=== PATIENT | female | born 1945 | race Caucasian/White ===

== ENCOUNTER → 2017-09-27 12:59 | Outpatient (CLI) | payer MEDICARE, SELFPAY ==
--- NOTE | 2017-09-27 13:00 | SP.MBSS_ITS ---
PRIMARY / SECONDARY DIAGNOSIS: dysphagia (R13.10) REFERRING PHYSICIAN: TIA WintersC CURRENT DIET: regular textures, thin liquids DENTITION: WFL MENTAL STATUS: appropriate to participate in MBS RESPIRATORY STATUS: O2 via room air PREVIOUS MODIFIED BARIUM SWALLOW STUDY: 06/26/2014 MBS revealed mild oropharyngeal dysphagia with transient penetration of thin liquids. 05/21/2014 MBS revealed mild to moderate oropharyngeal dysphagia with penetration and transient aspiration of thin liquids 07/24/2013 MBS revealed moderate oral phase dysphagia with penetration and transient aspiration of regular textures. REASON FOR REFERRAL: Patient is a 71 year old female referred for a modified barium swallow (MBS) study to objectively assess the Patients oropharyngeal swallow function under fluoroscopy secondary to the diagnosis of Parkinsons disease. Patients daughter present, both report intermittent coughing during PO intake possibly associated with thin liquid ingestion. 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 ([facility]), though in October of 2015, Patient was unable to progress due to a week-long hospitalization, with no re-initiation and subsequent discharge. MEDICAL HISTORY: Parkinson disease, breast cancer, diverticulosis, hypertension, hyperlipidemia , iodine allergy. STUDY FINDINGS: Patient participated in a Modified Barium Swallow (MBS) study on 09/27/2017. Dr. Taveras was the radiologist present for this evaluation. This study was recorded in the lateral view and images were sent to PACs for storage. The following consistencies were presented to this patient for analysis of oropharyngeal swallow function: thin liquids, nectar thickened liquids, pudding , and a regular textured, [place] Doone cookie. Results of the MBS are as follows: PENETRATION / ASPIRATION SCALE (FERNANDES): 1 = does not enter airway 2 = enters airway/above vocal folds/ejected 3 = enters airway/above vocal folds/not ejected 4 = enters airway/contacts vocal folds/ejected 5 = enters airway/contacts vocal folds/not ejected 6 = enters airway/below vocal folds/ejected 7 = enters airway/below vocal folds/not ejected despite effort 8 = enters airway/below vocal folds/no effort VIDEOFLOROSCOPIC SCALE SCORE (FERNANDES): Grade I = aspiration of material that has penetrated into the laryngeal vestibule, intact cough reflex Grade II = aspiration < 10 % of the bolus, intact cough reflex Grade III = aspiration of < 10 % of the bolus, reduced cough reflex or aspiration of > 10 % of the bolus, intact cough reflex Grade IV = aspiration of > 10 % of the bolus, reduced cough reflex PENETRATION / ASPIRATION SCALE (SCORE) WITH VIDEOFLOROSCOPIC SCALE SCORE: Thin liquid - 5 mL tsp.: 1 Thin liquids via cup (single sip): 5 Thin liquids via cup (single sip): 5 Thin liquids via cup (single sip): 8 - Grade III Thin liquids via cup (single sip): 8 - Grade IV [place] thickened liquids via cup (single sip): 1 [place] thickened liquids via cup (single sip): 1 [place] thickened liquids via cup (single sip): 2 [place] thickened liquids via cup (chin tuck): 1 [place] thickened liquids via cup (chin tuck): 2 [place] thickened liquids via cup (chin tuck): 1 Pudding via spoon: 1 Regular textured cookie: 1 [place] thickened liquids via cup (single sip): 1 IMPRESSION: DIAGNOSIS: moderate oropharyngeal dysphagia (R13.12) ORAL PHASE CHARACTERIZED BY: LABIAL SEAL: no labial escape TONGUE CONTROL DURING BOLUS MANIPULATION: posterior escape of less than half of bolus (decline) BOLUS PREPARATION / MASTICATION: slow prolonged chewing/mashing with complete recollection BOLUS TRANSPORT / LINGUAL MOTION: brisk tongue motion; noted delayed lingual motion during pureed trials associated with miscommunication between clinician and Patient. ORAL RESIDUE: residue collection on oral structures (decline) PHARYNGEAL PHASE CHARACTERIZED BY: INITIATION OF PHARYNGEAL SWALLOW: bolus head in pyriforms at first hyoid excursion (decline) SOFT PALATE ELEVATION: intermittent trace column of contrast/air between soft palate and pharyngeal wall (decline) LARYNGEAL ELEVATION: partial superior movement of thyroid cartilage/partial approximation of arytenoids cartilage to epiglottic petiole ANTERIOR HYOID EXCURSION: partial anterior movement (decline) EPIGLOTTIC MOVEMENT: complete epiglottic inversion LARYNGEAL VESTIBULE CLOSURE AT HEIGHT OF SWALLOW: incomplete laryngeal vestibule closure with narrow column of air/contrast in laryngeal vestibule PHARYNGEAL STRIPPING WAVE: pharyngeal stripping wave present / diminished ( decline) PHARYNGOESOPHAGEAL SEGMENT OPENING: partial distension and partial duration; partial obstruction of flow (decline) TONGUE BASE RETRACTION: trace column of contrast between tongue base and posterior pharyngeal wall PHARYNGEAL RESIDUE: collection of residue within or on pharyngeal structures ( decline) ESOPHAGEAL PHASE CHARACTERIZED BY: ESOPHAGEAL BOLUS CLEARANCE IN THE UPRIGHT POSITION: complete clearance; esophageal coating EFFECTS OF TREATMENT STRATEGIES ATTEMPTED: Chin tuck posture = moderately effective Reduced bolus size = moderately effective DIET TEXTURE RECOMMENDATIONS: Will recommend a regular-soft textured, nectar thickened liquid diet. COMPENSATORY STRATEGIES RECOMMENDED: Chin tuck with thin liquids, reduced bolus volume, reduced rate of intake, seated upright at 90 degrees during PO intake, remain upright for 30-60 minutes post meal (GERD precaution), medications with applesauce, INTERPRETATION OF RESULTS: Patient presents with moderate oropharyngeal dysphagia (R13.12) secondary to the diagnosis of Parkinsons disease. Pharyngeal phase marked by delayed pharyngeal swallow onset timing and reduced closure of the airway during deglutition resulting in pre-prandial and prandial aspiration of thin liquids; and to a lesser extent poor pharyngeal motility / pharyngeal dysmotility placing the Patient at higher risk for post prandial aspiration. Velopharyngeal insufficiency noted, though no clinical significance aside from hypernasality during conversation. Insufficient laryngeal vestibule pressure generated to expel penetrated material during trials of thin liquids (improved ejection with nectar thickened liquids). Insufficient cued cough to expel penetrated material / laryngotracheal aspiration. Patient noted to SILENTLY aspirate with thin liquids, with clinical assessment at bedside relying on identification of classic overt signs and symptoms of aspiration unreliable. RECOMMENDATIONS: Would strongly discourage advancement to a PO diet without completion of a repeat modified barium swallow study due to the extent of aspiration identified that was SILENT in nature. Would consider a repeat modified barium swallow study following training and implementation of compensatory swallow strategies ( chin tuck) if the Patient is able to consistently demonstrate and implement targeted strategies (possibly within 4-8 weeks, at least 2 weeks of consistent execution). Would consider implementation of the [place] Free Water Protocol ( FFWP) following Patient and family education IF the Patient has the adequate level of supervision / assistance at home. Patient requires intensive skilled speech-language intervention targeting continued diet texture management; training and implementation of recommended compensatory strategies; training, implementation, and Patient education regarding implementation of the FFWP if deemed clinically appropriate; Patient and caregiver education regarding dysphagia associated with Parkinsons disease; and Patient and caregiver training targeting thickened liquid preparation. Would consider training and implementation of oropharyngeal strengthening exercises to facilitate improved oropharyngeal strength and coordination, though significant improvement is not likely due to the progressive nature of the Patients diagnosis. ADDITIONAL COMMENTS/RECOMMENDATIONS: Results and recommendations were discussed with the Patient immediately following MBS completion, with the Patient verbalizing understanding and agreement with all recommendations and education provided. IMAGE COUNT: [id number] G-CODES: SWALLOWING [id number] Current Status: CJ SWALLOWING G8997 Goal Status: CI SWALLOWING [id number] Discharge Status: CJ
--- NOTE | 2017-09-27 13:10 | RAD_ITS ---
STUDY: SWALLOWING STUDY REASON FOR EXAM: Female, 71 years old. Dysphagia and weakness. TECHNIQUE: The examination was performed with Speech Pathology in attendance. Under fluoroscopic observation, the patient ingested thin barium, thick barium, barium pudding, and barium coated cracker. FLUOROSCOPY TIME: 2:36 minutes/seconds. 3711 spot images were obtained. RADIOLOGIST INVOLVEMENT: Radiologist was present and providing direct supervision. COMPARISON: None. FINDINGS: The following was observed during swallowing of the various mixtures of barium: Thin Barium: Aspiration with ingestion of thin liquids. Thick Barium: Penetration with ingestion of nectar thickened liquids. Barium Pudding: There was no evidence of aspiration or laryngeal penetration. Barium Coated Cracker: There was no evidence of aspiration or laryngeal penetration. RAD/Swallowing Function w/Video IMPRESSION: Aspiration with ingestion of thin liquids. The swallow study findings were discussed with the patient by the speech pathologist at the conclusion of the examination. Please see speech pathology report for more information and recommendations. Electronically Signed: Ismael Taveras MD at 15:22 EDT Tel [phone], Service support ,
== END ==
PROVIDERS: Family Provider Family Medicine; PCP Family Medicine; Visit Provider Nurse Practitioner Acute Care
DX: G20 Parkinson's disease (principal); R49.9 Unspecified voice and resonance disorder
CPT/HCPCS: 74230; 92611; G8996; G8997; G8998

== ENCOUNTER → 2017-10-02 10:03 | Outpatient (CLI) | payer MEDICARE, SELFPAY ==
[2017-10-02 12:21] LABS: Absolute Lymphocyte Count 0.93 X10^3/ul (0.83-4.51); Absolute Neutrophil Count 4.2 X10^3/uL (2.0-7.7); Basophil# 0.08 X10^3/uL; Basophil% 1.4 % (0-1); Eosinophil# 0.07 X10^3/uL; Eosinophils% 1.3 % (0-5); Hematocrit 39.4 % (37-47); Hemoglobin 12.9 g/dl (12.0-15.0); Lymphocyte # 0.93 X10^3/ul (4.0); Lymphocyte % 16.6 % (19-41); Mean Corp Hgb Conc 32.7 g/gl (32-36); Mean Corpuscular Hgb 32.8 pg (27.0-32.0); Mean Corpuscular Volume 100.3 fL (81-99); Mean Platelet Vol. 10.5 fl (6.2-12.0); Monocyte# 0.35 X10^3/uL; Monocyte% 6.3 % (0-10); Neutrophil # 4.16 X10^3/uL (2.7-7.7); Neutrophil % 74.2 % (47-70); Platelet Count 223 K/mm3 (150-450); RBC Distribution Width SD 43.5 fl (35.1-43.9); Red Blood Count 3.93 M/mm3 (4.2-5.4); White Blood Count 5.6 K/mm3 (4.4-11.0)
[2017-10-02 12:29] LABS: POSITIVE COUNT NO; POSITIVE DIFFERENTIAL NO; POSITIVE MORPHOLOGY NO
[2017-10-02 12:33] LABS: Vitamin D,25 Hydroxy 48.1 ng/mL (29.95-100.01)
[2017-10-02 12:38] LABS: Anion Gap 6 (5-15); BUN 21 mg/dL (7-18); BUN/Creat Ratio 27.7 RATIO (10-20); Calcium,Total 8.9 mg/dL (8.5-10.1); Chloride 98 mmol/L (98-107); Creatinine, Serum 0.76 mg/dL (0.55-1.02); EST Glomerular Filtration Rate 80 mL/min (>60); Est Glom Filt Rate - Afr Amer 96 mL/min (>60); Glucose 87 mg/dL (74-106); Sodium Level 136 mmol/L (136-145); Thyroid Stim Hormone (TSH) 0.45 uIU/mL (0.358-3.74)
== END ==
PROVIDERS: Family Provider Family Medicine; PCP Family Medicine; Visit Provider Family Medicine
DX: I48.0 Paroxysmal atrial fibrillation (principal); I10 Essential (primary) hypertension; E55.9 Vitamin D deficiency, unspecified; N39.0 Urinary tract infection, site not specified
CPT/HCPCS: 36415; 80048; 82306; 84443; 85025; 87086; 87088

== ENCOUNTER → 2017-12-20 12:44 | Outpatient (CLI) | payer MEDICARE, SELFPAY ==
--- NOTE | 2017-12-20 12:46 | RAD_ITS ---
STUDY: SWALLOWING STUDY REASON FOR EXAM: Female, 72 years old. Dysphagia. TECHNIQUE: The examination was performed with Speech Pathology in attendance. Under fluoroscopic observation, the patient ingested thin barium, thick barium, barium pudding, and barium coated cracker. FLUOROSCOPY TIME: 2:30 minutes/seconds. 1451 fluoroscopy spots were obtained. RADIOLOGIST INVOLVEMENT: Radiologist was present and providing direct supervision. COMPARISON: None. FINDINGS: The following was observed during swallowing of the various mixtures of barium: Thin Barium: Transient penetration with ingestion of thin liquids. This improves with delay swallow technique. Barium Pudding: There was no evidence of aspiration or laryngeal penetration. Barium Coated Cracker: There was no evidence of aspiration or laryngeal penetration. RAD/Swallowing Function w/Video IMPRESSION: Transient penetration with ingestion of thin liquids. The swallow study findings were discussed with the patient by the speech pathologist at the conclusion of the examination. Please see speech pathology report for more information and recommendations. Electronically Signed: Ismael Taveras MD at 14:46 EDT Tel [phone], Service support ,
--- NOTE | 2017-12-20 13:00 | SP.MBSS_ITS ---
PRIMARY / SECONDARY DIAGNOSIS: dysphagia (R13.10) REFERRING PHYSICIAN: Julianne Brady CNP CURRENT DIET: regular textures, thin liquids DENTITION: WFL MENTAL STATUS: appropriate to participate in MBS RESPIRATORY STATUS: O2 via room air PREVIOUS MODIFIED BARIUM SWALLOW STUDY: 09/27/2017 MBS revealed moderate oropharyngeal dysphagia (R13.12) with SILENT grade IV aspiration of thin liquids. 06/26/2014 MBS revealed mild oropharyngeal dysphagia with transient penetration of thin liquids. 05/21/2014 MBS revealed mild to moderate oropharyngeal dysphagia with penetration and transient aspiration of thin liquids 07/24/2013 MBS revealed moderate oral phase dysphagia with penetration and transient aspiration of regular textures. REASON FOR REFERRAL: Patient is a 72 year old female referred for a repeat modified barium swallow ( MBS) study to objectively assess the Patients oropharyngeal swallow function under fluoroscopy secondary to the diagnosis of Parkinsons disease. 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 MEDICAL HISTORY: Parkinson disease, breast cancer, diverticulosis, hypertension, hyperlipidemia , iodine allergy. STUDY FINDINGS: Patient participated in a Modified Barium Swallow (MBS) study on 12/20/2017. Dr. Taveras was the radiologist present for this evaluation. This study was recorded in the lateral view and images were sent to PACs for storage. The following consistencies were presented to this patient for analysis of oropharyngeal swallow function: thin liquids, pudding, and a regular textured, [place]a Doone cookie. Results of the MBS are as follows: PENETRATION / ASPIRATION SCALE (FERNANDSE): 1 = does not enter airway 2 = enters airway/above vocal folds/ejected 3 = enters airway/above vocal folds/not ejected 4 = enters airway/contacts vocal folds/ejected 5 = enters airway/contacts vocal folds/not ejected 6 = enters airway/below vocal folds/ejected 7 = enters airway/below vocal folds/not ejected despite effort 8 = enters airway/below vocal folds/no effort PENETRATION / ASPIRATION SCALE (SCORE): Thin liquid - 5 mL tsp.: 1 Thin liquids via cup (single sip): 1 Thin liquids via cup (single sip): 5 Thin liquids via cup (single sip): 1 Thin liquids via cup (3 second prep): 1 Thin liquids via cup (3 second prep): 1 Thin liquids via cup (3 second prep): 1 Pudding via spoon: 1 Regular textured cookie: 1 Thin liquids via cup (3 second prep): 1 Thin liquids via cup (3 second prep): 2 * all trials completed with execution of the chin tuck posture denotes suboptimal execution of the 3 second delay IMPRESSION: DIAGNOSIS: mild to moderate oropharyngeal dysphagia (R13.12) ORAL PHASE CHARACTERIZED BY: LABIAL SEAL: no labial escape TONGUE CONTROL DURING BOLUS MANIPULATION: posterior escape of less than half of bolus BOLUS PREPARATION / MASTICATION: slow prolonged chewing/mashing with complete recollection BOLUS TRANSPORT / LINGUAL MOTION: delayed initiation of tongue motion most prominently during trials of more viscous textures (5 seconds) with additional repetitive / discoordinated movements ORAL RESIDUE: residue collection on oral structures PHARYNGEAL PHASE CHARACTERIZED BY: INITIATION OF PHARYNGEAL SWALLOW: bolus head intermittently at posterior laryngeal surface of epiglottis at first hyoid excursion SOFT PALATE ELEVATION: intermittent trace column of contrast/air between soft palate and pharyngeal wall LARYNGEAL ELEVATION: partial superior movement of thyroid cartilage/partial approximation of arytenoids cartilage to epiglottic petiole ANTERIOR HYOID EXCURSION: partial anterior movement EPIGLOTTIC MOVEMENT: complete epiglottic inversion LARYNGEAL VESTIBULE CLOSURE AT HEIGHT OF SWALLOW: incomplete laryngeal vestibule closure with narrow column of air/contrast in laryngeal vestibule PHARYNGEAL STRIPPING WAVE: pharyngeal stripping wave present / diminished PHARYNGOESOPHAGEAL SEGMENT OPENING: complete distension and complete duration with no obstruction of flow TONGUE BASE RETRACTION: trace column of contrast between tongue base and posterior pharyngeal wall PHARYNGEAL RESIDUE: collection of residue within or on pharyngeal structures ESOPHAGEAL PHASE CHARACTERIZED BY: ESOPHAGEAL BOLUS CLEARANCE IN THE UPRIGHT POSITION: could not view EFFECTS OF TREATMENT STRATEGIES ATTEMPTED: 3 second prep = effective Chin tuck posture = moderately effective Reduced bolus size = moderately effective DIET TEXTURE RECOMMENDATIONS: Will recommend a regular-soft textured, nectar thickened liquid diet pending Patient follow up with outpatient therapist. COMPENSATORY STRATEGIES RECOMMENDED: Chin tuck and 3 second prep with thin liquids, reduced bolus volume, reduced rate of intake, seated upright at 90 degrees during PO intake, remain upright for 30-60 minutes post meal (GERD precaution), medications with applesauce, INTERPRETATION OF RESULTS: Patient presents with mild to moderate oropharyngeal dysphagia (R13.12) secondary to the diagnosis of Parkinsons disease. Oral phase primarily marked by intermittent delayed oral phase swallow onset most pronounced during ingestion of pudding textures, with prolonged oral phase delay (5 seconds) accompanied by lingual pumping / festinations. Pharyngeal phase marked by delayed pharyngeal swallow onset timing and reduced closure of the airway during deglutition resulting prandial penetration of thin liquids on two occasions with chin tuck posture (ameliorated with execution of 3 second prep). MBS otherwise very similar to previous study. Insufficient laryngeal vestibule pressure generated to expel penetrated material during trials of thin liquids ( improved ejection with nectar thickened liquids). RECOMMENDATIONS: No aspiration occurring this date, with study results indicating possible tolerance of thin liquids with 3 second prep combined with the chin tuck posture. However, the Patient is at high risk for aspiration and pulmonary complications associated with aspiration when considering the diagnosis of Parkinsons disease, weak cough response (dystussia), and silent aspiration recently appreciated under fluoroscopy. Would recommend advancing if the Patent understands that there is no guarantee that the above stated recommendations will prevent aspiration over a prolonged period of time, with further decline in swallow function anticipated with the diagnosis of Parkinsons disease. Recommended that the Patient discuss with her primary therapist prior to discontinuing nectar thickened liquids. If the Patient does not advance, would strongly consider placement on the [place] Free Water Protocol (FFWP) following Patient and family education, as the Patient was able to recall aspiration precautions and independently implement under fluoroscopy. Patient requires intensive skilled speech-language intervention targeting continued diet texture management; training and implementation of recommended compensatory strategies ( 3 second prep & chin tuck execution); and training, implementation, and Patient education regarding implementation of the FFWP if deemed clinically appropriate. ADDITIONAL COMMENTS/RECOMMENDATIONS: Results and recommendations were discussed with the Patient immediately following MBS completion, with the Patient verbalizing understanding and agreement with all recommendations and education provided. IMAGE COUNT: [id number] SWALLOWING [id number] Current Status: SWALLOWING G8997 Goal Status: SWALLOWING G8998 Discharge Status:
== END ==
PROVIDERS: Family Provider Family Medicine; PCP Family Medicine; Visit Provider Nurse Practitioner Acute Care
DX: R13.12 Dysphagia, oropharyngeal phase (principal); G20 Parkinson's disease
CPT/HCPCS: 74230; 92611; G8996; G8997; G8998

== ENCOUNTER 2018-01-23 09:30 | Outpatient (RCR) | payer MEDICARE, SELFPAY ==
--- NOTE | 2017-10-16 15:13 | ST ---
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 05/21/2014 MBS revealed mild to moderate oropharyngeal dysphagia with penetration and transient aspiration of thin liquids 07/24/2013 MBS revealed moderate oral phase dysphagia with penetration and transient aspiration of regular textures. REASON FOR REFERRAL: Patient is a 71 year old female referred for a modified barium swallow (MBS) study to objectively assess the Patients oropharyngeal swallow function under fluoroscopy secondary to the diagnosis of Parkinsons disease. Patients daughter present, both report intermittent coughing during PO intake possibly associated with thin liquid ingestion. 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 Therapy ([facility]), though in October of 2015, Patient was unable to progress due to a week-long hospitalization, with no re-initiation and subsequent discharge. MEDICAL HISTORY: Parkinson disease, breast cancer, diverticulosis, hypertension, hyperlipidemia, iodine allergy. STUDY FINDINGS: Patient participated in a Modified Barium Swallow (MBS) study on 09/27/2017. Dr. Taveras was the radiologist present for this evaluation. This study was recorded in the lateral view and images were sent to PACs for storage. The following consistencies were presented to this patient for analysis of oropharyngeal swallow function: thin liquids, nectar thickened liquids, pudding, and a regular textured, [place]a Doone cookie. Results of the MBS are as follows: PENETRATION / ASPIRATION SCALE (FERNANDES): 1 = does not enter airway 2 = enters airway/above vocal folds/ejected 3 = enters airway/above vocal folds/not ejected 4 = enters airway/contacts vocal folds/ejected 5 = enters airway/contacts vocal folds/not ejected 6 = enters airway/below vocal folds/ejected 7 = enters airway/below vocal folds/not ejected despite effort 8 = enters airway/below vocal folds/no effort VIDEOFLOROSCOPIC SCALE SCORE (FERNANDES): Grade I = aspiration of material that has penetrated into the laryngeal vestibule, intact cough reflex Grade II = aspiration < 10 % of the bolus, intact cough reflex Grade III = aspiration of < 10 % of the bolus, reduced cough reflex or aspiration of > 10 % of the bolus, intact cough reflex Grade IV = aspiration of > 10 % of the bolus, reduced cough reflex PENETRATION / ASPIRATION SCALE (SCORE) WITH VIDEOFLOROSCOPIC SCALE SCORE: Thin liquid - 5 mL tsp.: 1 Thin liquids via cup (single sip): 5 Thin liquids via cup (single sip): 5 Thin liquids via cup (single sip): 8 - Grade III Thin liquids via cup (single sip): 8 - Grade IV [place] thickened liquids via cup (single sip): 1 [place] thickened liquids via cup (single sip): 1 [place] thickened liquids via cup (single sip): 2 [place] thickened liquids via cup (chin tuck): 1 [place] thickened liquids via cup (chin tuck): 2 [place] thickened liquids via cup (chin tuck): 1 Pudding via spoon: 1 Regular textured cookie: 1 [place] thickened liquids via cup (single sip): 1 IMPRESSION: DIAGNOSIS: moderate oropharyngeal dysphagia (R13.12) ORAL PHASE CHARACTERIZED BY: LABIAL SEAL: no labial escape TONGUE CONTROL DURING BOLUS MANIPULATION: posterior escape of less than half of bolus (decline) BOLUS PREPARATION / MASTICATION: slow prolonged chewing/mashing with complete recollection BOLUS TRANSPORT / LINGUAL MOTION: brisk tongue motion; noted delayed lingual motion during pureed trials associated with miscommunication between clinician and Patient. ORAL RESIDUE: residue collection on oral structures (decline) PHARYNGEAL PHASE CHARACTERIZED BY: INITIATION OF PHARYNGEAL SWALLOW: bolus head in pyriforms at first hyoid excursion (decline) SOFT PALATE ELEVATION: intermittent trace column of contrast/air between soft palate and pharyngeal wall (decline) LARYNGEAL ELEVATION: partial superior movement of thyroid cartilage/partial approximation of arytenoids cartilage to epiglottic petiole ANTERIOR HYOID EXCURSION: partial anterior movement (decline) EPIGLOTTIC MOVEMENT: complete epiglottic inversion LARYNGEAL VESTIBULE CLOSURE AT HEIGHT OF SWALLOW: incomplete laryngeal vestibule closure with narrow column of air/contrast in laryngeal vestibule PHARYNGEAL STRIPPING WAVE: pharyngeal stripping wave present / diminished (decline) PHARYNGOESOPHAGEAL SEGMENT OPENING: partial distension and partial duration; partial obstruction of flow (decline) TONGUE BASE RETRACTION: trace column of contrast between tongue base and posterior pharyngeal wall PHARYNGEAL RESIDUE: collection of residue within or on pharyngeal structures (decline) ESOPHAGEAL PHASE CHARACTERIZED BY: ESOPHAGEAL BOLUS CLEARANCE IN THE UPRIGHT POSITION: complete clearance; esophageal coating EFFECTS OF TREATMENT STRATEGIES ATTEMPTED: Chin tuck posture = moderately effective Reduced bolus size = moderately effective DIET TEXTURE RECOMMENDATIONS: Will recommend a regular-soft textured, nectar thickened liquid diet. COMPENSATORY STRATEGIES RECOMMENDED: Chin tuck with thin liquids, reduced bolus volume, reduced rate of intake, seated upright at 90 degrees during PO intake, remain upright for 30-60 minutes post meal (GERD precaution), medications with applesauce, INTERPRETATION OF RESULTS: Patient presents with moderate oropharyngeal dysphagia (R13.12) secondary to the diagnosis of Parkinsons disease. Pharyngeal phase marked by delayed pharyngeal swallow onset timing and reduced closure of the airway during deglutition resulting in pre-prandial and prandial aspiration of thin liquids; and to a lesser extent poor pharyngeal motility / pharyngeal dysmotility placing the Patient at higher risk for post prandial aspiration. Velopharyngeal insufficiency noted, though no clinical significance aside from hypernasality during conversation. Insufficient laryngeal vestibule pressure generated to expel penetrated material during trials of thin liquids (improved ejection with nectar thickened liquids). Insufficient cued cough to expel penetrated material / laryngotracheal aspiration. Patient noted to SILENTLY aspirate with thin liquids, with clinical assessment at bedside relying on identification of classic overt signs and symptoms of aspiration unreliable. RECOMMENDATIONS: Would strongly discourage advancement to a PO diet without completion of a repeat modified barium swallow study due to the extent of aspiration identified that was SILENT in nature. Would consider a repeat modified barium swallow study following training and implementation of compensatory swallow strategies (chin tuck) if the Patient is able to consistently demonstrate and implement targeted strategies (possibly within 4-8 weeks, at least 2 weeks of consistent execution). Would consider implementation of the [place] Free Water Protocol (FFWP) following Patient and family education IF the Patient has the adequate level of supervision / assistance at home. Patient requires intensive skilled speech-language intervention targeting continued diet texture management; training and implementation of recommended compensatory strategies; training, implementation, and Patient education regarding implementation of the FFWP if deemed clinically appropriate; Patient and caregiver education regarding dysphagia associated with Parkinsons disease; and Patient and caregiver training targeting thickened liquid preparation. Would consider training and implementation of oropharyngeal strengthening exercises to facilitate improved oropharyngeal strength and coordination, though significant improvement is not likely due to the progressive nature of the Patients diagnosis. ADDITIONAL COMMENTS/RECOMMENDATIONS: Results and recommendations were discussed with the Patient immediately following MBS completion, with the Patient verbalizing understanding and agreement with all recommendations and education provided. IMAGE COUNT: [id number] G-CODES: SWALLOWING [id number] Current Status: SWALLOWING G8997 Goal Status: SWALLOWING G8998 Discharge Status: 09/27/17 1545 <Electronically signed by Prakash Mcfarlane M.A., [facility]Y-[employer]ITT[employer] RO[employer] MAINTENANCE MECHANIC> Date Prakash Mcfarlane M.A., [facility]Y-[employer]ITTING [employer] MAINTENANCE MECHANIC
--- NOTE | 2017-10-16 15:19 | HP.SP.AD ---
History - History Date of Eval: 10/16/17 Medical Diagnosis (from RX): PD Date of Onset of Diagnosis: 2010 Previous speech therapy: Yes Results: Good effort on the patient's part with home practice reported regularly. Discharge was Other Relevant Medical History/Diagnoses/Surgery: Parkinson's Disease Medications related to this diagnosis: diovan, amlodipineSinemet 4x daily, Amlodipine Besylate, Eliquis, celexa, Meetoprolol Smoking Status: Never smoker Hx Smoking: No - lived with smoker x50yrs Hx Tobacco Use: No - Pain Is pain an issue with your current prescribed condition?: No - Personal Occupation: Semi retired. Right Hearing Abillity: Normal Left Hearing Abillity: Normal Visual Assistive Devices: Glasses Patients Living Arrangements: With Significant Other Patient Allergies - Allergies Allergies iodine Allergy (Verified 10/15/16 09:04) Hives latex Allergy (Verified 12/26/16 14:14) Rash rotigotine [From Neupro] Allergy (Verified 10/17/16 10:48) Rash shellfish derived Allergy (Verified 10/15/16 09:04) Hives Sulfa (Sulfonamide Antibiotics) Allergy (Verified 10/15/16 09:04) Hives diltiazem Adverse Reaction (Verified 12/27/16 07:00) Rash Subjective Oral Motor - Subjective Patient Reports: Difficulty being Understood Objective Oral Motor - Oral Status Dentition: WNL - Labial Impairment: WNL Observation at Rest: WNL Closure: WNL Pucker: WNL Retraction: WNL Involuntary Movement noted: No - Lingual Impairment: WNL Protrusion: WNL Retraction: WNL Lateralization: WNL - Jaw Impairment: WNL - Respiratory Status Respiratory Status: Room Air Modified Barium Results Hx MBS Report Entered: Yes MBS Results (from prior exam): 10/16/17 15:13 Speech Therapy by Justin Arreguin Modified Barium Swallow Study MR#: [id number] Acct: [id number] Name: MILEY RANKIN Rep #: [id number] : 1945 71 From: Prakash Mcfarlane M.A. CFY-PRODUCTION SUPPORT MANAGER PRIMARY / SECONDARY DIAGNOSIS: dysphagia (R13.10) REFERRING PHYSICIAN: MARILYN Winters CURRENT DIET: regular textures, thin liquids DENTITION: WFL MENTAL STATUS: appropriate to participate in MBS RESPIRATORY STATUS: O2 via room air PREVIOUS MODIFIED BARIUM SWALLOW STUDY: 06/26/2014 MBS revealed mild oropharyngeal dysphagia with transient penetration of thin liquids. 05/21/2014 MBS revealed mild to moderate oropharyngeal dysphagia with penetration and transient aspiration of thin liquids 07/24/2013 MBS revealed moderate oral phase dysphagia with penetration and transient aspiration of regular textures. REASON FOR REFERRAL: Patient is a 71 year old female referred for a modified barium swallow (MBS) study to objectively assess the Patients oropharyngeal swallow function under fluoroscopy secondary to the diagnosis of Parkinsons disease. Patients daughter present, both report intermittent coughing during PO intake possibly associated with thin liquid ingestion. 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 MEDICAL HISTORY: Parkinson disease, breast cancer, diverticulosis, hypertension, hyperlipidemia, iodine allergy. STUDY FINDINGS: Patient participated in a Modified Barium Swallow (MBS) study on 09/27/2017. Dr. Taveras was the radiologist present for this evaluation. This study was recorded in the lateral view and images were sent to PACs for storage. The following consistencies were presented to this patient for analysis of oropharyngeal swallow function: thin liquids, nectar thickened liquids, pudding, and a regular textured, Asha Doone cookie. Results of the MBS are as follows: PENETRATION / ASPIRATION SCALE (FERNANDES): 1 = does not enter airway 2 = enters airway/above vocal folds/ejected 3 = enters airway/above vocal folds/not ejected 4 = enters airway/contacts vocal folds/ejected 5 = enters airway/contacts vocal folds/not ejected 6 = enters airway/below vocal folds/ejected 7 = enters airway/below vocal folds/not ejected despite effort 8 = enters airway/below vocal folds/no effort VIDEOFLOROSCOPIC SCALE SCORE (FERNANDES): Grade I = aspiration of material that has penetrated into the laryngeal vestibule, intact cough reflex Grade II = aspiration < 10 % of the bolus, intact cough reflex Grade III = aspiration of < 10 % of the bolus, reduced cough reflex or aspiration of > 10 % of the bolus, intact cough reflex Grade IV = aspiration of > 10 % of the bolus, reduced cough reflex PENETRATION / ASPIRATION SCALE (SCORE) WITH VIDEOFLOROSCOPIC SCALE SCORE: Thin liquid - 5 mL tsp.: 1 Thin liquids via cup (single sip): 5 Thin liquids via cup (single sip): 5 Thin liquids via cup (single sip): 8 - Grade III Thin liquids via cup (single sip): 8 - Grade IV [place] thickened liquids via cup (single sip): 1 [place] thickened liquids via cup (single sip): 1 [place] thickened liquids via cup (single sip): 2 [place] thickened liquids via cup (chin tuck): 1 [place] thickened liquids via cup (chin tuck): 2 [place] thickened liquids via cup (chin tuck): 1 Pudding via spoon: 1 Regular textured cookie: 1 [place] thickened liquids via cup (single sip): 1 IMPRESSION: DIAGNOSIS: moderate oropharyngeal dysphagia (R13.12) ORAL PHASE CHARACTERIZED BY: LABIAL SEAL: no labial escape TONGUE CONTROL DURING BOLUS MANIPULATION: posterior escape of less than half of bolus (decline) BOLUS PREPARATION / MASTICATION: slow prolonged chewing/mashing with complete recollection BOLUS TRANSPORT / LINGUAL MOTION: brisk tongue motion; noted delayed lingual motion during pureed trials associated with miscommunication between clinician and Patient. ORAL RESIDUE: residue collection on oral structures (decline) PHARYNGEAL PHASE CHARACTERIZED BY: INITIATION OF PHARYNGEAL SWALLOW: bolus head in pyriforms at first hyoid excursion (decline) SOFT PALATE ELEVATION: intermittent trace column of contrast/air between soft palate and pharyngeal wall (decline) LARYNGEAL ELEVATION: partial superior movement of thyroid cartilage/partial approximation of arytenoids cartilage to epiglottic petiole ANTERIOR HYOID EXCURSION: partial anterior movement (decline) EPIGLOTTIC MOVEMENT: complete epiglottic inversion LARYNGEAL VESTIBULE CLOSURE AT HEIGHT OF SWALLOW: incomplete laryngeal vestibule closure with narrow column of air/contrast in laryngeal vestibule PHARYNGEAL STRIPPING WAVE: pharyngeal stripping wave present / diminished (decline) PHARYNGOESOPHAGEAL SEGMENT OPENING: partial distension and partial duration; partial obstruction of flow (decline) TONGUE BASE RETRACTION: trace column of contrast between tongue base and posterior pharyngeal wall PHARYNGEAL RESIDUE: collection of residue within or on pharyngeal structures (decline) ESOPHAGEAL PHASE CHARACTERIZED BY: ESOPHAGEAL BOLUS CLEARANCE IN THE UPRIGHT POSITION: complete clearance; esophageal coating EFFECTS OF TREATMENT STRATEGIES ATTEMPTED: Chin tuck posture = moderately effective Reduced bolus size = moderately effective DIET TEXTURE RECOMMENDATIONS: Will recommend a regular-soft textured, nectar thickened liquid diet. COMPENSATORY STRATEGIES RECOMMENDED: Chin tuck with thin liquids, reduced bolus volume, reduced rate of intake, seated upright at 90 degrees during PO intake, remain upright for 30-60 minutes post meal (GERD precaution), medications with applesauce, INTERPRETATION OF RESULTS: Patient presents with moderate oropharyngeal dysphagia (R13.12) secondary to the diagnosis of Parkinsons disease. Pharyngeal phase marked by delayed pharyngeal swallow onset timing and reduced closure of the airway during deglutition resulting in pre-prandial and prandial aspiration of thin liquids; and to a lesser extent poor pharyngeal motility / pharyngeal dysmotility placing the Patient at higher risk for post prandial aspiration. Velopharyngeal insufficiency noted, though no clinical significance aside from hypernasality during conversation. Insufficient laryngeal vestibule pressure generated to expel penetrated material during trials of thin liquids (improved ejection with nectar thickened liquids). Insufficient cued cough to expel penetrated material / laryngotracheal aspiration. Patient noted to SILENTLY aspirate with thin liquids, with clinical assessment at bedside relying on identification of classic overt signs and symptoms of aspiration unreliable. RECOMMENDATIONS: Would strongly discourage advancement to a PO diet without completion of a repeat modified barium swallow study due to the extent of aspiration identified that was SILENT in nature. Would consider a repeat modified barium swallow study following training and implementation of compensatory swallow strategies (chin tuck) if the Patient is able to consistently demonstrate and implement targeted strategies (possibly within 4-8 weeks, at least 2 weeks of consistent execution). Would consider implementation of the [place] Free Water Protocol (FFWP) following Patient and family education IF the Patient has the adequate level of supervision / assistance at home. Patient requires intensive skilled speech-language intervention targeting continued diet texture management; training and implementation of recommended compensatory strategies; training, implementation, and Patient education regarding implementation of the FFWP if deemed clinically appropriate; Patient and caregiver education regarding dysphagia associated with Parkinsons disease; and Patient and caregiver training targeting thickened liquid preparation. Would consider training and implementation of oropharyngeal strengthening exercises to facilitate improved oropharyngeal strength and coordination, though significant improvement is not likely due to the progressive nature of the Patients diagnosis. ADDITIONAL COMMENTS/RECOMMENDATIONS: Results and recommendations were discussed with the Patient immediately following MBS completion, with the Patient verbalizing understanding and agreement with all recommendations and education provided. IMAGE COUNT: [id number] G-CODES: SWALLOWING [id number] Current Status: CJ SWALLOWING [id number] Goal Status: CI SWALLOWING G8998 Discharge Status: 09/27/17 1545 <Electronically signed by Prakash Mcfarlane M.A., CFY-PRODUCTION SUPPORT MANAGER> Date Prakash Mcfarlane M.A., CFY-PRODUCTION SUPPORT MANAGER Electronically signed by Justin Arreguin M.A., [facility]-PRODUCTION SUPPORT MANAGER on 10/16/17 15:14 Initialized on 10/16/17 15:13 - END OF NOTE Subjective Voice - Intake Water (ounces): 48 Coffee (ounces): 0 Tea (ounces): 0 Soda (ounces): 0 Milk (ounces): 24 - Alcoholic Beverage Intake Intake: Never - Other Product Usage Do you take Vitamin C Supplements (if yes, list amt (mg)/day: Yes Subjective Clinical Impression - Adult Clinical Impression Breathiness: an audible excape of air or a 'weak' vocal tone suggestive of glottal insufficiency: Present Objective Voice - Medications Familiar with on/off effect: No - Implantation Deep brain implantation (If yes, answer next question): No - Objective data Objective Data: Objective data: Sound pressure level (SPL acoustic correlation of vocal loudness) was measured with a sound level meter at a distance of 40 cm from the patient's mouth. Average conversational loudness is 70-80 dB and sustained phonation duration is 15 to 20 seconds for a typical adult. Sustained Phonation Intensity (dB SPL): 78 Sustained Phonatin duration (seconds): 6 Is the individual stimulable to increase vocal intensity: Yes - with maximal cues. Vocal Intensity at Sentence Level (dB SPL): 63 Vocal Intensity at Conversational Level (dB SPL): Ranged from low 50's to 68 - Acoustic Analysis Acoustic Analysis: These results represent reading and conversational decibel levels that may significantly reduce speech intelligibility and communicative effectiveness. Amplitude Intensity Sustained (Average) in dB SPL: 78 Amplitude Intensity Conversational (Average) in dB SPL: average 62 Plan - Plan Plan: Speech therapy is warranted for a moderate voice disorder as well as moderate oropharyngeal dysphagia secondary to the diagnosis of Parkinsons disease. - Recommendations MBS: Yes Treatment Warranted: Yes - Frequency Frequency: 1x/Week Duration: 2 Months Visits in this POC: 8 - Prognosis Prognosis: Good - Goals that are Established: Determination:: Goals will be added/modified as deemed necessary and appropriate. Therapy will be discontinued when results of re-evaluation indicate therapy is no longer needed or lack of progress has been documented. - Goal #1-5 Goal #1: Patient will sustain phonation for 10-12 seconds to increase vocal respiratory support required for functional communication. Goal #2: Patient will increase vocal loudness to reach a target sound pressure level of 65 dB PRODUCTION SUPPORT MANAGER with 1 cue during reading at the word and sentence level, which will help increase vocal respiratory support for functional communication. Goal #3: Patient will increase vocal loudness to reach a target sound pressure level of 70 dB PRODUCTION SUPPORT MANAGER with 1 cue during conversation for functional communication. Goal #4: Pt. will independently demonstrate and utilize recommended compensatory swallowing techniques to facilitate improved airway protection and decreased risk for aspiration during PO intake, with minimal cueing and prompting provide by the clinician, across 2 out of 3 sessions. Goal #5: Patient will complete oropharyngeal exercises in therapy and independently at home on 4/5 trials with a repeat MBS before upgrade to thin liquids due to silent aspiration. Education - Patient Instruction Patient Education: Diagnosis, Treatment Plan, Goals, Home Exercise Program Person Taught: Patient Teaching Method: Discussion Response to teaching: Verbalize understanding
--- NOTE | 2017-12-26 15:44 | ST ---
Modified Barium Swallow Study MR#: [id number] Acct: [id number] Name: MILEY RANKIN Rep #: [id number] : 1945 72 From: Prakash Mcfarlane M.A., CFY-ROTATIONAL MOULDING OPERATOR PRIMARY / SECONDARY DIAGNOSIS: dysphagia (R13.10) REFERRING PHYSICIAN: Julianne Brady CNP CURRENT DIET: regular textures, thin liquids DENTITION: WFL MENTAL STATUS: appropriate to participate in MBS RESPIRATORY STATUS: O2 via room air PREVIOUS MODIFIED BARIUM SWALLOW STUDY: 09/27/2017 MBS revealed moderate oropharyngeal dysphagia (R13.12) with SILENT grade IV aspiration of thin liquids. 06/26/2014 MBS revealed mild oropharyngeal dysphagia with transient penetration of thin liquids. 05/21/2014 MBS revealed mild to moderate oropharyngeal dysphagia with penetration and transient aspiration of thin liquids 07/24/2013 MBS revealed moderate oral phase dysphagia with penetration and transient aspiration of regular textures. REASON FOR REFERRAL: Patient is a 72 year old female referred for a repeat modified barium swallow (MBS) study to objectively assess the Patients oropharyngeal swallow function under fluoroscopy secondary to the diagnosis of Parkinsons disease. 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 MEDICAL HISTORY: Parkinson disease, breast cancer, diverticulosis, hypertension, hyperlipidemia, iodine allergy. STUDY FINDINGS: Patient participated in a Modified Barium Swallow (MBS) study on 12/20/2017. Dr. Taveras was the radiologist present for this evaluation. This study was recorded in the lateral view and images were sent to PACs for storage. The following consistencies were presented to this patient for analysis of oropharyngeal swallow function: thin liquids, pudding, and a regular textured, Asha Doone cookie. Results of the MBS are as follows: PENETRATION / ASPIRATION SCALE (FERNANDES): 1 = does not enter airway 2 = enters airway/above vocal folds/ejected 3 = enters airway/above vocal folds/not ejected 4 = enters airway/contacts vocal folds/ejected 5 = enters airway/contacts vocal folds/not ejected 6 = enters airway/below vocal folds/ejected 7 = enters airway/below vocal folds/not ejected despite effort 8 = enters airway/below vocal folds/no effort PENETRATION / ASPIRATION SCALE (SCORE): Thin liquid - 5 mL tsp.: 1 Thin liquids via cup (single sip): 1 Thin liquids via cup (single sip): 5 Thin liquids via cup (single sip): 1 Thin liquids via cup (3 second prep): 1 Thin liquids via cup (3 second prep): 1 Thin liquids via cup (3 second prep): 1 Pudding via spoon: 1 Regular textured cookie: 1 Thin liquids via cup (3 second prep): 1 Thin liquids via cup (3 second prep): 2 * all trials completed with execution of the chin tuck posture denotes suboptimal execution of the 3 second delay IMPRESSION: DIAGNOSIS: mild to moderate oropharyngeal dysphagia (R13.12) ORAL PHASE CHARACTERIZED BY: LABIAL SEAL: no labial escape TONGUE CONTROL DURING BOLUS MANIPULATION: posterior escape of less than half of bolus BOLUS PREPARATION / MASTICATION: slow prolonged chewing/mashing with complete recollection BOLUS TRANSPORT / LINGUAL MOTION: delayed initiation of tongue motion most prominently during trials of more viscous textures (5 seconds) with additional repetitive / discoordinated movements ORAL RESIDUE: residue collection on oral structures PHARYNGEAL PHASE CHARACTERIZED BY: INITIATION OF PHARYNGEAL SWALLOW: bolus head intermittently at posterior laryngeal surface of epiglottis at first hyoid excursion SOFT PALATE ELEVATION: intermittent trace column of contrast/air between soft palate and pharyngeal wall LARYNGEAL ELEVATION: partial superior movement of thyroid cartilage/partial approximation of arytenoids cartilage to epiglottic petiole ANTERIOR HYOID EXCURSION: partial anterior movement EPIGLOTTIC MOVEMENT: complete epiglottic inversion LARYNGEAL VESTIBULE CLOSURE AT HEIGHT OF SWALLOW: incomplete laryngeal vestibule closure with narrow column of air/contrast in laryngeal vestibule PHARYNGEAL STRIPPING WAVE: pharyngeal stripping wave present / diminished PHARYNGOESOPHAGEAL SEGMENT OPENING: complete distension and complete duration with no obstruction of flow TONGUE BASE RETRACTION: trace column of contrast between tongue base and posterior pharyngeal wall PHARYNGEAL RESIDUE: collection of residue within or on pharyngeal structures ESOPHAGEAL PHASE CHARACTERIZED BY: ESOPHAGEAL BOLUS CLEARANCE IN THE UPRIGHT POSITION: could not view EFFECTS OF TREATMENT STRATEGIES ATTEMPTED: 3 second prep = effective Chin tuck posture = moderately effective Reduced bolus size = moderately effective DIET TEXTURE RECOMMENDATIONS: Will recommend a regular-soft textured, nectar thickened liquid diet pending Patient follow up with outpatient therapist. COMPENSATORY STRATEGIES RECOMMENDED: Chin tuck and 3 second prep with thin liquids, reduced bolus volume, reduced rate of intake, seated upright at 90 degrees during PO intake, remain upright for 30-60 minutes post meal (GERD precaution), medications with applesauce, INTERPRETATION OF RESULTS: Patient presents with mild to moderate oropharyngeal dysphagia (R13.12) secondary to the diagnosis of Parkinsons disease. Oral phase primarily marked by intermittent delayed oral phase swallow onset most pronounced during ingestion of pudding textures, with prolonged oral phase delay (5 seconds) accompanied by lingual pumping / festinations. Pharyngeal phase marked by delayed pharyngeal swallow onset timing and reduced closure of the airway during deglutition resulting prandial penetration of thin liquids on two occasions with chin tuck posture (ameliorated with execution of 3 second prep). MBS otherwise very similar to previous study. Insufficient laryngeal vestibule pressure generated to expel penetrated material during trials of thin liquids (improved ejection with nectar thickened liquids). RECOMMENDATIONS: No aspiration occurring this date, with study results indicating possible tolerance of thin liquids with 3 second prep combined with the chin tuck posture. However, the Patient is at high risk for aspiration and pulmonary complications associated with aspiration when considering the diagnosis of Parkinsons disease, weak cough response (dystussia), and silent aspiration recently appreciated under fluoroscopy. Would recommend advancing if the Patent understands that there is no guarantee that the above stated recommendations will prevent aspiration over a prolonged period of time, with further decline in swallow function anticipated with the diagnosis of Parkinsons disease. Recommended that the Patient discuss with her primary therapist prior to discontinuing nectar thickened liquids. If the Patient does not advance, would strongly consider placement on the [place] Free Water Protocol (FFWP) following Patient and family education, as the Patient was able to recall aspiration precautions and independently implement under fluoroscopy. Patient requires intensive skilled speech-language intervention targeting continued diet texture management; training and implementation of recommended compensatory strategies (3 second prep & chin tuck execution); and training, implementation, and Patient education regarding implementation of the FFWP if deemed clinically appropriate. ADDITIONAL COMMENTS/RECOMMENDATIONS: Results and recommendations were discussed with the Patient immediately following MBS completion, with the Patient verbalizing understanding and agreement with all recommendations and education provided. IMAGE COUNT: [id number] SWALLOWING [id number] Current Status: CJ SWALLOWING [id number] Goal Status: CI SWALLOWING [id number] Discharge Status: CJ 12/20/17 1749 <Electronically signed by Prakash Mcfarlane M.A., CFY-[facility]> Date Prakash Mcfarlane M.A., CFY-ROTATIONAL MOULDING OPERATOR
--- NOTE | 2017-12-26 15:49 | HP.SP.ADRE ---
Previous/Current Goals - Goals 1-5 Previous Goal #1: Patient will sustain phonation for 10-12 seconds to increase vocal respiratory support required for functional communication. Goal 1 Status: Initially: 6. Currently: 6 seconds. No change. Previous Goal #2: Patient will increase vocal loudness to reach a target sound pressure level of 65 dB MOTOR CHECKER with 1 cue during reading at the word and sentence level, which will help increase vocal respiratory support for functional communication. Goal 2 Status: Initially sentences were 63 dB. Currently: sentences are 71.1 dB. Goal met. Previous Goal #3: Patient will increase vocal loudness to reach a target sound pressure level of 70 dB MOTOR CHECKER with 1 cue during conversation for functional communication. Goal 3 Status: Initial conversation 62 dB average. Currently average is 65 dB. Goal is progressing and will continue. Previous Goal #4: Pt. will independently demonstrate and utilize recommended compensatory swallowing techniques to facilitate improved airway protection and decreased risk for aspiration during PO intake, with minimal cueing and prompting provide by the clinician, across 2 out of 3 sessions. Goal 4 Status: Miley Leroy is able to use a chin tuck with 100% use in therapy and she reports nearly all the time used outside of therapy. New technique added to train the patient on from MBS on 12/20/17. Previous Goal #5: Patient will complete oropharyngeal exercises in therapy and independently at home on 4/5 trials with a repeat MBS before upgrade to thin liquids due to silent aspiration. Goal 5 Status: Patient is able to complete these independently when given a list to follow. History - History Date of Eval: 10/16/17 Medical Diagnosis (from RX): PD Date of Onset of Diagnosis: 2010 Previous speech therapy: Yes Results: Good effort on the patient's part with home practice reported regularly. Discharge was Other Relevant Medical History/Diagnoses/Surgery: Parkinson's Disease Medications related to this diagnosis: diovan, amlodipineSinemet 4x daily, Amlodipine Besylate, Eliquis, celexa, Meetoprolol Smoking Status: Never smoker Hx Smoking: No - lived with smoker x50yrs Hx Tobacco Use: No - Pain Is pain an issue with your current prescribed condition?: No - Personal Occupation: Semi retired. Right Hearing Abillity: Normal Left Hearing Abillity: Normal Visual Assistive Devices: Glasses Patients Living Arrangements: With Significant Other Patient Allergies - Allergies Allergies iodine Allergy (Verified 11/27/17 13:49) Hives latex Allergy (Verified 11/27/17 13:49) Rash rotigotine [From Neupro] Allergy (Verified 11/27/17 13:49) Rash shellfish derived Allergy (Verified 11/27/17 13:49) Hives Sulfa (Sulfonamide Antibiotics) Allergy (Verified 11/27/17 13:49) Hives diltiazem Adverse Reaction (Verified 11/27/17 13:49) Rash Subjective Oral Motor - Subjective Patient Reports: Difficulty being Understood Objective Oral Motor - Oral Status Dentition: WNL - Labial Impairment: WNL Observation at Rest: WNL Closure: WNL Pucker: WNL Retraction: WNL Involuntary Movement noted: No - Lingual Impairment: WNL Protrusion: WNL Retraction: WNL Lateralization: WNL - Jaw Impairment: WNL - Respiratory Status Respiratory Status: Room Air Dysphagia Re-Eval - Re-Evaluation Dysphagia Re-Evaluation: See MBS dated 12/20/17 Modified Barium Results Hx MBS Report Entered: Yes MBS Results (from prior exam): 12/26/17 15:44 Speech Therapy by Justin Arreguin Modified Barium Swallow Study MR#: [id number] Acct: [id number] Name: MILEY RANKIN Rep #: [id number] : 1945 72 From: Prakash Mcfarlane M.A. CFY-MOTOR CHECKER PRIMARY / SECONDARY DIAGNOSIS: dysphagia (R13.10) REFERRING PHYSICIAN: Julianne Brady CNP CURRENT DIET: regular textures, thin liquids DENTITION: WFL MENTAL STATUS: appropriate to participate in MBS RESPIRATORY STATUS: O2 via room air PREVIOUS MODIFIED BARIUM SWALLOW STUDY: 09/27/2017 MBS revealed moderate oropharyngeal dysphagia (R13.12) with SILENT grade IV aspiration of thin liquids. 06/26/2014 MBS revealed mild oropharyngeal dysphagia with transient penetration of thin liquids. 05/21/2014 MBS revealed mild to moderate oropharyngeal dysphagia with penetration and transient aspiration of thin liquids 07/24/2013 MBS revealed moderate oral phase dysphagia with penetration and transient aspiration of regular textures. REASON FOR REFERRAL: Patient is a 72 year old female referred for a repeat modified barium swallow (MBS) study to objectively assess the Patients oropharyngeal swallow function under fluoroscopy secondary to the diagnosis of Parkinsons disease. 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 MEDICAL HISTORY: Parkinson disease, breast cancer, diverticulosis, hypertension, hyperlipidemia, iodine allergy. STUDY FINDINGS: Patient participated in a Modified Barium Swallow (MBS) study on 12/20/2017. Dr. Taveras was the radiologist present for this evaluation. This study was recorded in the lateral view and images were sent to PACs for storage. The following consistencies were presented to this patient for analysis of oropharyngeal swallow function: thin liquids, pudding, and a regular textured, Asha Doone cookie. Results of the MBS are as follows: PENETRATION / ASPIRATION SCALE (FERNANDES): 1 = does not enter airway 2 = enters airway/above vocal folds/ejected 3 = enters airway/above vocal folds/not ejected 4 = enters airway/contacts vocal folds/ejected 5 = enters airway/contacts vocal folds/not ejected 6 = enters airway/below vocal folds/ejected 7 = enters airway/below vocal folds/not ejected despite effort 8 = enters airway/below vocal folds/no effort PENETRATION / ASPIRATION SCALE (SCORE): Thin liquid - 5 mL tsp.: 1 Thin liquids via cup (single sip): 1 Thin liquids via cup (single sip): 5 Thin liquids via cup (single sip): 1 Thin liquids via cup (3 second prep): 1 Thin liquids via cup (3 second prep): 1 Thin liquids via cup (3 second prep): 1 Pudding via spoon: 1 Regular textured cookie: 1 Thin liquids via cup (3 second prep): 1 Thin liquids via cup (3 second prep): 2 * all trials completed with execution of the chin tuck posture denotes suboptimal execution of the 3 second delay IMPRESSION: DIAGNOSIS: mild to moderate oropharyngeal dysphagia (R13.12) ORAL PHASE CHARACTERIZED BY: LABIAL SEAL: no labial escape TONGUE CONTROL DURING BOLUS MANIPULATION: posterior escape of less than half of bolus BOLUS PREPARATION / MASTICATION: slow prolonged chewing/mashing with complete recollection BOLUS TRANSPORT / LINGUAL MOTION: delayed initiation of tongue motion most prominently during trials of more viscous textures (5 seconds) with additional repetitive / discoordinated movements ORAL RESIDUE: residue collection on oral structures PHARYNGEAL PHASE CHARACTERIZED BY: INITIATION OF PHARYNGEAL SWALLOW: bolus head intermittently at posterior laryngeal surface of epiglottis at first hyoid excursion SOFT PALATE ELEVATION: intermittent trace column of contrast/air between soft palate and pharyngeal wall LARYNGEAL ELEVATION: partial superior movement of thyroid cartilage/partial approximation of arytenoids cartilage to epiglottic petiole ANTERIOR HYOID EXCURSION: partial anterior movement EPIGLOTTIC MOVEMENT: complete epiglottic inversion LARYNGEAL VESTIBULE CLOSURE AT HEIGHT OF SWALLOW: incomplete laryngeal vestibule closure with narrow column of air/contrast in laryngeal vestibule PHARYNGEAL STRIPPING WAVE: pharyngeal stripping wave present / diminished PHARYNGOESOPHAGEAL SEGMENT OPENING: complete distension and complete duration with no obstruction of flow TONGUE BASE RETRACTION: trace column of contrast between tongue base and posterior pharyngeal wall PHARYNGEAL RESIDUE: collection of residue within or on pharyngeal structures ESOPHAGEAL PHASE CHARACTERIZED BY: ESOPHAGEAL BOLUS CLEARANCE IN THE UPRIGHT POSITION: could not view EFFECTS OF TREATMENT STRATEGIES ATTEMPTED: 3 second prep = effective Chin tuck posture = moderately effective Reduced bolus size = moderately effective DIET TEXTURE RECOMMENDATIONS: Will recommend a regular-soft textured, nectar thickened liquid diet pending Patient follow up with outpatient therapist. COMPENSATORY STRATEGIES RECOMMENDED: Chin tuck and 3 second prep with thin liquids, reduced bolus volume, reduced rate of intake, seated upright at 90 degrees during PO intake, remain upright for 30-60 minutes post meal (GERD precaution), medications with applesauce, INTERPRETATION OF RESULTS: Patient presents with mild to moderate oropharyngeal dysphagia (R13.12) secondary to the diagnosis of Parkinsons disease. Oral phase primarily marked by intermittent delayed oral phase swallow onset most pronounced during ingestion of pudding textures, with prolonged oral phase delay (5 seconds) accompanied by lingual pumping / festinations. Pharyngeal phase marked by delayed pharyngeal swallow onset timing and reduced closure of the airway during deglutition resulting prandial penetration of thin liquids on two occasions with chin tuck posture (ameliorated with execution of 3 second prep). MBS otherwise very similar to previous study. Insufficient laryngeal vestibule pressure generated to expel penetrated material during trials of thin liquids (improved ejection with nectar thickened liquids). RECOMMENDATIONS: No aspiration occurring this date, with study results indicating possible tolerance of thin liquids with 3 second prep combined with the chin tuck posture. However, the Patient is at high risk for aspiration and pulmonary complications associated with aspiration when considering the diagnosis of Parkinsons disease, weak cough response (dystussia), and silent aspiration recently appreciated under fluoroscopy. Would recommend advancing if the Patent understands that there is no guarantee that the above stated recommendations will prevent aspiration over a prolonged period of time, with further decline in swallow function anticipated with the diagnosis of Parkinsons disease. Recommended that the Patient discuss with her primary therapist prior to discontinuing nectar thickened liquids. If the Patient does not advance, would strongly consider placement on the [place] Free Water Protocol (FFWP) following Patient and family education, as the Patient was able to recall aspiration precautions and independently implement under fluoroscopy. Patient requires intensive skilled speech-language intervention targeting continued diet texture management; training and implementation of recommended compensatory strategies (3 second prep & chin tuck execution); and training, implementation, and Patient education regarding implementation of the FFWP if deemed clinically appropriate. ADDITIONAL COMMENTS/RECOMMENDATIONS: Results and recommendations were discussed with the Patient immediately following MBS completion, with the Patient verbalizing understanding and agreement with all recommendations and education provided. IMAGE COUNT: [id number] SWALLOWING [id number] Current Status: SWALLOWING G8997 Goal Status: SWALLOWING [id number] Discharge Status: 12/20/17 1749 <Electronically signed by Prakash Mcfarlane M.A., CFY-MOTOR CHECKER> Date Prakash Mcfarlane M.A., CFY-MOTOR CHECKER Electronically signed by Justin Arreguin M.A., [facility]-MOTOR CHECKER on 12/26/17 15:44 Initialized on 12/26/17 15:44 - END OF NOTE Plan - Plan Plan: Speech therapy is warranted to continue for voice deficits as well as dysphagia. - Recommendations Treatment Warranted: Yes - Frequency Frequency: 1x/Week Duration: 4 Weeks Visits in this POC: 4 - Prognosis Prognosis: Good - Goals that are Established: Determination:: Goals will be added/modified as deemed necessary and appropriate. Therapy will be discontinued when results of re-evaluation indicate therapy is no longer needed or lack of progress has been documented. - Goal #1-5 Goal #1: Patient will sustain phonation for 10-12 seconds to increase vocal respiratory support required for functional communication. Goal #2: Patient will increase vocal loudness to reach a target sound pressure level of 70 dB MOTOR CHECKER with 1 cue during conversation for functional communication. Goal #3: Pt. will independently demonstrate and utilize recommended compensatory swallowing techniques to facilitate improved airway protection and decreased risk for aspiration during PO intake, with minimal cueing and prompting provide by the clinician, across 2 out of 3 sessions.
--- NOTE | 2017-12-26 15:52 | HP.SP.ADRE_ITS ---
Previous/Current Goals - Goals 1-5 Previous Goal #1: Patient will sustain phonation for 10-12 seconds to increase vocal respiratory support required for functional communication. Goal 1 Status: Initially: 6. Currently: 6 seconds. No change. Previous Goal #2: Patient will increase vocal loudness to reach a target sound pressure level of 65 dB COMPUTER PROGRAMMER CHIEF with 1 cue during reading at the word and sentence level, which will help increase vocal respiratory support for functional communication. Goal 2 Status: Initially sentences were 63 dB. Currently: sentences are 71.1 dB. Goal met. Previous Goal #3: Patient will increase vocal loudness to reach a target sound pressure level of 70 dB COMPUTER PROGRAMMER CHIEF with 1 cue during conversation for functional communication. Goal 3 Status: Initial conversation 62 dB average. Currently average is 65 dB. Goal is progressing and will continue. Previous Goal #4: Pt. will independently demonstrate and utilize recommended compensatory swallowing techniques to facilitate improved airway protection and decreased risk for aspiration during PO intake, with minimal cueing and prompting provide by the clinician, across 2 out of 3 sessions. Goal 4 Status: Miley Leroy is able to use a chin tuck with 100% use in therapy and she reports nearly all the time used outside of therapy. New technique added to train the patient on from MBS on 12/20/17. Previous Goal #5: Patient will complete oropharyngeal exercises in therapy and independently at home on 4/5 trials with a repeat MBS before upgrade to thin liquids due to silent aspiration. Goal 5 Status: Patient is able to complete these independently when given a list to follow. History - History Date of Eval: 10/16/17 Medical Diagnosis (from RX): PD Date of Onset of Diagnosis: 2010 Previous speech therapy: Yes Results: Good effort on the patient's part with home practice reported regularly. Discharge was Other Relevant Medical History/Diagnoses/Surgery: Parkinson's Disease Medications related to this diagnosis: diovan, amlodipineSinemet 4x daily, Amlodipine Besylate, Eliquis, celexa, Meetoprolol Smoking Status: Never smoker Hx Smoking: No - lived with smoker x50yrs Hx Tobacco Use: No - Pain Is pain an issue with your current prescribed condition?: No - Personal Occupation: Semi retired. Right Hearing Abillity: Normal Left Hearing Abillity: Normal Visual Assistive Devices: Glasses Patients Living Arrangements: With Significant Other Patient Allergies - Allergies Allergies iodine Allergy (Verified 11/27/17 13:49) Hives latex Allergy (Verified 11/27/17 13:49) Rash rotigotine [From Neupro] Allergy (Verified 11/27/17 13:49) Rash shellfish derived Allergy (Verified 11/27/17 13:49) Hives Sulfa (Sulfonamide Antibiotics) Allergy (Verified 11/27/17 13:49) Hives diltiazem Adverse Reaction (Verified 11/27/17 13:49) Rash Subjective Oral Motor - Subjective Patient Reports: Difficulty being Understood Objective Oral Motor - Oral Status Dentition: WNL - Labial Impairment: WNL Observation at Rest: WNL Closure: WNL Pucker: WNL Retraction: WNL Involuntary Movement noted: No - Lingual Impairment: WNL Protrusion: WNL Retraction: WNL Lateralization: WNL - Jaw Impairment: WNL - Respiratory Status Respiratory Status: Room Air Dysphagia Re-Eval - Re-Evaluation Dysphagia Re-Evaluation: See MBS dated 12/20/17 Modified Barium Results Hx MBS Report Entered: Yes MBS Results (from prior exam): 12/26/17 15:44 Speech Therapy by Justin Arreguin Modified Barium Swallow Study MR#: [id number] Acct: [id number] Name: MILEY RANKIN Rep #: [id number] : 1945 72 From: Prakash Mcfarlane M.A. CFY-COMPUTER PROGRAMMER CHIEF PRIMARY / SECONDARY DIAGNOSIS: dysphagia (R13.10) REFERRING PHYSICIAN: Julianne Brady CNP CURRENT DIET: regular textures, thin liquids DENTITION: WFL MENTAL STATUS: appropriate to participate in MBS RESPIRATORY STATUS: O2 via room air PREVIOUS MODIFIED BARIUM SWALLOW STUDY: 09/27/2017 MBS revealed moderate oropharyngeal dysphagia (R13.12) with SILENT grade IV aspiration of thin liquids. 06/26/2014 MBS revealed mild oropharyngeal dysphagia with transient penetration of thin liquids. 05/21/2014 MBS revealed mild to moderate oropharyngeal dysphagia with penetration and transient aspiration of thin liquids 07/24/2013 MBS revealed moderate oral phase dysphagia with penetration and transient aspiration of regular textures. REASON FOR REFERRAL: Patient is a 72 year old female referred for a repeat modified barium swallow ( MBS) study to objectively assess the Patients oropharyngeal swallow function under fluoroscopy secondary to the diagnosis of Parkinsons disease. 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 MEDICAL HISTORY: Parkinson disease, breast cancer, diverticulosis, hypertension, hyperlipidemia , iodine allergy. STUDY FINDINGS: Patient participated in a Modified Barium Swallow (MBS) study on 12/20/2017. Dr. Taveras was the radiologist present for this evaluation. This study was recorded in the lateral view and images were sent to PACs for storage. The following consistencies were presented to this patient for analysis of oropharyngeal swallow function: thin liquids, pudding, and a regular textured, Asha Doone cookie. Results of the MBS are as follows: PENETRATION / ASPIRATION SCALE (FERNANDES): 1 = does not enter airway 2 = enters airway/above vocal folds/ejected 3 = enters airway/above vocal folds/not ejected 4 = enters airway/contacts vocal folds/ejected 5 = enters airway/contacts vocal folds/not ejected 6 = enters airway/below vocal folds/ejected 7 = enters airway/below vocal folds/not ejected despite effort 8 = enters airway/below vocal folds/no effort PENETRATION / ASPIRATION SCALE (SCORE): Thin liquid - 5 mL tsp.: 1 Thin liquids via cup (single sip): 1 Thin liquids via cup (single sip): 5 Thin liquids via cup (single sip): 1 Thin liquids via cup (3 second prep): 1 Thin liquids via cup (3 second prep): 1 Thin liquids via cup (3 second prep): 1 Pudding via spoon: 1 Regular textured cookie: 1 Thin liquids via cup (3 second prep): 1 Thin liquids via cup (3 second prep): 2 * all trials completed with execution of the chin tuck posture denotes suboptimal execution of the 3 second delay IMPRESSION: DIAGNOSIS: mild to moderate oropharyngeal dysphagia (R13.12) ORAL PHASE CHARACTERIZED BY: LABIAL SEAL: no labial escape TONGUE CONTROL DURING BOLUS MANIPULATION: posterior escape of less than half of bolus BOLUS PREPARATION / MASTICATION: slow prolonged chewing/mashing with complete recollection BOLUS TRANSPORT / LINGUAL MOTION: delayed initiation of tongue motion most prominently during trials of more viscous textures (5 seconds) with additional repetitive / discoordinated movements ORAL RESIDUE: residue collection on oral structures PHARYNGEAL PHASE CHARACTERIZED BY: INITIATION OF PHARYNGEAL SWALLOW: bolus head intermittently at posterior laryngeal surface of epiglottis at first hyoid excursion SOFT PALATE ELEVATION: intermittent trace column of contrast/air between soft palate and pharyngeal wall LARYNGEAL ELEVATION: partial superior movement of thyroid cartilage/partial approximation of arytenoids cartilage to epiglottic petiole ANTERIOR HYOID EXCURSION: partial anterior movement EPIGLOTTIC MOVEMENT: complete epiglottic inversion LARYNGEAL VESTIBULE CLOSURE AT HEIGHT OF SWALLOW: incomplete laryngeal vestibule closure with narrow column of air/contrast in laryngeal vestibule PHARYNGEAL STRIPPING WAVE: pharyngeal stripping wave present / diminished PHARYNGOESOPHAGEAL SEGMENT OPENING: complete distension and complete duration with no obstruction of flow TONGUE BASE RETRACTION: trace column of contrast between tongue base and posterior pharyngeal wall PHARYNGEAL RESIDUE: collection of residue within or on pharyngeal structures ESOPHAGEAL PHASE CHARACTERIZED BY: ESOPHAGEAL BOLUS CLEARANCE IN THE UPRIGHT POSITION: could not view EFFECTS OF TREATMENT STRATEGIES ATTEMPTED: 3 second prep = effective Chin tuck posture = moderately effective Reduced bolus size = moderately effective DIET TEXTURE RECOMMENDATIONS: Will recommend a regular-soft textured, nectar thickened liquid diet pending Patient follow up with outpatient therapist. COMPENSATORY STRATEGIES RECOMMENDED: Chin tuck and 3 second prep with thin liquids, reduced bolus volume, reduced rate of intake, seated upright at 90 degrees during PO intake, remain upright for 30-60 minutes post meal (GERD precaution), medications with applesauce, INTERPRETATION OF RESULTS: Patient presents with mild to moderate oropharyngeal dysphagia (R13.12) secondary to the diagnosis of Parkinsons disease. Oral phase primarily marked by intermittent delayed oral phase swallow onset most pronounced during ingestion of pudding textures, with prolonged oral phase delay (5 seconds) accompanied by lingual pumping / festinations. Pharyngeal phase marked by delayed pharyngeal swallow onset timing and reduced closure of the airway during deglutition resulting prandial penetration of thin liquids on two occasions with chin tuck posture (ameliorated with execution of 3 second prep). MBS otherwise very similar to previous study. Insufficient laryngeal vestibule pressure generated to expel penetrated material during trials of thin liquids ( improved ejection with nectar thickened liquids). RECOMMENDATIONS: No aspiration occurring this date, with study results indicating possible tolerance of thin liquids with 3 second prep combined with the chin tuck posture. However, the Patient is at high risk for aspiration and pulmonary complications associated with aspiration when considering the diagnosis of Parkinsons disease, weak cough response (dystussia), and silent aspiration recently appreciated under fluoroscopy. Would recommend advancing if the Patent understands that there is no guarantee that the above stated recommendations will prevent aspiration over a prolonged period of time, with further decline in swallow function anticipated with the diagnosis of Parkinsons disease. Recommended that the Patient discuss with her primary therapist prior to discontinuing nectar thickened liquids. If the Patient does not advance, would strongly consider placement on the [place] Free Water Protocol (FFWP) following Patient and family education, as the Patient was able to recall aspiration precautions and independently implement under fluoroscopy. Patient requires intensive skilled speech-language intervention targeting continued diet texture management; training and implementation of recommended compensatory strategies ( 3 second prep & chin tuck execution); and training, implementation, and Patient education regarding implementation of the FFWP if deemed clinically appropriate. ADDITIONAL COMMENTS/RECOMMENDATIONS: Results and recommendations were discussed with the Patient immediately following MBS completion, with the Patient verbalizing understanding and agreement with all recommendations and education provided. IMAGE COUNT: [id number] SWALLOWING [id number] Current Status: SWALLOWING [id number] Goal Status: SWALLOWING [id number] Discharge Status: 12/20/17 1749 <Electronically signed by Prakash Mcfarlane M.A., CFY-COMPUTER PROGRAMMER CHIEF> Date Prakash Mcfarlane M.A., CFY-COMPUTER PROGRAMMER CHIEF Electronically signed by Justin Arreguin M.A., [facility]-COMPUTER PROGRAMMER CHIEF on 12/26/17 15:44 Initialized on 12/26/17 15:44 - END OF NOTE Plan - Plan Plan: Speech therapy is warranted to continue for voice deficits as well as dysphagia. - Recommendations Treatment Warranted: Yes - Frequency Frequency: 1x/Week Duration: 4 Weeks Visits in this POC: 4 - Prognosis Prognosis: Good - Goals that are Established: Determination:: Goals will be added/modified as deemed necessary and appropriate. Therapy will be discontinued when results of re-evaluation indicate therapy is no longer needed or lack of progress has been documented. - Goal #1-5 Goal #1: Patient will sustain phonation for 10-12 seconds to increase vocal respiratory support required for functional communication. Goal #2: Patient will increase vocal loudness to reach a target sound pressure level of 70 dB COMPUTER PROGRAMMER CHIEF with 1 cue during conversation for functional communication. Goal #3: Pt. will independently demonstrate and utilize recommended compensatory swallowing techniques to facilitate improved airway protection and decreased risk for aspiration during PO intake, with minimal cueing and prompting provide by the clinician, across 2 out of 3 sessions.
--- NOTE | 2018-01-23 11:12 | HP.SP.DC ---
ST Discharge Summary - Discharged: Discharge: Izzy medellin is discharged from [facility] as of January 23, 2018. She attended a total of 14 sessions for a voice disorder as well as dysphagia. Currently she is on a thin liquid and regular foods along with the use of compensatory strategies of chin tuck and 3 second prep. She is able to use her strategies consistently in therapy and reporting carry over at home. Her voice goals focused on sustained phonation which she is now able to do so for an average of 10 seconds. Her second voice goal was to reach an average of 70 dB in conversation with only one cue. She was able to reach an average of 67 dB with only one cue. Even with increased cue her average stayed approximately the same. This goal had reached a plateau. Izzy Leroy is aware of her deficits and reported that her family is helping her to remember to be loud and think loud. She was educated on contacting physician if she notices a change is her swallowing at anytime. A copy of this discharge summary will be sent to her referring physician.
== END 2018-01-23 14:24 | disposition home or self-care (01) ==
LOC: SP 09:30
PROVIDERS: Family Provider Family Medicine; PCP Family Medicine; Visit Provider Nurse Practitioner Acute Care
DX: G20 Parkinson's disease (principal); R49.9 Unspecified voice and resonance disorder
CPT/HCPCS: 92507; 92524; 92526; 92610

== ENCOUNTER 2018-09-09 09:59 | Emergency (ER) | payer MEDICARE, SELFPAY ==
[2018-09-09 10:00] VITALS: BP 195/88; PULSE 62; RESP 18; TEMP 36.9; O2SAT 96; BMI 29.0
--- NOTE | 2018-09-09 10:13 | CT_ITS ---
STUDY: CT BRAIN WITHOUT CONTRAST REASON FOR EXAM: Female, 72 years old. Fall, contusion of the left forehead, on antiplatelet therapy RADIATION DOSAGE (If Supplied By Facility): CTDIvol = ( ) mGy, DLP = ( ) mGycm TECHNIQUE: Transaxial CT imaging of the brain was performed without administration of intravenous contrast material. Individualized dose optimization techniques were used for this CT. COMPARISON: None. FINDINGS: Localized soft tissue swelling above the left orbit identified. No underlying fractures seen. Normal calvarium. Normal size ventricles and extra-axial spaces for the patient's age. Normal white matter tracts of the cerebral hemispheres. Normal basal ganglia and thalami. Normal brainstem. Normal cerebellum. There is no intracranial hemorrhage. There are no findings of an acute ischemic infarction. Normal visualized paranasal sinuses. CT/Brain/Head without Contrast IMPRESSION: 1. No acute intracranial hemorrhage or mass effect. 2. Left supraorbital scalp soft tissue swelling/hematoma. No underlying fracture. Electronically Signed: Jacky May MD at 10:51 EDT , Service support ,
--- NOTE | 2018-09-09 10:16 | ED.VIS.GEN ---
History of Present Illness Chief Complaint: Fall Informant: Patient, Family Onset: Today, Hours - 1 Context: Sudden Onset - has parkinson's; walking fast on carpet in yazidism, feet got caught up and she tripped and fell, forehead vs. wall Quality: sore Location: left forehead Current Severity: Mild Maximum Severity: Mild Worsened by: palpation Relieved by: nothing Associated Symptoms: laceration. no LOC or focal neuro sx. Narrative: On Eliquis. Unknown reason per pt; hx of PAfib in EMR. - Past Medical History (1) Parkinson disease Status: Chronic (2) Paroxysmal atrial fibrillation Status: Chronic (3) HTN (hypertension) Status: Chronic Past Medical History - Allergies and Home Meds Allergies/Adverse Reactions: Allergies iodine Allergy (Verified 09/09/18 10:08) Hives latex Allergy (Verified 09/09/18 10:08) Rash rotigotine [From Neupro] Allergy (Verified 09/09/18 10:08) Rash shellfish derived Allergy (Verified 09/09/18 10:08) Hives Sulfa (Sulfonamide Antibiotics) Allergy (Verified 09/09/18 10:08) Hives diltiazem Adverse Reaction (Verified 09/09/18 10:08) Rash Primary Care Physician: Gavin Rachel MD [Primary Care Provider] - Surgical History: - - Bilateral lumpectomy with radiation therapy. Pyloric stenosis gastric outlet repair. Small bowel resection 10/16/16. Lives: Spouse/ Significant Other Smoking Status: Never smoker - Family History Maternal Family History: Family History (Last Reviewed 11/27/17 @ 13:56 by Chio Gastelum) Brother Heart disease Family History: Reports: Cancer - Stomach cancer Paternal Family History: Family History (Last Reviewed 11/27/17 @ 13:56 by Chio Gastelum) Brother Heart disease Family History: Reports: Cancer Offspring Family History: Family History (Last Reviewed 11/27/17 @ 13:56 by Chio Gastelum) Brother Heart disease Family History: Reports: - Review of Systems General: Denies: Chills, Fever, Sweats Eyes: Denies: Visual changes - bilaterally, Diplopia ENT: Denies: Rhinorrhea, Sore throat Cardiovascular: Denies: Chest pain, Palpitations Respiratory: Denies: Dyspnea, Cough, Dyspnea on exertion Gastrointestinal: Denies: Abdominal pain, Nausea, Vomiting, Diarrhea, Melena, Hematochezia Genitourinary: Denies: Dysuria, Hematuria, Frequency Musculoskeletal: Reports: Extremity Pain - right shoulder pain x 1-2 weeks. Denies: Neck pain, Back pain Skin: Reports: Wounds - forehead laceration. Denies: Rash Neurological: Reports: - - tremor. chronic gait problem due to parkinson.. Denies: Headache, Weakness, Numbness Hematologic: Reports: Easy bruising, Easy bleeding Physical Exam Vital Signs/Narrative: Vital Signs Temp Pulse Resp BP Pulse Ox 09/09/18 10:00 98.4 F 62 18 195/88 H 96 Inital Vital Signs reviewed: Yes General: Well nourished, Well developed, No Acute Distress Head: Normocephalic, Trauma - left forehead hematoma/tenderness w/ laceration, mild bleeding. no crepitance/depression. Eyes: Perrl, EOMI, - - no subconj hemorrhage ENT: Moist mucous membranes, No rhinorrhea Neck: Supple, Nontender Cardiovascular: Regular rate, Regular rhythm, No murmurs Respiratory: No distress, CTA bilaterally, Chest nontender Abdomen: Soft, Nontender, Nondistended, Normal bowel sounds Back: Nontender, Normal Inspection Extremities: Nontender, No edema Skin: Normal color, No rash, Trauma - hematoma left forehead w/ 2cm clean, linear, full thickness laceration just beneath eyebrow, no eyelid trauma, no eye trauma. Neurological: Alert, Oriented x3, Cranial nerves II-XII grossly intact, Normal Strength, Normal Sensation, - - GCS 15. Resting UE tremor. Psychological: Normal affect, Normal Mood Diagnostic/Tx/Re-eval Clinical Impression(s) from Imaging Studies Brain CT 09/09/18 10:13 IMPRESSION: 1. No acute intracranial hemorrhage or mass effect. 2. Left supraorbital scalp soft tissue swelling/hematoma. No underlying fracture. Electronically Signed: Jacky May MD at 10:51 EDT , Service support , - Medical Decision Making Isolated injury to her face/forehead with a laceration. CT of the head shows no acute intracranial abnormality. Her laceration was repaired. Sutures should be removed in 5-6 days, she has a follow-up appointment 2 days from now, but she should probably be seen at the end of the week to get the sutures out. I discussed this with family. They asked about her right shoulder which is been bothering her for several days to a week. She has had dislocation there before. She denies any recent injury, and did not injure it today she states. She has some mild discomfort in the subacromial area of her right shoulder, there is no anterior biceps tendon tenderness, no AC joint tenderness, no deformity. She has full range of motion including external/internal rotation while fully abducted. I do not think x-rays are going to be helpful right now. We discussed internal shoulder issues and other possibilities such as chronic rotator cuff pain from spurs, bursitis, or simply sore from overuse. At this time I think it is fine that she is discharged home with her , daughters at bedside as well. We discussed her Eliquis. She was placed on at 2 years ago when she was diagnosed with paroxysmal atrial fibrillation during the hospitalization. Her Parkinson's disease now is much worse since then. In my opinion, as evidenced today, the risk of a life-threatening traumatic head injury I believe is much higher than that of a stroke, especially since she sounds to be in a sinus rhythm today. She can still mitigate stroke risk by taking aspirin daily, which she was doing prior to the Eliquis. I recommend discontinuing Eliquis and replacing it with aspirin, and she certainly can continue these discussions with her PCP when she sees him 2 days from now. Daughter agrees with this plan, and they are comfortable with discharge home we discussed reasons to return. Procedures - Lacerations left eyebrow Length: 2 cm Depth: Skin Shape: Linear Prep: Sterile Conditions, Chlorhexadine Laceration repair: Irrigated, Lidocaine with epi, Local Number of Sutures/[place]: 3 Suture Information: Ethilon, Simple, 6-0 Comment: tolerated well. no complications. ED Disposition - Plan for ED Patient: Disposition: Home or Assisted Living Diagnosis: Closed head injury without loss of consciousness, Traumatic hematoma of face, Facial laceration Instructions: ED Laceration Facial Sutr Tape, ED Head Injury Closed Referrals: Gavin Rachel MD [Primary Care Provider] - Keep Naga appointment (and should return to PCP or ER for suture removal in 5-6 days (Monday would be reasonable)) Additional Instructions: Until he had further discussions with your PCP in 2 days, discontinue the Eliquis and replace it with a daily baby aspirin. Your doctor may want to change this to a full aspirin, 325 mg. Apply ice to your forehead periodically for the next 2-3 days. After that, if desired, you may apply gentle heat to try to help break up the blood clot.
[2018-09-09 13:48] VITALS: RESP 18
== END 2018-09-09 13:51 | disposition home or self-care (01) ==
PROVIDERS: Emergency Provider Emergency Medicine; Family Provider Family Medicine; PCP Family Medicine
DX: S01.81XA Laceration without foreign body of other part of head, initial encounter (principal); W18.09XA Striking against other object with subsequent fall, initial encounter; Y93.01 Activity, walking, marching and hiking; Y92.22 Religious institution as the place of occurrence of the external cause; Y99.9 Unspecified external cause status; M25.511 Pain in right shoulder; G20 Parkinson's disease; I48.0 Paroxysmal atrial fibrillation; I10 Essential (primary) hypertension; Z79.01 Long term (current) use of anticoagulants; Z79.899 Other long term (current) drug therapy
CPT/HCPCS: 12011; 70450; 99283

== ENCOUNTER → 2018-10-01 13:04 | Outpatient (CLI) | payer MEDICARE, SELFPAY ==
[2018-09-09 10:00] VITALS: BMI 29.0
--- NOTE | 2018-10-01 13:11 | RAD_ITS ---
STUDY: X-RAY - RIGHT SHOULDER REASON FOR EXAM: Right shoulder pain, 2 falls. TECHNIQUE: 4 view(s) of the shoulder. COMPARISON: None. FINDINGS: There is mild inferior displacement of the humeral head, possibly indicating a glenohumeral joint effusion. Normal acromioclavicular joint. Normal acromion. Normal humeral head and visualized proximal humerus. The soft tissue structures are unremarkable. There are surgical clips in the right axilla. RAD/Shoulder min 2 Views IMPRESSION: Mild inferior displacement of the humeral head, possibly indicating a glenohumeral joint effusion. Electronically Signed: Almas More MD at 14:01 EDT Tel , Service support ,
== END ==
PROVIDERS: Family Provider Family Medicine; PCP Family Medicine; Referring Provider Family Medicine; Visit Provider Family Medicine
DX: M75.101 Unspecified rotator cuff tear or rupture of right shoulder, not specified as traumatic (principal)
CPT/HCPCS: 73030

== ENCOUNTER → 2018-10-03 09:26 | Outpatient (CLI) | payer MEDICARE, SELFPAY ==
[2018-09-09 10:00] VITALS: BMI 29.0
[2018-10-03 12:35] LABS: Vitamin D,25 Hydroxy 37.6 ng/mL (29.95-100.01)
[2018-10-03 12:45] LABS: Anion Gap 6 (5-15); BUN 21 mg/dL (7-18); BUN/Creat Ratio 25.1 RATIO (10-20); Chloride 102 mmol/L (98-107); Creatinine, Serum 0.84 mg/dL (0.55-1.02); EST Glomerular Filtration Rate 71 mL/min (>60); Est Glom Filt Rate - Afr Amer 86 mL/min (>60); Glucose 122 mg/dL (74-106); Magnesium 2.2 mg/dL (1.6-2.6); Potassium 3.5 mmol/L (3.5-5.1); Sodium Level 140 mmol/L (136-145); Thyroid Stim Hormone (TSH) 0.51 uIU/mL (0.358-3.74)
[2018-10-03 12:47] LABS: Absolute Lymphocyte Count 0.83 X10^3/ul (0.83-4.51); Absolute Neutrophil Count 4.3 X10^3/uL (2.0-7.7); Basophil# 0.07 X10^3/uL; Basophil% 1.2 % (0-1); Eosinophil# 0.08 X10^3/uL; Eosinophils% 1.4 % (0-5); Hematocrit 39.9 % (37-47); Hemoglobin 12.9 g/dl (12.0-15.0); Lymphocyte # 0.83 X10^3/ul (4.0); Lymphocyte % 14.6 % (19-41); Mean Corp Hgb Conc 32.3 g/gl (32-36); Mean Corpuscular Hgb 31.9 pg (27.0-32.0); Mean Corpuscular Volume 98.5 fL (81-99); Mean Platelet Vol. 10.2 fl (6.2-12.0); Monocyte# 0.39 X10^3/uL; Monocyte% 6.9 % (0-10); Neutrophil # 4.29 X10^3/uL (2.7-7.7); Neutrophil % 75.7 % (47-70); POSITIVE COUNT NO; POSITIVE DIFFERENTIAL NO; POSITIVE MORPHOLOGY NO; Platelet Count 253 K/mm3 (150-450); RBC Distribution Width CV 12.6 % (11.6-14.6); RBC Distribution Width SD 45.6 fl (35.1-43.9); Red Blood Count 4.05 M/mm3 (4.2-5.4); White Blood Count 5.7 K/mm3 (4.4-11.0)
== END ==
PROVIDERS: Family Provider Family Medicine; PCP Family Medicine; Visit Provider Family Medicine
DX: I48.0 Paroxysmal atrial fibrillation (principal); E55.9 Vitamin D deficiency, unspecified
CPT/HCPCS: 36415; 80048; 82306; 83735; 84443; 85025

== ENCOUNTER 2018-12-10 17:06 | Emergency (ER) | payer MEDICARE, SELFPAY ==
[2018-12-10 17:07] VITALS: BP 151/92; PULSE 57; RESP 16; TEMP 36.6; O2SAT 98; BMI 29.0
--- NOTE | 2018-12-10 18:12 | ED.DCSUM_ITS ---
- ER Visit Summary Date of Service: 12/10/18 Chief Complaint: Left side pain History of Present Illness: The patient is a 73 F who presents with pain in her left side and hip that began 3 days ago after she nearly fell. Patient describes her pain as burning. Patient states the pain is over the left hip and left flank area. Patient states the pain is worse with sitting. Patient also admits to some mild lower abdominal pain. Patient denies any nausea or vomiting. Patient denies any dysuria hematuria. Patient was recently started on Sinemet CR in addition to her normal Sinemet. Patient was also started on melatonin. Family states patient has been getting weaker since starting this. Physical Examination: Vital signs are stable. Patient is afebrile. Patient is in no acute distress. Oromucosa is pink and moist. Neck is supple. Trachea is midline. There is no JVD noted. Heart was regular rate and rhythm. Lungs are clear and equal bilaterally. Abdomen is soft. Bowel sounds are normal. There is some mild left lower quadrant tenderness. There is no rebound or guarding noted. Musculoskeletal exam reveals tenderness over the left hip. There is no pain with internal or external rotation. There is pain with active flexion of the hip. Sensation was intact to light touch bilaterally in the lower extremities. Test Results: CBC was within normal limits. Comprehensive metabolic profile was also within normal limits. Urinalysis does not show any evidence of urinary tract infection. X-rays of the left hip were obtained. There is no acute fracture. CT scan of the brain was obtained. There is no acute intracranial abnormality. Emergency Department Course and Treatment: Patient was instructed to follow-up with her neurologist in 5 to 7 days for further management of her Sinemet and m elatonin. Patient and family understood and were agreeable with the plan. All questions were answered. Disposition: Discharge home Impression: 1. Left hip contusion 2. Weakness 3. History of Parkinson's disease This note was generated with [employer] dictation software. It may contain incorrect words, spelling, and punctuation that were not noted in review of the chart prior to signing o ED Disposition - Plan for ED Patient: Disposition: Home or Assisted Living Diagnosis: Contusion of left hip, Weakness, Parkinson disease Instructions: CONTUSION, Lower Extremity Referrals: Gavin Rachel MD [Primary Care Provider] - 3-5 Days
[2018-12-10 18:48] LABS: Absolute Lymphocyte Count 0.83 X10^3/ul (0.83-4.51); Absolute Neutrophil Count 5.6 X10^3/uL (2.0-7.7); Basophil# 0.06 X10^3/uL; Basophil% 0.8 % (0-1); Eosinophils% 1.4 % (0-5); Hematocrit 38.3 % (37-47); Hemoglobin 12.8 g/dl (12.0-15.0); Lymphocyte # 0.83 X10^3/ul (4.0); Lymphocyte % 11.7 % (19-41); Mean Corp Hgb Conc 33.4 g/gl (32-36); Mean Corpuscular Hgb 32.4 pg (27.0-32.0); Mean Platelet Vol. 9.3 fl (6.2-12.0); Monocyte% 7.1 % (0-10); Neutrophil # 5.59 X10^3/uL (2.7-7.7); Neutrophil % 78.9 % (47-70); POSITIVE COUNT NO; POSITIVE DIFFERENTIAL NO; POSITIVE MORPHOLOGY NO; Platelet Count 234 K/mm3 (150-450); RBC Distribution Width CV 12.8 % (11.6-14.6); RBC Distribution Width SD 45.2 fl (35.1-43.9); Red Blood Count 3.95 M/mm3 (4.2-5.4); White Blood Count 7.1 K/mm3 (4.4-11.0)
[2018-12-10 18:57] LABS: Bacteria 0 SEEN /hpf (None Seen); Mucous, Urine 0 SEEN /hpf (<or=2+); Red Blood Cells-Urine 0 SEEN /hpf (0-5)
[2018-12-10 19:01] LABS: Color, Urine Yellow (Yellow); Glucose, Dipstick Normal (Normal); Ketone-Dipstick 5 mg/dl (Negative); Leukocyte Esterase-Dipstick 25 /ul (Negative); Nitrite-Dipstick Negative (Negative); Occult Blood-Urine Negative /ul (Negative); Protein-Dipstick Negative (Negative); Urine Bilirubin Dipstick Negative (Negative); Urine Clarity Clear (Clear); Urine Urobilinogen Normal (Normal)
[2018-12-10 19:06] LABS: ALB/GLOB Ratio 1.2 RATIO (0.9-2.4); AST(SGOT) 14 U/L (15-37); Alanine Aminotransfer ALT/SGPT < 6 U/L (13-56); Albumin, Serum 3.9 g/dL (3.2-5.0); Alkaline Phosphatase 82 U/L (45-117); Anion Gap 6 (5-15); BUN 25 mg/dL (7-18); BUN/Creat Ratio 33.9 RATIO (10-20); Calcium,Total 9.4 mg/dL (8.5-10.1); Chloride 100 mmol/L (98-107); Creatinine, Serum 0.74 mg/dL (0.55-1.02); EST Glomerular Filtration Rate 82 mL/min (>60); Est Glom Filt Rate - Afr Amer 99 mL/min (>60); Globulin 3.3 g/dL (2.2-4.2); Glucose 104 mg/dL (74-106); Potassium 3.9 mmol/L (3.5-5.1); Protein, Total 7.2 g/dL (6.4-8.2); Sodium Level 135 mmol/L (136-145)
--- NOTE | 2018-12-10 19:10 | RAD_ITS ---
STUDY: X-RAY - PELVIS AND LEFT HIP REASON FOR EXAM: Female, 73 years old. Trauma TECHNIQUE: 3 views of the pelvis and hip. COMPARISON: None. FINDINGS: There is a non-specific bowel gas pattern. Normal visualized soft tissue structures. Normal bilateral iliac wings, sacroiliac joints and visualized sacrum. Normal bilateral superior and inferior pubic rami. Normal pubic symphysis. Normal bilateral ischial tuberosities. Normal visualized femoral head. Normal acetabulum. Normal hip joint. RAD/HIP, UNI W/ Pelvis 2-3 Views IMPRESSION: Normal x-ray examination of the pelvis and hip. Electronically Signed: Edwin Winslow MD at 19:35 EDT , Service support ,
[2018-12-10 19:14] LABS: Squamous Epithelial Cells - UA 0-5 SEEN /hpf (5-10); White Blood Cells 0-5 SEEN /hpf (0-5)
--- NOTE | 2018-12-10 19:23 | CT_ITS ---
STUDY: CT BRAIN WITHOUT CONTRAST REASON FOR EXAM: Female, 73 years old. Weakness, lethargy RADIATION DOSAGE (If Supplied By Facility): CTDIvol = ( 44.99 ) mGy, DLP = ( 762.36 ) mGycm TECHNIQUE: Transaxial CT imaging of the brain was performed without administration of intravenous contrast material. Individualized dose optimization techniques were used for this CT. 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 Normal calvarium. There is mild cerebral atrophy with widening of the extra-axial spaces and ventricular dilatation. Normal white matter tracts of the cerebral hemispheres. Normal basal ganglia and thalami. Normal brainstem. Normal cerebellum. There is no intracranial hemorrhage. There are no findings of an acute ischemic infarction. Normal visualized paranasal sinuses. CT/Brain/Head without Contrast IMPRESSION: Chronic involutional changes of the brain. Torus palatinus of the hard palate. Electronically Signed: Edwin Winslow MD at 19:59 EDT , Service support ,
[2018-12-10 21:14] VITALS: BP 148/89; PULSE 78; RESP 16; O2SAT 96
== END 2018-12-10 21:15 | disposition home or self-care (01) ==
PROVIDERS: Emergency Provider Emergency Medicine; Family Provider Family Medicine; PCP Family Medicine
DX: S70.02XA Contusion of left hip, initial encounter (principal); R53.1 Weakness; G20 Parkinson's disease; X58.XXXA Exposure to other specified factors, initial encounter; Y93.9 Activity, unspecified; Y92.9 Unspecified place or not applicable; Z79.01 Long term (current) use of anticoagulants; Z79.899 Other long term (current) drug therapy
CPT/HCPCS: 70450; 73502; 80053; 81001; 85025; 99283

== ENCOUNTER 2019-01-11 13:45 | Emergency (ER) | payer MEDICARE, SELFPAY ==
[2018-12-21 11:07] VITALS: BMI 30.3
[2019-01-11 13:46] VITALS: BP 71/44; PULSE 77; RESP 16; TEMP 36.6; O2SAT 95; BMI 29.3
[2019-01-11 14:00] VITALS: BP 121/86; PULSE 86; RESP 20; O2SAT 95
[2019-01-11 14:50] LABS: Absolute Neutrophil Count 3.7 X10^3/uL (2.0-7.7); Basophil# 0.05 X10^3/uL; Basophil% 0.9 % (0-1); Eosinophil# 0.08 X10^3/uL; Eosinophils% 1.5 % (0-5); Hematocrit 38.8 % (37-47); Hemoglobin 12.8 g/dL (12.0-15.0); Lymphocyte % 20.3 % (19-41); Mean Corpuscular Hgb 32.7 pg (27.0-32.0); Mean Corpuscular Volume 99.2 fL (81-99); Mean Platelet Vol. 9.7 fl (6.2-12.0); Monocyte# 0.46 X10^3/uL; Monocyte% 8.5 % (0-10); NRBC Flagged by Analyzer 0 % (0-5); Neutrophil # 3.71 X10^3/uL (2.7-7.7); Neutrophil % 68.2 % (47-70); Platelet Count 214 K/mm3 (150-450); RBC Distribution Width CV 12.3 % (11.6-14.6); RBC Distribution Width SD 44.3 fl (35.1-43.9); Red Blood Count 3.91 M/mm3 (4.2-5.4); White Blood Count 5.4 K/mm3 (4.4-11.0)
[2019-01-11] MEDS: 0.9% Normal Saline 1,000 ML 150 ML IV (14:57)
[2019-01-11 15:01] LABS: Anion Gap 5 (5-15); BUN 33 mg/dL (7-18); BUN/Creat Ratio 34.1 RATIO (10-20); Calcium,Total 8.9 mg/dL (8.5-10.1); Chloride 102 mmol/L (98-107); Creatinine, Serum 0.97 mg/dL (0.55-1.02); EST Glomerular Filtration Rate 60 mL/min (>60); Est Glom Filt Rate - Afr Amer 73 mL/min (>60); Estimated Creatinine Clearance 48.36 ml/min; Glucose 116 mg/dL (74-106); Potassium 3.4 mmol/L (3.5-5.1); Sodium Level 138 mmol/L (136-145)
[2019-01-11 15:02] VITALS: BP 121/92; PULSE 93; RESP 17; O2SAT 99
[2019-01-11 15:08] LABS: Bacteria 0 SEEN /hpf (None Seen); Mucous, Urine 0 SEEN /hpf (<or=2+)
--- NOTE | 2019-01-11 15:09 | EKG12_ITS ---
Test Reason : Blood Pressure : / mmHG Vent. Rate : 103 BPM Atrial Rate : 119 BPM P-R Int : 158 ms QRS Dur : 100 ms QT Int : 342 ms P-R-T Axes : 058 006 024 degrees QTc Int : 448 ms Sinus tachycardia with occasional Premature ventricular complexes Otherwise normal ECG Confirmed by KAREL PETERS, ALEJANDRO ([id number]), rewrite editor FOSTER CORTES ([id number]) on 01/14/2019 11:42:53 AM Referred By: LUIS FERNANDO BAUMAN Confirmed By:ALEJANDRO VINSON MD
[2019-01-11 15:13] LABS: Glucose, Dipstick Normal (Normal); Ketone-Dipstick 5 mg/dl (Negative); Leukocyte Esterase-Dipstick 25 /ul (Negative); Nitrite-Dipstick Negative (Negative); Occult Blood-Urine Negative /ul (Negative); Protein-Dipstick Negative (Negative); Urine Bilirubin Dipstick Negative (Negative); Urine Urobilinogen Normal (Normal)
[2019-01-11 15:17] LABS: Color, Urine Yellow (Yellow); Urine Clarity Clear (Clear)
[2019-01-11 15:22] LABS: Red Blood Cells-Urine 0-5 SEEN /hpf (0-5); Squamous Epithelial Cells - UA 10-25 SEEN /hpf (5-10); White Blood Cells 0-5 SEEN /hpf (0-5)
[2019-01-11 15:23] VITALS: BP 135/106; BP 161/112; BP 162/98; PULSE 126; PULSE 77; PULSE 82
--- NOTE | 2019-01-11 15:30 | ED.VISSUMM ---
- ER Visit Summary Date of Service: 01/11/19 Chief Complaint: [Near syncope and hypotension] History of Present Illness: The patient is a 73 F [presents to the emergency department with complaint of a near syncopal episode. Patient states that she had taken a nap and had just tied her shoes and walked into the kitchen when she felt lightheaded and fell to the ground. The daughter heard the patient fall and immediately went to her side and noted that she was not unconscious but seemed pale. They checked her blood pressure at home and noted that her systolic was 71. Patient denies striking her head. She denies headache or neck pain. She denies any injury from the fall. Patient denies recent illness. He has history of prior A. fib as well as hypertension and Parkinson's. Patient denies urinary symptoms. Denies chest pain or shortness of breath.] Patient has not been anticoagulated since September when she was taken off her Eliquis for another fall. Physical Examination: [HEENT-PERRLA, EOMI. Cranial nerves II through XII grossly intact. TMs clear. Mucous membranes moist. No adenopathy. No evidence of trauma to her head. No C-spine tenderness on palpation. Cardiovascular-regular rate and rhythm without murmur or ectopy Lungs-clear to auscultation, chest wall stable without crepitus or subcu emphysema Abdomen-normoactive bowel sounds, soft, nontender, no rebound or rigidity, no peritoneal signs. Extremities-intact ?4, normal range of motion, normal pulses, atraumatic] Test Results: [EKG obtained arrival shows sinus tachycardia with a ventricular rate of 103 bpm with occasional PVCs. CBC with differential showed a white count is at 5.4, hemoglobin 12.8, hematocrit 39, platelets 214. Chemistries unremarkable. Urinalysis was normal. Plan is less than 0.15. Orthostatic vital signs did not show a drop in blood pressure however her heart rate did go up from the 80s lying flat to the 120s with standing.] Emergency Department Course and Treatment: [She received a liter normal same fluid bolus. Patient was asymptomatic with standing and her blood pressures have remained in the 130 systolic. I suspect patient likely had a vasovagal near syncope episode. Especially given the history of standing up and walking after taking a nap and put her shoes on and the history of the low blood pressure at home and then initially on arrival to the emergency department.] Treatment Plan: [Advised patient to push fluids and follow-up with primary care physician within next 3 to 5 days.] Disposition: [Discharged home stable condition.] Impression: [Near syncope-vasovagal] This note was generated with [employer] dictation software. It may contain incorrect words, spelling, and punctuation that were not noted in review of the chart prior to signing ED Disposition - Plan for ED Patient: Referrals: Gavin Rachel MD [Primary Care Provider] -
--- NOTE | 2019-01-11 15:38 | ED.DEP ---
ED Disposition - Plan for ED Patient: Instructions: NEAR SYNCOPE, Vasovagal Referrals: Gavin Rachel MD [Primary Care Provider] - 3-5 Days
[2019-01-11] MEDS: 0.9% Normal Saline 1,000 ML 999 ML IV (15:45)
[2019-01-11 17:18] VITALS: BP 116/82; BP 119/85; BP 127/82; PULSE 88; PULSE 94
== END 2019-01-11 17:30 | disposition home or self-care (01) ==
LOC: ED 14:35
PROVIDERS: Emergency Provider Emergency Medicine; Family Provider Family Medicine; PCP Family Medicine
DX: R55 Syncope and collapse (principal); I95.9 Hypotension, unspecified; I49.3 Ventricular premature depolarization; R00.0 Tachycardia, unspecified; I48.91 Unspecified atrial fibrillation; G20 Parkinson's disease; I10 Essential (primary) hypertension; Z79.82 Long term (current) use of aspirin; Z79.899 Other long term (current) drug therapy
CPT/HCPCS: 80048; 81001; 84484; 85025; 93005; 96360; 96361; 99285; J7030; J7040; A4216

== ENCOUNTER 2019-03-06 11:00 | Outpatient (RCR) | payer MEDICARE, SELFPAY ==
--- NOTE | 2018-12-12 12:45 | HP.OTEVAL_ITS ---
Patient's Visit Information MILEY RANKIN is a 73 year old F, referred to Occupational Therapy by LUIS FERNANDO BAUMAN, with a diagnosis of hypophonia, parkinsons. Date of Evaluation: 12/12/18 Occupational Therapist: Ariadne Galvez - Subjective Subjective: Pt seen for initial occupational therapy evaluation for hypophonia, parkinsons, recurrent falls, falling at [employer], and uneven surfaces hurting L hip and hitting face per pt. Pt unable to give dates of recent falls. Pt R handed. Pt lives w/ spouse 1 story house w/ 3 steps to enter 1 handrail. AMB w/ std cane indoors and out in community. Pt requires assist w/ socks and shoes occassionally pending on the day and how she is feeling. Pt states does not use DME/AE for dressing tasks or self feeding tasks. Spouse provides SBA for bathing tub/shower w/ shower chair, grab bars, HHS. RTS for bathroom. Spouse completes all IADLs. Pt states no hobbies. Pt states has difficulty with self feeding and spillage of food and scooping out of plates which is new. She has a difficult time cutting her food. - Pain L hip 8 - Objective Objective/Observation: decreased generalized BUE strength, decreased independence with self feeding skills with increased spilliage of food and decreased coordination. - ROM ROM Comments: BUE WFL - Strength Command And Control Specialist: R 38#, L 25# Lateral Pinch: R 4#, L 2# Tripod Pinch: R 2#, L 1# Strength Comments: MMT R 4-/5, L 3+/5 - Edema Other: No edema BUE - Sensation Sensation Comments: Pt states no numbness or tingling. - Quick DASH-Disab of Arm,Shoulder& Hand Quick DASH Score: 36.3625 - Goals Goal:: Pt will progress w/ bilateral hand endoscopy registered nurse strength by 8# to assist w/ self feeding skills by d/c from OT services. Pt will progress w/ BUE generalized strength 4/5 to assist w/ functional transfers and BADLs independently by d/c from OT services. Goal:: Pt will be able to complete self feeding independently w/o spillage of food using AE, tools/strategies as needed in 3/4 trials. Goal:: Pt will be educated on BUE HEP with good understanding and demo 75%x by d/c from OT services. - Rehabilitation General Assessment: Pt seen for initial occupational therapy evaluation with recurrent falls, parkinsons, decreased BUE strength and decreased independence with self feeding skills and increased spillage of food. Pt would benefit from direct occupational therapy services to increase BUE strength educate on BUE HEP, increase independence with self feeding skillls and educate on tools/strategies to assist w/ self feeding skills to increase pts quality of life 1x/wk x 4wks. Pt completing PT evaluation to address L leg pain. Rehabilitation Potential: Good - Anticipated Interventions Anticipated Interventions: Strengthening, Fine Motor Coord/Dale, ADL Training, Education re assistive Equipment, Education re Diagnosis, Home Program - Visit Plan Frequency: 1x/Week Duration: 4 Weeks General Plan: increase BUE strength, educate on tools/strategies AE for self feeding, increase indep w/ self feeding skills, educate on BUE HEP. TEXT: Thank you for the opportunity to evaluate your patient. For Medicare and Medicare HMO plans, please review the plan of care and approve it. It will need to be FAXED BACK to us at [phone] for Medicare purposes. Please let me know if there are questions or concerns regarding this plan of care. Physician Signature: Date:
--- NOTE | 2018-12-18 11:32 | HP.SP.AD ---
History - History Date of Eval: 12/18/18 Medical Diagnosis (from RX): Parkinsons, Hypophonia Date of Onset of Diagnosis: 2011 Previous speech therapy: Yes Results: Five times prior. Initially good progress with LSVT program. 2018 therapy was only weekly with less positive outcome. She has reported she is not continuing to do her home exercise program. Other Relevant Medical History/Diagnoses/Surgery: Recurrent falls. Medications related to this diagnosis: Sinemet, Sinemet CR, melatonin, and one other medication to sleep. Smoking Status: Never smoker Hx Smoking: No Hx Tobacco Use: No - Pain Is pain an issue with your current prescribed condition?: No - Personal Occupation: Retired Right Hearing Abillity: Normal Left Hearing Abillity: Normal Visual Assistive Devices: Glasses Patients Living Arrangements: With Significant Other Patient Allergies - Allergies Allergies iodine Allergy (Verified 09/09/18 10:08) Hives latex Allergy (Verified 09/09/18 10:08) Rash rotigotine [From Neupro] Allergy (Verified 09/09/18 10:08) Rash shellfish derived Allergy (Verified 09/09/18 10:08) Hives Sulfa (Sulfonamide Antibiotics) Allergy (Verified 09/09/18 10:08) Hives diltiazem Adverse Reaction (Verified 09/09/18 10:08) Rash Subjective Voice - Medications Mediations: Sinemet x3, Sinemet CR x2, melatonin along with one other med for sleeping. - Intubation Was the Client intubated: No Subjective Clinical Impression - Non-Phonatory Behaviors/Respiration Reduced loudness or vocal weakness: Present Limited breath support for speech: Present Objective Voice - Date of Diagnosis Date of diagnosis: 2011 Previous Speech Therapy (If yes, describe): Yes Details of therapy: Patient has been in voice therapy repeatedly for the LSVT program. - Medications Familiar with on/off effect: Yes - Implantation Deep brain implantation (If yes, answer next question): No - Objective data Objective Data: Objective data: Sound pressure level (SPL acoustic correlation of vocal loudness) was measured with a sound level meter at a distance of 40 cm from the patient's mouth. Average conversational loudness is 70-80 dB and sustained phonation duration is 15 to 20 seconds for a typical adult. Sustained Phonation Intensity (dB SPL): 82 Sustained Phonatin duration (seconds): 8.3 Is the individual stimulable to increase vocal intensity: Yes Vocal Intensity at Conversational Level (dB SPL): 64 Other Impressions - Comments LSVT -: This patient is familiar with the full LSVT program. She currently does not want to complete therapy using LSVT protocol ( 4x a week for 4 weeks) as this is too much for her. Voice -: Overall her speech is very difficult to understand as she often uses a rapid rate that pushes words together. She states that people do not have a hard time understanding her but her OT stated she was very hard to understand. In a quiet room this familiar therapist was able to understand 50% of her speech due to decreased volume and increased rate. Plan - Plan Plan: Izzy Leroy's goal is to get better. - Recommendations Treatment Warranted: Yes - Frequency Frequency: 1x/Week Duration: 2 Months Visits in this POC: 8 - Goals that are Established: Determination:: Goals will be added/modified as deemed necessary and appropriate. Therapy will be discontinued when results of re-evaluation indicate therapy is no longer needed or lack of progress has been documented. - Goal #1-5 Goal #1: Patient sustain phonation for 12-15 seconds on 4/5 trials which will help increase vocal respiratory support for functional communication. Goal #2: Patient will increase vocal loudness to reach a target sound pressure level of 75 dB MINE ADMINISTRATOR SUPERVISOR with 1 cue during reading at the word and sentence level, which will help increase vocal respiratory support for functional communication. Goal #3: Patient will increase vocal loudness to reach a target sound pressure level of 70 dB MINE ADMINISTRATOR SUPERVISOR with 1 cue during conversation for functional communication. Education - Patient has Indicated that the Following Identified Educational Needs: Cognitively Impaired - Patient Instruction Patient Education: Diagnosis, Treatment Plan, Goals Person Taught: Patient Teaching Method: Discussion Response to teaching: Verbalize understanding, Has Prior Knowledge
--- NOTE | 2018-12-18 15:23 | HP.PTEVAL ---
Patient's Visit Information MILEY RANKIN is a 73 year old F referred to Physical Therapy by LUIS FERNANDO BAUMAN with a diagnosis of PARKINSON'S DZ, ABNORMALITY OF GAIT, RECURRENT FALLS.. Date of Evaluation: 12/18/18 Physical Therapist: Rakel Pineda PT, Cert MDT - Visit Plan Frequency: 2-3x /Week Duration: 4-6 Weeks Plan: LEFT HIP US. GAIT AND BALANCE ACTIVITIES. CONSIDER WALKER. POSTURE CORRECTION/STRENGTHENING, INSTRUCTION IN APPROPRIATE BODY MECHANICS AND ACTIVITY MODIFICATIONS. DLS STARTING WITH A NEUTRAL SPINE PROGRESSING ROM TOLERATED. STARLA LE ROM, STRETCHING AND STRENGTHENING. HEP INSTRUCTION. CONSIDER PARKINSON'S CLASS POST REHAB. - Subjective Findings: Work/Leisure: RETIRED. Present symptoms: PATIENT REPORTS HER WALKING HASN'T BEEN GOOD LATELY. FELL IN SEPTEMBER. PATIENT REPORTS SHE LOST HER BALANCE IN THE [employer] AT [employer]. SHE HIT HER HEAD. THINKS SHE PASSED OUT. TOOK HER TO THE EMERGENCY DEPT. TREATED AND RELEASED AT EMERGENCY ROOM. LEFT HIP PAIN RANGING 0/10 TO 9/10. STARTED HURTING AFTER THE FALL. STATES SHE HAD AN X-RAY AND IT WAS OK. Worse: STANDING AND WALKING INCREASE LEFT ANTERIOR HIP PAIN. Better: SITTING DOWN AND LYING DOWN. Disturbed sleep: NO. Previous history/Previous treatment: DX'D WITH PARKINSON'S ABOUT 8 YEARS AGO. PHSICAL THERAPY HERE AT [facility] AROUND THE TIME DIAGNOSED. NO PRIOR HISTORY OF LEFT HIP PAIN OR PROBLEMS BEFORE THE FALL IN SEPTEMBER. Gait: PATIENT REPORTS HER HIP HURTS AND SHE CAN'T WALK WELL SHE COULD BEFORE SHE FELL. Accidents: NO. Unexplained weight loss: NO. Imaging: LEFT HIP X-RAY AT THE TIME OF THE FALL AND MORE RECENTLY - NO FX'S. LEFT HIP BRUISE. PMH: PARKINSON'S DZ, HTN. H/O BREAST CANCER. Recent major surgery: BOWEL OBSTRUCTION SURGERY ABOUT 2 YEARS AGO. PLOF (Prior Level of Function): LIVES WITH IN ONE STORY HOME. HAS BEEN USING A CANE JUST SINCE THE FALL IN SEPTEMBER 2018 - NO ASSISTIVE DEVICE PRIOR. COUPLE OF FALLS PRIOR TO SEPTEMBER WITHOUT INJURY. BEFORE FALL IN SEPTEMBER WAS GOING TO PARKINSON'S EXERCISE CLASS AT [facility] ONCE A WEEK. PATIENT REPORTS SHE USE TO BE ABLE TO GET OUT OF A CHAIR WITHOUT USING HER HANDS BUT NOW SHE CAN'T. OTHER: PATIENTS CHIEF COMPLAINT TODAY IS HER LEFT ANTERIOR HIP PAIN SINCE THE FALL. - Objective Sitting/Standing Posture: POOR. INCREASED TRUNK FLEXION. SLOUCHED. Active Correction of posture: NE. Other Observations: THIS PATIENT AMBULATES INDEP'LY INTO PT WITH A STRAIGHT CANE AND WOBBLY GAIT PATTERN. BUT MAINTAINES AND/OR REGAINS BALANCE INDEP'LY. SHE WALKS WITH A SHUFFLE TYPE GAIT PATTERN WITH DECREASED CAUTIOUS CADANCE. SHE IS UE DEPENDENT TO TRANSFER FROM SIT TO STAND. SHE IS UNABLE TO SINGLE LEG STANCE ON EITHER LE FOR MORE THAN A SECOND OR TWO WITHOUT UE ASSIST. SLS ON LLE EVEN WITH UE SUPPORT INCREASES C/O LEFT LATERAL HIP PAIN. Motor deficit: STARLA LE WEAKNESS. RIGHT LE STRENGTH IS GROSSLY 4-5/5 WITH MMT'ING. RIGHT LE: HIP 4-/5, KNEE 5/5, ANKLE 4/5. Sensory deficit: STARLA LE LIGHT TOUCH SENSATION APPEARS INTACT AND SYMMETRICAL. ROM deficit: STARLA LE TIGHTNESS. STARLA HIP FLEXOR, HS AND GASTROC-SOLEUS COMPLEX WEAKNESS. Dural Signs: NEGATIVE STARLA LE'S. Core strength: POOR. Palpation: TENDERNESS WITH PALPATION OF RIGHT GREATER TROCH REGION. - Goals Goal 1:: DECREASE C/O LEFT HIP PAIN Goal Time Frame: 4-6 Weeks Goal 2:: INDEP AND SAFE GAIT ON ALL SURFACES WITH LEAST ASSISTIVE DEVICE Goal Time Frame: 4-6 Weeks Goal 3:: IMPROVE RIGHT LE FUNCTIONAL STRENGTH Goal Time Frame: 4-6 Weeks Goal 4:: INDEP HEP FOR CONTINUED IMPROVEMENT ONCE FORMAL PHYSICAL THERAPY CONCLUDES. Goal Time Frame: 4-6 Weeks - Rehabilitation Potential Rehabilitation Potential: Fair - Anticipated Interventions Patient/Client Instruction: Educate patient on: Condition, Plan of Care, Risk Factors, Benefits of Fitness Program For the Purpose of:: To improve self management Therapeutic Exercise to Include: Strength training, Balance training, Coordination, Body mechanics, Postural training, Flexibilty training, Gait and locomotor training, Active ROM, Dynamic Lumbar Stabilization For the Purpose of:: To decrease pain, To increase ROM, To improve muscle performance and motor function, To increase tolerance to activity/condition/position, To improve ability of physical actions for home/community/work/leisure, To improve gait and locomotor functions Cryotherapy (ice pack, ice massage): Yes Thermo therapy (hot pack): Yes Ultrasound (thermal/non thermal): Yes For the Purpose of:: To decrease pain, To decrease swelling/inflammation, To increase ROM, To improve nutrient delivery to tissue, To improve gait and locomotor functions Thank you for the opportunity to evaluate your patient. For Medicare and Medicare HMO plans, please review the plan of care and approve it. It will need to be FAXED BACK to us at [phone] for Medicare purposes. For Medicare only, by signing this I certify the plan of care. Please let me know if there are questions or concerns regarding this plan of care. Physician Signature: Date:
--- NOTE | 2019-01-16 11:48 | HP.PTREVAL_ITS ---
LUIS FERNANDO BAUMAN, It has been my pleasure to treat MILEY RANKIN over the last 6 visits for PARKINSON'S DZ, ABNORMALITY OF GAIT, RECURRENT FALLS.. Please see the progress note below for an update on the physical therapy plan of care! Subjective: PATIENT REPORTS HER HIP PAIN IS BETTER. STATES IT DOESN'T HURT ALL THE TIME NOW AND DOESN'T GET WORSE THAN A 4/10. STATES SHE ONLY USES THE CANE ABOUT 20% OF THE TIME NOW AND ONLY IF SHE IS GOING TO WALK A LOT. PATIENT REPORTS SHE PASSED OUT LAST MONDAY CAUSING HER TO CALL. SHE WENT TO THE EMERGENCY ROOM. NO FRACTURES. REPORTS SHE PASSED OUT BECAUSE OF HER BLOOD PRESSURE AND THE DOCTOR CHANGED HER MEDICATION. PATIENT REPORTS SHE HASN'T FALLEN DUE TO LOSS OF BALANCE SINCE STARTING PHYSICAL THERAPY AND SHE IS USING HER CANE A LOT LESS. SHE REPORTS THAT SINCE STARTING THERAPY SHE HAS MORE CONFIDENCE IN HER WALKING/BALANCE AND WOULD LIKE TO CONTINUE PHYSICAL THERAPY. PATIENT REPORTS SHE THINKS THE US HELPED A LITTLE BIT. Objective/Function: PATIENT IS IMPROVING IN TERMS OF HIP PAIN, BALANCE AND LE STRENGTH. SHE IS A GOOD CANDIDATE TO CONTINUE PT TO HELP SUCCESSFULLY TRANSITION BACK TO EX IN A PARKINSON'S CLASS TYPE SETTING AND DECREASE FALL RISK. UPON EXAM TODAY: Sitting/Standing Posture: POOR. INCREASED TRUNK FLEXION. SLOUCHED. Other Observations: THIS PATIENT AMBULATES INDEP'LY INTO PT WITH A STRAIGHT CANE AND LESS WOBBLY GAIT PATTERN. SHE REALLY ISN'T USING THE CANE MUCH AND JUST KIND OF CARRY'S IT BEHIND HER. SHE WALKS LESS CAUTIOUSLY NOW SHOWING MO RE CONFIDENCE AND TAKING LONGER STRIDES. AFTER SEVERAL ATTEMPS TODAY SHE WAS ABLE TO INDEP'LY TRANSFER FROM SIT TO STAND WITHOUT UE ASSIST AND SHE SEEMED HAPPY WITH THIS. SHE ALSO DENIED INCREASED HIP PAIN WITH THIS TRANSFER TRAINING. SHE IS NOW ABLE TO SINGLE LEG STANCE ON EACH LE FOR ABOUT 3 SEC'S WITHOUT UE ASSIST AFTER SEVERAL ATTEMPS. SLS ON LLE EVEN WITHOUT UE SUPPORT TODAY DOES NOT INCREASE C/O LEFT LATERAL HIP PAIN. Motor deficit: STARLA LE WEAKNESS BUT IMPOVING. STARLA LE STRENGTH IS GROSSLY 4-5/10 WITH MMT'ING AND TESTING OF LEFT HIP DOES NOT PROVOKE PAIN TODAY. SHE DOES STILL HAVE SOME TENDERNESS WITH PALPATION OF THE LEFT LATERAL HIP REGION. ROM deficit: STARLA LE TIGHTNESS. STARLA HIP FLEXOR, HS AND GASTROC-SOLEUS COMPLEX'S. Dural Signs: NEGATIVE STARLA LE'S. Core strength: POOR. OTHER: PATIENT FOLLOWS COMMANDS WELL. Plan Plan: RECOMMEND CONTINUED PHYSICAL THERAPY 2X'S A WEEK X 4-6 WEEKS FOR LEFT HIP US NEEDED. GAIT AND BALANCE ACTIVITIES. CONSIDER WALKER. POSTURE CORRECTION/STRENGTHENING, INSTRUCTION IN APPROPRIATE BODY MECHANICS AND ACTIVITY MODIFICATIONS. DLS STARTING WITH A NEUTRAL SPINE PROGRESSING ROM TOLERATED. STARLA LE ROM, STRETCHING AND STRENGTHENING. HEP INSTRUCTION. CONSIDER PARKINSON'S CLASS POST REHAB. Goals Goal 1:: DECREASE C/O LEFT HIP PAIN Goal Time Frame: 4-6 Weeks Goal Progress: Progressing Goal 2:: INDEP AND SAFE GAIT ON ALL SURFACES WITH LEAST ASSISTIVE DEVICE Goal Time Frame: 4-6 Weeks Goal Progress: Progressing Goal 3:: IMPROVE RIGHT LE FUNCTIONAL STRENGTH Goal Time Frame: 4-6 Weeks Goal Progress: Progressing Goal 4:: INDEP HEP FOR CONTINUED IMPROVEMENT ONCE FORMAL PHYSICAL THERAPY CONCLUDES. Goal Time Frame: 4-6 Weeks Goal Progress: Progressing Anticipated Interventions Patient/Client Instruction: Educate patient on: Condition, Plan of Care, Risk Factors, Benefits of Fitness Program For the Purpose of:: To improve self management Therapeutic Exercise to Include: Strength training, Balance training, Coordination, Body mechanics, Postural training, Flexibilty training, Gait and locomotor training, Active ROM, Dynamic Lumbar Stabilization For the Purpose of:: To decrease pain, To increase ROM, To improve muscle performance and motor function, To increase tolerance to activity/condition/position, To improve ability of physical actions for home/community/work/leisure, To improve gait and locomotor functions Cryotherapy (ice pack, ice massage): Yes Thermo therapy (hot pack): Yes Ultrasound (thermal/non thermal): Yes For the Purpose of:: To decrease pain, To decrease swelling/inflammation, To increase ROM, To improve nutrient delivery to tissue, To improve gait and locomotor functions Please do not hesitate to contact me at [phone] by phone or if you have questions or concerns regarding this new plan of care! Sincerely, Rakel Pineda, PT, Cert MDT
--- NOTE | 2019-01-22 16:50 | HP.OTDCSUM ---
HP - OT D/C Summary It has been my pleasure to treat MILEY RANKIN under orders from LUIS FERNANDO BAUMAN, for the diagnosis of hypophonia, parkinsons for a total of 5 visit(s). Please see the following information for a summary of their discharge status. - Overall Improvement % Improvement: 80 - Objective Objective/Function: increase BUE strength, community health counselor strength, increased coordination skills to assist with self feeding and decresae spillage of food, educate on tools/strategies to assist w/ self feeding skills. - Goals Patient Goals: Regain Strength, Improve Fine Motor Skills, Be More Independent in ADLS, Resume Former Household Responsibilities (Cooking,Cleaning,Yard, etc.) Goal:: Pt will progress w/ bilateral hand community health counselor strength by 8# to assist w/ self feeding skills by d/c from OT services. Pt will progress w/ BUE generalized strength 4/5 to assist w/ functional transfers and BADLs independently by d/c from OT services. Goal:: Pt will be able to complete self feeding independently w/o spillage of food using AE, tools/strategies as needed in 3/4 trials. Goal:: Pt will be educated on BUE HEP with good understanding and demo 75%x by d/c from OT services. - Plan Plan: d/c OT POC - D/C Information Discharge Comments: Pt has progressed wtih OT goals, pt states no more spillage of food and has been educated on AE to assist with self feeding skills and demo good understanding, provided note for her to order AE as needed at home. Pt progressed with R hand community health counselor strength from 27# to 30# this date and L hand community health counselor strength from 19# to 27#. Pt demo increased BUE strength 4/5 R UE, and 4-/5 L UE, pt has been educated on variety of BUE HEP to increase BUE strength and community health counselor strength and has handouts provided, demo'd good understanding. Pt at this time, demo no need for continued OT services. D/C OT POC. If there are questions or concerns regarding this patient's occupational therapy, please fell free to call me at [phone]. Thank you for the referral of this patient. Sincerely, Ariadne Galvez
--- NOTE | 2019-02-20 13:29 | HP.PTDCSUM_ITS ---
HP - PT D/C Summary It has been my pleasure to treat MILEY RANKIN under orders from LUIS FERNANDO BAUMAN, for the diagnosis of PARKINSON'S DZ, ABNORMALITY OF GAIT, RECURRENT FALLS. for a total of 11 visit(s). Discharge Date: Please see the following information for a summary of their discharge status. - Subjective Subjective: PATIENT REPORTS SHE IS WALKING BETTER AND HAS MORE CONFIDENCE IN HER WALKING SINCE STARTING PHYSICAL THERPAY EVEN THOUGH SHE FELL AT THE [facility]. SHE RELATES HER FALL TO THE UNEVEN GROUND. PATIENT IS GOING TO TRY TO SIGN UP FOR THE DELAY THE DZ CLASS TODAY. PATIENT DENIES LEFT HIP PAIN OR TENDERNESS. - Pain stomach Pain Intensity (Out of 10): Unrated - Overall Improvement % Improvement: 60 - Objective Objective/Function: NO SIGNIFICANT CANGES SEEN UPON EXAM TODAY COMPARED TO RE- EVAL 01/16/19 BUT PATIENT IS FEELING MORE CONFIDENT IN HER WALKING, READY TO START DELAY THE DISEASE CLASS AND STILL HAS NO C/O HIP PAIN. SHE REMAINS A HIGH FALL RISK AND IS STILL RESISTANT TO USING A WALKER OR ROLATOR. RARELY WILL EVEN USE CANE NOW AND WHEN SHE DOES SHE IS OBSERVED USING IT INCORRECTLY DESPITE INSTRUCTION. - Goals Goal 1:: DECREASE C/O LEFT HIP PAIN Goal Progress: Goal Met Goal 2:: INDEP AND SAFE GAIT ON ALL SURFACES WITH LEAST ASSISTIVE DEVICE Goal Progress: Not Progressing Goal 3:: IMPROVE RIGHT LE FUNCTIONAL STRENGTH Goal Progress: Not Progressing Goal 4:: INDEP HEP FOR CONTINUED IMPROVEMENT ONCE FORMAL PHYSICAL THERAPY CONCLUDES. Goal Progress: Not Progressing - Plan Plan: D/C TO DELAY THE DISEASE CLASS. PATIENT IS AGREEABLE. - D/C Information If there are questions or concerns regarding this patient's physical therapy, please feel free to call me at [phone]. Thank you for the referral of this patient. Sincerely, Rakel Pineda, PT, Cert MDT
--- NOTE | 2019-03-06 12:08 | HP.SP.DC_ITS ---
ST Discharge Summary - Discharged: Discharge: Izzy Miller is discharged from [facility] due to plateau reached on her goals. She was evaluated on 12/18/18 and attended a total of 8 therapy visits. The focus of therapy was on increasing her volume for conversational tasks as well as increasing sustained phonation. Her sustained phonation at the initial session was 7.6 seconds and her final session was 7 seconds. Loudness level for reading started at 69.9 dB and ended at 71dB. Conversational loudness initially was 64.9 and final session was 63.4. She often speaks very rapidly and was cued to reduce her rate, but this is often unsuccessful. Her rapid rate and low volume decrease intelligibility s ignificantly. A copy of this discharge will be sent to her referring physician.
== END 2019-03-06 18:28 | disposition home or self-care (01) ==
LOC: SP 11:00
PROVIDERS: Family Provider Family Medicine; PCP Family Medicine
DX: G20 Parkinson's disease (principal); R26.9 Unspecified abnormalities of gait and mobility; R29.6 Repeated falls; R49.8 Other voice and resonance disorders; R47.89 Other speech disturbances
CPT/HCPCS: 92507; 92524; 97035; 97110; 97116; 97162; 97165; 97166; 97530

== ENCOUNTER 2019-10-25 21:47 | Inpatient (IN) | payer MEDICARE, SELFPAY ==
[2019-10-25 21:48] VITALS: BP 94/66; PULSE 151; PULSE 157; RESP 23; RESP 30; TEMP 36.2; O2SAT 95; BMI 29.7
--- NOTE | 2019-10-25 22:02 | CT_ITS ---
STUDY: CT BRAIN WITHOUT CONTRAST REASON FOR EXAM: Female, 73 years old. DECREASED LOC TODAY/FALL AT 1800. Hx of Parkinson''s and bilateral breast cancer RADIATION DOSAGE (If Supplied By Facility): CTDIvol = ( 44.99 ) mGy, DLP = ( 796.11 ) mGycm TECHNIQUE: Transaxial CT imaging of the brain was performed without administration of intravenous contrast material. Individualized dose optimization techniques were used for this CT. COMPARISON: Prior head CT exam of December 10, 2018 FINDINGS: Normal soft tissue structures. Normal calvarium. There is mild cerebral atrophy with widening of the extra-axial spaces and ventricular dilatation. There are areas of decreased attenuation within the white matter tracts of the supratentorial brain, consistent with microvascular disease changes. Normal basal ganglia and thalami. Normal brainstem. Normal cerebellum. There is no intracranial hemorrhage. There are no findings of an acute ischemic infarction. Normal visualized paranasal sinuses. CT/Brain/Head without Contrast IMPRESSION: No acute intracranial findings. Negative for hemorrhage, hematoma or extra-axial fluid collections. Mild involutional changes. Electronically Signed: Susan Cohen MD at 22:55 EDT , Service support ,
--- NOTE | 2019-10-25 22:03 | EKG12_ITS ---
Test Reason : REPEAT Blood Pressure : / mmHG Vent. Rate : 076 BPM Atrial Rate : 076 BPM P-R Int : 136 ms QRS Dur : 104 ms QT Int : 432 ms P-R-T Axes : 055 006 083 degrees QTc Int : 486 ms Normal sinus rhythm Marked ST abnormality, possible lateral subendocardial injury Abnormal ECG Confirmed by KAREL PETERS, ALEJANDRO ([id number]), assignment desk editor FOSTER CORTES ([id number]) on 10/29/2019 3:19:05 PM Referred By: JENNIFER Confirmed By:ALEJANDRO VINSON MD
[2019-10-25] MEDS: 0.9% Normal Saline 1,000 ML 1000 ML IV (22:10)
[2019-10-25 22:14] LABS: Absolute Lymphocyte Count 1.29 X10^3/uL (0.83-4.51); Absolute Neutrophil Count 7.3 X10^3/uL (2.0-7.7); Basophil% 1.1 % (0-1); Eosinophil# 0.08 X10^3/uL; Eosinophils% 0.9 % (0-5); Hematocrit 39.6 % (37-47); Hemoglobin 12.6 g/dL (12.0-15.0); Lymphocyte # 1.29 X10^3/ul (4.0); Lymphocyte % 13.8 % (19-41); Mean Corp Hgb Conc 31.8 g/dL (32-36); Mean Corpuscular Hgb 31.7 pg (27.0-32.0); Mean Corpuscular Volume 99.7 fL (81-99); Mean Platelet Vol. 10.1 fl (6.2-12.0); Monocyte# 0.54 X10^3/uL; Monocyte% 5.8 % (0-10); NRBC Flagged by Analyzer 0 % (0-5); Neutrophil # 7.28 X10^3/uL (2.7-7.7); Neutrophil % 77.9 % (47-70); Platelet Count 279 K/mm3 (150-450); RBC Distribution Width CV 12.4 % (11.6-14.6); RBC Distribution Width SD 45.6 fl (35.1-43.9); Red Blood Count 3.97 M/mm3 (4.2-5.4); White Blood Count 9.3 K/mm3 (4.4-11.0)
--- NOTE | 2019-10-25 22:23 | RAD_ITS ---
STUDY: X-RAY CHEST REASON FOR EXAM: Female, 73 years old. FAMILY REPORTS DECREASED LOC ALL DAY TODAY. REPORTS FALL AROUND 1800 TODAY. EMS REPORTS INITIAL HEART RATE IN 190''S. TECHNIQUE: 1 view COMPARISON: Prior chest radiograph from October 17, 2016 FINDINGS: The lungs are clear and expanded. There is no demonstrated pleural abnormality. Normal size heart. Normal mediastinum and jamie. Normal visualized pulmonary arteries. There is atherosclerotic calcification of the aortic arch with tortuosity. Normal visualized thoracic spine. Normal visualized ribs, clavicles, and shoulders. There is no demonstrated abnormality of the visualized soft tissue structures of the upper abdomen. Surgical clips right lateral chest wall. RAD/Chest 1 View (Portable) IMPRESSION: No acute cardiopulmonary findings or changes. Negative for new consolidation, focal atelectasis or substantial pleural effusion. Stable cardiac size. Electronically Signed: Susan Cohen MD at 23:02 EDT , Service support ,
[2019-10-25 22:24] LABS: Partial Thromboplast Time 28.2 Seconds (24.1-36.2); Prothrombin Time (Protime)PT. 12.8 SECONDS (11.7-14.9)
--- NOTE | 2019-10-25 22:25 | ED.DCSUM_ITS ---
- ER Visit Summary Date of Service: 10/25/19 Chief Complaint: Altered mental status History of Present Illness: The patient is a 73 F who presents with altered mental status that was noticed today. Daughter states that patient has a history of Parkinson's and she has good days and bad days. Daughter states that she felt that this may just be 1 of her bad days. Daughter states the patient has been feeling weak throughout the day today. Daughter denies any fevers or chills but states the patient did have some sweats. Daughter states the patient was complaining of some chest pain. EMS noted that the patient was in A. fib with RVR. Daughter states that the patient has a history of higher episodes of atrial fibrillation. Daughter states the patient is not anticoagulated because of her Parkinson's and risk for falls. Physical Examination: Vital signs are stable except for a tachycardia of 157 and a mild tachypnea of 30. Patient is afebrile here. Patient is awake and alert. Patient answers questions appropriately. Oral mucosa is pink and slightly dry. Neck is supple. Trachea is midline. There is no JVD. Heart was irregularly irregular and tachycardic. Lungs are clear and equal bilateral. There is adequate respiratory effort. Abdomen is soft. Bowel sounds are normal. There is no tenderness. Cranial nerves II through XII are grossly intact. There are no focal motor or sensory deficits. Extremities are intact. There is no calf tenderness or edema. There is no tenderness of the ankles, knees, or hips. There is no pain with internal and external rotation of the lower extremities. There is some tenderness of the left elbow. There is no deformity. There is no edema or ecchymosis. Test Results: EKG shows atrial fibrillation with a rate of 155. There is mild diffuse ST depression that is likely related to the rate. Portable chest x-ray was obtained. There is no acute cardiopulmonary process. CT scan of the brain was obtained. There is no acute intracranial abnormality. These were interpreted by the radiologist and reviewed by myself. CBC was within normal limits. Urinalysis does not show any evidence of urinary tract infection. Creatinine was slightly elevated at 1.35. BUN was 25. INR was normal at 1.0. Troponin was slightly elevated at 0.046. Emergency Department Course and Treatment: Patient was given IV fluids. Patient is allergic to Cardizem and was given a dose of Lopressor. Patient converted to a normal sinus rhythm. EKG was repeated. This showed normal sinus rhythm with a rate of 76. The ST depression was improving. Patient was more awake and alert. Patient and family reported that the patient fell earlier today. Patient is complaining of some left elbow pain. Left elbow x-ray was obtained. There is no acute fracture. This was interpreted by myself. Case was discussed with the hospitalist. He will admit the patient for observation. Patient and family understood and are agreeable with the plan. All questions are answered. Disposition: Admit to hospital Impression: 1. Paroxysmal atrial fibrillation with rapid ventricular response 2. Elevated troponin This note was generated with [employer] dictation software. It may contain incorrect words, spelling, and punctuation that were not noted in review of the chart prior to signing ED Disposition - Plan for ED Patient: Disposition: Acute Care Hospital [facility] Diagnosis: Paroxysmal atrial fibrillation, Elevated troponin Referrals: Gavin Rachel MD [Primary Care Provider] -
[2019-10-25 22:32] LABS: ALB/GLOB Ratio 1.2 RATIO (0.9-2.4); AST(SGOT) 68 U/L (15-37); Alanine Aminotransfer ALT/SGPT 13 U/L (13-56); Albumin, Serum 3.6 g/dL (3.2-5.0); Alkaline Phosphatase 104 U/L (45-117); Anion Gap 11 (5-15); BUN 25 mg/dL (7-18); BUN/Creat Ratio 18.5 RATIO (10-20); Calcium,Total 9.1 mg/dL (8.5-10.1); Chloride 101 mmol/L (98-107); Creatinine, Serum 1.35 mg/dL (0.55-1.02); EST Glomerular Filtration Rate 41 mL/min (>60); Est Glom Filt Rate - Afr Amer 49 mL/min (>60); Glucose 180 mg/dL (74-106); Potassium 3.5 mmol/L (3.5-5.1); Protein, Total 6.6 g/dL (6.4-8.2); Sodium Level 136 mmol/L (136-145)
[2019-10-25] MEDS: Metoprolol Tartrate 5 MG/5 ML Vial IV (22:32)
[2019-10-25 22:33] VITALS: BP 97/58; PULSE 156; RESP 19; O2SAT 100
[2019-10-25 22:42] VITALS: BP 97/58; PULSE 119; RESP 19; O2SAT 100
[2019-10-25 22:59] VITALS: BP 97/56; PULSE 75; RESP 14; O2SAT 100
[2019-10-25 22:59] LABS: Bacteria 0 SEEN /hpf (None Seen); Mucous, Urine 0 SEEN /hpf (<or=2+)
[2019-10-25 23:00] VITALS: PULSE 77; RESP 21; O2SAT 100
[2019-10-25 23:01] LABS: Color, Urine Yellow (Yellow); Glucose, Dipstick Normal (Normal); Ketone-Dipstick 5 mg/dl (Negative); Leukocyte Esterase-Dipstick Negative /ul (Negative); Nitrite-Dipstick Negative (Negative); Occult Blood-Urine Negative /ul (Negative); Protein-Dipstick Negative (Negative); Specific Gravity, Urine 1.015 (1.002-1.030); Urine Bilirubin Dipstick Negative (Negative); Urine Clarity Clear (Clear); Urine Urobilinogen Normal (Normal)
[2019-10-25 23:14] LABS: Amorphous Sediment 1+; Hyaline Cast 10-25 SEEN /lpf (0-5); Red Blood Cells-Urine 0-5 SEEN /hpf (0-5); Squamous Epithelial Cells - UA 0-5 SEEN /hpf (5-10); White Blood Cells 0-5 SEEN /hpf (0-5)
--- NOTE | 2019-10-25 23:14 | RAD_ITS ---
STUDY: X-RAY - LEFT ELBOW REASON FOR EXAM: Female, 73 years old. FALL TODAY. PAIN IN ELBOW TECHNIQUE: 3 view(s) of the elbow. COMPARISON: None. FINDINGS: Normal visualized humerus, radius and ulna. Normal radiocapitellar and ulnotrochlear articulations. The soft tissue structures are unremarkable. There is no demonstrated fracture. RAD/Elbow min 3 Views IMPRESSION: Normal x-ray examination of the elbow. Electronically Signed: Susan Cohen MD at 23:48 EDT , Service support ,
--- NOTE | 2019-10-25 23:18 | EKG12_ITS ---
Test Reason : ALT LOC Blood Pressure : / mmHG Vent. Rate : 155 BPM Atrial Rate : 141 BPM P-R Int : 000 ms QRS Dur : 100 ms QT Int : 276 ms P-R-T Axes : 000 008 138 degrees QTc Int : 443 ms Atrial fibrillation Marked ST abnormality, possible inferolateral subendocardial injury Abnormal ECG Confirmed by KAREL PETERS, ALEJANDRO ([id number]), editorial clerk FOSTER CORTES ([id number]) on 10/29/2019 3:19:22 PM Referred By: JENNIFER Confirmed By:ALEJANDRO VINSON MD
--- NOTE | 2019-10-25 23:52 | HP.PCM_ITS ---
Problem List (1) Fall Status: Acute (2) Elevated troponin Status: Acute (3) Essential hypertension Status: Chronic (4) Parkinson disease Status: Chronic (5) Paroxysmal atrial fibrillation Status: Chronic (6) Atrial fibrillation with RVR Status: Acute History of Present Illness Date of Admission: 10/25/19 Chief Complaint: palpitations. falls. The patient is a 73 year old F with a known history of paroxysmal atrial fibrillation and Parkinson's. Was in her normal state of health and then experienced palpitations. Patient had fallen twice with this. Patient presented to the emergency room and was found to be in atrial fibrillation with RVR. Patient received a one-time dose of metoprolol IV 5 mg. Subsequently converted to normal sinus rhythm. Has no further chest pain. Troponin was slightly elevated at 0.046. Currently chest pain-free and palpitation free at this time. Patient does have falls due to her Parkinson's but it has been none recently. Patient normally is able to get around on her own with a cane. [] Past Medical History Past Medical History (Chronic Problems): Chronic Problems (Last Reviewed 12/21/18 @ 11:14 by Chio Gastelum) Essential hypertension (Chronic) Parkinson disease (Chronic) Paroxysmal atrial fibrillation (Chronic) Medical History: Medical History (Last Reviewed 10/25/19 @ 23:[address] Burt Shaikh, DO) Essential hypertension (Chronic) I10 Paroxysmal atrial fibrillation (Chronic) I48.0 Pyloric stenosis K31.1 Breast cancer C50.919 Diverticulosis K57.90 Parkinson disease G20 SBO (small bowel obstruction) (Inactive) K56.69 Allergies iodine Allergy (Verified 10/25/19 21:48) Hives latex Allergy (Verified 10/25/19 21:48) Rash rotigotine [From Neupro] Allergy (Verified 10/25/19 21:48) Rash shellfish derived Allergy (Verified 10/25/19 21:48) Hives Sulfa (Sulfonamide Antibiotics) Allergy (Verified 10/25/19 21:48) Hives diltiazem Adverse Reaction (Verified 10/25/19 21:48) Rash Home Medications: Ambulatory Orders Medication Instructions Recorded Cholecalciferol (Vitamin D3) 5,000 units PO DAILY 10/15/16 [D3-2000] Citalopram Hydrobromide 10 mg PO QHS 10/15/16 [Citalopram HBr] Metoprolol Tartrate [Lopressor 25 mg PO BID #60 tab 10/21/16 (beta rubi)] aspirin 81 mg tablet,delayed 81 mg PO DAILY 12/21/18 release carbidopa 25 mg-levodopa 100 mg 1 tab PO TID tab 12/21/18 tablet carbidopa ER 50 mg-levodopa 200 mg 2 tab PO BREAKFAST 12/21/18 tablet,extended release losartan 50 mg-hydrochlorothiazide 1 tab PO DAILY 12/21/18 12.5 mg tablet melatonin 3 mg tablet 3 mg PO HS 12/21/18 Carbidopa/Levodopa [Carbidopa-Levo 1 ea PO BID 10/25/19 ER 50-200 Tab] Surgical History: Surgical History (Last Reviewed 10/25/19 @ 23:[address] Burt Shaikh DO) History of bowel resection Z98.890, Z90.49 Surgical History: - - Bilateral lumpectomy with radiation therapy. Pyloric stenosis gastric outlet repair. Small bowel resection 10/16/16. 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 Burt Shaikh DO) Brother Heart disease History Items: Cancer - Stomach cancer Paternal Family History: Family History (Last Reviewed 10/25/19 @ 23:[address] Burt Shaikh DO) Brother Heart disease History Items: Cancer Offspring Family History: Family History (Last Reviewed 10/25/19 @ 23:[address] Burt Shaikh DO) Brother Heart disease History Items: - Review of Systems Constitutional: Denies: Anorexia, Chills, Fever, Night Sweats Eyes: Denies: Blurred vision, Double vision HEENT: Denies: Head Aches, Sinus Congestion, Sinus Drainage Cardiovascular: Reports: Chest Pain, Palpitations Respiratory: Reports: Cough - With drinking, this is chronic Gastrointestinal: Denies: Abdominal Pain, Nausea, Vomiting Genitourinary: Denies: Dysuria Skin: Denies: Rash, Wounds Neurological: Reports: - - Uses a cane at baseline. Has tremors that come and go. Patient occasionally gets stiff at times with her Parkinson's. Psychiatric: Denies: Anxiety, Depression Comment: All review of systems were negative except as mentioned above in the history of present illness and the other review of systems. VTE Information - Inpt Only VTE Present on Admission: No VTE Mechan Device Prophylaxis: None VTE Pharm Prophylaxis ordered?: No Patient Problems: Active and Suspected Problems (Last Reviewed 12/21/18 @ 11:14 by Chio Gastelum) Elevated troponin (Acute) Fall (Acute) Atrial fibrillation with RVR (Acute) - Physical Exam Vitals/I&O's: Vital Signs Temp Pulse Resp BP Pulse Ox 36.2 C L 77 21 H 97/56 L 100 10/25/19 21:48 10/25/19 23:00 10/25/19 23:00 10/25/19 22:59 10/25/19 23:00 Oxygen Flow Rate (L/min) 2 Oxygen Delivery Method Nasal Cannula Weight: 80.9 kg Body Mass Index (BMI) 29.7 General: Alert, Cooperative, No apparent distress, - - Hypophonia HEENT: Atraumatic, PERRLA, Normocephalic, - - Impaired vertical saccades with a vertical nystagmus Neck: No Nodes, Trachea Midline Lungs: Clear to auscultation, Normal air movement, No rhonchi, No wheeze Cardiovascular: Regular rate, Regular Rhythm, Normal S1, Normal S2, No murmurs Abdomen: Bowel Sounds Present, Soft, Non Tender, Non-Distended, No Hepato- splenomegaly Extremities: No clubbing, No cyanosis, No edema, No Calf Tenderness Skin: No rashes, No breakdown Neurological: Motor Exam 5/5 strength throughout, Sensory exam intact to light touch and pain, - - No clonus Psych/Mental Status: Normal Affect, Appropriate Laboratory Results 10/25/19 21:50: WBC 9.3, RBC 3.97 L, Hgb 12.6, Hct 39.6, MCV 99.7 H, MCH 31.7, MCHC 31.8 L, RDW Std Deviation 45.6 H, RDW Coeff of Patience 12.4, Plt Count 279, MPV 10.1, Immature Gran % (Auto) 0.500, Neut % (Auto) 77.9 H, Lymph % (Auto) 13.8 L, [place] % (Auto) 5.8, Eos % (Auto) 0.9, Baso % (Auto) 1.1 H, Absolute Neuts (auto) 7.3, Absolute Lymphs (auto) 1.29, Nucleated RBC % 0 10/25/19 21:50: PT 12.8, INR 1.0, APTT 28.2 10/25/19 21:50: Sodium 136, Potassium 3.5, Chloride 101, Carbon Dioxide 24.0, Anion Gap 11, BUN 25 H, Creatinine 1.35 H, Estim Creat Clear Calc 33.40, Est GFR (MDRD) Af Amer 49 L, Est GFR (MDRD) Non-Af 41 L, BUN/Creatinine Ratio 18.5, Glucose 180 H, Calcium 9.1, Total Bilirubin 0.60, AST 68 H, ALT 13, Alkaline Phosphatase 104, Troponin I 0.046 H, Total Protein 6.6, Albumin 3.6, Globulin 3.0, Albumin/Globulin Ratio 1.2 10/25/19 22:50: Urine Color Yellow, Urine Clarity Clear, Urine pH 6.0, Ur Specific [place] 1.015, Urine Protein Negative, Urine Glucose (UA) Normal, Urine Ketones 5 H, Urine Occult Blood Negative, Urine Nitrite Negative, Urine Bilirubin Negative, Urine Urobilinogen Normal, Ur Leukocyte Esterase Negative, Urine RBC 0-5 SEEN, Urine WBC 0-5 SEEN, Ur Squamous Epith Cells 0-5 SEEN, Amorphous Sediment 1+, Urine Bacteria 0 SEEN, Hyaline Casts 10-25 SEEN, Urine Mucus 0 SEEN EKGs reviewed: First EKG showed atrial fibrillation with RVR with heart rate of 155. EKG following conversion to normal sinus rhythm showed normal sinus rhythm with some slight ST depressions in the anterior leads. Chest x-ray personally reviewed and showed poor story effort but no acute process otherwise. Left elbow x-ray showed no acute fracture. Personally reviewed. Clinical Impression(s) from Imaging Studies Brain CT 10/25/19 22:02 IMPRESSION: No acute intracranial findings. Negative for hemorrhage, hematoma or extra-axial fluid collections. Mild involutional changes. Electronically Signed: Susan Cohen MD at 22:55 EDT , Service support , Chest X-Ray 10/25/19 22:23 IMPRESSION: No acute cardiopulmonary findings or changes. Negative for new consolidation, focal atelectasis or substantial pleural effusion. Stable cardiac size. Electronically Signed: Susan Cohen MD at 23:02 EDT , Service support , Elbow X-Ray 10/25/19 23:14 IMPRESSION: Normal x-ray examination of the elbow. Electronically Signed: Susan Cohen MD at 23:48 EDT , Service support , Assessment/Plan All Active Problems (Last Reviewed 12/21/18 @ 11:14 by Chio Gastelum) Elevated troponin (Acute) Fall (Acute) Atrial fibrillation with RVR (Acute) 1. Atrial fibrillation with RVR: Since converted to normal sinus rhythm. Would continue with the patient metoprolol tartrate 25 mg twice daily for now. If blood pressure would allow, could consider increasing it to 50 twice daily but would hold off any changes as her blood pressure is been ranging in the high 90s systolic. Patient deemed a high risk for anticoagulation given her Parkinson's and falls and I would just continue with baby aspirin. The patient goes back in atrial fibrillation with RVR then would recommend consulting cardiology at that point. 2. Debility: Patient had fallen twice today which is out of the ordinary for her but did not unexpected given the patient's underlying Parkinson's disease. Patient with atrial relation with RVR likely just had felt too unwell and given Parkinson's had fallen. Will have physical and occupational therapy evaluate and treat. Discussed with the patient's daughter at bedside, typically the patient's daughter, son-in-law and are at home with her. When she had fallen earlier they were not actually at home. But patient would not require going to a senior living facility when she is ready for discharge. 3. Elevated troponin: Slight. Is likely attributed to the atrial fibrillation with RVR. We will cycle troponins. I do not anticipate any additional needs for this. If they do go up considerably then would recommend consulting cardiology. 4. Dysphagia: Chronic. Patient does cough with drinking. Will have speech therapy evaluate and make further recommendations. 5. VTE prophylaxis: Low risk as she is observation status. 6. Advanced care planning: Discussed CPR with the patient and her daughter. No decision at this time. I told them that I would leave her at full CODE STATUS but I did recommend if any event of cardiac arrest for DNR Comfort Care arrest as if patient were to actually survive it that her post resuscitation course would likely be prolonged given her underlying Parkinson's disease. 7. Parkinson's disease: Obviously complicates overall care but stable at this time. Continue with Sinemet. Patient follow-up with Dr. Hanks as outpatient. Patient seen and examined October 24. Billing to reflect that date for this history and physical. OBSV E&M: [id number] Initial observation care L3
[2019-10-25 23:58] VITALS: BP 154/89; PULSE 74; RESP 17; TEMP 36.6; O2SAT 100
[2019-10-26] VITALS (16 sets, daily range): BP systolic 119–158; BP diastolic 70–99; PULSE 59–80; RESP 12–20; TEMP 36.4–36.9; O2SAT 94–100; BMI 28.0
[2019-10-26] MEDS: Metoprolol Tartrate 25 MG Tablet PO ×2 (02:19→08:38)
--- NOTE | 2019-10-26 02:33 | NURSING ---
Clarified Carbidopa/Levodopa home medications with Burt in pharmacy. He will correct on AUG.
[2019-10-26] MEDS: Enoxaparin 80 MG/0.8 ML Syringe SC ×2 (04:03→18:08)
[2019-10-26] MEDS: CARBIDOPA/LEVODOPA CR 50/200 Tablet PO ×3 (05:42→18:09)
[2019-10-26 05:59] LABS: Anion Gap 7 (5-15); BUN 26 mg/dL (7-18); BUN/Creat Ratio 26.9 RATIO (10-20); Calcium,Total 8.7 mg/dL (8.5-10.1); Chloride 102 mmol/L (98-107); Creatinine, Serum 0.97 mg/dL (0.55-1.02); EST Glomerular Filtration Rate 60 mL/min (>60); Est Glom Filt Rate - Afr Amer 73 mL/min (>60); Estimated Creatinine Clearance 48.36 ml/min; Glucose 113 mg/dL (74-106); Potassium 3.5 mmol/L (3.5-5.1); Sodium Level 136 mmol/L (136-145); Thyroid Stim Hormone (TSH) 0.68 uIU/mL (0.358-3.74)
--- NOTE | 2019-10-26 06:53 | ECHOCS_ITS ---
Reason For Study: NSTEMI Procedure This was a 2D Doppler, Color Flow transthoracic echocardiogram. Contrast injection was performed. The study was technically difficult. Exam performed portable in patient room. Left Ventricle Normal LV size. Left ventricular systolic function is normal. Atria The left atrium is mildly enlarged. Mitral Valve Mild (1+) mitral valve insufficiency. Tricuspid Valve Mild to moderate (1-2+) tricuspid valve insufficiency. Pulmonary artery systolic pressure is 46 mmHg. Mild pulmonary hypertension. Aortic Valve Normal aortic valve. Pulmonic Valve Normal pulmonic valve. Medication Diluted definity 2.0ml given slow IV push to enhance endocardial definition. MMode/2D Measurements & Calculations LVIDd: 5.1 cm IVSd: 0.98 cm Ao root diam: 3.2 cm LVIDs: 3.5 cm LVPWd: 1.0 cm RVDd: 3.6 cm FS: 31.3 % LAV(MOD-bp): 71.7 ml LVAd ap4: 34.2 cm2 SV(MOD-sp4): 70.0 ml LAV(MOD-bp) Indexed: 38.1 ml/m2 EDV(MOD-sp4): 121.0 ml LAV(MOD-sp2): 66.7 ml EDV(sp4-el): 127.8 ml LAV(MOD-sp4): 67.0 ml LVAs ap4: 20.0 cm2 ESV(MOD-sp4): 51.0 ml ESV(sp4-el): 55.0 ml EF(MOD-sp4): 57.9 % EF(sp4-el): 56.9 % SV(sp4-el): 72.7 ml LA dimension(2D): 4.5 cm LA A4 area: 22.6 cm2 RA A4 area: 15.3 cm2 Time Measurements MV dec time: 0.19 sec Doppler Measurements & Calculations MV E max josr: 90.7 cm/sec Lat Peak E' Josr: 8.2 cm/sec Med Peak E' Josr: 6.7 cm/sec MV A max josr: 71.8 cm/sec E/E' lat: 11.1 E/E' med: 13.5 MV E/A: 1.3 MV V2 max: 97.5 cm/sec Ao V2 max: 114.5 cm/sec LV V1 max: 106.2 cm/sec MV max P.8 mmHg Ao max P.2 mmHg LV V1 max P.5 mmHg MV V2 mean: 54.8 cm/sec MV mean P.4 mmHg MV V2 VTI: 27.3 cm PA V2 max: 87.1 cm/sec TR max josr: 309.3 cm/sec MV P1/2t-pr_phl: 95.7 msec TR max P.3 mmHg Interpretation Summary Normal LV size. Mild (1+) mitral valve insufficiency. Mild to moderate (1-2+) tricuspid valve insufficiency. Mild pulmonary hypertension. E/E' suggestive of increased LA filling pressure Ordering Physician: Burt Shaikh Referring Physician: BECKA MICHAEL Performed By: Ilana Hernandez, RDCS, RVT
[2019-10-26] MEDS: Carbidopa/Levodopa 25/100 Tablet PO ×3 (08:37→16:40)
[2019-10-26] MEDS: Aspirin E.C. 81 MG Tablet PO (08:37)
[2019-10-26] MEDS: hydroCHLOROthiazide 12.5mg 12.5 MG PO (08:38)
[2019-10-26] MEDS: Losartan Potassium 50 MG Tablet PO (08:38)
--- NOTE | 2019-10-26 08:47 | NURSING ---
Patient follows with Dr Sims
--- NOTE | 2019-10-26 08:47 | NURSING ---
Update provided over the phone to patient's daughter, Aura Paul Rogers.
[2019-10-26 08:49] LABS: Magnesium 2.2 mg/dL (1.6-2.6)
--- NOTE | 2019-10-26 09:32 | EKG12_ITS ---
Test Reason : ROUTINE Blood Pressure : / mmHG Vent. Rate : 068 BPM Atrial Rate : 068 BPM P-R Int : 164 ms QRS Dur : 106 ms QT Int : 426 ms P-R-T Axes : 052 010 037 degrees QTc Int : 452 ms Normal sinus rhythm Nonspecific ST abnormality Abnormal ECG When compared with ECG of 25-OCT-2019 23:01, MANUAL COMPARISON REQUIRED, DATA IS UNCONFIRMED Confirmed by RAHEEM PETERS, JEZ ([id number]), scientific editor FOSTER CORTES ([id number]) on 10/29/2019 3:57:25 PM Referred By: MAXIME Confirmed By:JEZ MACIEL MD
--- NOTE | 2019-10-26 09:43 | PCM.CONS.C ---
Problem List (1) Elevated troponin Status: Acute (2) Atrial fibrillation with RVR Status: Acute Reason for Consult Reason for Consultation: Recurrence of paroxysmal atrial fibrillation's and type II myocardial infarct History of Present Illness: The patient is a 73 year old F referred for assessment of paroxysmal atrial fibrillation. Patient fell walking to the bathroom and was admitted for observation. In the emergency room she was found to have recurrence of paroxysmal atrial fibrillation with fast ventricular rate. Patient denies any syncopal episode or chest pain before she fell. She got up by herself. She has been having paroxysmal atrial fibrillation on and off for 3 years. Her [place] Vascore is 3. However due to frequent falling spells as a result of Parkinson's disease, only aspirin was prescribed. In the past, patient has been taking metoprolol. She denies any history of CVA, chest pain or myocardial infarct. In the good day, patient can walk very carefully for long distance with unsteady gait. She is a non-smoker and nondrinker. She does drink 1 to 2 cups of coffee a day. She is known to have hypertension denies any history of hyperlipidemia or diabetes. Elevated troponin was found. Past Medical History Allergies/Adverse Reactions: Allergies iodine Allergy (Verified 10/25/19 21:48) Hives latex Allergy (Verified 10/25/19 21:48) Rash rotigotine [From Neupro] Allergy (Verified 10/25/19 21:48) Rash shellfish derived Allergy (Verified 10/25/19 21:48) Hives Sulfa (Sulfonamide Antibiotics) Allergy (Verified 10/25/19 21:48) Hives diltiazem Adverse Reaction (Verified 10/25/19 21:48) Rash Home Medications: Ambulatory Orders Medication Instructions Recorded Cholecalciferol (Vitamin D3) 5,000 units PO DAILY 10/15/16 [D3-2000] Citalopram Hydrobromide 10 mg PO QHS 10/15/16 [Citalopram HBr] Metoprolol Tartrate [Lopressor 25 mg PO BID #60 tab 10/21/16 (beta rubi)] aspirin 81 mg tablet,delayed 81 mg PO QHS 12/21/18 release losartan 50 mg-hydrochlorothiazide 1 tab PO DAILY 12/21/18 12.5 mg tablet melatonin 3 mg tablet 3 mg PO HS 12/21/18 Carbidopa/Levodopa [Carbidopa-Levo 1 ea PO TID 10/26/19 ER 50-200 Tab] Carbidopa/Levodopa 1 ea PO BID 10/26/19 [Carbidopa-Levodopa 25-100 Tab] Carbidopa/Levodopa 2 ea PO BREAKFAST 10/26/19 [Carbidopa-Levodopa 25-100 Tab] Past Medical History (Chronic Problems): Chronic Problems (Last Reviewed 10/25/19 @ 23:[address] Burt Shakih DO) Essential hypertension (Chronic) Parkinson disease (Chronic) Paroxysmal atrial fibrillation (Chronic) Surgical History: - - Bilateral lumpectomy with radiation therapy. Pyloric stenosis gastric outlet repair. Small bowel resection 10/16/16. 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 Burt Shaikh DO) Brother Heart disease History Items: Cancer - Stomach cancer Paternal Family History: Family History (Last Reviewed 10/25/19 @ 23:[address] Burt Shaikh DO) Brother Heart disease History Items: Cancer Offspring Family History: Family History (Last Reviewed 10/25/19 @ 23:[address] Burt Shaikh DO) Brother Heart disease History Items: - Smoking Status: Never smoker Review of Systems - Review of Systems General: Denies: Fever, Night Sweats, Fatigue Cardiovascular: Reports: Palpitations. Denies: Shortness of Breath with Exertion, Orthopnea Respiratory: Denies: Cough, Sputum Production, Hemoptysis Gastrointestinal: Denies: Hematemesis, Hematochezia, Melena Muscoloskeletal: Reports: - - Unsteady gait due to Parkinson's disease Neurological: Reports: Falls Objective: Vital Signs Temp Pulse Resp BP Pulse Ox 98.4 F 80 16 158/96 H 98 10/26/19 05:35 10/26/19 08:38 10/26/19 05:35 10/26/19 05:35 10/26/19 05:35 Oxygen Flow Rate (L/min) 2 Oxygen Delivery Method Room Air Weight: 173 lb 11.588 oz Body Mass Index (BMI) 28.0 Intake and Output for Last 24 Hours 10/24/19 10/25/19 10/26/19 23:59 23:59 23:59 Intake Total 1350 / 1350 Output Total 250 / 250 Balance 1100 / 1100 General: Healthy Appearing, Oriented x 3 HEENT: Atraumatic Neck: Supple Lungs: Clear to auscultation Cardiovascular: Regular Rhythm, Normal S1, Normal S2, No Murmurs, No Gallops Vascular: No Carotid Bruits Abdomen: Bowel Sounds Present, Soft, Non Tender Extremities: No edema Neurological: CN II-XII Intact, - - Resting tremor Psych/Mental Status: Appropriate, Normal Affect 10/25/19 21:50: WBC 9.3, RBC 3.97 L, Hgb 12.6, Hct 39.6, MCV 99.7 H, MCH 31.7, MCHC 31.8 L, Plt Count 279, MPV 10.1, Immature Gran % (Auto) 0.500, Neut % (Auto) 77.9 H, Lymph % (Auto) 13.8 L, [place] % (Auto) 5.8, Eos % (Auto) 0.9, Baso % (Auto) 1.1 H, Absolute Neuts (auto) 7.3, Nucleated RBC % 0 10/25/19 21:50: PT 12.8, INR 1.0, APTT 28.2 10/25/19 21:50: Sodium 136, Potassium 3.5, Chloride 101, Carbon Dioxide 24.0, Anion Gap 11, BUN 25 H, Creatinine 1.35 H, Est GFR (MDRD) Af Amer 49 L, Est GFR (MDRD) Non-Af 41 L, BUN/Creatinine Ratio 18.5, Glucose 180 H, Calcium 9.1, Total Bilirubin 0.60, Troponin I 0.046 H 10/25/19 22:50: Urine Color Yellow, Urine Clarity Clear, Urine pH 6.0, Ur Specific [place] 1.015, Urine Protein Negative, Urine Glucose (UA) Normal, Urine Ketones 5 H, Urine Occult Blood Negative, Urine Nitrite Negative, Urine Bilirubin Negative, Urine Urobilinogen Normal, Ur Leukocyte Esterase Negative, Urine RBC 0-5 SEEN, Urine WBC 0-5 SEEN 10/26/19 02:05: Troponin I 2.510 H* 10/26/19 05:15: Sodium 136, Potassium 3.5, Chloride 102, Carbon Dioxide 27.0, Anion Gap 7, BUN 26 H, Creatinine 0.97, Est GFR (MDRD) Af Amer 73, Est GFR (MDRD) Non-Af 60, BUN/Creatinine Ratio 26.9 H, Glucose 113 H, Calcium 8.7 10/26/19 05:15: Troponin I 6.000 H* 10/26/19 05:15: Magnesium 2.2 Rhythm: EKG: ECHO: Echo at the bedside showed preserved left ventricular systolic wall motion. There were no significant valvular lesion. Mitral annulus calcification seen. Left atrial size is normal enlarged Stress Test: Cardiac Cath: PCI: CT Surgery: Holter monitor: EPS: PPM: CXR: Chest CT Scan: Assessment/Plan #1 paroxysmal atrial fibrillation at the moment is back in normal sinus rhythm. [place] Vascor of 3, however due to high risk of bleeding, would not consider long-term oral anticoagulation. I will leave this to her cotton header #2 elevated troponin most likely secondary to type II myocardial infarct as a result of atrial fibrillation with fast ventricular rate. However, patient needs to have ischemic work-up. At the meantime amiodarone 400 mg p.o. twice a day will be initiated. Continue baby aspirin a day. Metoprolol will be maintained #3 history of hypertension #4 history of Parkinson's disease
--- NOTE | 2019-10-26 10:32 | PN_ITS ---
<Jesse Wu - Last Filed: 10/26/19 10:32> Patient Problems: Active and Suspected Problems (Last Reviewed 10/25/19 @ 23:[address] Burt Shaikh DO) Elevated troponin (Acute) Fall (Acute) Atrial fibrillation with RVR (Acute) Reason for Visit: afib rvr, elevated trop Subjective: Pt resting comfortably in bed. No CP/pressure/tightness/heaviness, no SOB. No Palp. Pt reports prior hx of afib. Not on OAC. Has falls related to parkinsons. Vitals/I&O's: Vital Signs Temp Pulse Resp BP Pulse Ox 98.4 F 80 16 158/96 H 98 10/26/19 05:35 10/26/19 08:38 10/26/19 05:35 10/26/19 05:35 10/26/19 05:35 Oxygen Flow Rate (L/min) 2 Oxygen Delivery Method Room Air Weight: 173 lb 11.588 oz Body Mass Index (BMI) 28.0 Intake and Output for Last 24 Hours 10/24/19 10/25/19 10/26/19 23:59 23:59 23:59 Intake Total 1350 / 1350 Output Total 250 / 250 Balance 1100 / 1100 General: Alert, Oriented x3, Cooperative, - - masked facies HEENT: Atraumatic, PERRLA, EOMI, Normocephalic Neck: Supple, No JVD, Negative Carotid Bruits Lungs: Clear to auscultation, Normal air movement Cardiovascular: Regular rate, No murmurs Abdomen: Bowel Sounds Present, Soft, Non Tender Extremities: No edema, Capillary Refill Less than 3 Seconds Skin: No rashes, No breakdown Musculoskeletal: No Tenderness to Palpation of Joints or Extremities Neurological: Cranial nerves II-XII grossly intact Psych/Mental Status: Appropriate, Flat Affect, Alert and oriented to time, place, person, mood and affect Laboratory Results 10/25/19 21:50: WBC 9.3, RBC 3.97 L, Hgb 12.6, Hct 39.6, MCV 99.7 H, MCH 31.7, MCHC 31.8 L, RDW Std Deviation 45.6 H, RDW Coeff of Patience 12.4, Plt Count 279, MPV 10.1, Immature Gran % (Auto) 0.500, Neut % (Auto) 77.9 H, Lymph % (Auto) 13.8 L, [place] % (Auto) 5.8, Eos % (Auto) 0.9, Baso % (Auto) 1.1 H, Absolute Neuts (auto) 7.3, Absolute Lymphs (auto) 1.29, Nucleated RBC % 0 10/25/19 21:50: PT 12.8, INR 1.0, APTT 28.2 10/25/19 21:50: Sodium 136, Potassium 3.5, Chloride 101, Carbon Dioxide 24.0, Anion Gap 11, BUN 25 H, Creatinine 1.35 H, Estim Creat Clear Calc 33.40, Est GFR (MDRD) Af Amer 49 L, Est GFR (MDRD) Non-Af 41 L, BUN/Creatinine Ratio 18.5, Glucose 180 H, Calcium 9.1, Total Bilirubin 0.60, AST 68 H, ALT 13, Alkaline Phosphatase 104, Troponin I 0.046 H, Total Protein 6.6, Albumin 3.6, Globulin 3.0, Albumin/Globulin Ratio 1.2 10/25/19 22:50: Urine Color Yellow, Urine Clarity Clear, Urine pH 6.0, Ur Specific [place] 1.015, Urine Protein Negative, Urine Glucose (UA) Normal, Urine Ketones 5 H, Urine Occult Blood Negative, Urine Nitrite Negative, Urine Bilirubin Negative, Urine Urobilinogen Normal, Ur Leukocyte Esterase Negative, Urine RBC 0-5 SEEN, Urine WBC 0-5 SEEN, Ur Squamous Epith Cells 0-5 SEEN, Amorphous Sediment 1+, Urine Bacteria 0 SEEN, Hyaline Casts 10-25 SEEN, Urine Mucus 0 SEEN 10/26/19 02:05: Troponin I 2.510 H* 10/26/19 05:15: Sodium 136, Potassium 3.5, Chloride 102, Carbon Dioxide 27.0, Anion Gap 7, BUN 26 H, Creatinine 0.97, Estim Creat Clear Calc 48.36, Est GFR (MDRD) Af Amer 73, Est GFR (MDRD) Non-Af 60, BUN/Creatinine Ratio 26.9 H, Glucose 113 H, Calcium 8.7, TSH 0.68 10/26/19 05:15: Troponin I 6.000 H* 10/26/19 05:15: Magnesium 2.2 Current Medications Acetaminophen (Tylenol) 650 mg PO Q6H PRN PRN PRN Reason: Pain Score 1-10/Temp > 100.7 F Amiodarone HCl (Cordarone) 400 mg PO BID [facility] Last Admin: 10/26/19 08:37 Dose: 81 mg Documented by: Carbidopa/Levodopa (Sinemet) 1 tablet PO BID@1200,1500 [facility] Carbidopa/Levodopa (Sinemet Cr) 1 tablet PO 0600,1200,1800 [facility] Last Admin: 10/26/19 05:42 Dose: 1 tablet Documented by: Carbidopa/Levodopa (Sinemet) 2 tablet PO BREAKFAST [facility] Last Admin: 10/26/19 08:37 Dose: 2 tablet Documented by: Cholecalciferol (Vitamin D (25mcg)) 5,000 unit PO DAILY [facility] Last Admin: 10/26/19 08:37 Dose: 5,000 unit Documented by: Citalopram Hydrobromide (Celexa) 10 mg PO QHS [facility] Dextrose (D50w Syringe) 0 gm IV X1 PRN; Protocol PRN Reason: Hypoglycemia Enoxaparin Sodium (Lovenox) 80 mg SC DAILY [facility] Last Admin: 10/26/19 04:03 Dose: 80 mg Documented by: Glucagon () 1 mg IM .X1 PRN PRN Reason: Hypoglycemia Hydrochlorothiazide () 12.5 mg PO DAILY [facility] Last Admin: 10/26/19 08:38 Dose: 12.5 mg Documented by: Sodium Chloride () 250 mls @ 15 mls/hr IV .[id number] PRN PRN Reason: Saline Flush Sodium Chloride () 250 mls @ 15 mls/hr IV .[id number] PRN PRN Reason: Additional IVPB Infusion Losartan Potassium (Cozaar) 50 mg PO DAILY [facility] Last Admin: 10/26/19 08:38 Dose: 50 mg Documented by: Melatonin (Melatonin) 3 mg PO [facility] Metoprolol Tartrate (Lopressor (Beta Amira)) 25 mg PO BID [facility] Last Admin: 10/26/19 08:38 Dose: 25 mg Documented by: Metoprolol Tartrate (Lopressor (Beta Amira)) 50 mg PO BID [facility] Metoprolol Tartrate (Lopressor (Beta Amira)) 25 mg PO BID [facility] Stop: 10/26/19 23:59 Sodium Chloride () 10 - 40 ml IV UD PRN PRN Reason: SALINE FLUSH STROKE Vital Signs/Narrative: Vital Signs Pulse 10/26/19 08:38 80 10/26/19 07:39 75 Medical Necessity - Tobacco Use Smoking Status: Never smoker Assessment/Plan All Active Problems (Last Reviewed 10/25/19 @ 23:[address] Burt Shaikh, DO) Elevated troponin (Acute) Fall (Acute) Atrial fibrillation with RVR (Acute) 1. Paroxysmal Afib RVR - back in SR, rate controlled. Not previously on oral OAC due to falls, parkinsons. TSH neg. UA neg. Mag WNL. Cardiology following. Continue amiodarone, lovenox, metoporolol. Echo pending. 2. Elevated troponin - Trop trend 0.046-->6.000. EKG changes including ST depression V2-V5, ST depression lead I, slight ST elevation in aVR. No Chest pain. Repeat EKG today with improvement in these changes. Continue aspirin, losartan, metoprolol. Will add statin. Echo pending. Will need further ischemic workup. Repeat EKG in AM. 3. Parkinsons - continue sinemet. 4. hx breast cancer DVT ppx: therapeutic lovenox This patient was seen by Jesse Wu PA-C under the supervision of Dr. Shaffer. <Jaguar Shaffer E - Last Filed: 10/26/19 15:27> Vitals/I&O's: Vital Signs Temp Pulse Resp BP Pulse Ox 98.3 F 59 L 17 119/81 H 97 10/26/19 11:30 10/26/19 11:30 10/26/19 11:30 10/26/19 11:30 10/26/19 11:30 Oxygen Flow Rate (L/min) 2 Oxygen Delivery Method Room Air Weight: 173 lb 11.588 oz Body Mass Index (BMI) 28.0 Intake and Output for Last 24 Hours 10/24/19 10/25/19 10/26/19 23:59 23:59 23:59 Intake Total 1650 / 1650 Output Total 550 / 550 Balance 1100 / 1100 Laboratory Results 10/25/19 21:50: WBC 9.3, RBC 3.97 L, Hgb 12.6, Hct 39.6, MCV 99.7 H, MCH 31.7, MCHC 31.8 L, RDW Std Deviation 45.6 H, RDW Coeff of Patience 12.4, Plt Count 279, MPV 10.1, Immature Gran % (Auto) 0.500, Neut % (Auto) 77.9 H, Lymph % (Auto) 13.8 L, [place] % (Auto) 5.8, Eos % (Auto) 0.9, Baso % (Auto) 1.1 H, Absolute Neuts (auto) 7.3, Absolute Lymphs (auto) 1.29, Nucleated RBC % 0 10/25/19 21:50: PT 12.8, INR 1.0, APTT 28.2 10/25/19 21:50: Sodium 136, Potassium 3.5, Chloride 101, Carbon Dioxide 24.0, Anion Gap 11, BUN 25 H, Creatinine 1.35 H, Estim Creat Clear Calc 33.40, Est GFR (MDRD) Af Amer 49 L, Est GFR (MDRD) Non-Af 41 L, BUN/Creatinine Ratio 18.5, Glucose 180 H, Calcium 9.1, Total Bilirubin 0.60, AST 68 H, ALT 13, Alkaline Phosphatase 104, Troponin I 0.046 H, Total Protein 6.6, Albumin 3.6, Globulin 3.0, Albumin/Globulin Ratio 1.2 10/25/19 22:50: Urine Color Yellow, Urine Clarity Clear, Urine pH 6.0, Ur Specific [place] 1.015, Urine Protein Negative, Urine Glucose (UA) Normal, Urine Ketones 5 H, Urine Occult Blood Negative, Urine Nitrite Negative, Urine Bilirubin Negative, Urine Urobilinogen Normal, Ur Leukocyte Esterase Negative, Urine RBC 0-5 SEEN, Urine WBC 0-5 SEEN, Ur Squamous Epith Cells 0-5 SEEN, Amorphous Sediment 1+, Urine Bacteria 0 SEEN, Hyaline Casts 10-25 SEEN, Urine Mucus 0 SEEN 10/26/19 02:05: Troponin I 2.510 H* 10/26/19 05:15: Sodium 136, Potassium 3.5, Chloride 102, Carbon Dioxide 27.0, Anion Gap 7, BUN 26 H, Creatinine 0.97, Estim Creat Clear Calc 48.36, Est GFR (MDRD) Af Amer 73, Est GFR (MDRD) Non-Af 60, BUN/Creatinine Ratio 26.9 H, Glucose 113 H, Calcium 8.7, TSH 0.68 10/26/19 05:15: Troponin I 6.000 H* 10/26/19 05:15: Magnesium 2.2 Current Medications Acetaminophen (Tylenol) 650 mg PO Q6H PRN PRN PRN Reason: Pain Score 1-10/Temp > 100.7 F Amiodarone HCl (Cordarone) 400 mg PO BID [facility] Aspirin (Ecotrin) 81 mg PO DAILYCM [facility] Last Admin: 10/26/19 08:37 Dose: 81 mg Documented by: Atorvastatin Calcium (Lipitor) 40 mg PO QHS [facility] Carbidopa/Levodopa (Sinemet) 1 tablet PO BID@1200,1500 [facility] Last Admin: 10/26/19 11:12 Dose: 1 tablet Documented by: Carbidopa/Levodopa (Sinemet Cr) 1 tablet PO 0600,1200,1800 [facility] Last Admin: 10/26/19 11:11 Dose: 1 tablet Documented by: Carbidopa/Levodopa (Sinemet) 2 tablet PO BREAKFAST [facility] Last Admin: 10/26/19 08:37 Dose: 2 tablet Documented by: Cholecalciferol (Vitamin D (25mcg)) 5,000 unit PO DAILY [facility] Last Admin: 10/26/19 08:37 Dose: 5,000 unit Documented by: Citalopram Hydrobromide (Celexa) 10 mg PO QHS [facility] Dextrose (D50w Syringe) 0 gm IV X1 PRN; Protocol PRN Reason: Hypoglycemia Enoxaparin Sodium (Lovenox) 80 mg SC Q12@0600,1800 [facility] Glucagon () 1 mg IM .X1 PRN PRN Reason: Hypoglycemia Hydrochlorothiazide () 12.5 mg PO DAILY [facility] Last Admin: 10/26/19 08:38 Dose: 12.5 mg Documented by: Sodium Chloride () 250 mls @ 15 mls/hr IV .[id number] PRN PRN Reason: Saline Flush Sodium Chloride () 250 mls @ 15 mls/hr IV .[id number] PRN PRN Reason: Additional IVPB Infusion Losartan Potassium (Cozaar) 50 mg PO DAILY [facility] Last Admin: 10/26/19 08:38 Dose: 50 mg Documented by: Melatonin (Melatonin) 3 mg PO HS [facility] Metoprolol Tartrate (Lopressor (Beta Amira)) 50 mg PO BID [facility] Sodium Chloride () 10 - 40 ml IV UD PRN PRN Reason: SALINE FLUSH STROKE Vital Signs/Narrative: Vital Signs Temp Pulse Resp BP Pulse Ox 10/26/19 11:30 98.3 F 59 L 17 119/81 H 97 Assessment/Plan Hospitalist note: I am seeing this patient in conjunction with Jesse Wu. I independently seen and examined the patient. Progress note above, laboratory data and imaging studies reviewed and I concur with above treatment plan. Today, patient denied any chest pain or shortness of breath. She denied palpitation, dizziness or lightheadedness. She remains in sinus rhythm, rate is controlled. Other vital signs are stable. - Physical Exam General: Alert, Oriented x3, Cooperative, No apparent distress. HEENT: Atraumatic, PERRLA, EOMI. Neck: Supple, No JVD, Negative Carotid Bruits, Trachea Midline, Thyroid Normal. Lungs: Clear to auscultation, Normal air movement, No rhonchi, No wheeze, No ral es. Cardiovascular: Regular rate, Regular Rhythm, Normal S1, Normal S2, PMI Normal. Abdomen: Bowel Sounds Present, Soft, Non Tender, Non-Distended, No Hepato- splenomegaly. Extremities: No clubbing, No cyanosis, No edema Skin: No rashes, No breakdown Neurological: Cranial nerves are intact, neuro grossly intact Vital Signs are stable. Assessment and plan: #1 A. fib with RVR: In context of history of paroxysmal atrial fibrillation, she is back to sinus rhythm after 1 dose of IV metoprolol. Today, rate is controlled, blood pressure stable. Patient has no more chest pain, palpitation or dizziness. She is on metoprolol p.o., started on amiodarone by cardiology today. She is on therapeutic Lovenox twice daily. Serum electrolytes within normal limits. EKG revealed normal sinus rhythm, no acute segment changes. Troponin is elevated. 2D echocardiogram revealed normal LV size and function, mild to moderate TR, mild pulmonary hypertension. #2 acute non-ST relation NC: Troponin is elevated at 6, EKG revealed ST segment depression and T wave inversion in leads V2, V3, V4 and V5 as well as V6. Patient is chest pain-free. She is on aspirin, statins, metoprolol and losartan as well as therapeutic Lovenox. Cardiology consulted. #3 other chronic medical problems: Stable, continue medications as above. This note was generated with Dragon dictation software. It may contain incorrect words, spelling, and punctuation that were not noted in checking the note before signing. Inpatient E&M: [id number] Subs Hosp L2
[2019-10-26] MEDS: Amiodarone 200 MG Tablet 400 MG PO ×2 (11:11→22:47)
--- NOTE | 2019-10-26 13:10 | CASEMGMT ---
DURAN PAZ Face to Face with patient for initial transition planning/care coordination assessment. RN CM introduced self and role at [facility]. Patient sitting in chair, alert and oriented. Patient willing to participate in assessment and is able to answer all questions appropriately. Care providers, pharmacy, and demographics verified. Patient wishes to discharge home, denies need for home health at this time. Patient states she has no further needs or concerns at this time. CM to follow for discharge planning needs that may arise. PCP: Wilson Specialists: Levi school nurse Ru[facility] Pharmacy: [facility] Insurance: [employer] [facility] Prescription Benefit: yes Living Will/HPOA: Jacky Miller, GEOFF LNOK: and daughter Living Arrangements: Patient lives with in 2 story home with bed and bath on first floor. 4 steps to enter the home. Patient states she is independent at home, daughter helps some Transportation: or daughter DME/HHC: Patient states she has shower chair, wheel chair, raised toilet, and grab bars at home. Patient denies need for HHC at discharge. Disposition Plan: Patient to discharge home with family support and follow-up plans in place. Jodie DEXTER, RN, CM
--- NOTE | 2019-10-26 13:10 | NURSING ---
Provided another phone update to daughter Aura.
[2019-10-26] MEDS: Citalopram 10 MG Tablet PO (22:47)
[2019-10-26] MEDS: Metoprolol Tartrate 50 MG Tablet PO (22:47)
[2019-10-26] MEDS: Atorvastatin Calcium 40 MG Tablet PO (22:47)
[2019-10-26] MEDS: MELATONIN 3 MG TABLET PO (22:47)
[2019-10-27] VITALS (11 sets, daily range): BP systolic 124–168; BP diastolic 67–95; PULSE 58–90; RESP 14–16; TEMP 36.7–37.1; O2SAT 94–96
[2019-10-27] MEDS: CARBIDOPA/LEVODOPA CR 50/200 Tablet PO ×3 (05:19→17:12)
[2019-10-27] MEDS: Enoxaparin 80 MG/0.8 ML Syringe SC ×2 (05:19→17:12)
--- NOTE | 2019-10-27 05:55 | EKG12_ITS ---
Test Reason : AM EKG Blood Pressure : / mmHG Vent. Rate : 062 BPM Atrial Rate : 062 BPM P-R Int : 150 ms QRS Dur : 108 ms QT Int : 466 ms P-R-T Axes : 046 003 034 degrees QTc Int : 472 ms Normal sinus rhythm Nonspecific ST abnormality Abnormal ECG When compared with ECG of 26-OCT-2019 10:16, MANUAL COMPARISON REQUIRED, DATA IS UNCONFIRMED Confirmed by RAHEEM PETERS, JEZ ([id number]), photography editor FOSTER CORTES ([id number]) on 10/29/2019 3:47:18 PM Referred By: MAXIME Confirmed By:JEZ MACIEL MD
[2019-10-27 06:34] LABS: Anion Gap 7 (5-15); BUN 20 mg/dL (7-18); BUN/Creat Ratio 26.5 RATIO (10-20); Calcium,Total 8.9 mg/dL (8.5-10.1); Chloride 102 mmol/L (98-107); Cholesterol 178 mg/dL (200); Creatinine, Serum 0.75 mg/dL (0.55-1.02); EST Glomerular Filtration Rate 80 mL/min (>60); Est Glom Filt Rate - Afr Amer 97 mL/min (>60); Glucose 100 mg/dL (74-106); High Density Lipoprotein 53 mg/dL; Potassium 3.5 mmol/L (3.5-5.1); Sodium Level 136 mmol/L (136-145); Triglycerides 92 mg/dL; Very Low Density Lipoprotein 18 mg/dL (5-40)
[2019-10-27] MEDS: Aspirin E.C. 81 MG Tablet PO (08:14)
[2019-10-27] MEDS: Amiodarone 200 MG Tablet 400 MG PO ×2 (08:15→21:15)
[2019-10-27] MEDS: Metoprolol Tartrate 50 MG Tablet PO ×2 (08:15→21:16)
[2019-10-27] MEDS: Carbidopa/Levodopa 25/100 Tablet PO ×2 (08:15→11:41)
[2019-10-27] MEDS: Losartan Potassium 50 MG Tablet PO (08:17)
[2019-10-27] MEDS: hydroCHLOROthiazide 12.5mg 12.5 MG PO (08:17)
--- NOTE | 2019-10-27 10:47 | PCM.PN.HOSP ---
<Jesse Wu - Last Filed: 10/27/19 10:47> Patient Problems: Active and Suspected Problems (Last Reviewed 10/25/19 @ 23:[address] Burt Shaikh, DO) Elevated troponin (Acute) Fall (Acute) Atrial fibrillation with RVR (Acute) Reason for Visit: afib rvr Subjective: No palp, no chest pain, pressure, tightness, heaviness. No LE edema. No N/V. Pt is not sure she wants to have a heart cath and plans to discuss it further with cardiology. Vitals/I&O's: Vital Signs Temp Pulse Resp BP Pulse Ox 98.0 F 63 16 168/95 H 95 10/27/19 04:40 10/27/19 08:15 10/27/19 04:40 10/27/19 04:40 10/27/19 04:40 Oxygen Flow Rate (L/min) 2 Oxygen Delivery Method Room Air Weight: 173 lb 11.588 oz Body Mass Index (BMI) 28.0 Intake and Output for Last 24 Hours 10/25/19 10/26/19 10/27/19 23:59 23:59 23:59 Intake Total 2150 / 2150 200 / 200 Output Total 1175 / 1175 275 / 275 Balance 975 / 975 -75 / -75 General: Alert, Oriented x3, Cooperative, - - masked facies. HEENT: Atraumatic, PERRLA, EOMI, Normocephalic Neck: Supple, No JVD, Negative Carotid Bruits Lungs: Clear to auscultation, Normal air movement Cardiovascular: Regular rate, No murmurs Abdomen: Bowel Sounds Present, Soft, Non Tender Extremities: No edema, Capillary Refill Less than 3 Seconds Skin: No rashes, No breakdown Musculoskeletal: No Tenderness to Palpation of Joints or Extremities Neurological: Cranial nerves II-XII grossly intact Psych/Mental Status: Normal Affect, Appropriate, Alert and oriented to time, place, person, mood and affect Laboratory Results 10/27/19 05:04: Sodium 136, Potassium 3.5, Chloride 102, Carbon Dioxide 27.0, Anion Gap 7, BUN 20 H, Creatinine 0.75, Estim Creat Clear Calc 46.90, Est GFR (MDRD) Af Amer 97, Est GFR (MDRD) Non-Af 80, BUN/Creatinine Ratio 26.5 H, Glucose 100, Calcium 8.9, Triglycerides 92, Cholesterol 178, LDL Cholesterol 107, VLDL Cholesterol 18, HDL Cholesterol 53 Current Medications Acetaminophen (Tylenol) 650 mg PO Q6H PRN PRN PRN Reason: Pain Score 1-10/Temp > 100.7 F Amiodarone HCl (Cordarone) 400 mg PO BID [facility] Last Admin: 10/27/19 08:15 Dose: 400 mg Documented by: Amlodipine Besylate (Norvasc) 10 mg PO DAILY [facility] Last Admin: 10/27/19 08:14 Dose: 81 mg Documented by: Atorvastatin Calcium (Lipitor) 40 mg PO QHS [facility] Last Admin: 10/26/19 22:47 Dose: 40 mg Documented by: Carbidopa/Levodopa (Sinemet) 1 tablet PO BID@1200,1500 [facility] Last Admin: 10/26/19 16:40 Dose: 1 tablet Documented by: Carbidopa/Levodopa (Sinemet Cr) 1 tablet PO 0600,1200,1800 [facility] Last Admin: 10/27/19 05:19 Dose: 1 tablet Documented by: Carbidopa/Levodopa (Sinemet) 2 tablet PO BREAKFAST [facility] Last Admin: 10/27/19 08:15 Dose: 2 tablet Documented by: Cholecalciferol (Vitamin D (25mcg)) 5,000 unit PO DAILY [facility] Last Admin: 10/27/19 08:17 Dose: 5,000 unit Documented by: Citalopram Hydrobromide (Celexa) 10 mg PO QHS [facility] Last Admin: 10/26/19 22:47 Dose: 10 mg Documented by: Dextrose (D50w Syringe) 0 gm IV X1 PRN; Protocol PRN Reason: Hypoglycemia Enoxaparin Sodium (Lovenox) 80 mg SC Q12@0600,1800 [facility] Last Admin: 10/27/19 05:19 Dose: 80 mg Documented by: Glucagon () 1 mg IM .X1 PRN PRN Reason: Hypoglycemia Hydrochlorothiazide () 12.5 mg PO DAILY [facility] Last Admin: 10/27/19 08:17 Dose: 12.5 mg Documented by: Sodium Chloride () 250 mls @ 15 mls/hr IV .[id number] PRN PRN Reason: Saline Flush Sodium Chloride () 250 mls @ 15 mls/hr IV .[id number] PRN PRN Reason: Additional IVPB Infusion Losartan Potassium (Cozaar) 50 mg PO DAILY [facility] Last Admin: 10/27/19 08:17 Dose: 50 mg Documented by: Melatonin (Melatonin) 3 mg PO HS [facility] Last Admin: 10/26/19 22:47 Dose: 3 mg Documented by: Metoprolol Tartrate (Lopressor (Beta Amira)) 50 mg PO BID [facility] Last Admin: 10/27/19 08:15 Dose: 50 mg Documented by: Sodium Chloride () 10 - 40 ml IV UD PRN PRN Reason: SALINE FLUSH STROKE Vital Signs/Narrative: Vital Signs Pulse 10/27/19 08:15 63 10/27/19 07:01 58 L Medical Necessity - Tobacco Use Smoking Status: Never smoker Assessment/Plan All Active Problems (Last Reviewed 10/25/19 @ 23:[address] Burt Shaikh, DO) Elevated troponin (Acute) Fall (Acute) Atrial fibrillation with RVR (Acute) 1. Paroxysmal Afib RVR - back in SR, rate controlled. Not previously on oral OAC due to falls, parkinsons. TSH neg. UA neg. Mag WNL. Cardiology following. Continue amiodarone, lovenox, metoporolol. Echo shows 1+ MVI, 1-2+ TVI, PASP 46 mmHg, EF 56% 2. Elevated troponin - Trop trend 0.046-->6.000. EKG changes including ST depression V2-V5, ST depression lead I, slight ST elevation in aVR. No Chest pain. Repeat EKG today with improvement in these changes. Continue aspirin, losartan, metoprolol. Will add statin. Echo pending. Repeat EKG in AM. -Plan is for cath monday, however the patient is not sure if she wants it or not. 3. Parkinsons - continue sinemet. 4. hx breast cancer DVT ppx: therapeutic lovenox This patient was seen by Jesse Wu PA-C under the supervision of Dr. Shaffer. <Jaguar Shaffer E - Last Filed: 10/27/19 12:11> Vitals/I&O's: Vital Signs Temp Pulse Resp BP Pulse Ox 98.2 F 63 14 124/67 H 96 10/27/19 11:32 10/27/19 11:32 10/27/19 11:32 10/27/19 11:32 10/27/19 11:32 Oxygen Flow Rate (L/min) 2 Oxygen Delivery Method Room Air Weight: 173 lb 11.588 oz Body Mass Index (BMI) 28.0 Intake and Output for Last 24 Hours 10/25/19 10/26/19 10/27/19 23:59 23:59 23:59 Intake Total 2150 / 2150 640 / 640 Output Total 1175 / 1175 475 / 475 Balance 975 / 975 165 / 165 Laboratory Results 10/27/19 05:04: Sodium 136, Potassium 3.5, Chloride 102, Carbon Dioxide 27.0, Anion Gap 7, BUN 20 H, Creatinine 0.75, Estim Creat Clear Calc 46.90, Est GFR (MDRD) Af Amer 97, Est GFR (MDRD) Non-Af 80, BUN/Creatinine Ratio 26.5 H, Glucose 100, Calcium 8.9, Triglycerides 92, Cholesterol 178, LDL Cholesterol 107, VLDL Cholesterol 18, HDL Cholesterol 53 Current Medications Acetaminophen (Tylenol) 650 mg PO Q6H PRN PRN PRN Reason: Pain Score 1-10/Temp > 100.7 F Amiodarone HCl (Cordarone) 400 mg PO BID [facility] Last Admin: 10/27/19 08:15 Dose: 400 mg Documented by: Amlodipine Besylate (Norvasc) 10 mg PO DAILY [facility] Last Admin: 10/27/19 11:41 Dose: 10 mg Documented by: [facility]in ([facility]cotrin) [facility] Last Admin: 10/27/19 08:14 Dose: 81 mg Documented by: Atorvastatin Calcium (Lipitor) 40 mg PO QHS [facility] Last Admin: 10/26/19 22:47 Dose: 40 mg Documented by: Carbidopa/Levodopa (Sinemet) 1 tablet PO BID@1200,1500 [facility] Last Admin: 10/27/19 11:41 Dose: 1 tablet Documented by: Carbidopa/Levodopa (Sinemet Cr) 1 tablet PO 0600,1200,1800 [facility] Last Admin: 10/27/19 11:41 Dose: 1 tablet Documented by: Carbidopa/Levodopa (Sinemet) 2 tablet PO BREAKFAST [facility] Last Admin: 10/27/19 08:15 Dose: 2 tablet Documented by: Cholecalciferol (Vitamin D (25mcg)) 5,000 unit PO DAILY [facility] Last Admin: 10/27/19 08:17 Dose: 5,000 unit Documented by: Citalopram Hydrobromide (Celexa) 10 mg PO QHS [facility] Last Admin: 10/26/19 22:47 Dose: 10 mg Documented by: Dextrose (D50w Syringe) 0 gm IV X1 PRN; Protocol PRN Reason: Hypoglycemia Enoxaparin Sodium (Lovenox) 80 mg SC Q12@0600,1800 [facility] Last Admin: 10/27/19 05:19 Dose: 80 mg Documented by: Glucagon () 1 mg IM .X1 PRN PRN Reason: Hypoglycemia Hydrochlorothiazide () 12.5 mg PO DAILY [facility] Last Admin: 10/27/19 08:17 Dose: 12.5 mg Documented by: Sodium Chloride () 250 mls @ 15 mls/hr IV .[id number] PRN PRN Reason: Saline Flush Sodium Chloride () 250 mls @ 15 mls/hr IV .[id number] PRN PRN Reason: Additional IVPB Infusion Losartan Potassium (Cozaar) 50 mg PO DAILY [facility] Last Admin: 10/27/19 08:17 Dose: 50 mg Documented by: Melatonin (Melatonin) 3 mg PO HS [facility] Last Admin: 10/26/19 22:47 Dose: 3 mg Documented by: Metoprolol Tartrate (Lopressor (Beta Amira)) 50 mg PO BID [facility] Last Admin: 10/27/19 08:15 Dose: 50 mg Documented by: Sodium Chloride () 10 - 40 ml IV UD PRN PRN Reason: SALINE FLUSH STROKE Vital Signs/Narrative: Vital Signs Temp Pulse Resp BP Pulse Ox 10/27/19 11:32 98.2 F 63 14 124/67 H 96 10/27/19 08:15 63 Assessment/Plan Hospitalist note: I am seeing this patient in conjunction with Jesse Wu. I independently seen and examined the patient. Progress note above, laboratory data and imaging studies reviewed and I concur with above treatment plan. Today, patient remains asymptomatic, no complaints. No more chest pain, palpitation or dizziness. Her vital signs are stable. - Physical Exam General: Alert, Oriented x3, Cooperative, No apparent distress. HEENT: Atraumatic, PERRLA, EOMI. Neck: Supple, No JVD, Negative Carotid Bruits, Trachea Midline, Thyroid Normal. Lungs: Clear to auscultation, Normal air movement, No rhonchi, No wheeze, No rales. Cardiovascular: Regular rate, Regular Rhythm, Normal S1, Normal S2, PMI Normal. Abdomen: Bowel Sounds Present, Soft, Non Tender, Non-Distended, No Hepato-splenomegaly. Extremities: No clubbing, No cyanosis, No edema Skin: No rashes, No breakdown Neurological: Cranial nerves are intact, neuro grossly intact Vital Signs are stable. Assessment and plan: #1 A. fib with RVR: In context of history of paroxysmal atrial fibrillation, she is back to sinus rhythm after 1 dose of IV metoprolol. Remains in sinus rhythm, rate is controlled. She has no more symptoms. She is on metoprolol p.o. and amiodarone for rate control. She is on therapeutic Lovenox twice daily. Serum electrolytes within normal limits. EKG revealed normal sinus rhythm, no acute segment changes. Troponin is elevated. 2D echocardiogram revealed normal LV size and function, mild to moderate TR, mild pulmonary hypertension. Cardiology on the case. #2 acute non-ST relation ME: Chest pain-free. Troponin is elevated at 6, EKG revealed ST segment depression and T wave inversion in leads V2, V3, V4 and V5 as well as V6. Patient is chest pain-free. She is on aspirin, statins, metoprolol and losartan as well as therapeutic Lovenox. Cardiology consulted, patient may go for cardiac catheterization tomorrow. #3 other chronic medical problems: Stable, continue medications as above. This note was generated with [employer] dictation software. It may contain incorrect words, spelling, and punctuation that were not noted in checking the note before signing. Inpatient E&M: 25309 Subs Hosp L2
[2019-10-27] MEDS: amLODIPine 10 MG Tablet PO (11:41)
--- NOTE | 2019-10-27 12:43 | PN.CARD_ITS ---
Subjectve: Patient is back in normal sinus rhythm. She denies any chest discomfort. There was ST segment depression seen during tachycardia. Troponin was elevated. Objective: Vital Signs Temp Pulse Resp BP Pulse Ox 98.2 F 63 14 124/67 H 96 10/27/19 11:32 10/27/19 11:32 10/27/19 11:32 10/27/19 11:32 10/27/19 11:32 Oxygen Flow Rate (L/min) 2 Oxygen Delivery Method Room Air Weight: 173 lb 11.588 oz Body Mass Index (BMI) 28.0 Intake and Output for Last 24 Hours 10/25/19 10/26/19 10/27/19 23:59 23:59 23:59 Intake Total 2150 / 2150 640 / 640 Output Total 1175 / 1175 475 / 475 Balance 975 / 975 165 / 165 General: Healthy Appearing HEENT: Atraumatic Lungs: Clear to auscultation Cardiovascular: Regular Rhythm, Normal S1, Normal S2, No Murmurs Vascular: No Carotid Bruits Abdomen: Bowel Sounds Present, Soft, Non Tender Neurological: No Focal Motor or Sensory Deficit 10/27/19 05:04: Sodium 136, Potassium 3.5, Chloride 102, Carbon Dioxide 27.0, Anion Gap 7, BUN 20 H, Creatinine 0.75, Est GFR (MDRD) Af Amer 97, Est GFR (MDRD) Non-Af 80, BUN/Creatinine Ratio 26.5 H, Glucose 100, Calcium 8.9, Triglycerides 92, Cholesterol 178, LDL Cholesterol 107, VLDL Cholesterol 18, HDL Cholesterol 53 Rhythm: EKG: ECHO: Stress Test: Cardiac Cath: PCI: CT Surgery: Holter monitor: EPS: PPM: CXR: Chest CT Scan: Medical Necessity - Tobacco Use Smoking Status: Never smoker Assessment/Plan #1 paroxysmal atrial fibrillation at the moment is back in normal sinus rhythm. [place] Vascor of 3, however due to high risk of bleeding, would not consider long- term oral anticoagulation. I will leave this to her alumni relations coordinator #2 elevated troponin most likely secondary to type II myocardial infarct as a result of atrial fibrillation with fast ventricular rate. There was ST depression during tachycardia with elevated troponin. I would recommend cardiac catheterization Monday. The risk of the procedure have been explained to the patient and her daughter. They have agreed to proceed. Patient is allergic to iodine. She will be given prednisone and Pepcid starting today #3 history of hypertension #4 history of Parkinson's disease
[2019-10-27] MEDS: predniSONE 20 MG Tablet PO (17:11)
[2019-10-27] MEDS: Clopidogrel Bisulfate 300 MG Tablet PO (21:14)
[2019-10-27] MEDS: Atorvastatin Calcium 40 MG Tablet PO (21:15)
[2019-10-27] MEDS: Famotidine 20 MG Tablet PO (21:15)
[2019-10-27] MEDS: MELATONIN 3 MG TABLET PO (21:15)
[2019-10-27] MEDS: Citalopram 10 MG Tablet PO (21:15)
[2019-10-28] VITALS (17 sets, daily range): BP systolic 100–174; BP diastolic 59–93; PULSE 58–78; RESP 12–20; TEMP 36.4–37; O2SAT 94–98
--- NOTE | 2019-10-28 05:55 | EKG12_ITS ---
Test Reason : AM EKG Blood Pressure : / mmHG Vent. Rate : 067 BPM Atrial Rate : 067 BPM P-R Int : 158 ms QRS Dur : 106 ms QT Int : 472 ms P-R-T Axes : 066 007 052 degrees QTc Int : 498 ms Normal sinus rhythm Prolonged QT Abnormal ECG When compared with ECG of 27-OCT-2019 04:42, MANUAL COMPARISON REQUIRED, DATA IS UNCONFIRMED Confirmed by RAHEEM PETERS, JEZ ([id number]), editor at large FOSTER CORTES ([id number]) on 10/29/2019 3:56:54 PM Referred By: MAXIME Confirmed By:JEZ MACIEL MD
[2019-10-28] MEDS: Metoprolol Tartrate 50 MG Tablet PO ×2 (06:47→21:47)
[2019-10-28] MEDS: CARBIDOPA/LEVODOPA CR 50/200 Tablet PO ×3 (06:47→17:55)
[2019-10-28] MEDS: amLODIPine 10 MG Tablet PO (06:47)
[2019-10-28] MEDS: Clopidogrel Bisulfate 75 MG Tablet PO (06:47)
[2019-10-28] MEDS: Aspirin E.C. 81 MG Tablet PO (06:47)
[2019-10-28] MEDS: Amiodarone 200 MG Tablet 400 MG PO (06:51)
--- NOTE | 2019-10-28 06:58 | NURSING ---
10/28/2019 Morning b/p meds and ASA and plavix given early d/t heart cath scheduled for 0900. Dominique RN
[2019-10-28] MEDS: Losartan Potassium 50 MG Tablet PO (07:22)
[2019-10-28] MEDS: predniSONE 20 MG Tablet PO ×2 (07:58→16:06)
[2019-10-28] MEDS: Famotidine 20 MG Tablet PO ×2 (07:58→21:49)
--- NOTE | 2019-10-28 11:23 | NURSING ---
This RN called report to DURAN Rothman at label cutter.
--- NOTE | 2019-10-28 11:45 | CASEMGMT ---
According to the [facility], the following are in-network tertiary facilities: [facility], [place], [facility], [facility], [facility], [facility], [facility], [place], [facility], and . Arthur GARZON CM
--- NOTE | 2019-10-28 12:43 | PN.CARD_ITS ---
Subjectve: Patient seen and evaluated. Appears to be doing well. Events of weekend noted. Objective: Vital Signs Temp Pulse Resp BP Pulse Ox 98.3 F 67 16 174/93 H 98 10/28/19 11:14 10/28/19 11:14 10/28/19 11:14 10/28/19 11:14 10/28/19 11:14 Oxygen Flow Rate (L/min) 2 Oxygen Delivery Method Room Air Weight: 173 lb 11.588 oz Body Mass Index (BMI) 28.0 Intake and Output for Last 24 Hours 10/26/19 10/27/19 10/28/19 23:59 23:59 23:59 Intake Total 2150 / 2150 1090 / 1090 0 / 0 Output Total 1175 / 1175 1075 / 1075 450 / 450 Balance 975 / 975 15 / 15 -450 / -450 General: Awake, Alert, Oriented x 3 HEENT: PERRL, EOMI, Sclera Non Icteric Neck: Supple, Good ROM, No Lymph Node Enlargement Lungs: Clear to auscultation Cardiovascular: Regular Rhythm, Normal S1, Normal S2, No Murmurs, No Rubs, No Gallops Vascular: No Carotid Bruits, Normal Femoral Pulses, Normal Radial Pulses, Normal Dorsalis Pedal Pulse, Normal Posterior Tibial Pulses Abdomen: Bowel Sounds Present, Soft, Non Tender, No HSM, No Organomegaly Extremities: No Cyanosis, No Clubbing, No edema Musculoskeletal: No Erythema Skin: No Rashes Lymphatic: No Lymph Node Enlargement Neurological: No Focal Motor or Sensory Deficit Psych/Mental Status: Appropriate Rhythm: EKG: ECHO: Stress Test: Cardiac Cath: PCI: CT Surgery: Holter monitor: EPS: PPM: CXR: Chest CT Scan: Medical Necessity - Tobacco Use Smoking Status: Never smoker Assessment/Plan 1. Non-ST elevation myocardial infarction. * The above is likely secondary to demand ischemia. The etiology of this morning was not entirely clear. She underwent cardiac catheterization which demonstrated no significant obstructive coronary disease. * Based on the above we will continue with risk factor modification. * Ejection fraction is also noted to be preserved. * 2. Hypertension * Her blood pressure is under good control at this particular time * Will continue beta-rubi, KATIE inhibitor, diuretic, and calcium channel rubi. The dosages will need to be optimized. * 3. Paroxysmal atrial fibrillation * Patient was noted to have paroxysmal atrial fibrillation. This was a presenting complaint. * She has converted to sinus rhythm. The plan will be to continue her on amiodarone 200 mg twice a day for a week and then 200 mg once a day. * She also does not appear to have any contraindications to Eliquis and will be continued on this. * * The patient had apparently seen Dr. Sims in the past. This was unbeknownst to me this morning after I spoke with her and was only realized after I spoke with a relative. And therefore underwent cardiac catheterization by me. Have discussed this with Dr. Sims I will follow- up with him as an outpatient. * * Thank you for allowing me to participate in the care of your patient. Please don't hesitate to call if any issues arise.
[2019-10-28] MEDS: Carbidopa/Levodopa 25/100 Tablet PO ×2 (13:01→14:54)
[2019-10-28] MEDS: 0.9% Normal Saline 1,000 ML 75 ML IV (13:10)
[2019-10-28] MEDS: hydroCHLOROthiazide 12.5mg 12.5 MG PO (13:10)
--- NOTE | 2019-10-28 13:33 | CL.D_ITS ---
Patient Name: MILEY RANKIN Study Date: 10/28/2019 Performing: Daivd Brown MD Ht: 66 inches 168 cm : 1945 Wt: 174.4 lbs 79 kg Age: 73 Gender: female BSA: 1.89 PROCEDURE(S) PERFORMED [id number]/LV CLINICAL PROFILE AND INDICATIONS Indications: Suspected CAD Heart Failure: None Stress/Imaging Stress/Image Study Performed: No CONCLUSIONS Non obstructive coronary arteries Normal LV size, wall motion,and systolic function RECOMMENDATIONS Medical therapy F/u WITH DR VINSON DESCRIPTION OF PROCEDURE The patient arrived to the procedure lab. The risks and benefits of the procedure as well as a full d escription of our services here and current unavailability of surgical backup were fully explained to the patient and/or their significant other prior to the catheterization. The Timeout was completed, verifying the correct patient and procedure. The patient's procedural site was prepped and draped in the usual fashion. Local anesthetic was given subcutaneously to right radial region with Lidocaine 2% . Using a modified Seldinger technique, arterial access was obtained via the right radial artery, a 6 Fr sheath was inserted. Right Coronary Artery selective angiography was then performed in multiple v iews using a 5 Fr. 4.0 [place] catheter. Left Coronary Artery selective angiography was performed in mu ltiple views using a 5 Fr. 4.0 [place] catheter. Left Ventriculography was performed in PERDOMO projection using a 5 Fr. [place] catheter. LV to AO pullback pressures were then recorded.The arterial sheath was pulled and a TR Band was applied for hemostasis CORONARY ANGIOGRAPHY DOMINANCE: Right Dominant LEFT HEART ASSESSMENT Left Ventricular Ejection Fraction: by LV Gram 65 % Normal LV wall motion Normal Left Ventricular systolic function LEFT MAIN: Angiographically normal LEFT ANTERIOR DESCENDING ARTERY: No significant disease noted CIRCUMFLEX ARTERY: Mild luminal irregularities RIGHT CORONARY ARTERY: Mild luminal irregularities COMPLICATIONS No Complications PROCEDURE MEDICATIONS Versed 1 mg IV Fentanyl 50 mcg IV Oxygen: 2 L/min via nasal cannula Solu-medrol 125 mg IV 10/28/2019 11:59:29 SUMMARY OF HEMODYNAMIC DATA Time AIR REST ECG 11:44:36 AO 147/67 (101) SA 12:20:32 LV 145/-6, 5 12:28:29 LV 143/-3, 3 12:28:35 LV 148/2, 9 12:29:18 LV 150/2, 9 12:29:23 LVp 150/1, 7 12:29:26 AOp 154/67 (104) 12:29:31 Signed By David Brown MD On 10/28/2019 13:32:00 David Brown MD
--- NOTE | 2019-10-28 14:06 | PN_ITS ---
<Jesse Wu - Last Filed: 10/28/19 14:06> Patient Problems: Active and Suspected Problems (Last Reviewed 10/25/19 @ 23:[address] Burt Shaikh, DO) Elevated troponin (Acute) Fall (Acute) Atrial fibrillation with RVR (Acute) Reason for Visit: elevated troponin Subjective: Pt sitting up at bedside NAD. Seen and examined prior to heart cath. Pt has no chest pain, presure, tightness, heaviness today. No SOB. She remains in NSR. No palpitations. No LE edema. No complaints. Vitals/I&O's: Vital Signs Temp Pulse Resp BP Pulse Ox 98.3 F 63 18 151/87 H 94 10/28/19 13:57 10/28/19 13:57 10/28/19 13:57 10/28/19 13:57 10/28/19 13:57 Oxygen Flow Rate (L/min) 2 Oxygen Delivery Method Room Air Weight: 173 lb 11.588 oz Body Mass Index (BMI) 28.0 Intake and Output for Last 24 Hours 10/26/19 10/27/19 10/28/19 23:59 23:59 23:59 Intake Total 2150 / 2150 1090 / 1090 0 / 0 Output Total 1175 / 1175 1075 / 1075 450 / 450 Balance 975 / 975 15 -450 / -450 General: Alert, Oriented x3, Cooperative, - - masked facies HEENT: Atraumatic, PERRLA, EOMI, Normocephalic Neck: Supple, No JVD, Negative Carotid Bruits Lungs: Clear to auscultation, Normal air movement Cardiovascular: Regular rate, No murmurs Abdomen: Bowel Sounds Present, Soft, Non Tender Extremities: No edema, Capillary Refill Less than 3 Seconds Skin: No rashes, No breakdown Musculoskeletal: No Tenderness to Palpation of Joints or Extremities Neurological: Cranial nerves II-XII grossly intact Psych/Mental Status: Normal Affect, Appropriate Current Medications Acetaminophen (Tylenol) 650 mg PO Q6H PRN PRN PRN Reason: Pain Score 1-10/Temp > 100.7 F Amiodarone HCl (Cordarone) 200 mg PO BID [facility] Amlodipine Besylate (Norvasc) 10 mg PO DAILY [facility] Last Admin: 10/28/19 06:47 Dose: 10 mg Documented by: Apixaban (Eliquis) 5 mg PO BID [facility] Aspirin (Ecotrin) 81 mg PO DAILYCM [facility] Last Admin: 10/28/19 06:47 Dose: 81 mg Documented by: Atorvastatin Calcium (Lipitor) 40 mg PO QHS [facility] Last Admin: 10/27/19 21:15 Dose: 40 mg Documented by: Carbidopa/Levodopa (Sinemet) 1 tablet PO BID@1200,1500 [facility] Last Admin: 10/28/19 13:01 Dose: 1 tablet Documented by: Carbidopa/Levodopa (Sinemet Cr) 1 tablet PO 0600,1200,1800 [facility] Last Admin: 10/28/19 13:02 Dose: 1 tablet Documented by: Carbidopa/Levodopa (Sinemet) 2 tablet PO BREAKFAST [facility] Last Admin: 10/28/19 11:16 Dose: Not Given Documented by: Cholecalciferol (Vitamin D (25mcg)) 5,000 unit PO DAILY [facility] Last Admin: 10/28/19 13:01 Dose: 5,000 unit Documented by: Citalopram Hydrobromide (Celexa) 10 mg PO QHS [facility] Last Admin: 10/27/19 21:15 Dose: 10 mg Documented by: Dextrose (D50w Syringe) 0 gm IV X1 PRN; Protocol PRN Reason: Hypoglycemia Famotidine (Pepcid) 20 mg PO BID [facility] Last Admin: 10/28/19 07:58 Dose: 20 mg Documented by: Glucagon () 1 mg IM .X1 PRN PRN Reason: Hypoglycemia Hydrochlorothiazide () 12.5 mg PO DAILY [facility] Last Admin: 10/28/19 13:10 Dose: 12.5 mg Documented by: Sodium Chloride () 250 mls @ 15 mls/hr IV .[id number] PRN PRN Reason: Saline Flush Sodium Chloride () 250 mls @ 15 mls/hr IV .[id number] PRN PRN Reason: Additional IVPB Infusion Sodium Chloride () 1,000 mls @ 75 mls/hr IV .[id number] [facility] Last Admin: 10/28/19 13:10 Dose: 75 mls/hr Documented by: Losartan Potassium (Cozaar) 50 mg PO DAILY [facility] Last Admin: 10/28/19 07:22 Dose: 50 mg Documented by: Melatonin (Melatonin) 3 mg PO HS [facility] Last Admin: 10/27/19 21:15 Dose: 3 mg Documented by: Metoprolol Tartrate (Lopressor (Beta Amira)) 50 mg PO BID [facility] Last Admin: 10/28/19 06:47 Dose: 50 mg Documented by: [facility] () [facility] Last Admin: 10/28/19 07:58 Dose: 20 mg Documented by: Sodium Chloride () 10 - 40 ml IV UD PRN PRN Reason: SALINE FLUSH STROKE Vital Signs/Narrative: Vital Signs Temp Pulse Resp BP Pulse Ox 10/28/19 13:57 98.3 F 63 18 151/87 H 94 10/28/19 13:50 98.3 F 67 18 149/77 H 97 10/28/19 13:30 98.3 F 66 18 147/89 H 97 10/28/19 13:15 98.3 F 67 18 167/85 H 97 10/28/19 13:00 98.3 F 66 18 153/78 H 97 10/28/19 11:14 98.3 F 67 16 174/93 H 98 Medical Necessity - Tobacco Use Smoking Status: Never smoker Assessment/Plan All Active Problems (Last Reviewed 10/25/19 @ 23:[address] Burt Shaikh, DO) Elevated troponin (Acute) Fall (Acute) Atrial fibrillation with RVR (Acute) 1. Paroxysmal Afib RVR - back in SR, rate controlled. Not previously on oral OAC due to falls, parkinsons. Now on eliquis. TSH neg. UA neg. Mag WNL. Cardiology following. Continue amiodarone 200 bid x 7 days then 200 qd, metoprolol. Echo shows 1+ MVI, 1-2+ TVI, PASP 46 mmHg, EF 56%. 2. NSTEMI type 2 due to #1, Elevated troponin - Trop trend 0.046-->6.000. EKG changes including ST depression V2-V5, ST depression lead I, slight ST elevation in aVR. No Chest pain. Repeat EKG today with improvement in these changes. Continue aspirin, losartan, metoprolol. -Heart cath showed nonobstructive coronary arteries 3. Parkinsons - continue sinemet. 4. hx breast cancer 5. HTN - would benefit from improved control. continue current therapy: HCTZ, metoprolol, losartan, norvasc DVT ppx: eliquis This patient was seen by Jesse Wu PA-C under the supervision of Dr. Zapata. <Arminda Zapata - Last Filed: 10/28/19 14:54> Vitals/I&O's: Vital Signs Temp Pulse Resp BP Pulse Ox 98.3 F 68 18 124/72 H 94 10/28/19 14:30 10/28/19 14:30 10/28/19 14:30 10/28/19 14:30 10/28/19 14:30 Oxygen Flow Rate (L/min) 2 Oxygen Delivery Method Room Air Weight: 173 lb 11.588 oz Body Mass Index (BMI) 28.0 Intake and Output for Last 24 Hours 10/26/19 10/27/19 10/28/19 23:59 23:59 23:59 Intake Total 2150 / 2150 1090 / 1090 0 / 0 Output Total 1175 / 1175 1075 / 1075 450 / 450 Balance 975 / 975 / 15 -450 / -450 Microbiology Past 72 Hours 10/25/19 22:18 Blood Culture (Wb) - Anticubital Right Blood Culture - Preliminary No growth in 48 hours. 10/25/19 22:18 Blood Culture (Wb) - Anticubital Left Blood Culture - Preliminary No growth in 48 hours. Current Medications Acetaminophen (Tylenol) 650 mg PO Q6H PRN PRN PRN Reason: Pain Score 1-10/Temp > 100.7 F Amiodarone HCl (Cordarone) 200 mg PO BID [facility] Amlodipine Besylate (Norvasc) 10 mg PO DAILY [facility] Last Admin: 10/28/19 06:47 Dose: 10 mg Documented by: Apixaban (Eliquis) 5 mg PO BID [facility] Aspirin (Ecotrin) [facility] Last Admin: 10/28/19 06:47 Dose: 81 mg Documented by: Atorvastatin Calcium (Lipitor) 40 mg PO QHS [facility] Last Admin: 10/27/19 21:15 Dose: 40 mg Documented by: Carbidopa/Levodopa (Sinemet) 1 tablet PO BID@1200,1500 [facility] Last Admin: 10/28/19 13:01 Dose: 1 tablet Documented by: Carbidopa/Levodopa (Sinemet Cr) 1 tablet PO 0600,1200,1800 [facility] Last Admin: 10/28/19 13:02 Dose: 1 tablet Documented by: Carbidopa/Levodopa (Sinemet) 2 tablet PO BREAKFAST [facility] Last Admin: 10/28/19 11:16 Dose: Not Given Documented by: Cholecalciferol (Vitamin D (25mcg)) 5,000 unit PO DAILY [facility] Last Admin: 10/28/19 13:01 Dose: 5,000 unit Documented by: Citalopram Hydrobromide (Celexa) 10 mg PO QHS [facility] Last Admin: 10/27/19 21:15 Dose: 10 mg Documented by: Dextrose (D50w Syringe) 0 gm IV X1 PRN; Protocol PRN Reason: Hypoglycemia Famotidine (Pepcid) 20 mg PO BID [facility] Last Admin: 10/28/19 07:58 Dose: 20 mg Documented by: Glucagon () 1 mg IM .X1 PRN PRN Reason: Hypoglycemia Hydrochlorothiazide () 12.5 mg PO DAILY [facility] Last Admin: 10/28/19 13:10 Dose: 12.5 mg Documented by: Sodium Chloride () 250 mls @ 15 mls/hr IV .[id number] PRN PRN Reason: Saline Flush Sodium Chloride () 250 mls @ 15 mls/hr IV .[id number] PRN PRN Reason: Additional IVPB Infusion Sodium Chloride () 1,000 mls @ 75 mls/hr IV .[id number] [facility] Last Admin: 10/28/19 13:10 Dose: 75 mls/hr Documented by: Losartan Potassium (Cozaar) 50 mg PO DAILY [facility] Last Admin: 10/28/19 07:22 Dose: 50 mg Documented by: Melatonin (Melatonin) 3 mg PO HS [facility] Last Admin: 10/27/19 21:15 Dose: 3 mg Documented by: Metoprolol Tartrate (Lopressor (Beta Amira)) 50 mg PO BID [facility] Last Admin: 10/28/19 06:47 Dose: 50 mg Documented by: Pred[facility]one () [facility] Last Admin: 10/28/19 07:58 Dose: 20 mg Documented by: Sodium Chloride () 10 - 40 ml IV UD PRN PRN Reason: SALINE FLUSH STROKE Vital Signs/Narrative: Vital Signs Temp Pulse Resp BP Pulse Ox 10/28/19 14:30 98.3 F 68 18 124/72 H 94 10/28/19 14:00 98.3 F 63 18 151/87 H 94 10/28/19 13:50 98.3 F 67 18 149/77 H 97 10/28/19 13:30 98.3 F 66 18 147/89 H 97 10/28/19 13:15 98.3 F 67 18 167/85 H 97 10/28/19 13:00 98.3 F 66 18 153/78 H 97 10/28/19 11:14 98.3 F 67 16 174/93 H 98 Assessment/Plan Patient seen by Jesse Wu PA-C under my supervision Patient seen and examined. She has no complaints this morning and denies any palpitation, dizziness, nausea vomiting or diarrhea. Review of systems otherwise negative. She was seen prior to cardiac cath. She has remained hemodynamically stable. O/E Vital Signs Temp Pulse Resp BP Pulse Ox 98.3 F 68 18 124/72 H 94 10/28/19 14:30 10/28/19 14:30 10/28/19 14:30 10/28/19 14:30 10/28/19 14:30 General: Alert, Oriented x3, Cooperative, - -flat affect HEENT: Atraumatic, PERRLA, EOMI, Normocephalic Neck: Supple, No JVD, Negative Carotid Bruits Lungs: Clear to auscultation, Normal air movement Cardiovascular: Regular rate, No murmurs Abdomen: Bowel Sounds Present, Soft, Non Tender Extremities: No edema, Capillary Refill Less than 3 Seconds Skin: No rashes, No breakdown Musculoskeletal: No Tenderness to Palpation of Joints or Extremities Neurological: Cranial nerves II-XII grossly intact Psych/Mental Status: Flat affect, Appropriate, Alert and oriented to time, place, person, mood and affect She had cardiac cath today which showed nonobstructive coronary arterieis with normal LV size, wall motion and systolic function. Recommendation is for medical management. She is to continue aspirin, losartan and metoprolol. Continue Sinemet for Parkinson's disease. Continue hydrochlorothiazide, losartan, amlodipine and metoprolol for blood pressure control. C patient also has paroxysmal A. fib is currently rate controlled; on PO amiodarone, continue with 200 mg twice daily for a week and then continue with 200 mg daily. On eliquis. Rest as per Jesse Wu PA-C's notes which I have reviewed and endorsed. Inpatient E&M: 24747 Subs Hosp L2
--- NOTE | 2019-10-28 14:48 | CASEMGMT ---
Speech therapy recommending OP MBS after discharge and left note for CM regarding same. Irina BERRY updated at this time and states he will recommend for pt at discharge. Arthur GARZON CM
[2019-10-28] MEDS: Citalopram 10 MG Tablet PO (21:47)
[2019-10-28] MEDS: Atorvastatin Calcium 40 MG Tablet PO (21:48)
[2019-10-28] MEDS: Amiodarone 200 MG Tablet PO (21:48)
[2019-10-28] MEDS: MELATONIN 3 MG TABLET PO (21:48)
[2019-10-28] MEDS: APIXABAN 5 MG TABLET PO (21:49)
--- NOTE | 2019-10-29 02:50 | NURSING ---
During focused assessment, noted ecchymosis below where KATIE bandage was wrapped. Removed KATIE wrap. Pt. denies pain. Pulse +2. Arm remains elevated on 2 pillows. Will monitor.
[2019-10-29 02:59] VITALS: PULSE 59
[2019-10-29 03:00] VITALS: BP 153/91; PULSE 93; RESP 16; TEMP 36.7; O2SAT 96
[2019-10-29] MEDS: CARBIDOPA/LEVODOPA CR 50/200 Tablet PO (06:18)
[2019-10-29 06:29] LABS: Anion Gap 7 (5-15); BUN 30 mg/dL (7-18); BUN/Creat Ratio 35.5 RATIO (10-20); Calcium,Total 9.1 mg/dL (8.5-10.1); Chloride 104 mmol/L (98-107); Creatinine, Serum 0.84 mg/dL (0.55-1.02); EST Glomerular Filtration Rate 70 mL/min (>60); Est Glom Filt Rate - Afr Amer 85 mL/min (>60); Estimated Creatinine Clearance 55.84 ml/min; Glucose 132 mg/dL (74-106); Potassium 3.3 mmol/L (3.5-5.1); Sodium Level 138 mmol/L (136-145)
[2019-10-29 07:19] VITALS: PULSE 67
[2019-10-29] MEDS: Aspirin E.C. 81 MG Tablet PO (08:04)
[2019-10-29] MEDS: predniSONE 20 MG Tablet PO (08:05)
[2019-10-29] MEDS: Carbidopa/Levodopa 25/100 Tablet PO (08:05)
[2019-10-29] MEDS: APIXABAN 5 MG TABLET PO (08:06)
[2019-10-29] MEDS: Amiodarone 200 MG Tablet PO (08:06)
[2019-10-29] MEDS: Losartan Potassium 50 MG Tablet PO (08:06)
[2019-10-29 08:07] VITALS: PULSE 67
[2019-10-29] MEDS: hydroCHLOROthiazide 12.5mg 12.5 MG PO (08:07)
[2019-10-29] MEDS: Metoprolol Tartrate 50 MG Tablet PO (08:07)
[2019-10-29] MEDS: Famotidine 20 MG Tablet PO (08:08)
[2019-10-29] MEDS: amLODIPine 10 MG Tablet PO (08:08)
--- NOTE | 2019-10-29 08:21 | PN.CARD_ITS ---
Subjectve: Patient seen and evaluated. Appears to be doing better this morning. Objective: Vital Signs Temp Pulse Resp BP Pulse Ox 98.0 F 67 16 153/91 H 96 10/29/19 03:00 10/29/19 08:07 10/29/19 03:00 10/29/19 03:00 10/29/19 03:00 Oxygen Flow Rate (L/min) 2 Oxygen Delivery Method Room Air Weight: 173 lb 11.588 oz Body Mass Index (BMI) 28.0 Intake and Output for Last 24 Hours 10/27/19 10/28/19 10/29/19 23:59 23:59 23:59 Intake Total 1090 / 1090 100 / 100 1150 / 1150 Output Total 1075 / 1075 550 / 550 Balance 15 / -450 / -450 1150 / 1150 General: Awake, Alert, Oriented x 3 HEENT: PERRL, EOMI, Sclera Non Icteric Neck: Supple, Good ROM, No Lymph Node Enlargement Lungs: Clear to auscultation Cardiovascular: Regular Rhythm, Normal S1, Normal S2, No Murmurs, No Rubs, No Gallops Vascular: No Carotid Bruits, Normal Femoral Pulses, Normal Radial Pulses, Normal Dorsalis Pedal Pulse, Normal Posterior Tibial Pulses Abdomen: Bowel Sounds Present, Soft, Non Tender, No HSM, No Organomegaly Extremities: No Cyanosis, No Clubbing, No edema, - - Right forearm bruising Musculoskeletal: No Erythema Skin: No Rashes Lymphatic: No Lymph Node Enlargement Neurological: No Focal Motor or Sensory Deficit Psych/Mental Status: Flat Affect 10/29/19 05:42: Sodium 138, Potassium 3.3 L, Chloride 104, Carbon Dioxide 27.0, Anion Gap 7, BUN 30 H, Creatinine 0.84, Est GFR (MDRD) Af Amer 85, Est GFR (MDRD) Non-Af 70, BUN/Creatinine Ratio 35.5 H, Glucose 132 H, Calcium 9.1 Rhythm: EKG: ECHO: Stress Test: Cardiac Cath: PCI: CT Surgery: Holter monitor: EPS: PPM: CXR: Chest CT Scan: Medical Necessity - Tobacco Use Smoking Status: Never smoker Assessment/Plan 1. Non-ST elevation myocardial infarction. * The above is likely secondary to demand ischemia. She underwent cardiac catheterization which demonstrated no significant obstructive coronary disease. She did develop mild bruising of the right forearm. This was wrapped and appears to be doing better this morning. There is mild bruising noted. * Based on the above we will continue with risk factor modification. * Ejection fraction is also noted to be preserved. * 2. Hypertension * Her blood pressure is under good control at this particular time * Will continue beta-rubi, KATIE inhibitor, diuretic, and calcium channel rubi. The dosages will need to be optimized. * 3. Paroxysmal atrial fibrillation * Patient was noted to have paroxysmal atrial fibrillation. This was a presenting complaint. * She has converted to sinus rhythm. The plan will be to continue her on amiodarone 200 mg twice a day for a week and then 200 mg once a day. * She also does not appear to have any contraindications to Eliquis and will be continued on this. Will recommend restarting this after she has been seen in the office due to the bruising in her forearm. * * * * Thank you for allowing me to participate in the care of your patient. Please don't hesitate to call if any issues arise.
[2019-10-29 09:05] VITALS: BP 157/89; PULSE 68; RESP 16; TEMP 36.6; O2SAT 94
--- NOTE | 2019-10-29 09:16 | DCINST_ITS ---
- Discharge Diagnoses Current Active Problems: Current Active and Chronic Problems (Last Reviewed 10/25/19 @ 23:[address] Burt Shaikh, DO) Elevated troponin (Acute) Fall (Acute) Atrial fibrillation with RVR (Acute) Paroxysmal atrial fibrillation (Chronic) You will use the following diet at home:: Cardiac Your food should be the consistency of: Regular Your liquids should be the consistency of: [place] Thick Discharge Activity: Return to Normal Activity Additional Instructions: You will need to discuss the need for a modified barium swallow test with your family medicine doctor. This will help with your care regarding difficulty swallowing (dysphagia). Allergies/Adverse Reactions: Allergies iodine Allergy (Verified 10/25/19 21:48) Hives latex Allergy (Verified 10/25/19 21:48) Rash rotigotine [From Neupro] Allergy (Verified 10/25/19 21:48) Rash shellfish derived Allergy (Verified 10/25/19 21:48) Hives Sulfa (Sulfonamide Antibiotics) Allergy (Verified 10/25/19 21:48) Hives diltiazem Adverse Reaction (Verified 10/25/19 21:48) Rash Medications to take at Discharge Cholecalciferol (Vitamin D3) [D3-2000] 5,000 units PO DAILY 10/15/16 Citalopram Hydrobromide [Citalopram HBr] 10 mg PO QHS 10/15/16 aspirin 81 mg tablet,delayed release 81 mg PO QHS 12/21/18 losartan 50 mg-hydrochlorothiazide 12.5 mg tablet 1 tab PO DAILY 12/21/18 melatonin 3 mg tablet 3 mg PO HS 12/21/18 Carbidopa/Levodopa [Carbidopa-Levo ER 50-200 Tab] 1 ea PO TID 10/26/19 Carbidopa/Levodopa [Carbidopa-Levodopa 25-100 Tab] 1 ea PO BID 10/26/19 Carbidopa/Levodopa [Carbidopa-Levodopa 25-100 Tab] 2 ea PO BREAKFAST 10/26/19 Amiodarone HCl [Cordarone] 200 mg PO BID #45 tab 10/29/19 Apixaban [Eliquis] 5 mg PO BID #60 tab 10/29/19 Atorvastatin Calcium [Lipitor] 40 mg PO QHS #30 tab 10/29/19 Metoprolol Tartrate [Lopressor (beta rubi)] 50 mg PO BID #60 tab 10/29/19 The following prescriptions were given: Amiodarone HCl [Cordarone] 200 mg PO BID #45 tab Transmission Status: Pending to [facility] Apixaban [Eliquis] 5 mg PO BID #60 tab Transmission Status: Pending to [facility] Atorvastatin Calcium [Lipitor] 40 mg PO QHS #30 tab Transmission Status: Pending to [facility] Metoprolol Tartrate [Lopressor (beta rubi)] 50 mg PO BID #60 tab Transmission Status: Pending to [facility] Primary Care Physician: Gavin Rachel MD [Primary Care Provider] - Please follow up with your Primary Care Physician in: 1-2 weeks Test Results: Test results from this visit will be discussed in further detail at your follow- up appointment, if applicable. Please Follow Up With: Shawn Sims MD When: as directed Proposed Discharge Date: 10/29/19
--- NOTE | 2019-10-29 09:38 | CASEMGMT ---
RN BRANDI NOTE: Call placed to [facility] for kennedy check on Eliquis--per pharmacy, cost is $47. Pt made aware and states this is affordable. Pt states does not want HHC at this time. Pt made aware, if in the future, she feels she needs HHC, to discuss this with her PCP. She voices understanding. She denies having any discharge planning needs/concerns at this time. Pt made aware to ask for RN BRANDI if she has any needs/concerns. Keshav JASSON RN CM
--- NOTE | 2019-10-29 10:24 | NURSING ---
pt's daughter Renu made aware of pt's discharge. discharge instructions reviewed with Renu by this RN at this time.
--- NOTE | 2019-10-29 14:27 | PCM.DC.SUM ---
<Jesse Wu - Last Filed: 10/29/19 14:27> Discharge Date and Diagnosis Date of Admission: 10/25/19 Date of Discharge: 10/29/19 - Primary Discharge Diagnosis pAfib with RVR NSTEMI type II 2/2 above Parkinsons dz hx breast cancer in remission HTN - Secondary Discharge Diagnosis Chronic Problems (Last Updated 10/29/19 @ 12:59 by Chio Gastelum) Essential hypertension (Chronic) Parkinson disease (Chronic) Paroxysmal atrial fibrillation (Chronic) Hospital Course and Treatment Imaging Results: DIAGNOSTICS: 2D TTE Interpretation Summary Normal LV size. Mild (1+) mitral valve insufficiency. Mild to moderate (1-2+) tricuspid valve insufficiency. Mild pulmonary hypertension. E/E' suggestive of increased LA filling pressure CT/Brain/Head without Contrast IMPRESSION: No acute intracranial findings. Negative for hemorrhage, hematoma or extra-axial fluid collections. Mild involutional changes. RAD/Chest 1 View (Portable) IMPRESSION: No acute cardiopulmonary findings or changes. Negative for new consolidation, focal atelectasis or substantial pleural effusion. Stable cardiac size. RAD/Elbow min 3 Views IMPRESSION: Normal x-ray examination of the elbow. left heart cath: CONCLUSIONS Non obstructive coronary arteries Normal LV size, wall motion,and systolic function RECOMMENDATIONS Medical therapy F/u WITH DR VINSON CORONARY ANGIOGRAPHY DOMINANCE: Right Dominant LEFT HEART ASSESSMENT Left Ventricular Ejection Fraction: by LV Gram 65 % Normal LV wall motion Normal Left Ventricular systolic function LEFT MAIN: Angiographically normal LEFT ANTERIOR DESCENDING ARTERY: No significant disease noted CIRCUMFLEX ARTERY: Mild luminal irregularities RIGHT CORONARY ARTERY: Mild luminal irregularities Consults: Cardiology - Lo/Stephanie Procedures: 2-D Echocardiogram, Cardiac catheterization Summary of Care Provided: Hospital Course: The patient is a 73 year old F with pmhx of pAfib, parkinsons, htn who presented to the ER with palpitations and a fall. She came to the ER and was found to have Afib with RVR. She was given 5mg of IV metoprolol x 1 and converted to NSR. She had a slightly elevated troponin. She was admitted to the PCU on tele. Her troponin elevated to 6.00. She remained in NSR. EKG showed ST depression V2-V5, slight ST elevation in aVR. She had no chest pain. Cardiology was consulted for NSTEMI. She was taken for a heart cath and was found to have nonobstructive coronaries. She will complete a week of amio BID then amio daily after that, she was placed on eliquis, and was placed on an increased dose of metoprolol. She was discharged home in stable condition. She will need to follow up with cardiology as directed, and with her PCP in 1-2 weeks. This patient was seen by Jesse Wu PA-C under the supervision of Dr. Zapata. [] - Physical Exam Vitals/I&O's: Vital Signs Temp Pulse Resp BP Pulse Ox 97.9 F 68 16 157/89 H 94 10/29/19 09:05 10/29/19 09:05 10/29/19 09:05 10/29/19 09:05 10/29/19 09:05 Oxygen Flow Rate (L/min) 2 Oxygen Delivery Method Room Air Weight: 173 lb 11.588 oz Body Mass Index (BMI) 28.0 Intake and Output for Last 24 Hours 10/27/19 10/28/19 10/29/19 23:59 23:59 23:59 Intake Total 1090 / 1090 100 / 100 1150 / 1150 Output Total 1075 / 1075 550 / 550 Balance -450 / -450 1150 / 1150 General: Alert, Oriented x3, Cooperative HEENT: Atraumatic, PERRLA, EOMI, Normocephalic Neck: Supple, No JVD, Negative Carotid Bruits Lungs: Clear to auscultation, Normal air movement Cardiovascular: Regular rate, No murmurs Abdomen: Bowel Sounds Present, Soft, Non Tender Extremities: No edema, Capillary Refill Less than 3 Seconds Skin: No rashes, No breakdown Musculoskeletal: No Tenderness to Palpation of Joints or Extremities Neurological: Cranial nerves II-XII grossly intact Psych/Mental Status: Normal Affect, Appropriate, Alert and oriented to time, place, person, mood and affect Microbiology Past 72 Hours 10/25/19 22:18 Blood Culture (Wb) - Anticubital Right Blood Culture - Preliminary No growth in 48 hours. 10/25/19 22:18 Blood Culture (Wb) - Anticubital Left Blood Culture - Preliminary No growth in 48 hours. Laboratory Results 10/29/19 05:42: Sodium 138, Potassium 3.3 L, Chloride 104, Carbon Dioxide 27.0, Anion Gap 7, BUN 30 H, Creatinine 0.84, Estim Creat Clear Calc 55.84, Est GFR (MDRD) Af Amer 85, Est GFR (MDRD) Non-Af 70, BUN/Creatinine Ratio 35.5 H, Glucose 132 H, Calcium 9.1 Discharge Diet: Low fat/ Low Cholesterol, 2000 mg Sodium Diet Discharge Activity: Return to Normal Activity Home Medications: Medications to take at Discharge Cholecalciferol (Vitamin D3) [D3-2000] 5,000 units PO DAILY 10/15/16 Citalopram Hydrobromide [Citalopram HBr] 10 mg PO QHS 10/15/16 aspirin 81 mg tablet,delayed release 81 mg PO QHS 12/21/18 losartan 50 mg-hydrochlorothiazide 12.5 mg tablet 1 tab PO DAILY 12/21/18 melatonin 3 mg tablet 3 mg PO HS 12/21/18 Carbidopa/Levodopa [Carbidopa-Levo ER 50-200 Tab] 1 ea PO TID 10/26/19 Carbidopa/Levodopa [Carbidopa-Levodopa 25-100 Tab] 1 ea PO BID 10/26/19 Carbidopa/Levodopa [Carbidopa-Levodopa 25-100 Tab] 2 ea PO BREAKFAST 10/26/19 Amiodarone HCl [Cordarone] 200 mg PO BID #45 tab 10/29/19 Apixaban [Eliquis] 5 mg PO BID #60 tab 10/29/19 Atorvastatin Calcium [Lipitor] 40 mg PO QHS #30 tab 10/29/19 Metoprolol Tartrate [Lopressor (beta rubi)] 50 mg PO BID #60 tab 10/29/19 Following Prescrptions Were Given to Patient: Amiodarone HCl [Cordarone] 200 mg PO BID #45 tab Transmission Status: Received by [facility] Apixaban [Eliquis] 5 mg PO BID #60 tab Transmission Status: Received by J[facility]SEE [id number] [place] [address] Atorvastatin Calcium [Lipitor] 40 mg PO QHS #30 tab Transmission Status: Received by [facility] Metoprolol Tartrate [Lopressor (beta rubi)] 50 mg PO BID #60 tab Transmission Status: Received by [facility] [address] Primary Care Physician: Gavin Rachel MD [Primary Care Provider] - Please follow up with your Primary Care Physician in: 1-2 weeks Please Follow Up With: Shawn Vinson MD When: as directed Disposition: Home Minutes spent on discharge:: 35 Patient Condition:: Stable Medical Necessity - Tobacco Use Smoking Status: Never smoker Meaningful Use Info Meaningful Use Diagnoses (Choose all that apply): None applicable <Arminda Zapata - Last Filed: 10/29/19 17:35> Discharge Date and Diagnosis - Secondary Discharge Diagnosis Chronic Problems (Last Updated 10/29/19 @ 12:59 by Chio Gastelum) Essential hypertension (Chronic) Parkinson disease (Chronic) Paroxysmal atrial fibrillation (Chronic) Hospital Course and Treatment Summary of Care Provided: Patient seen by Jesse Wu PA-C under my supervision The patient is a 73 year old F was admitted through the ED with a complaint of palpitations and a fall. She was found to be in A. fib with RVR. She converted to normal sinus rhythm after she was given IV metoprolol push. Troponins were slightly elevated but subsequently trended up to 6 and so she was therefore managed for non-STEMI as EKG showed no acute ST changes though it did show some ST depression in V2 to V5. Cardiology was consulted and she had a cardiac cath which showed nonobstructive coronaries. Patient remained stable afterwards and was placed on p.o. amiodarone. She is to continue on p.o. amiodarone twice daily for 1 week and then to continue with p.o. amiodarone 200 mg daily after that. She was also placed on Eliquis and discharged on metoprolol. She remained stable and was discharged home on 10/29/2019. She is to follow-up with her primary care doctor and cardiology within 1 to 2 weeks. Patient seen and examined prior to discharge. He had no complaints and wanted to be discharged home. Review of symptoms otherwise negative. Labs and vitals reviewed. Home medication reviewed and reconciled. o/e: Vital Signs Temp Pulse Resp BP Pulse Ox 97.9 F 68 16 157/89 H 94 10/29/19 09:05 10/29/19 09:05 10/29/19 09:05 10/29/19 09:05 10/29/19 09:05 [] General: Alert, Oriented x3, Cooperative, - -flat affect HEENT: Atraumatic, PERRLA, EOMI, Normocephalic Neck: Supple, No JVD, Negative Carotid Bruits Lungs: Clear to auscultation, Normal air movement Cardiovascular: Regular rate, No murmurs Abdomen: Bowel Sounds Present, Soft, Non Tender Extremities: No edema, Capillary Refill Less than 3 Seconds Skin: No rashes, No breakdown Musculoskeletal: No Tenderness to Palpation of Joints or Extremities Neurological: Cranial nerves II-XII grossly intact Psych/Mental Status: Flat affect, Appropriate, Alert and oriented to time, place, person, mood and affect Plan Is for discharge home today. Rest as per Jesse Wu PA-C's note, which I have reviewed and endorsed. - Physical Exam Vitals/I&O's: Vital Signs Temp Pulse Resp BP Pulse Ox 97.9 F 68 16 157/89 H 94 10/29/19 09:05 10/29/19 09:05 10/29/19 09:05 10/29/19 09:05 10/29/19 09:05 Oxygen Flow Rate (L/min) 2 Oxygen Delivery Method Room Air Weight: 173 lb 11.588 oz Body Mass Index (BMI) 28.0 Intake and Output for Last 24 Hours 10/27/19 10/28/19 10/29/19 23:59 23:59 23:59 Intake Total 1090 / 1090 100 / 100 1150 / 1150 Output Total 1075 / 1075 550 / 550 Balance -450 / -450 1150 / 1150 Microbiology Past 72 Hours 10/25/19 22:18 Blood Culture (Wb) - Anticubital Right Blood Culture - Preliminary No growth in 48 hours. 10/25/19 22:18 Blood Culture (Wb) - Anticubital Left Blood Culture - Preliminary No growth in 48 hours. Laboratory Results 10/29/19 05:42: Sodium 138, Potassium 3.3 L, Chloride 104, Carbon Dioxide 27.0, Anion Gap 7, BUN 30 H, Creatinine 0.84, Estim Creat Clear Calc 55.84, Est GFR (MDRD) Af Amer 85, Est GFR (MDRD) Non-Af 70, BUN/Creatinine Ratio 35.5 H, Glucose 132 H, Calcium 9.1 Inpatient E&M: [id number] Disch Hosp
== END 2019-10-29 12:00 | disposition home or self-care (01) | DRG 282 ==
LOC: ED 23:40 → PCU 10-26 00:04
PROVIDERS: Hospitalist; Physician Assistant; Emergency Provider Emergency Medicine; PCP Family Medicine; Visit Provider Student in an Organized Health Care Education/Training Program
DX: I48.0 Paroxysmal atrial fibrillation (principal); I21.A1 Myocardial infarction type 2; G20 Parkinson's disease; E86.0 Dehydration; R13.10 Dysphagia, unspecified; I27.20 Pulmonary hypertension, unspecified; I10 Essential (primary) hypertension; S50.11XA Contusion of right forearm, initial encounter; W19.XXXA Unspecified fall, initial encounter; Y93.01 Activity, walking, marching and hiking; Z79.01 Long term (current) use of anticoagulants; Z79.82 Long term (current) use of aspirin; Z79.899 Other long term (current) drug therapy; Z91.041 Radiographic dye allergy status; Z91.81 History of falling; Z85.3 Personal history of malignant neoplasm of breast
CPT/HCPCS: 36415; 70450; 71045; 73080; 80048; 80053; 80061; 81001; 83735; 84443; 84484; 85025; 85610; 85730; 87040; 92526; 92610; 93005; 93306; 93458; 96361; 96374; 97110; 97116; 97162; 97166; 97530; 97535; 99152; 99153; 99285; J7030; J7040; P9612; Q9957; A4216; C1769; C1894; C8929; Q9967

== ENCOUNTER → 2019-12-19 15:23 | Outpatient (CLI) | payer MEDICARE, SELFPAY ==
[2019-12-04 09:37] VITALS: BMI 27.6
[2019-12-19 17:48] LABS: Anion Gap 6 (5-15); BUN 23 mg/dL (7-18); BUN/Creat Ratio 28.6 RATIO (10-20); Calcium,Total 8.7 mg/dL (8.5-10.1); Chloride 97 mmol/L (98-107); EST Glomerular Filtration Rate 74 mL/min (>60); Est Glom Filt Rate - Afr Amer 90 mL/min (>60); Glucose 137 mg/dL (74-106); Potassium 3.9 mmol/L (3.5-5.1); Sodium Level 135 mmol/L (136-145)
== END ==
PROVIDERS: PCP Family Medicine; Referring Provider Nurse Practitioner Family; Visit Provider Nurse Practitioner Family
DX: E87.6 Hypokalemia (principal)
CPT/HCPCS: 36415; 80048

== ENCOUNTER → 2019-12-23 12:30 | Outpatient (CLI) | payer MEDICARE, SELFPAY ==
[2019-12-23 11:38] VITALS: BMI 27.3
[2019-12-23 13:33] LABS: AST(SGOT) 23 U/L (15-37); Alanine Aminotransfer ALT/SGPT 12 U/L (13-56); Albumin, Serum 3.8 g/dL (3.2-5.0); Alkaline Phosphatase 78 U/L (45-117); Bilirubin, Direct 0.22 mg/dL (0.00-0.30); Globulin 3.3 g/dL (2.2-4.2); Protein, Total 7.1 g/dL (6.4-8.2)
== END ==
PROVIDERS: PCP Family Medicine; Referring Provider Internal Medicine Cardiovascular Disease; Visit Provider Internal Medicine Cardiovascular Disease
DX: I48.0 Paroxysmal atrial fibrillation (principal); I10 Essential (primary) hypertension; R79.89 Other specified abnormal findings of blood chemistry
CPT/HCPCS: 36415; 80076

== ENCOUNTER → 2019-12-26 13:07 | Outpatient (CLI) | payer MEDICARE, SELFPAY ==
[2019-12-23 11:38] VITALS: BMI 27.3
== END ==
PROVIDERS: PCP Family Medicine; Referring Provider Internal Medicine Cardiovascular Disease; Visit Provider Internal Medicine Cardiovascular Disease
DX: I48.0 Paroxysmal atrial fibrillation (principal); I10 Essential (primary) hypertension; R79.89 Other specified abnormal findings of blood chemistry
CPT/HCPCS: 93225; 93226

== ENCOUNTER 2020-01-05 08:37 | Emergency (ER) | payer MEDICARE, SELFPAY ==
[2019-12-23 11:38] VITALS: BMI 27.3
[2020-01-05 08:40] VITALS: BP 165/79; PULSE 77; RESP 18; TEMP 36.6; O2SAT 96; BMI 27.6
[2020-01-05] MEDS: Lidocaine/Epi/Tetracaine 50 ML 1 APPLIC TOPICAL (09:11)
[2020-01-05 09:35] LABS: Hematocrit 37.6 % (37-47); Hemoglobin 12.4 g/dL (12.0-15.0); Mean Corpuscular Hgb 32.8 pg (27.0-32.0); Mean Corpuscular Volume 99.5 fL (81-99); Mean Platelet Vol. 9.6 fl (6.2-12.0); Platelet Count 240 K/mm3 (150-450); RBC Distribution Width CV 13.2 % (11.6-14.6); RBC Distribution Width SD 47.6 fl (35.1-43.9); Red Blood Count 3.78 M/mm3 (4.2-5.4); White Blood Count 6.1 K/mm3 (4.4-11.0)
--- NOTE | 2020-01-05 10:03 | ED.DCSUM_ITS ---
History of Present Illness Chief Complaint: Nosebleed Detail of Chief Complaint: This bleed yesterday x10 minutes and persistent nosebleed this morning Informant: Patient, Significant Other Onset: Today, Yesterday Context: Sudden Onset Timing: Continuous - Tenuous since onset this morning, Intermittent - Her mitten yesterday Quality: Right red blood left naris and expectorating blood Location: Left side Current Severity: Mild Maximum Severity: Severe Worsened by: Patient is on Eliquis for atrial fibrillation Relieved by: Nothing today and reason for presentation Associated Symptoms: None Narrative: Patient is elderly woman on Eliquis for age fibrillation who presents with spontaneous nosebleed. She had episode yesterday that resolved with pressure. Today's did not. states his blood for some time. She has blood coming from the left naris as well as expectorating blood. There is no history of trauma. She does report bruising easily. Denies black or maroon stool. She denies blood in her urine. She denies orthostatic symptoms. She has seen Dr. Rajinder Jacobs and Dr. Ema Jacobs in the past. Prior similar symptoms: No Recent Illness/Hospitalization: No - Past Medical History (1) Atrial fibrillation with RVR Status: Acute (2) Essential hypertension Status: Chronic (3) Parkinson disease Status: Chronic Past Medical History - Allergies and Home Meds Allergies/Adverse Reactions: Allergies iodine Allergy (Verified 12/23/19 11:42) Hives latex Allergy (Verified 12/23/19 11:42) Rash rotigotine [From Neupro] Allergy (Verified 12/23/19 11:42) Rash shellfish derived Allergy (Verified 12/23/19 11:42) Hives Sulfa (Sulfonamide Antibiotics) Allergy (Verified 12/23/19 11:42) Hives Snxemdt-Lps-Yuc Reductase Inhibitor Adverse Reaction (Severe, Verified 01/03/20 15:31) Myalgias, muscle cramps, poor balance diltiazem Adverse Reaction (Verified 12/23/19 11:42) Rash Primary Care Physician: Gavin Rachel MD [Primary Care Provider] - Prior records reviewed: Yes Surgical History: - - Bilateral lumpectomy with radiation therapy. Pyloric s tenosis gastric outlet repair. Small bowel resection 10/16/16. Lives: Spouse/ Significant Other Smoking Status: Never smoker Alcohol: None Drugs: None - Family History Maternal Family History: Family History (Last Reviewed 12/23/19 @ 11:44 by Chio Gastelum) Brother Heart disease Family History: Reports: Cancer - Stomach cancer Paternal Family History: Family History (Last Reviewed 12/23/19 @ 11:44 by Choi Gastelum) Brother Heart disease Family History: Reports: Cancer Offspring Family History: Family History (Last Reviewed 12/23/19 @ 11:44 by Chio Gastelum) Brother Heart disease Family History: Reports: - Review of Systems General: Denies: Chills, Fever, Malaise, Subjective Eyes: Denies: Visual changes - bilaterally, Blurred Vision - bilaterally ENT: Reports: - - Blood from left naris. Denies: Bilateral ear pain, Rhinorrhea, Sore throat Cardiovascular: Reports: - - Denies orthostatic symptoms.. Denies: Chest pain, Palpitations Respiratory: Denies: Dyspnea, Cough, Dyspnea on exertion Gastrointestinal: Denies: Nausea, Vomiting, Melena, Hematochezia Genitourinary: Denies: Frequency Psych: Reports: Depression - Masked face due to Parkinson's disease Hematologic: Reports: Easy bruising, Easy bleeding. Denies: Lymphadenopathy Allergy: Denies: Uticaria, Swelling of the mouth Physical Exam Vital Signs/Narrative: Vital Signs Temp Pulse Resp BP Pulse Ox 01/05/20 08:40 97.8 F 77 18 165/79 H 96 Inital Vital Signs reviewed: Yes General: Well nourished, Well developed, No Acute Distress Head: Normocephalic, Atraumatic Eyes: Perrl, EOMI. Negative for: Pale conjunctiva, Scleral icterus ENT: Moist mucous membranes, No rhinorrhea, - - Noted left naris and posterior pharynx. There is bright red blood noted in the posterior pharynx.After packing was placed with anesthetic there was blood noted above the turbinate. This may represent a high anterior bleed versus a posterior bleed. Neck: Supple, Nontender, No lymphadenopathy, No JVD Cardiovascular: Regular rate, No murmurs, Irregular Respiratory: No distress, CTA bilaterally, Chest nontender Rectal: Deferred Skin: Normal color, No rash, No Trauma. Negative for: Cyanosis, Diaphoresis, Jaundice Neurological: Alert, Oriented x3, Cranial nerves II-XII grossly intact, Normal Strength, Inattentive Psychological: - - Flat/blunted affect suspect secondary to Parkinson's disease. Diagnostic/Tx/Re-eval - Medical Decision Making Because she had episode of bleeding yesterday and his blood significant today H&H was obtained. H&H is unremarkable unchanged from prior. Because there is concern for continued bleeding since he is on an anticoagulant a posterior 7.5 cm posterior anterior Rhino rocket was placed. This controlled the bleeding. Patient is been instructed to hold her Eliquis for the next 2 days. She is to contact Dr. Jacobs's office to be seen on or Monday. ED Disposition - Plan for ED Patient: Disposition: Home or Assisted Living Diagnosis: Severe epistaxis Instructions: ED Epistaxis Adult Prescriptions: Amoxicillin 500 mg PO TID #14 tab Transmission Status: Pending to [facility] Referrals: Gavin Rachel MD [Primary Care Provider] - Ryan Diop MD [STAFF PHYSICIAN] - 01/10/20 Additional Instructions: Do not take any Eliquis until Monday
[2020-01-05 10:29] VITALS: BP 136/74; PULSE 59; RESP 16; O2SAT 96
[2020-01-05] MEDS: AMOXICILLIN 500 MG CAPSULE PO (10:29)
== END 2020-01-05 10:30 | disposition home or self-care (01) ==
PROVIDERS: Emergency Provider Emergency Medicine; PCP Family Medicine
DX: R04.0 Epistaxis (principal); I48.91 Unspecified atrial fibrillation; Z79.01 Long term (current) use of anticoagulants; I10 Essential (primary) hypertension; G20 Parkinson's disease; Z79.899 Other long term (current) drug therapy; Z79.82 Long term (current) use of aspirin
CPT/HCPCS: 30905; 85027; 99285; A4216

== ENCOUNTER → 2020-04-01 09:10 | Outpatient (CLI) | payer MEDICARE, SELFPAY ==
[2020-01-31 13:23] VITALS: BMI 25.2
== END ==
PROVIDERS: PCP Family Medicine; Referring Provider Family Medicine; Visit Provider Family Medicine
DX: Z03.818 Encounter for observation for suspected exposure to other biological agents ruled out (principal)
CPT/HCPCS: 87635; C9803; U0003

== ENCOUNTER 2020-04-10 13:00 | Outpatient (RCR) | payer MEDICARE, SELFPAY ==
--- NOTE | 2019-08-20 10:37 | HP.SP.AD_ITS ---
History - History Date of Eval: 08/20/19 Medical Diagnosis (from RX): Parkinsons Disease Date of Onset of Diagnosis: 2011 Previous speech therapy: Yes Results: Speech therrapy has been multiple times before - June and April 2014, October 2016, October 2017, December 2018. Other Relevant Medical History/Diagnoses/Surgery: Breast cancer, High blood pressure Medications related to this diagnosis: Sinimet, Sinimet CR, Melatonin Smoking Status: Never smoker Hx Smoking: No Hx Tobacco Use: No Hx Smoking Exposure: No - Pain Is pain an issue with your current prescribed condition?: No - Personal Occupation: Retired. Right Hearing Abillity: Normal Left Hearing Abillity: Normal Visual Assistive Devices: Glasses Patients Living Arrangements: With Significant Other Patient Allergies - Allergies Allergies iodine Allergy (Verified 01/11/19 13:48) Hives latex Allergy (Verified 01/11/19 13:48) Rash rotigotine [From Neupro] Allergy (Verified 01/11/19 13:48) Rash shellfish derived Allergy (Verified 01/11/19 13:48) Hives Sulfa (Sulfonamide Antibiotics) Allergy (Verified 01/11/19 13:48) Hives diltiazem Adverse Reaction (Verified 01/11/19 13:48) Rash Subjective Oral Motor - Subjective Patient Reports: Slurred Speech, Difficulty being Understood Dentures ill fitting: No Objective Oral Motor - Oral Status Dentition: Missing Teeth Additional: Only a few missing - Labial Impairment: Moderate Closure: WNL Pucker: Mild Retraction: Mild Alternating Pucker/Retraction: Moderate Involuntary Movement noted: No - Labial Comments Comments: Patient has reduced range of motion unless cued. - Lingual Impairment: WNL Protrusion: WNL Retraction: WNL Lateralization: WNL Involuntary Movement: No - Jaw Impairment: WNL - Respiratory Status Respiratory Status: Room Air Subjective Dysphagia - Symptoms Reported Other: Patient reports no dysphagia currently. - Current Diet Solids Current Diet: Regular - Current Diet Liquids Current Liquids: Thin Subjective Voice - Intubation Was the Client intubated: No - Other Product Usage Do you use products containing menthol (if yes, list): No Do you use recreational drugs (if yes, list type/amt/frequency): No Subjective Clinical Impression - Non-Phonatory Behaviors/Respiration Reduced loudness or vocal weakness: Present Limited breath support for speech: Present Objective Voice - Date of Diagnosis Previous Speech Therapy (If yes, describe): Yes Details of therapy: Patient initially had very positive response to LSVT. Last session was not as positive as she did not complete the homework as directed daily. - Medications Familiar with on/off effect: Yes - Implantation Deep brain implantation (If yes, answer next question): No - Objective data Objective Data: Objective data: Sound pressure level (SPL acoustic correlation of vocal loudness) was measured with a sound level meter at a distance of 40 cm from the patient's mouth. Average conversational loudness is 70-80 dB and sustained phonation duration is 15 to 20 seconds for a typical adult. Sustained Phonation Intensity (dB SPL): 85 Sustained Phonatin duration (seconds): 9.6 Is the individual stimulable to increase vocal intensity: Yes Vocal Intensity at Sentence Level (dB SPL): 75 Vocal Intensity at Paragraph Level (dB SPL): 74 Vocal Intensity at Conversational Level (dB SPL): 63 Plan - Plan Plan: Speech therapy is warranted as the patient's current ability to communicate is greatly reduced due to her volume. She reported she talks 50% less due to dysarthia/volume deficits. - Recommendations Treatment Warranted: Yes - Frequency Frequency: 1x/Week Duration: 6 Weeks - Prognosis Prognosis: Good - Goals that are Established: Determination:: Goals will be added/modified as deemed necessary and appropriate. Therapy will be discontinued when results of re-evaluation indicate therapy is no longer needed or lack of progress has been documented. 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 Goal #2: Patient will sustain phonation for 12-15 seconds to increase breath support for oral communication on 4/5 trials on 2/3 sessions. Goal #3: Patent will independently complete oral motor exercises for increased oral movements and mouth opening to faciliate intelligibility of communication on 2/3 sessions. Education - Patient has Indicated that the Following Identified Educational Needs: Cognitively Impaired - Patient Instruction Patient Education: Diagnosis, Treatment Plan, Goals, Home Exercise Program Person Taught: Patient Teaching Method: Discussion Response to teaching: Verbalize understanding, Has Prior Knowledge
--- NOTE | 2019-11-26 11:53 | HP.PTEVAL_ITS ---
Patient's Visit Information MILEY RANKIN is a 74 year old F referred to Physical Therapy by LUIS FERNANDO BAUMAN with a diagnosis of PD. Date of Evaluation: 11/26/19 Physical Therapist: Burt Carey, NORTH, OCS, CSCS - Visit Plan Frequency: 2x /Week Plan: 2x/week for 4-6 weeks for: 1. LE strength, scap/postural strength and balance exercises to be progresses to I HEP as exit strategy. 2. Gait training with cane for safety adn without for balance. - Subjective Doctor wants her to have therapy for walking. She has fallen a few times but none lately. Uses can out and about but not in house. She feels like she does not walk good at times especially in the evening, gets tired quickly. Feels weak sometimes.No numbness in legs but maybe cramps up in feet at times. Has basement steps but does not go down there. Sleeps not great and wakes up a lot to go to restroom. No pain. No spinning. feels unsteady. 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 Spends day in chair and watching tV. Walks on driveway is only exercises daily, Walks about 20-30 minutes. Lives with [employer] Dresses self adn bathroom self and bathes self. does meals at dinner as she is tired. He pours cereal for her also. - Objective Walks on firm flat surface safe and I, tends to drag cane behind her until verbally cued to plant it. L arm tends to felx adn elbow and wrist and stay close to body on it own volition but with cues she can hang it at her side.. has many swaying head movements throughout her session today more noticeable in sitting. Sits safe without back on chair. VOR walking is fair. Steps show weakness in legs and requires one rail reciprocally ascending adn two rails using L only descending and slow. UE aROM WFL, some R shoulder pain with reaching. LE AROM WFL adn fair motor control with focus. coordination to reciprocal tapping shows mod deficits, heel to estevez test is OK. Strength in ankles 4- adn knee ext 3 and knee flexion 4- adn hip abd/ext 3, hip flexion 3+ and adduction 4-. HS adn gastrocs show mod tightness with a -25 90/90 test. reflexes 0/3 patella and achilles B. Sensation WNL to gross light touch in LE today. - Balance Scores Functional Gait Assessment Score: 19 % Disability: 36.6700 CATSIB Score (Max score 120 seconds): 72 - Goals Goal 1:: I approp HEP for LE strength, postural pulls and balance exercises to do at home Goal Time Frame: 4-6 Weeks Goal 2:: 24/30 FGA to diminish fall risk. Goal Time Frame: 4-6 Weeks Goal 3:: <60% disability on LEFS Goal Time Frame: 4-6 Weeks Goal 4:: Patient feel strength and mobility 50% improved. 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 Rehabilitation Potential: Fair - Anticipated Interventions Patient/Client Instruction: Educate patient on: Condition, Plan of Care For the Purpose of:: To improve muscle performance and motor function, To increase tolerance to activity/condition/position Therapeutic Exercise to Include: Strength training, Balance training, Postural training, Flexibilty training, Neuromotor development, Active ROM For the Purpose of:: To improve muscle performance and motor function, To increase tolerance to activity/condition/position, To improve ability of physical actions for home/community/work/leisure, To improve gait and locomotor functions Thank you for the opportunity to evaluate your patient. For Medicare and Medicare HMO plans, please review the plan of care and approve it. It will need to be FAXED BACK to us at [phone] for Medicare purposes. For Medicare only, by signing this I certify the plan of care. Please let me know if there are questions or concerns regarding this plan of care. Physician Signature: Date:
--- NOTE | 2019-12-24 13:00 | HP.PTREVAL ---
LUIS FERNANDO BAUMAN, It has been my pleasure to treat MILEY RANKIN over the last 6 visits for PD. Please see the progress note below for an update on the physical therapy plan of care! Subjective: Using wh walker to walk around all the time, just got it. She fell standing and going BW in the living room. Feels safer with wh walker, has breaks. Feels a little stronger than a month ago. Not ready to be on her own yet but wants to work to that and feels she needs to keep going. No pain. Objective/Function: FGA is much improved at 24 however recent fall in standing forces need for wh walker which has visual cue of laser, audio cue of beats and breaks to take off when starts walking. Steps are reciprocal with one rail but slow and hesitant descending. Posture is slouched until verbally cued then sits up and stand up well. Appropriate to cotninue toward I with ex as improvement has been made. Fair prognosis. Same goals. Plan Plan: 2x/week for 3-4 weeks to progress to I with exercises patient can do at home and pics. Include balance, posture acore adn LE strength. Goals Goal 1:: I approp HEP for LE strength, postural pulls and balance exercises to do at home Goal Time Frame: 4-6 Weeks Goal Progress: Progressing,a pprop. Goal 2:: FGA to diminish fall risk. Goal Time Frame: 4-6 Weeks Goal Progress: Goal Met Goal 3:: <60% disability on LEFS Goal Time Frame: 4-6 Weeks Goal Progress: Progressing Goal 4:: Patient feel strength and mobility 50% improved. Goal Time Frame: 4-6 Weeks Goal Progress: Progressing Goal 5:: steps reciprocal up and down with one rail Goal Time Frame: 4-6 Weeks Goal Progress: Goal Met Anticipated Interventions Patient/Client Instruction: Educate patient on: Condition, Plan of Care For the Purpose of:: To improve muscle performance and motor function, To increase tolerance to activity/condition/position Therapeutic Exercise to Include: Strength training, Balance training, Postural training, Flexibilty training, Neuromotor development, Active ROM For the Purpose of:: To improve muscle performance and motor function, To increase tolerance to activity/condition/position, To improve ability of physical actions for home/community/work/leisure, To improve gait and locomotor functions Please do not hesitate to contact me at [phone] by phone or if you have questions or concerns regarding this new plan of care! Sincerely, Burt Carey, DPT, OCS, CSCS
--- NOTE | 2020-01-20 10:27 | HP.PTREVAL_ITS ---
LUIS FERNANDO BAUMAN, It has been my pleasure to treat MILEY RANKIN over the last 9 visits for PD. Please see the progress note below for an update on the physical therapy plan of care! Subjective: Feet are getting cramps today. Mobility and getting around is improving. Not sure if she is ready to be done. Doing HEP daily at hoe at counter. No pain. No falls. Using wh walker to get around most of time adn sometimes does not need it. Actovities are OK at home adn life is pretty normal. Doing housework at home. Fatigues easy still. Wants to be bettter g eting up and down from chair. Objective/Function: Transfer out of chair with UE easily. Without EU needs slight assist. Walks well today on frim flat surface without AD. Steps are reciprocal when asked with one rail up and down. Prefers to use R descending. Overall slow improvmeent, appropriate to continue via HEP and fu one month to ensure progress without therapy. Plan Plan: f/u one month to check FGA and trasnfers/steps adn ensure maintenance of current mobility status. Goals Goal 1:: I approp HEP for LE strength, postural pulls and balance exercises to do at home Goal Time Frame: 4-6 Weeks Goal Progress: Goal Met Goal 2:: FGA to diminish fall risk. Goal Time Frame: 4-6 Weeks Goal Progress: Progressing Goal 3:: <60% disability on LEFS Goal Time Frame: 4-6 Weeks Goal Progress: Goal Met Goal 4:: Patient feel strength and mobility 50% improved. Goal Time Frame: 4-6 Weeks Goal Progress: Goal Met Goal 5:: steps reciprocal up and down with one rail Goal Time Frame: 4-6 Weeks Goal Progress: Goal Met Goal 6:: maintain current functional level wihtout regular PT Goal Time Frame: 2-4 Weeks Goal Progress: NEW GOAL Anticipated Interventions Patient/Client Instruction: Educate patient on: Condition, Plan of Care For the Purpose of:: To improve muscle performance and motor function, To increase tolerance to activity/condition/position Therapeutic Exercise to Include: Strength training, Balance training, Postural training, Flexibilty training, Neuromotor development, Active ROM For the Purpose of:: To improve muscle performance and motor function, To increase tolerance to activity/condition/position, To improve ability of physical actions for home/community/work/leisure, To improve gait and locomotor functions Please do not hesitate to contact me at [phone] by phone or if you have questions or concerns regarding this new plan of care! Sincerely, Burt Carey, DPT, OCS, CSCS
--- NOTE | 2020-01-20 10:49 | HP.SP.ADRE ---
Previous/Current Goals - Goals 1-5 Previous Goal #1: Patient will increase vocal loudness to reach a target sound pressure level of 68 dB CONTACT LENS ASSISTANT with 1 cue during conversation for functional communication. Goal 1 Status: Initially: 65dB with multiple cues. Currently: Previous Goal #2: Patient will sustain phonation for 12-15 seconds to increase breath support for oral communication on 4/5 trials on 2/3 sessions. Goal 2 Status: Initially: 8.6 seconds average. Currently: 9.5 seconds average Previous Goal #3: Patent will independently complete oral motor exercises for increased oral movements and mouth opening to faciliate intelligibility of communication on 2/3 sessions. History - History Date of Eval: 08/20/19 Medical Diagnosis (from RX): Parkinsons Date of Onset of Diagnosis: 2011 Previous speech therapy: Yes Results: Speech therrapy has been multiple times before - June and April 2014, October 2016, October 2017, December 2018. Other Relevant Medical History/Diagnoses/Surgery: Breast cancer, High blood pressure Medications related to this diagnosis: Sinimet, Sinimet CR, Melatonin Smoking Status: Never smoker Hx Smoking: No Hx Tobacco Use: No Hx Smoking Exposure: No - Pain Is pain an issue with your current prescribed condition?: No - Personal Occupation: Retired. Right Hearing Abillity: Normal Left Hearing Abillity: Normal Visual Assistive Devices: Glasses Patients Living Arrangements: With Significant Other Patient Allergies - Allergies Allergies iodine Allergy (Verified 12/23/19 11:42) Hives latex Allergy (Verified 12/23/19 11:42) Rash rotigotine [From Neupro] Allergy (Verified 12/23/19 11:42) Rash shellfish derived Allergy (Verified 12/23/19 11:42) Hives Sulfa (Sulfonamide Antibiotics) Allergy (Verified 12/23/19 11:42) Hives Hfmsmam-Ibs-Gxk Reductase Inhibitor Adverse Reaction (Severe, Verified 01/03/20 15:31) Myalgias, muscle cramps, poor balance diltiazem Adverse Reaction (Verified 12/23/19 11:42) Rash Subjective Oral Motor - Subjective Patient Reports: Slurred Speech, Difficulty being Understood Dentures ill fitting: No Objective Oral Motor - Oral Status Dentition: Missing Teeth Additional: Only a few missing - Labial Impairment: Moderate Closure: WNL Pucker: Mild Retraction: Mild Alternating Pucker/Retraction: Moderate Involuntary Movement noted: No - Labial Comments Comments: Patient has reduced range of motion unless cued. - Lingual Impairment: WNL Protrusion: WNL Retraction: WNL Lateralization: WNL Involuntary Movement: No - Jaw Impairment: WNL - Respiratory Status Respiratory Status: Room Air Subjective Dysphagia - Symptoms Reported Other: Patient reports no dysphagia currently. - Current Diet Solids Current Diet: Regular - Current Diet Liquids Current Liquids: Thin Subjective Voice - Intubation Was the Client intubated: No - Other Product Usage Do you use products containing menthol (if yes, list): No Do you use recreational drugs (if yes, list type/amt/frequency): No Subjective Clinical Impression - Non-Phonatory Behaviors/Respiration Reduced loudness or vocal weakness: Present Limited breath support for speech: Present Objective Voice - Date of Diagnosis Previous Speech Therapy (If yes, describe): Yes Details of therapy: Patient initially had very positive response to LSVT. Last session was not as positive as she did not complete the homework as directed daily. - Medications Familiar with on/off effect: Yes - Implantation Deep brain implantation (If yes, answer next question): No - Objective data Objective Data: Objective data: Sound pressure level (SPL acoustic correlation of vocal loudness) was measured with a sound level meter at a distance of 40 cm from the patient's mouth. Average conversational loudness is 70-80 dB and sustained phonation duration is 15 to 20 seconds for a typical adult. Sustained Phonation Intensity (dB SPL): 85 Sustained Phonatin duration (seconds): 9.6 Is the individual stimulable to increase vocal intensity: Yes Vocal Intensity at Sentence Level (dB SPL): 75 Vocal Intensity at Paragraph Level (dB SPL): 74 Vocal Intensity at Conversational Level (dB SPL): 63 Other Impressions - Comments Home carry over -: Lengthy discussion regarding home strategies for carry over including involving family in reminding her as her recall skills have decreased in the last several years due to Parkinson's. She is willing to ask her daughter to help remind her and already has a note on a nearby table. Plan - Plan Plan: Izzy Leroy has made progress during the course of her therapy. Recommend continued therapy for 4 more weeks to continue with established goals. - Recommendations Treatment Warranted: Yes - Frequency Frequency: 1x/Week Duration: 4 Weeks Visits in this POC: 4 - Prognosis Prognosis: Good - Goals that are Established: Determination:: Goals will be added/modified as deemed necessary and appropriate. Therapy will be discontinued when results of re-evaluation indicate therapy is no longer needed or lack of progress has been documented. - Goal #1-5 Goal #1: Patient will increase vocal loudness to reach a target sound pressure level of 68 dB CONTACT LENS ASSISTANT with 1 cue during conversation for functional communication. Goal #2: Patient will sustain phonation for 12-15 seconds to increase breath support for oral communication on 4/5 trials on 2/3 sessions. Goal #3: . Goal #4: .
--- NOTE | 2020-02-14 12:21 | HP.PTDCSUM ---
It has been my pleasure to treat MILEY RANKIN referred by LUIS FERNANDO BAUMAN, with the diagnosis of PD for a total of 10 visit(s). Discharge Date: 02/14/20 Please see the following information for a summary of their discharge status. Subjective: Getting better. Doing more at home. Doing exercises at home. Not runnig the sweeper at home. Transfers going well at home, using wh walker most of time. No falls. % Improvement: 60 Objective/Function: FGA is +1 from last time and doing well. Transfers are I with UE. Steps reciprocally up with one rail and down needing to sand step to gait pattern, fearful, does not have steps at home. Goal 1:: I approp HEP for LE strength, postural pulls and balance exercises to do at home Goal Progress: Goal Met Goal 2:: FGA to diminish fall risk. Goal Progress: Goal Met Goal 3:: <60% disability on LEFS Goal Progress: Goal Met Goal 4:: Patient feel strength and mobility 50% improved. Goal Progress: Goal Met Goal 5:: steps reciprocal up and down with one rail Goal Progress: Goal Met Goal 6:: maintain current functional level wihtout regular PT Goal Progress: Goal Met Plan: d/c Discharge Comments: Has been exercising at home for last month and continues to feel better adn test slightly better. Plan to continue via HEP and f/u with doctor at scheduled visit. If there are questions or concerns regarding this patient's physical therapy, please feel free to call me at [phone]. Thank you for the referral of this patient. Sincerely, Burt Carey, DPT, OCS, CSCS
== END 2020-04-10 19:00 | disposition home or self-care (01) ==
LOC: SP 13:00
PROVIDERS: PCP Family Medicine
DX: R49.8 Other voice and resonance disorders (principal); R47.1 Dysarthria and anarthria
CPT/HCPCS: 92507; 92524; 92526; 97110; 97116; 97162; 97164

== ENCOUNTER → 2020-04-27 17:51 | Outpatient (CLI) | payer MEDICARE, SELFPAY ==
[2020-01-31 13:23] VITALS: BMI 25.2
== END ==
PROVIDERS: PCP Family Medicine; Referring Provider Family Medicine; Visit Provider Family Medicine
DX: Z03.818 Encounter for observation for suspected exposure to other biological agents ruled out (principal)
CPT/HCPCS: 87635; C9803; U0003

== ENCOUNTER → 2020-10-09 12:03 | Outpatient (CLI) | payer MEDICARE, SELFPAY ==
[2020-07-23 10:20] VITALS: BMI 27.1
--- NOTE | 2020-10-09 12:10 | RAD_ITS ---
STUDY: X-RAY - LEFT RADIUS AND ULNA REASON FOR EXAM: Female, 74 years old. PAIN TECHNIQUE: 2 view(s) of the forearm. COMPARISON: None. FINDINGS: There is no demonstrated soft tissue swelling. Normal visualized radius. Normal visualized ulna. RAD/Forearm 2 Views IMPRESSION: Normal x-ray examination of the radius and ulna. Electronically Signed: Ismael Taveras MD at 12:27 EDT , Service support ,
== END ==
PROVIDERS: PCP Family Medicine; Referring Provider Family Medicine; Visit Provider Family Medicine
DX: M79.602 Pain in left arm (principal)
CPT/HCPCS: 73090

== ENCOUNTER 2020-10-20 13:00 | Outpatient (RCR) | payer MEDICARE, SELFPAY ==
[2020-01-31 13:23] VITALS: BMI 25.2
--- NOTE | 2020-04-15 13:40 | HP.PTEVAL ---
Patient's Visit Information MILEY RANKIN is a 74 year old F referred to Physical Therapy by Dr. Yosef Hanks MD with a diagnosis of Parkinsons Disease, abnormality of gait.. Date of Evaluation: 04/15/20 Physical Therapist: SILVANO ValleT, OCS, CSCS - Visit Plan Frequency: 2x /Week Duration: 4-6 Weeks Plan: 2x/week for 4-6 weeks for... 1. Gait training working on elevating feet off ground. 2. HEP for LARGE movements UE/LE and more aggressive strength program(currently doing sink abd, ext hips, minisquat, chair squat and marching and had trouble with the chair squat today.) HS stretches - Subjective Dr. Hanks wanted her back in therapy. Thinks she should be walking better. No falls. Using wh walker rollator when I feel like I need it. Not all the time. Doing exercises from last session of PT stadning at counter every other day or so. They are OK to do. No pain. No numbness in legs. Taking Parkinson's meds and they were changed at last visit. brought her. Sleeping is good. Spends day doing dishes and house chores. Avids lifting heavier sweeper. Spends day reading, doing ex adn cleaning house. Walks outside give her trouble keeping up with people. - Objective Walks with wh walker I with nice step length and upright today 250 feet to PT room. Without AD has shorter steps and one stumble, hunches slightly, tends toward short steps. Steps with one rail reciprocal up and descending in a step to pattern. Exit chair with UE easily, without UE needs multiple. HS mod tight at -30 90/90 test. Pt has very flat affect but is pleasant and answers questions low volume through mask and I have to ask her to repeat often. LE strength 4-/5. coordination to reciprocal toe tap is mild deficits and slow. reflexes 1/3 patella and achilles. Sensation LE WNL to gross light touch. Pt is slow to move adn follow directions but can do so, tends toward small movements instead of full ROM. UE elevation WNl but again, stops half way up. One self corrected stumble today and better when reminded to pick her feet up. VOR walking was actually decent today. - Balance Scores Functional Gait Assessment Score: 23 % Disability: 23.3400 CATSIB Score (Max score 120 seconds): 93 - Goals Goal 1:: 24/30 FGA to reduce risk of falling. Goal Time Frame: 4-6 Weeks Goal 2:: Pt I in more aggressive HEP to help limit future deficits. Goal Time Frame: 4-6 Weeks Goal 3:: Steps reciprocal with one rail Goal Time Frame: 4-6 Weeks Goal 4:: 35/80 LEFS score to show improved mobility. Goal Time Frame: 4-6 Weeks - Rehabilitation Potential Physical Therapy Diagnosis: Abnormality of gait Rehabilitation Potential: Fair - Anticipated Interventions Patient/Client Instruction: Educate patient on: Condition, Plan of Care For the Purpose of:: To improve muscle performance and motor function, To improve ability of physical actions for home/community/work/leisure, To improve gait and locomotor functions Therapeutic Exercise to Include: Strength training, Postural training, Flexibilty training, Gait and locomotor training, Neuromotor development For the Purpose of:: To increase tolerance to activity/condition/position, To improve gait and locomotor functions Thank you for the opportunity to evaluate your patient. For Medicare and Medicare HMO plans, please review the plan of care and approve it. It will need to be FAXED BACK to us at [phone] for Medicare purposes. For Medicare only, by signing this I certify the plan of care. Please let me know if there are questions or concerns regarding this plan of care. Physician Signature: Date:
--- NOTE | 2020-05-25 12:43 | HP.PTDCSUM ---
It has been my pleasure to treat MILEY RANKIN referred by Dr. Yosef Hanks MD, with the diagnosis of Parkinsons Disease, abnormality of gait. for a total of 8 visit(s). Discharge Date: 05/25/20 Please see the following information for a summary of their discharge status. Subjective: No pain. Wants to continue at home instead of in therapy. Will f/u with Dr. Hanks at some point. Has family that can ex with her. No pain. Using walker U verse when she gets tired at home. No falls lately. % Improvement: 50 Objective/Function: FGA is about the same. Walking well today, fatigues on some exercises and needs to rest prior to 10 reps but does well. Overall questionable improvement but patient feels the exercises are worth it adn she can do them herself(with family) now at home. Goal 1:: 24/30 FGA to reduce risk of falling. Goal Progress: Not Progressing Goal 2:: Pt I in more aggressive HEP to help limit future deficits. Goal Progress: Goal Met, supervision. Goal 3:: Steps reciprocal with one rail Goal Progress: Progressing Goal 4:: 35/80 LEFS score to show improved mobility. Goal Progress: Goal Met Plan: d/c If there are questions or concerns regarding this patient's physical therapy, please feel free to call me at [phone]. Thank you for the referral of this patient. Sincerely, Burt Carey, DPT, OCS, CSCS
--- NOTE | 2020-06-29 11:00 | RE_ITS ---
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 The patient participated in intervention sessions consisting of vocal intensity training through a modified Doni Montenegro Voice Therapy (mLSVT) approach. She initially demonstrated a very positive response with our mLSVT approach, though she was noted to struggle with consistent adherence to her carryover work. 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 Given this fact, we adjusted our approach to focus more on prosody, as this has remained the biggest complicating factor regarding her speech intelligibility. After initially demonstrating fluctuating performances during the introductory phase of prosody focused intervention, her performances have steadily improved on a session to session basis, with reported improved adherence to carryover activities which has demonstrated a clear positive benefit within our intervention sessions, with her family noticing gradual improvements in speech intelligibility, as well as an improvement in her ability to express emotional context with her inflection. 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 SUPPLEMENTARY COGNITIVE COMMUNICATION ASSESSMENT RESULTS (SCALES/PROM/RISK): VOICE HANDICAP INDEX ? 10 (VHI-10) VHI?10 SCORE: 19 (previously 22) VHI?10 SEVERITY: moderate alteration COGNITIVE COMMUNICATION ASSESSMENT RESULTS (QUANTITATIVE): DONI MONTENEGRO VOICE TREATMENT (LSVT): MAXIMUM DURATION OF SUSTAINED PRODUCTION: 77.7 dBSPL at 6.9 seconds FUNCTIONAL PHRASES: 72.4 dBSPL SINGLE WORD PRODUCTION: 69.5 dBSPL SENTENCE PRODUCTION: 64.3 dBSPL READING A PASSAGE: 62.3 dBSPL CONVERSATION MONOLOGUE: 61.6 dBSPL GENERATE WORDS: 62.9 dBSPL [place] DYSARTHRIA ASSESSMENT TOOL (N-BETTY) INTELLIGIBILITY: PERCEIVED INTELLIGIBILITY: intelligible with some difficulty NOTABLE CHARACTERISTICS: hypophonia, occasional diplophonia, hypernasality, nasal emissions, rapid speech rate, percentage intelligible (~50-75%), reduced utterance length RESPIRATION: OBSERVED RESPIRATION CHARACTERISTICS: thoracic breathing, shallow breathing, irregular / inconsistent posture BREATHING RATE: 20 breaths per minute (normal: 12-18) PHONATION: LOUDNESS: soft PITCH: variable QUALITY: strain-strangled, breathy MAXIMUM PHONATION TIME (MPT): AVERAGE MPT: 6.9 seconds MPT INTERPRETATION: critical region: adult females 14.3-40.0 ABILITY TO SUSTAIN VOLUME: unable PITCH GLIDE: ABILITY: unable PITCH RANGE: reduced PITCH CONTROL: phonation breaks, change in voice quality RESONANCE: OBSERVATION: hypernasal WORD PRODUCTION (HYPONASALITY): no abnormalities observed WORD PRODUCTION (HYPERNASALITY): abnormal NASAL FLUTTER TEST: abnormal PROSODY: OBSERVATION: unable to vary stress / intonation PROSODY IMITATION: normal ARTICULATION: RATE OF SPEECH: increased PHRASE LENGTH: short GROPING BEHAVIORS: not present DIADOCHOKINETIC (DDK) RATE (5 SEC): 3 DDK INTERPRETATION: poor; 1-3 repetitions; normal ~ 12-15 repetitions COGNITIVE COMMUNICATION ASSESSMENT RESULTS (QUALITATIVE): LANGUAGE FUNCTIONING: moderate to severe hypokinetic dysarthria, with very slow or festinating; hoarse, weak / low vocal intensity / volume (hypophonia); mono-pitch, mono-loudness, pallilalia, articulatory undershoot; facial masking; hypernasality; bradykinesia causes very slow speech, or festinating speech; micrographia; no aphasia, anomia, apraxia, alexia appreciated throughout the assessment. VOCAL FUNCTIONING: impaired phonation with significant hypophonia leading to contributing to dysphonic (abnormal) vocal quality and occasional aphonic breaks (breaks in production) and diplophonia (competing pitches); vocal tension during longer phonation attempts; impaired vocal resonance with hypernasality / hyperrhinolalia (excessive nasality); impaired non-phonatory behaviors demonstrated with habitual shallow breathing and intermittent throat-clearing / coughing both associated with dysphagia and self-reported seasonal allergies COMPLICATING FACTORS AND NOTABLE FINDINGS: complicating factors include the presence of dysphagia, the higher prevalence of depression and cognitive related deficits with the diagnosis of Parkinson?s disease (she requested to focus on expressive language / vocal abilities vs. dysphagia and cognitive deficits), and the possibility of medication effects (some results obtained during the re-assessment were likely complicated by the on-off cycle, with the patients upcoming levodopa-carbidopa agonist scheduled at the midpoint of the session, with the results likely representing her off cycle and thus likely lower than her optimal performance levels). COGNITIVE COMMUNICATION ASSESSMENT RESULTS (SEVERITY GRADING): FUNCTIONAL COMMUNICATION MEASURE (FCM) ?VOICE PRODUCTION FCM LEVEL: 3 (of 6) PRIOR FCM LEVEL: 4 (of 6) SEVERITY: moderate LEVEL DESCRIPTION: voice is optimal for communication approximately 50% of the time; cueing may be required; voice calls attention to itself as different; the listener becomes distracted by the voice to the degree that there is interference with the message. INTERVENTION CONSIDERATIONS AND RECOMMENDATIONS: Given her positive response to a prosody based intervention approach, we will plan to continue with our current intervention plan and will return to a vocal intensity based intervention approach applying mLSVT principles in efforts to the gains in both phases to improve her speech intelligibility. Given the progressive nature of her primary diagnosis, we will not anticipate a full return to her pre-morbid level of functioning, though will expect to achieve gains in speech intelligibility as well as maintain her current level of functioning. To achieve this, she will require continued skilled speech-language intervention not only through the current intervention cycle but will likely benefit from repeated intervention cycles to maintain her communication efficiency. REVISED FUNCTIONAL OUTCOMES: OUTCOME 1: the patient will independently demonstrate and utilize recommended compensatory articulation techniques (increased vocal intensity, reduced rate of speech, over-articulation) to facilitate improved speech intelligibility during expressive communication attempts with both familiar and unfamiliar listeners to facilitate highest level of independent functioning within the home environment and community independently / with less than 2 cues during session, in 2 out of 3 sessions. OUTCOME 2: the patient will demonstrate appropriate prosody / inflection as well as self-management of her rate of speech during a 5-10 minute speech sample to improve her speech intelligibility during expressive communication attempts with both familiar and unfamiliar listeners with less than 2 cues during session, in 2 out of 3 sessions. OUTCOME 3: goal adjustment as needed. Prakash Mcfarlane M.A., CCC-[employer] [place], CBIS MBSImP Certified, LSVT Certified [facility] Speech-Language Pathology Department Email: [email or web address]
--- NOTE | 2020-08-26 14:25 | HP.SP.ADRE_ITS ---
Previous/Current Goals - Goals 1-5 Previous Goal #1: Patient will increase vocal loudness to reach a target sound pressure level of 67 dB [employer]IOR SOFTWARE [employer]INE[employer] with 1 cue during conversation for functional communication. Goal 1 Status: FUNCTIONAL PHRASES: 70.2 dBSPL. 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 Other Relevant Medical History/Diagnoses/Surgery: Parkinson's disease, breast cancer, diverticulosis, paroxysmal atrial fibrillation, hypertension, hyperlipidemia, iodine allergy, small bowel obstruction, pyloric stenosis. Smoking Status: Never smoker Hx Smoking: No Hx Tobacco Use: No Hx Smoking Exposure: No - Pain Is pain an issue with your current prescribed condition?: No Patient Allergies - Allergies Allergies iodine Allergy (Verified 07/23/20 10:20) Hives latex Allergy (Verified 07/23/20 10:20) Rash rotigotine [From Neupro] Allergy (Verified 07/23/20 10:20) Rash shellfish derived Allergy (Verified 07/23/20 10:20) Hives Sulfa (Sulfonamide Antibiotics) Allergy (Verified 07/23/20 10:20) Hives Otgsudp-Xcg-Fax Reductase Inhibitor Adverse Reaction (Severe, Verified 07/23/20 10:20) Myalgias, muscle cramps, poor balance diltiazem Adverse Reaction (Verified 07/23/20 10:20) Rash Subjective Dysarthria/Motor - Subjective Subjective: The patient is a pleasant 74 year old female who has attended 16 skilled speech-language intervention sessions spanning from 01/20/2020 to 06/29/2020 targeting 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 The patient participated in intervention sessions consisting of vocal intensity training through a modified [facility] (mLSVT) approach. She initially demonstrated a very positive response with our mLSVT approach, though she was noted to struggle with consistent adherence to her carryover work. 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 Given this fact, we adjusted our approach to focus more on prosody, as this has remained the biggest complicating factor regarding her speech intelligibility. After initially demonstrating fluctuating performances during the introductory phase of prosody focused intervention, her performances have steadily improved on a session to session basis, with reported improved a dherence to carryover activities which has demonstrated a clear positive benefit within our intervention sessions, with her family noticing gradual improvements in speech intelligibility, as well as an improvement in her ability to express emotional context with her inflection. Objective Dysarthira/Motor - Speech Intelligibility Phonemes: Moderate Single Words: Moderate Phrases: Moderate Sentences: Moderate Paragraphs: Moderate Conversation: Severe - Volume Volume: Moderate - Consistency w/Multiple Repetitions Words: Moderate Phrases: Moderate - Observation Observation of Apraxia of Speech: No Oral Groping for Placement: No Voice Re-Eval - Testing Results Voice Test Comparison: 08/24/2020. VHI-10 score:30 (previously 19). 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 The patient participated in intervention sessions consisting of vocal intensity training through a modified [facility] Voice Therapy (mLSVT) approach. She initially demonstrated a very positive response with our mLSVT approach, though she was noted to struggle with consistent adherence to her carryover work. 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 Given this fact, we adjusted our approach to focus more on prosody, as this has remained the biggest complicating factor regarding her speech intelligibility. After initially demonstrating fluctuating performances during the introductory phase of prosody focused intervention, her performances have steadily improved on a session to session basis, with reported improved adherence to carryover activities which has demonstrated a clear positive benefit within our intervention sessions, with her family noticing gradual improvements in speech intelligibility, as well as an improvement in her ability to express emotional context with her inflection. Voice Handicap Index (VHI) - VHI VHI Administered: No VHI: Date Last Administered: Date: 08/24/20 Objective Voice - Date of Diagnosis Previous Speech Therapy (If yes, describe): Yes Other Impressions - Comments Cut Off Dysarthria Assessment Tool (N-BETTY) -: [place] DYSARTHRIA ASSESSMENT TOOL (N-BETTY). INTELLIGIBILITY: PERCEIVED INTELLIGIBILITY: intelligible with some difficulty. NOTABLE CHARACTERISTICS: hypophonia, occasional diplophonia, hypernasality, nasal emissions, rapid speech rate, percentage intelligible (~50-75%), reduced utterance length. RESPIRATION: OBSERVED RESPIRATION CHARACTERISTICS: thoracic breathing, shallow breathing, irregular / inconsistent posture. BREATHING RATE: 18 breaths per minute (normal: 12-18). PHONATION: LOUDNESS: soft. PITCH: variable. QUALITY: strain-strangled, breathy. MAXIMUM PHONATION TIME (MPT): AVERAGE MPT: 8.6 seconds. MPT INTERPRETATION: critical region: adult females 14.3-40.0. ABILITY TO SUSTAIN VOLUME: unable. PITCH GLIDE: ABILITY: unable. PITCH RANGE: reduced. PITCH CONTROL: phonation breaks, change in voice quality. RESONANCE: OBSERVATION: hypernasal. WORD PRODUCTION (HYPONASALITY): no abnormalities observed. WORD PRODUCTION (HYPERNASALITY): abnormal. NASAL FLUTTER TEST: abnormal. PROSODY: OBSERVATION: unable to vary stress / intonation. PROSODY IMITATION: normal. ARTICULATION: RATE OF SPEECH: increased. PHRASE LENGTH: short. GROPING BEHAVIORS: not present. DIADOCHOKINETIC (DDK) RATE (5 SEC): 5. DDK INTERPRETATION: fair; 4-7 repetitions; normal ~ 12-15 repetitions Plan - Plan Plan: Given her positive response to a prosody based intervention approach, we will plan to continue with our current intervention plan and will return to a vocal intensity based intervention approach applying mLSVT principles in efforts to the gains in both phases to improve her speech intelligibility. Given the progressive nature of her primary diagnosis, we will not anticipate a full return to her pre-morbid level of functioning, though will expect to achieve gains in speech intelligibility as well as maintain her current level of functioning. To achieve this, she will require continued skilled speech-language intervention not only through the current intervention cycle but will likely benefit from repeated intervention cycles to maintain her communication efficiency. - Recommendations Treatment Warranted: Yes - Frequency Frequency: 1x/Week Duration: 6 Weeks - Prognosis Prognosis: Good - Goals that are Established: Determination:: Goals will be added/modified as deemed necessary and appropriate. Therapy will be discontinued when results of re-evaluation indicate therapy is no longer needed or lack of progress has been documented. - Goal #1-5 Goal #1: The patient will independently demonstrate and utilize recommended compensatory articulation techniques (increased vocal intensity, reduced rate of speech, over-articulation) to facilitate improved speech intelligibility during expressive communication attempts with both familiar and unfamiliar listeners to facilitate highest level of independent functioning within the home environment and community independently / with less than 2 cues during session, in 2 out of 3 sessions. Goal #2: The patient will demonstrate appropriate prosody / inflection as well as self-management of her rate of speech during a 5-10 minute speech sample to improve her speech intelligibility during expressive communication attempts with both familiar and unfamiliar listeners with less than 2 cues during session, in 2 out of 3 sessions. Goal #3: Goal adjustment as needed.
== END 2020-10-20 19:00 | disposition home or self-care (01) ==
LOC: SP 13:00
PROVIDERS: PCP Family Medicine; Referring Provider Psychiatry & Neurology Sleep Medicine; Visit Provider Psychiatry & Neurology Sleep Medicine
DX: G20 Parkinson's disease (principal); R13.10 Dysphagia, unspecified; R49.8 Other voice and resonance disorders; R47.1 Dysarthria and anarthria; R26.9 Unspecified abnormalities of gait and mobility
CPT/HCPCS: 92507; 97110; 97162; 97164

== ENCOUNTER 2021-01-10 20:13 | Emergency (ER) | payer MEDICARE, SELFPAY ==
[2020-07-23 10:20] VITALS: BMI 27.1
[2021-01-10 20:14] VITALS: BP 163/108; PULSE 134; RESP 16; TEMP 36.7; O2SAT 98; BMI 27.1
--- NOTE | 2021-01-10 20:35 | EKG12_ITS ---
Test Reason : DYSRHYTHMIA Blood Pressure : / mmHG Vent. Rate : 144 BPM Atrial Rate : 144 BPM P-R Int : 184 ms QRS Dur : 096 ms QT Int : 296 ms P-R-T Axes : 000 -02 049 degrees QTc Int : 458 ms Sinus tachycardia Nonspecific ST abnormality Abnormal ECG Confirmed by KAREL PETERS, ALEJANDRO ([id number]), copy editor MARINA ESPINAL ([id number]) on 01/14/2021 1:22:12 PM Referred By: YUDY Confirmed By:ALEJANDRO VINSON MD
--- NOTE | 2021-01-10 21:59 | CT_ITS ---
STUDY: CT CERVICAL SPINE WITHOUT CONTRAST REASON FOR EXAM: Female, 75 years old. fall, pain RADIATION DOSAGE (If Supplied By Facility): CTDIvol = ( 15.06 ) mGy, DLP = ( 262.31 ) mGycm TECHNIQUE: High resolution transaxial imaging was performed without contrast material. Sagittal and coronal images were reconstructed. Individualized dose optimization techniques were used for this CT. COMPARISON: None FINDINGS: Normal craniovertebral junction. Normal anterior atlantoaxial articulation. Normal odontoid process. There is reversal of the normal cervical lordosis. Normal vertebral bodies and posterior osseous elements. C2-3: Normal endplates. Normal disc height and morphology. Normal central canal and intervertebral neuroforamina. C3-4: Normal endplates. Normal disc height and morphology. Normal central canal and intervertebral neuroforamina. C4-5: Normal endplates. Normal disc height and morphology. Normal central canal and intervertebral neuroforamina. C5-6: Normal endplates. Decreased disc height and morphology. Normal central canal and intervertebral neuroforamina. C6-7: Normal endplates. Decreased disc height and morphology. Normal central canal and intervertebral neuroforamina. C7-T1: Normal endplates. Normal disc height and morphology. Normal central canal and intervertebral neuroforamina. Normal visualized soft tissue structures. CT/Spine Cervical without Contras IMPRESSION: No fracture Electronically Signed: Rajinder Merchant MD at 23:41 EDT , Service support ,
--- NOTE | 2021-01-10 21:59 | CT_ITS ---
STUDY: CT FACIAL BONES WITHOUT CONTRAST REASON FOR EXAM: Female, 75 years old. Fall, facial inj RADIATION DOSAGE (If Supplied By Facility): CTDIvol = ( 29.38 ) mGy, DLP = ( 569.49 ) mGycm TECHNIQUE: The patient was scanned in a multi detector CT scanner. Sagittal and coronal images were reconstructed. Individualized dose optimization techniques were used for this CT. COMPARISON: None. FINDINGS: Normal soft tissue structures. Normal orbital neves and orbital contents. Normal nasal bones and anterior nasal spine. Normal facial bones. There is no demonstrated fracture. Normal visualized paranasal sinuses. CT/Sinus/Facial Bone IMPRESSION: No fracture Electronically Signed: Rajinder Merchant MD at 23:28 EDT , Service support ,
--- NOTE | 2021-01-10 21:59 | CT_ITS ---
STUDY: CT BRAIN WITHOUT CONTRAST REASON FOR EXAM: Female, 75 years old. Fall RADIATION DOSAGE (If Supplied By Facility): CTDIvol = ( 44.99 ) mGy, DLP = ( 812.98 ) mGycm TECHNIQUE: Transaxial CT imaging of the brain was performed without administration of intravenous contrast material. Individualized dose optimization techniques were used for this CT. COMPARISON: No relevant priors. FINDINGS: Normal soft tissue structures. Normal calvarium. Intracranial atherosclerosis. There is mild cerebral atrophy with widening of the extra-axial spaces and ventricular dilatation. There are areas of decreased attenuation within the white matter tracts of the supratentorial brain, consistent with microvascular disease changes. Normal basal ganglia and thalami. Normal brainstem. Normal cerebellum. There is no intracranial hemorrhage. There are no findings of an acute ischemic infarction. Normal visualized paranasal sinuses. CT/Brain/Head without Contrast IMPRESSION: Chronic involutional changes of the brain. Electronically Signed: Rajinder Merchant MD at 23:20 EDT , Service support ,
--- NOTE | 2021-01-10 22:14 | ED.VIS.FALL ---
HPI HPI - Fall History of Present Illness Chief Complaint: Fall Informant: patient Narrative Narrative: Patient is a 75-year-old female with a past medical history of hypertension, atrial fibrillation, Parkinson who presents to the emergency department for a fall. She tripped and ended up landing on her face. She did have a nosebleed. No loss of consciousness. She states she does remember the whole event. She is having some neck pain and upper back pain. She denies a significant headache. She is having nose pain. No malalignment of the jaw. No visual issues. She denies any chest pain, shortness of breath. No abdominal pain or nausea/vomiting. No injury to her extremities. Patient not on anticoagulation. She does take an aspirin. [facility] Medical History (Updated 01/10/21 @ 23:[address] Jesus Alberto Benitez, ) Breast cancer Diverticulosis Essential hypertension History of left heart catheterization (LHC) (~10/28/19) Non-smoker NSTEMI (non-ST elevated myocardial infarction) (~10/25/19) Parkinson disease Paroxysmal atrial fibrillation Pyloric stenosis SBO (small bowel obstruction) TIA (transient ischemic attack) Home Medications cholecalciferol (vitamin D3) 5,000 units PO DAILY 10/15/16 [History Last Taken 10/25/19 09:00] citalopram 10 mg PO QHS 10/15/16 [History Last Taken 10/24/19 21:00] aspirin 81 mg tablet,delayed release 81 mg PO QHS 12/21/18 [History Last Taken 10/25/19 19:00] melatonin 3 mg tablet 3 mg PO HS 12/21/18 [History Last Taken 10/25/19 2100] carbidopa 25 mg-levodopa 100 mg tablet 1.5 tab PO Q6H tab 07/23/20 [History Last Taken Unknown] carbidopa ER 50 mg-levodopa 200 mg tablet,extended release 1 tab PO BID tab 07/23/20 [History Last Taken Unknown] metoprolol tartrate 25 mg tablet 25 mg PO BID 07/23/20 [History Last Taken Unknown] atorvastatin 20 mg tablet 20 mg PO QHS 12/03/20 [History Last Taken Unknown] cyanocobalamin (vitamin B-12) 100 mcg tablet 100 mcg PO DAILY 12/03/20 [History Last Taken Unknown] losartan 50 mg-hydrochlorothiazide 12.5 mg tablet 1 tab PO DAILY 12/03/20 [History Last Taken Unknown] Allergy/AdvReac Type Severity Reaction Status Date / Time iodine Allergy Hives Verified 01/10/21 20:18 latex Allergy Rash Verified 01/10/21 20:18 rotigotine [From Neupro] Allergy Rash Verified 01/10/21 20:18 shellfish derived Allergy Hives Verified 01/10/21 20:18 Sulfa (Sulfonamide Allergy Hives Verified 01/10/21 20:18 Antibiotics) Opofajx-Yea-Yjy Reductase AdvReac Severe Myalgias, Verified 01/10/21 20:18 Inhibitor muscle cramps, poor balance diltiazem AdvReac Rash Verified 01/10/21 20:18 Family History Brother Heart disease Surgical History History of bowel resection Social History Smoking Status: Never smoker alcohol intake: never substance use type: does not use ROS ROS ED Constitutional Constitutional ED: Denies chills or fever(s) Eyes Eyes: Denies change in vision ENT ENT ED: Denies rhinorrhea Cardiovascular Cardiovascular: Denies chest pain or palpitations Respiratory/Chest Respiratory/Chest: Denies cough, dyspnea or dyspnea on exertion Gastrointestinal Gastrointestinal: Denies abdominal pain, diarrhea, nausea or vomiting Genitourinary Genitourinary ED: Denies dysuria, hematuria or urinary frequency Musculoskeletal Musculoskeletal: Reports neck pain; Denies back pain Integumentary Denies rash Neurologic Neurologic: Denies dizziness, headache(s) or weakness EXAM Physical Exam Const Vital Signs: 01/10/21 20:14 01/10/21 20:38 01/10/21 23:49 Temperature 98.1 F Temperature Source Temporal Pulse Rate 134 H 69 Respiratory Rate 16 16 Respiratory Effort Normal Respiratory Depth Normal Respiratory Pattern Normal Blood Pressure 163/108 H 171/86 H Blood Pressure Mean 126 114 Pulse Ox 98 95 Oxygen Delivery Method Room Air Room Air Room Air Positive well nourished and well developed General Appearance ED: well developed and NAD HEENT Reports normocephalic, head/scalp atraumatic and moist mucous membranes HEENT Narrative: Blood present at external nares. No active bleeding. No septal hematoma. Midface is stable. No malalignment of jaw. trauma Eyes PERRL and EOMs intact bilaterally Neck supple Neck Narrative: Mild tenderness going down the neck to upper back. No step-off sign. No overlying skin changes. Chest Wall inspection of chest normal Resp normal respiratory effort and clear to auscultation bilaterally Auscultation: Negative for rales, rhonchi or wheezes Cardio regular rhythm and no murmurs Cardio Narrative: Mildly tachycardic GI normal to inspection, nondistended, normoactive bowel sounds and non-tender Palpation: soft; Negative for guarding or rebound tenderness present Back/Spine Thoracic Spine / Upper Back: thoracic spinal tenderness Lumbar Spine / Lower Back: Negative for lumbar spinal tenderness Extremity normal to inspection General Extremety ED: Negative for edema or tenderness General Extremity: Negative for edema Neuro CN's II-XII intact bilaterally and no sensory deficits noted Sensorium / Orientation: alert Motor Exam: strength 5/5 throughout Psych mental status grossly normal Skin no rashes or lesions noted MDM MDM MDM Narrative Medical decision making narrative: Patient presents to the emergency department for head injury after fall from standing. Will check CT scan of the head, facial bones, cervical spine and x-ray of the thoracic spine. She is not having significant pain at this time. Patient's heart rate is elevated on arrival. She has not taken her nightly metoprolol dose. They do have this with her and she was given it. Her heart rate has returned to normal. Fortunately imaging did not reveal any acute traumatic findings. This time will discharge home in stable condition. She is to ice her face. Return precautions are reviewed with her. She understands and is agreeable this plan. All questions were answered. Radiography Diagnostic Testing: Radiology Impression Brain CT 01/10/21 21:59 IMPRESSION: Chronic involutional changes of the brain. Electronically Signed: Rajinder Merchant MD at 23:20 EDT , Service support , Cervical Spine CT 01/10/21 21:59 IMPRESSION: No fracture Electronically Signed: Rajinder Merchant MD at 23:41 EDT , Service support , Facial/Sinus 01/10/21 21:59 IMPRESSION: No fracture Electronically Signed: Rajinder Merchant MD at 23:28 EDT , Service support , Thoracic Spine X-Ray 01/10/21 22:36 IMPRESSION: No fracture Electronically Signed: Rajinder Merchant MD at 23:43 EDT , Service support , EKG Initial EKG: Attestation: I personally reviewed and interpreted this EKG as follows: (Rate of 144 bpm in sinus tachycardia. Normal intervals. Left axis deviation. No significant ST elevations or depressions. No T wave normalities.) Discharge Plan Triage Chief Complaint: Fall ED Provider: Jesus Alberto Benitez Dx/Rx/DC Orders Clinical Impression: CHI (closed head injury) Instructions: ED Head Injury (Adult), ED Fall Prevention Prescriptions: No Action melatonin 3 mg tablet 3 mg PO HS RF: 0 aspirin [Adult Low Dose Aspirin] 81 mg tablet,delayed release (DR/EC) 81 mg PO QHS RF: 0 metoprolol tartrate 25 mg tablet 25 mg PO BID RF: 0 citalopram 20 MG tablet 10 mg PO QHS RF: 0 cholecalciferol (vitamin D3) 2,000 UNIT capsule 5,000 units PO DAILY RF: 0 carbidopa-levodopa 25-100 mg tablet 1.5 tab PO Q6H RF: 0 carbidopa-levodopa 50-200 mg tablet extended release 1 tab PO BID RF: 0 atorvastatin 20 mg tablet 20 mg PO QHS RF: 0 cyanocobalamin (vitamin B-12) 100 mcg tablet 100 mcg PO DAILY RF: 0 losartan-hydrochlorothiazide 50-12.5 mg tablet 1 tab PO DAILY RF: 0 Primary Care Provider: Gavin Rachel Referrals: Gavin Rachel MD [Primary Care Provider] - 3-5 Days Disposition Disposition: Home, Self Care
--- NOTE | 2021-01-10 22:36 | RAD_ITS ---
STUDY: X-RAY - THORACIC SPINE REASON FOR EXAM: Female, 75 years old. Fall, pain TECHNIQUE: 3 view(s) of the thoracic spine were obtained. COMPARISON: None. FINDINGS: Normal kyphosis of the thoracic spine. Mild dextroconvex kyphoscoliosis. There is demineralization of the thoracic spine with endplate spondylosis. There is multilevel disc space narrowing of the thoracic spine. The soft tissue structures are unremarkable. RAD/Thoracic Spine 3 Views IMPRESSION: No fracture Electronically Signed: Rajinder Merchant MD at 23:43 EDT , Service support ,
[2021-01-10 23:49] VITALS: BP 171/86; PULSE 69; RESP 16; O2SAT 95
[2021-01-11 00:42] VITALS: BP 179/90; PULSE 72; RESP 15; O2SAT 98
== END 2021-01-11 00:43 | disposition home or self-care (01) ==
PROVIDERS: Emergency Provider Emergency Medicine; PCP Family Medicine
DX: S09.90XA Unspecified injury of head, initial encounter (principal); M54.2 Cervicalgia; M54.6 Pain in thoracic spine; J34.89 Other specified disorders of nose and nasal sinuses; W01.10XA Fall on same level from slipping, tripping and stumbling with subsequent striking against unspecified object, initial encounter; Y93.9 Activity, unspecified; Y92.9 Unspecified place or not applicable; Y99.9 Unspecified external cause status; G20 Parkinson's disease; I48.0 Paroxysmal atrial fibrillation; I10 Essential (primary) hypertension; Z79.82 Long term (current) use of aspirin; Z79.899 Other long term (current) drug therapy
CPT/HCPCS: 70450; 70486; 72072; 72125; 93005; 99282

== ENCOUNTER 2022-04-05 14:10 | Outpatient (RCR) | payer MEDICARE, SELFPAY | END 2022-04-05 14:12 | disposition home or self-care (01) | LOC: OT 14:10 | PROVIDERS: PCP Family Medicine; Referring Provider Psychiatry & Neurology Sleep Medicine; Visit Provider Psychiatry & Neurology Sleep Medicine | DX: R69 Illness, unspecified (principal) ==

== ENCOUNTER 2022-05-19 10:43 | Emergency (ER) | payer MEDICARE, SELFPAY ==
[2022-05-19 10:44] VITALS: BP 125/76; PULSE 74; RESP 16; TEMP 36.6; O2SAT 100; BMI 23.6
--- NOTE | 2022-05-19 11:55 | CT_ITS ---
STUDY: CT BRAIN WITHOUT CONTRAST REASON FOR EXAM: Female, 76 years old. Trauma RADIATION DOSAGE (If Supplied By Facility): CTDIvol = ( 44.99 ) mGy, DLP = ( 762.36 ) mGycm TECHNIQUE: Transaxial CT imaging of the brain was performed without administration of intravenous contrast material. Individualized dose optimization techniques were used for this CT. COMPARISON: Comparison is made with prior study dated 01/10/2021. FINDINGS: Normal soft tissue structures. Normal calvarium. There is mild cerebral atrophy with widening of the extra-axial spaces and ventricular dilatation. There are areas of decreased attenuation within the white matter tracts of the supratentorial brain, consistent with microvascular disease changes. Normal basal ganglia and thalami. Normal brainstem. Normal cerebellum. There is no intracranial hemorrhage. There are no findings of an acute ischemic infarction. Atherosclerotic plaque formation of the vertebral arteries and cavernous portions of the internal carotid arteries bilaterally. Normal visualized paranasal sinuses. CT/Brain/Head without Contrast IMPRESSION: Chronic involutional changes of the brain. Electronically Signed: Ismael Taveras MD at 13:00 EST ,
--- NOTE | 2022-05-19 11:56 | EDS_ITS ---
HPI HPI - Fall History of Present Illness Chief Complaint: Fall Narrative Narrative: 76-year-old female past medical history of Parkinson disease, on hospice, presents with her daughter because of fall that happened earlier today. She usually uses a walker to ambulate, but it does not fit in the bathroom. She has railings that she can grab onto. She states that she slipped and fell in the bathroom. She hit her left side and now complains of left shoulder pain and bruising to the left side of her face. She denies any neck pain or loss of consciousness, no other injury. Daughter states that she called [facility] who is familiar with the patient and the patient's neurologist who states that she should have an evaluation. She does not take blood thinners except for baby aspirin on a daily basis. Hospice was coming over today to help her shower as they come once a week. [facility] Medical History Atrial fibrillation with RVR Breast cancer CHI (closed head injury) Diverticulosis Elevated troponin Essential hypertension Fall History of left heart catheterization (LHC) (~10/28/19) Non-smoker NSTEMI (non-ST elevated myocardial infarction) (~10/25/19) Parkinson disease Parkinson disease Paroxysmal atrial fibrillation Pyloric stenosis SBO (small bowel obstruction) TIA (transient ischemic attack) Home Medications cholecalciferol (vitamin D3) 50 mcg (2,000 unit) capsule 1,000 units PO BID 10/15/16 [History Last Taken 10/25/19 09:00] aspirin 81 mg tablet,delayed release (Adult Low Dose Aspirin) 81 mg PO QHS 12/21/18 [History Last Taken 10/25/19 19:00] carbidopa 25 mg-levodopa 100 mg tablet 1.5 tab PO Q6H 07/23/20 [History Last Taken Unknown] cyanocobalamin (vitamin B-12) 100 mcg tablet 1,000 mcg PO BID 12/03/20 [History Last Taken Unknown] carbidopa ER 50 mg-levodopa 200 mg tablet,extended release 1 tab PO QHS 04/19/21 [History Last Taken Unknown] citalopram 40 mg tablet 40 mg PO DAILY 04/19/21 [History Last Taken Unknown] melatonin 3 mg tablet 6 mg PO HS 04/19/21 [History Last Taken Unknown] losartan 50 mg tablet 50 mg PO DAILY #30 tabs 02/04/22 [Rx Last Taken Unknown] metoprolol succinate 25 mg tablet,extended release 24 hr 25 mg PO 1200 05/19/22 [History Last Taken Unknown] sennosides 8.6 mg-docusate sodium 50 mg tablet (Senexon-S) 1 tab-cap PO TIDCM 05/19/22 [History Last Taken Unknown] Allergy/AdvReac Type Severity Reaction Status Date / Time iodine Allergy Hives Verified 05/19/22 10:47 latex Allergy Rash Verified 05/19/22 10:47 rotigotine [From Neupro] Allergy Rash Verified 05/19/22 10:47 shellfish derived Allergy Hives Verified 05/19/22 10:47 Sulfa (Sulfonamide Allergy Hives Verified 05/19/22 10:47 Antibiotics) [id number] Reductase AdvReac Severe Myalgias, Verified 05/19/22 10:47 Inhibitor muscle [Pfhltuu-[id number]-Btk Reductase cramps, Inhibitor] poor balance diltiazem AdvReac Rash Verified 05/19/22 10:47 Family History Brother Heart disease Surgical History History of bowel resection Social History Smoking Status: Never smoker alcohol intake: never substance use type: does not use ROS ROS ED ROS Narrative Constitutional: No fever, no chills. HEENT: No sore throat. No neck pain. No loss of vision. No rhinorrhea. Bruit seen to left side of face. Cardiovascular: No chest pain. No palpitations. No pedal edema. Respiratory: No cough, no shortness of breath. Abdominal: No abdominal pain. No nausea. No vomiting. Genitourinary: No dysuria. No hematuria. Musculoskeletal: No myalgias. Left shoulder pain. Neurologic: No headaches. No dizziness. No lightheadedness. Weakness secondary to Parkinson's. Skin: No rash. No change in color. Psychiatric: No depression. No anxiety. EXAM Physical Exam Narrative Exam Narrative: Afebrile. Vital signs noted. HEENT: Normocephalic. Positive ecchymosis to left side of face. PERRL, EOMI. Neck soft and supple. No point tenderness or step off. Cardiovascular: Regular rate and rhythm. No murmurs, rubs, or gallops appreciated. Respiratory: No tachypnea. Lungs clear to auscultation bilaterally. Gastrointestinal: Abdomen soft, nontender, with normoactive bowel sounds. No rebound or guarding. Neurological: Awake. Alert. Nonfocal, nonlateralizing. Consistent with Parkinson's. Skin: No rash. Normal color. No pallor. Musculoskeletal: No pedal edema. Full range of motion extremities. No clinical dislocation of left shoulder. Able to raise arm above head. Neurovascularly intact distally with palpable radial pulse. Const Vital Signs: 05/19/22 10:44 05/19/22 10:58 05/19/22 13:06 Temperature 97.8 F Temperature Source Temporal Pulse Rate 74 73 Respiratory Rate 16 18 Respiratory Effort Normal Respiratory Depth Normal Respiratory Pattern Normal Blood Pressure 125/76 H 210/107 H Blood Pressure Mean 92 141 Pulse Ox 100 98 Oxygen Delivery Method Room Air Room Air Room Air MDM MDM MDM Narrative Medical decision making narrative: Although the patient is on hospice, in discussion with her daughter she would like to make sure that the patient does not have an intracranial hemorrhage or fracture. X-ray interpretation by myself of her left shoulder shows no acute fracture. CT of the brain was obtained which shows chronic involutional changes but no acute process or hemorrhage, no skull fracture. Initially, daughter requested that urinalysis be performed to see if she had an infection, but the patient denied any dysuria or hematuria. She was unable to produce a sample so they would like to be discharged home. I feel she can be discharged safely home to continue her hospice care for her Parkinson's. Disposition is discharged home in stable condition. Radiography Diagnostic Testing: Clinical Impression(s) from Imaging Studies Brain CT 05/19/22 11:55 IMPRESSION: Chronic involutional changes of the brain. Electronically Signed: Ismael Taveras MD at 13:00 EST , Shoulder X-Ray 05/19/22 12:30 IMPRESSION: Degenerative changes. No acute fracture is seen. Electronically Signed: Ismael Taveras MD at 13:02 EST , Discharge Plan Triage Chief Complaint: Fall ED Provider: Lyndon Foreman Dx/Rx/DC Orders Clinical Impression: Accident due to mechanical fall without injury, Contusion of face, Contusion of left shoulder Instructions: ED Facial Contusion, ED Fall with Uncertain Cause, ED Shoulder Contusion Prescriptions: No Action aspirin [Adult Low Dose Aspirin] 81 mg tablet,delayed release (DR/EC) 81 mg PO QHS melatonin 3 mg tablet 6 mg PO HS citalopram 40 mg tablet 40 mg PO DAILY cholecalciferol (vitamin D3) 2,000 UNIT capsule 1,000 units PO BID Label Comments: SUPPLEMENT carbidopa-levodopa 25-100 mg tablet 1.5 tab PO Q6H carbidopa-levodopa 50-200 mg tablet extended release 1 tab PO QHS metoprolol succinate 25 mg tablet extended release 24 hr 25 mg PO 1200 sennosides-docusate sodium [Senexon-S] 8.6-50 mg Tablet 1 tab-cap PO TIDCM cyanocobalamin (vitamin B-12) 100 mcg tablet 1,000 mcg PO BID losartan 50 mg tablet 50 mg PO DAILY Qty: 30 11RF Primary Care Provider: Gavin Rachel Referrals: Gavin Rachel MD [Primary Care Provider] - As Needed Disposition Disposition: Home, Self Care
--- NOTE | 2022-05-19 12:30 | RAD_ITS ---
STUDY: X-RAY - LEFT SHOULDER REASON FOR EXAM: Female, 76 years old. Left shoulder pain following a fall. TECHNIQUE: 2 view(s) of the shoulder. COMPARISON: None. FINDINGS: Normal glenohumeral articulation. There is degenerative arthrosis of the acromioclavicular joint without inferior osseous spur formation. Normal acromion. There is demineralization of the humerus and visualized osseous structures. The soft tissue structures are unremarkable. Normal visualized pulmonary apex. RAD/Shoulder min 2 Views IMPRESSION: Degenerative changes. No acute fracture is seen. Electronically Signed: Ismael Taveras MD at 13:02 EST ,
[2022-05-19 13:06] VITALS: BP 210/107; PULSE 73; RESP 18; O2SAT 98
[2022-05-19 15:00] VITALS: BP 168/95; PULSE 89; RESP 16; O2SAT 98
[2022-05-19 15:00] LABS: Bacteria 0 SEEN /hpf (None Seen); Color, Urine Yellow (Yellow); Glucose, Dipstick Normal (Normal); Ketone-Dipstick 5 mg/dl (Negative); Leukocyte Esterase-Dipstick 100 /ul (Negative); Nitrite-Dipstick Negative (Negative); Occult Blood-Urine 10 /ul (Negative); Protein-Dipstick Negative (Negative); Urine Bilirubin Dipstick Negative (Negative); Urine Clarity Sl. Cloudy (Clear); Urine Urobilinogen Normal (Normal)
[2022-05-19 15:08] LABS: Mucous, Urine RARE /hpf (<or=2+); Red Blood Cells-Urine 0-5 SEEN /hpf (0-5); Squamous Epithelial Cells - UA 0-5 SEEN /hpf (5-10); White Blood Cells 0-5 SEEN /hpf (0-5)
== END 2022-05-19 15:01 | disposition home or self-care (01) ==
PROVIDERS: Emergency Provider Emergency Medicine; PCP Family Medicine; Visit Provider Emergency Medicine
DX: S40.012A Contusion of left shoulder, initial encounter (principal); G20 Parkinson's disease; S00.83XA Contusion of other part of head, initial encounter; I10 Essential (primary) hypertension; I25.2 Old myocardial infarction; Z86.73 Personal history of transient ischemic attack (TIA), and cerebral infarction without residual deficits; Z79.899 Other long term (current) drug therapy; Z85.3 Personal history of malignant neoplasm of breast; Z91.81 History of falling; W01.198A Fall on same level from slipping, tripping and stumbling with subsequent striking against other object, initial encounter
CPT/HCPCS: 70450; 73030; 81001; 99282

== ENCOUNTER 2022-05-20 12:00 | Outpatient (RCR) | payer MEDICARE, SELFPAY ==
--- NOTE | 2022-03-30 10:56 | HP.PTEVAL_ITS ---
Patient's Visit Information MILEY RANKIN is a 76 year old F referred to Physical Therapy by Dr. Yosef Hanks MD with a diagnosis of PD, Abnormality of gait, recurrant falls. Date of Evaluation: 03/30/22 Physical Therapist: MARCI Garduno - Visit Plan Frequency: 2x /Week Duration: 2 Months Plan: 2X/ week for 8 weeks for gait training, LE strength, safe transfers, balance, endurance, dual tasking and brain work with movement with HEP - Subjective Miley has been sick. She fell sometime ago flat on her face while using the rollator and hit a kitchen table. Dr Hanks thought that the Physical Therapy would do her some good. She is able to walk once she gets help up to standing. She uses a transport chair because she can not walk long distances. They have a lift chair at home and sometimes she can not remember how to use the chair and uses the walkr from the recliner to the bathroom. They have grab bars in the bathroom and goes slow and uses the bars. She sleeps in a hospital bed and rises her up in the bed. They rise the bed clear up so she can stand up. She has side rails in the bed. She is not doing any home exercises. On nice days they take her out down the ramp in the wheelchair to the mailbox. She went back to the PD class a few weeks ago and Miley thinks that that went ok. - Objective Seated: pt has withering movements of legs and arms... very fidigity. Gait: Walks with a rollator with R foot not taking as big of a step as the L foot with smaller stride length. She does tend to catch her R foot on the ground with walking as well. Standing with feet together with no UE support X 20 seconds and then therapist helps to right her to more steady balance. Sit to stand: Able to stand up on second attempt. Likes to pull self up from the rollator handles instead of using the chair hand rails. She does better when standing using the chair hand rails. She falls back into the chair when going to sit down and holds onto the rollator handles instead of reaching back to the chair rails. When therapist moves her hands back to the chair handrails prior to sitting down she is able to control her sitting much better. LE MMT: R hip flex 13.2# and L hip flex 12.8#. R knee ext 12.3# and L knee ext 13.6#. R knee flex 11.3# and L knee flex 11.2#. TU.82 seconds. - Balance/Special Test Scores Lower Extremity Functional Score: 18 - Goals Goal 1:: I HEP with family help Goal Time Frame: 6-8 Weeks Goal 2:: Increase LE strength (at time of the eval: LE MMT: R hip flex 13.2# and L hip flex 12.8#. R knee ext 12.3# and L knee ext 13.6#. R knee flex 11.3# and L knee flex 11.2#) Goal Time Frame: 6-8 Weeks Goal 3:: Decrease TUG score by 5 seconds to decrease fall risk (score at eval was 32.82) Goal Time Frame: 6-8 Weeks Goal 4:: Be able to remember to use the chair hand rails when sitting to stand and when standing to sit for safety and not using the rollator handles. Goal Time Frame: 6-8 Weeks Goal 5:: Be able to stand for 1 min unsupported to improve overall balance Goal Time Frame: 6-8 Weeks - Rehabilitation Potential Rehabilitation Potential: Good - Anticipated Interventions Patient/Client Instruction: Educate patient on: Condition, Plan of Care For the Purpose of:: To improve nutrient delivery to tissue, To improve muscle performance and motor function, To improve ability to perform ADL's, To increase tolerance to activity/condition/position, To improve performance and independence with ADL's, To decrease level of supervision to perform tasks, To improve ability of physical actions for home/community/work/leisure, To improve gait and locomotor functions, To improve health of tissue, To increase flexibility/ROM, To improve endurance, To improve balance, To improve safety with gait, To reduce risk of recurrence, To improve safety, To improve decision making, To facilitate caregiver knowledge Therapeutic Exercise to Include: Strength training, Endurance training, Balance training, Coordination, Body mechanics, Postural training, Flexibilty training, Gait and locomotor training, Neuromotor development, Active ROM, Dynamic Lumbar Stabilization, Scapular Strength/Stabilization For the Purpose of:: To improve nutrient delivery to tissue, To improve muscle performance and motor function, To improve ability to perform ADL's, To increase tolerance to activity/condition/position, To improve performance and independence with ADL's, To decrease level of supervision to perform tasks, To improve ability of physical actions for home/community/work/leisure, To improve gait and locomotor functions, To increase flexibility/ROM, To improve endurance, To improve balance, To improve safety with gait, To improve safety, To improve health and function Functional Training to Include: Gait training For the Purpose of:: To improve gait and locomotor functions, To improve safety with gait Thank you for the opportunity to evaluate your patient. For Medicare and Medicare HMO plans, please review the plan of care and approve it. It will need to be FAXED BACK to us at [phone] for Medicare purposes. For Medicare only, by signing this I certify the plan of care. Please let me know if there are questions or concerns regarding this plan of care. Physician Signature: Date:
--- NOTE | 2022-03-30 11:42 | HP.OTEVAL ---
Patient's Visit Information MILEY RANKIN is a 76 year old F, referred to Occupational Therapy by Dr. Yosef Hanks MD, with a diagnosis of PD, frequent falls. Date of Evaluation: 03/30/22 Occupational Therapist: BALTA Fine/Anh, CHT - Subjective This 76 year old female was seen for OT eval with dx of PD. pt lives with and ambulates with rollator- arrives from Physical therapy- pt had recent falls and had been admitted into the hospital. pt arrives today for recurrent falls- PD. pt very soft spoken and difficult to get her hx. pt states helps with IADls and IADLS. pt ambulates with rollator - pt states she does use wc in home - ADLs Comments: pt states she has a shower chair and grab bars - pt states her does assist with transfers into shower- does assist with bathing and drying off and getting dressed. has cleaning lady. pt states she is not on any special diet. pt voice is soft and difficult to understand. - ROM ROM Comments: pt demo bilateral UE WFL-. pt does have some ataxic unintentional muscle movement of UE - Strength Shoulder: right 4-/5 left 4-/5 Elbow: right 4-/5 left 4-/5 Fabrication Welder: right 10# left 10# Lateral Pinch: right 2# left unable Strength Comments: pt is right handed. pt demo with weakness of UE - Transfers Transfers: pt demo functional transfer at MODA level-. pt states she is in wc at home but demo limited ability to maneuver in clinic. - Quick DASH-Disab of Arm,Shoulder& Hand Quick DASH Score: 59.0900 - Goals Goal:: pt will demo a increase in bilateral mobile web application developer strength by 20# or greater to increase pts ind. with ADLs and IADLs. pt will demo the ability to use bilateral UE when transferring from sit<>stand to increase safety with her mobility. pt will demo functional tsf at SBA level with pt demo good safety during and after tsf by dc. pt will demo the ability to maneuver her wc at SB level to increase safe mobility by d.c Goal:: family will demo understanding of safety precautions and use of ad. eq. to increase pts safety with ADLs. - Rehabilitation General Assessment: pt demo with a decrease in bilateral UB/hand strength limiting pt ind. with self care tasks and increasing risk of falls- pt would benefit from skilled OT services 2x week for 4 weeks to increase pt functional strength to increase pts participation with ADLs and functional transfers. pt demo understanding and agree to POC. Rehabilitation Potential: Questionable - Anticipated Interventions Strengthening, Neuro Reeducation, ADL Training, Education re assistive Equipment, Education re Diagnosis, Manual Lymph Drainage, Caregiver Training, Home Program - Visit Plan Frequency: 2-3x /Week Duration: 4 Weeks General Plan: will initiate PRE along with use of ad. eq, as needed and family ed. to increase safety TEXT: Thank you for the opportunity to evaluate your patient. For Medicare and Medicare HMO plans, please review the plan of care and approve it. It will need to be FAXED BACK to us at [phone] for Medicare purposes. Please let me know if there are questions or concerns regarding this plan of care. Physician Signature: Date:
--- NOTE | 2022-05-10 14:02 | OTREVAL_ITS ---
Dr. Yosef Hanks MD, It has been my pleasure to treat MILEY RANKIN over the last 9 visits for PD, frequent falls. Please see the progress note below for an update on the occupational therapy plan of care! Subjective: pt arrives from PT. pt states she is tired-. pt soft spoken pts family feels she has made gains to UB strength but continues to require ass istance with transfers from sitting to standing- family would like to continue tx as they have noticed improvements. Objective/Function: pt demo a right print developer automatic strength of 25# this is increase from 10# a left print developer automatic strength of 20# this is increase from 10#. no change with pinch strength -. UB strength increase but still limited with functional strength for safe mobility -= pt would benefit from skilled OT services 2- 3 x week for 4 weeks to continue to improve her UB strength for safe functional tsf and mobility. Plan Frequency: 2-3x /Week Duration: 4 Weeks Visits in this POC: 8 Plan: pt would benefit from continued OT services Goals - Goals Patient Goals: Regain Strength, Be More Independent in ADLS Goal:: pt will demo a increase in bilateral print developer automatic strength by 25# or greater to increase pts ind. with ADLs and IADLs. pt will demo the ability to use bilateral UE when transferring from sit<>stand to increase safety with her mobility. pt will demo functional tsf at SBA level with pt demo good safety during and after tsf by dc. pt will demo the ability to maneuver her wc at SB level to increase safe mobility by d.c Goal:: family will demo understanding of safety precautions and use of ad. eq. to increase pts safety with ADLs. Anticipated Interventions Anticipated Interventions: Strengthening, Neuro Reeducation, ADL Training, Education re assistive Equipment, Education re Diagnosis, Manual Lymph Drainage, Caregiver Training, Home Program Please do not hesitate to contact me at [phone] by phone or if you have questions or concerns regarding this new plan of care! Sincerely, Chio Navarro, OTR/L, CHT
--- NOTE | 2022-05-20 13:12 | HP.PTDCSUM ---
It has been my pleasure to treat MILEY RANKIN referred by Dr. Yosef Hanks MD, with the diagnosis of PD, Abnormality of gait, recurrant falls for a total of 9 visit(s). Discharge Date: 05/20/22 Please see the following information for a summary of their discharge status. Subjective: Daughter reports that Miley felt yesterday and they took her to the ER and she has nothing broken but hit her L shoulder head and eye. L shoulder Pain Intensity (Out of 10): 5 % Improvement: 4 Objective/Function: Sit to stand: pt does not push up from the chair she is sitting in unless verbally cues and she sits back down in the chair holding onto her rollator handles. LE MMT: R hip flex 14.5 and L 10.1. R knee ext 7.9# and L 9.4#. R knee flex 8.7# and 9#. TUG 47.64. No real progress seen this session Goal 1:: I HEP with family help Goal 2:: Increase LE strength (at time of the eval: LE MMT: R hip flex 13.2# and L hip flex 12.8#. R knee ext 12.3# and L knee ext 13.6#. R knee flex 11.3# and L knee flex 11.2#) Goal Progress: Not Progressing Goal 3:: Decrease TUG score by 5 seconds to decrease fall risk (score at eval was 32.82) Goal Progress: Not Progressing Goal 4:: Be able to remember to use the chair hand rails when sitting to stand and when standing to sit for safety and not using the rollator handles. Goal Progress: Not Progressing Goal 5:: Be able to stand for 1 min unsupported to improve overall balance Goal Progress: Goal Met Plan: 2X/ week for 8 weeks for gait training, LE strength, safe transfers, balance, endurance, dual tasking and brain work with movement with HEP Discharge Comments: DC PT If there are questions or concerns regarding this patient's physical therapy, please feel free to call me at [phone]. Thank you for the referral of this patient. Sincerely, Charlotte Terrazas, MPT Balance/Gait/Functional tests - Balance/Special Test Scores Lower Extremity Functional Score: 11
== END 2022-05-20 19:00 | disposition home or self-care (01) ==
LOC: PT 12:00
PROVIDERS: PCP Family Medicine; Referring Provider Psychiatry & Neurology Sleep Medicine; Visit Provider Psychiatry & Neurology Sleep Medicine
DX: G20 Parkinson's disease (principal); R26.9 Unspecified abnormalities of gait and mobility; R29.6 Repeated falls
CPT/HCPCS: 97110; 97161; 97166; 97168; 97530

== ENCOUNTER 2022-08-29 11:00 | Outpatient (RCR) | payer MEDICARE, SELFPAY ==
--- NOTE | 2022-07-26 13:21 | HP.PTEVAL_ITS ---
Patient's Visit Information MILEY RANKIN is a 76 year old F referred to Physical Therapy by Dr. Yosef Hanks MD with a diagnosis of PD and abnormality of gait. Date of Evaluation: 07/26/22 Physical Therapist: MARCI Garduno - Visit Plan Frequency: 2x /Week Duration: 2 Months Plan: 2X/ week for 6 weeks for gait training, functional transfer training, LE strengthening, balance activities, Help with turning head with gait to avoid veering to the R and into neves etc, Dual tasking, with HEP - Subjective Pt is has fallen 4X in the last 6 months and uses a rollator at all times. She lives with her and he helps with her care. She is here also in speech as she struggles with speech. She has no pain. She reports that she does not have any trouble getting out of chairs at home. She reports that she does get into bed ok but needs help to get out of bed. She does do some dishes at home. She does not do any laundry because washer and dryer are in the basement. She does the PD class on Wednesdays but does not do any other exercies. - Objective Gait: walks with a rollator with short steps with her feet shuffling on the ground. She veers to the R with her rollator and does tend to scrap her hands along the wall. She is not able to walk and turn her head with gait even with the rollator. LE MMT: R hip flex 10.4 and L hip flex 13.8. R knee ext 17.6# and L knee ext 19.1. R knee flex 14.7 and L knee flex 12.9. TU.61. Tinetti: 12. Pt was sleepy at end of PT session after Speech session - Balance/Special Test Scores Tinetti Balance Score: 8 Tinetti Gait Score: 4 Tinetti Balance & Gait Score: 12 Lower Extremity Functional Score: 41 - Goals Goal 1:: I HEP Goal Time Frame: 6-8 Weeks Goal 2:: Increase gait to walk with increase stride, heel to toe gait pattern, with rollator and looking R and L on command so that she does not hit the wall on the R side with her rollator Goal Time Frame: 6-8 Weeks Goal 3:: Decrease overall TUG time (At eval time was 40.61) Goal Time Frame: 6-8 Weeks Goal 4:: Increase balance Tinetti score time from the eval from 12) Goal Time Frame: 6-8 Weeks Goal 5:: Sit to stand using the chair rail at all times 10/10 times with increase weight shift FW Goal Time Frame: 6-8 Weeks - Rehabilitation Potential Rehabilitation Potential: Good - Anticipated Interventions Patient/Client Instruction: Educate patient on: Condition, Plan of Care For the Purpose of:: To improve nutrient delivery to tissue, To improve muscle performance and motor function, To improve ability to perform ADL's, To increase tolerance to activity/condition/position, To improve performance and independence with ADL's, To decrease level of supervision to perform tasks, To improve ability of physical actions for home/community/work/leisure, To improve gait and locomotor functions, To improve health of tissue, To decrease soft tissue restriction, To increase flexibility/ROM, To improve endurance, To improve balance, To improve safety with gait Therapeutic Exercise to Include: Strength training, Endurance training, Postural training, Flexibilty training, Gait and locomotor training, Neuromotor development, Passive ROM, Active ROM, Scapular Strength/Stabilization For the Purpose of:: To decrease pain, To increase ROM, To improve nutrient delivery to tissue, To improve muscle performance and motor function, To improve ability to perform ADL's, To increase tolerance to activity/condition/position, To improve performance and independence with ADL's, To decrease level of supervision to perform tasks, To improve ability of physical actions for home/community/work/leisure, To improve gait and locomotor functions, To improve health of tissue, To decrease soft tissue restriction, To increase flexibility/ROM, To improve endurance, To improve balance, To improve safety with gait Functional Training to Include: Gait training For the Purpose of:: To improve gait and locomotor functions, To improve safety with gait Manual Therapy Techniques to Include: Passive ROM For the Purpose of:: To improve gait and locomotor functions, To improve health of tissue, To decrease soft tissue restriction, To increase flexibility/ROM Thank you for the opportunity to evaluate your patient. For Medicare and Medicare HMO plans, please review the plan of care and approve it. It will need to be FAXED BACK to us at [phone] for Medicare purposes. For Medicare only, by signing this I certify the plan of care. Please let me know if there are questions or concerns regarding this plan of care. Physician Signatu re: Date:
--- NOTE | 2022-07-27 14:48 | HP.OTEVAL_ITS ---
Patient's Visit Information MILEY RANKIN is a 76 year old F, referred to Occupational Therapy by Dr. Yosef Hanks MD, with a diagnosis of PD, abnormal gait, Hypophonia. Date of Evaluation: 07/27/22 Occupational Therapist: Chio Navarro, BINHR/Anh, CHT - Subjective Pt is has fallen 4X in the last 6 months and uses a rollator at all times. She lives with her and he helps with her care. She is here also in speech as she struggles with speech. She has no pain. She reports that she does not have any trouble getting out of chairs at home. She reports that she does get into bed ok but needs help to get out of bed. She does do some dishes at home. She does not do any laundry because washer and dryer are in the basement. She does the PD class on Wednesdays but does not do any other exercise. pt using written communication with this therapist but legibility is poor. - ADLs Miscellaneous: Write Comments: pt reports increase difficulty with washing dishes and folding clothes. pt states she has shower chair and will sit for her shower. is helping with her bathing and dressing. Both and dtr do the meal prep and cooking. - ROM ROM Comments: pt demo bilateral UE WNL - Strength Shoulder: right flexion 7# left 4# Elbow: right biceps 6# left 7# right triceps 8# left 10# Electrical Equipment Tester: right 22# left 24# Lateral Pinch: right/left unable Tripod Pinch: right/left unable - Sensation Sensation Comments: pt reports left IF,MF, and RF tingling - Transfers Transfers: pt demo Janice for transfer from chair- standing. - Quick DASH-Disab of Arm,Shoulder& Hand Quick DASH Score: 70.4525 - Goals Goal:: Goal: pt will demo a increase in bilateral change management lead strength by 20# or greater to increase pts ind. with ADLs and IADLs. Goal: pt will demo the ability to use bilateral UE when transferring from sit<>stand to increase safety with her mobility. Goal: pt will demo functional tsf at SBA level with pt demo good safety during and after tsf by dc. Goal: pt will demo the ability to legibly communicate needs on paper demo increase in FMS. Goal:: family will demo understanding of safety precautions and use of ad. eq. to increase pts safety with ADLs. - Rehabilitation General Assessment: pt demo with BUE weakness and a decline in FMS making written communication more difficult. Pt very difficult to understand as voice is nil and she does not move her lips when speaking so lip reading is also difficult. pt would benefit from skilled OT services 1-2x week for 4 weeks to i ncrease pts functional strength to improve her assistance with participating with ADLs and IADLs. pt and pts dtr demo understanding and agree to POC. Rehabilitation Potential: Good - Anticipated Interventions Strengthening, Fine Motor Coord/Dale, Neuro Reeducation, Caregiver Training, Home Program - Visit Plan Frequency: 1-2x /Week Duration: 4 Weeks TEXT: Thank you for the opportunity to evaluate your patient. For Medicare and Medicare HMO plans, please review the plan of care and approve it. It will need to be FAXED BACK to us at [phone] for Medicare purposes. Please let me know if there are questions or concerns regarding this plan of care. Physician Signature: Date:
--- NOTE | 2022-07-28 14:12 | HP.SP.EV_ITS ---
Visit History - Visit Info Date of Eval: 07/26/22 Visit: 1 [employer]: [employer] - History Attending Doctor: Referring Doctor: Reason for Referral: HYPOPHONIA,PARKINSON'S,ABN OF GAIT/RX HERE Medical Diagnosis: Parkinson Date of Onset of Diagnosis: 13 years ago Previous speech therapy: Yes Other Relevant Medical History/Diagnoses/Surgery: Tosin is a 76 year old female who was seen at [facility] for a speech and swallowing evaluation. Pt was diagnosed with Parkinson's disease 13 years ago and has received speech therapy to address voice loudness and speech clarity. Pt also received an MBSS in 2018 which revealed a mild oropharyngeal dysphagia. Pt has not had an MBSS since 2018 because her daughter stated that she does not like the taste of the barium. Smoking Status: Never smoker - Diagnosis Diagnosis: parkinson's disease and dysphagia - Pain Is pain an issue with your current prescribed condition?: No - Personal Preferred language: Sinhala History - History Date of Eval: 07/26/22 Medical Diagnosis (from RX): Parkinson Date of Onset of Diagnosis: 13 years ago Previous speech therapy: Yes Other Relevant Medical History/Diagnoses/Surgery: Tosin is a 76 year old female who was seen at [facility] for a speech and swallowing evaluation. Pt was diagnosed with Parkinson's disease 13 years ago and has received speech therapy to address voice loudness and speech clarity. Pt also received an MBSS in 2018 which revealed a mild oropharyngeal dysphagia. Pt has not had an MBSS since 2018 because her daughter stated that she does not like the taste of the barium. Smoking Status: Never smoker Hx Smoking: No Hx Tobacco Use: No Hx Smoking Exposure: No - Pain Is pain an issue with your current prescribed condition?: No Patient Allergies - Allergies Allergies iodine Allergy (Verified 05/19/22 10:47) Hives latex Allergy (Verified 05/19/22 10:47) Rash rotigotine [From Neupro] Allergy (Verified 05/19/22 10:47) Rash shellfish derived Allergy (Verified 05/19/22 10:47) Hives Sulfa (Sulfonamide Antibiotics) Allergy (Verified 05/19/22 10:47) Hives Somfsvv-VKZ-PlB Reductase Inhibitor [Pborfmu-Mlh-Uxh Reductase Inhibitor] Adverse Reaction (Severe, Verified 05/19/22 10:47) Myalgias, muscle cramps, poor balance diltiazem Adverse Reaction (Verified 05/19/22 10:47) Rash Objective Dysphagia - Administered by Administered by: Self - Thin Liquids Administred via: Cup, Straw Oral Transit: Delay > 5 seconds Bolus clearance: fully cleared Cough: none observed/unable to assess, throat clear Pharyngeal phase: suspect pharyngeal deficits Comments: Big sips from straw & cup. Throat clear x1. - Pureed Administered via: Spoon Oral Preparation: WNL Bolus clearance: some clearance/residue Gagging: No Cough: none observed/unable to assess Pharyngeal phase: laryngeal elevation mildly restricted slow initiation Comments: Slow initiation of swallow with pudding min reisude. - Soft & Bite sized (Mechanical) Administered via: Spoon Oral Preparation: WNL Bolus clearance: some clearance/residue Gagging: No Cough: immediate Pharyngeal phase: suspect pharyngeal deficits Comments: Peaches in liquid trialed: residue & immediate strong cough x2. Peaches drained: x1, residue, no cough - Swallowing Impairment Contributing Factors to Swallowing Impairment: Reduced Oral Strength/Coordination/Sensation, Impaired Oral-Pharyngeal Transport, Delayed Swallow Initiation - Impact Impact on Safety & Functioning: Risk for Aspiration - Recommendations Modified Barium Swallow/Cookie Swallow Recommended: Yes Swallowing Treatment: Yes - Diet Texture Recommendations Other: delayed throat clears after the assessment. An MBSS is required to determine an appropriate diet for Tosin. Tosin has Parkinson's disease and an hx of dysphagia. Pt's last MBSS was completed in 2018, which will no long provide accurate information due to the progression of her condition. Yearly MBSS should be completed when a pt has Parkinson's to recommend an appropriate diet level as their condition progresses. After an objective swallow study with an MBSS is completed, a diet level can be determined. - Safety Saftey Precautions/Swallowing Recommendations (Check all that Apply): 1 to 1 Close Supervision, Reduce Distractions, Needs Verbal Cues to Use Recommended Strategies, Upright Position at Least 30 Minutes After Meals, Small Sips & Bites when Eating, No Straw - Results Swallowing Within Normal Limits: No Swallowing Diagnosis: Oropharyngeal Phase Dysphagia (R13.12) Severity: Moderate Objective Dysarthira/Motor - Speech Intelligibility Single Words: Mild Phrases: Severe Sentences: Severe Paragraphs: Severe Conversation: Severe - Volume Volume: Severe Loudness: Variable loudness - Sounds Sounds in Error: Pt with difficulty reading a short passage. After the first few words, pt began to slur words and became unintellgible. - Awareness/Strategy Use Aware of motor speech impairment, unable to use strategies to improve intelligibility: Yes - Comments LSVT -: Part of the LVST Loud Protocol was used to determine Tosin's conversational speech baseline. The loudest db tosin was able to produce was 80 db x1. On average, tosin was able to hold out the ahh at a decibel range of 70 db or lower. Tosin demonstrated that she is able to produce sounds at a normal conversational level with moderate cuing in sounds. During conversation, Tosin was approximately 20% intelligible due to the use of a low, mono-tone pitch and difficulty with producing words with clear articulation. Swallowing Performance Scale - Swallowing Performance Scale Swallowing Performance Scale Result: 5 Moderate HDQLIFE - Speech Difficulties - In the past 7 days. It was difficult for other people to understand me.: Always Is was difficult to speak clearly?: Always - In the past 7 days.. How often did you limit your social activites because you had difficulty speaking?: Always - In the past 7 days... I had trouble speaking.: Very much I was frustrated by my speech difficulties.: Very much - How much DIFFICULTY do you have... ...saying what you want to say?: A lot of difficulty - Score HDQLIFE Speech Difficulties Raw Score: 29 HDQLIFE Speech Difficulties T - Score: 70 Plan - Plan Plan: Will recommend Pt for weekly outpatient speech therapy intervention address severe dysarthria and dysphagia. Pt would benefit from oral motor exercises, verbal and visual modeling, verbal/visual and tactile cuing, repeated practice, and immediate feedback to improve articulation, loudness and coordination. Without skilled intervention, Pt is at risk for difficulty communicating basic, medical, emergent, social wants & needs, and interacting with family/friends at home, during social interactions, and at work. Pt has Parkinson's disease and pt's with this disease are at risk to lose verbal speech without treatment. Pt would also benefit from participating in an MBSS, training and education re: diet tolerance checks, compensatory strategies and swallowing exercises to aid in oropharyngeal strengthening. Without skilled intervention, Pt is at risk for consuming a restrictive diet putting her at risk for aspiration pneumonia and atrophy of laryngeal musculature - Recommendations MBS: Yes Treatment Warranted: Yes Treatment Warranted: Speech Sound Production, Dysphagia - Progress Prognosis: Fair - Frequency Frequency: 2x /Week Duration: 4 Months - Goals that are Established Determination:: Goals will be added/modified as deemed necessary and ap propriate. Therapy will be discontinued when results of re-evaluation indicate therapy is no longer needed or lack of progress has been documented. - Goal #1-5 Goal #1: Pt will participate in an MBSS to determine an appropriate diet level to reduce the risk of aspiration Goal #2: Pt will produce 2 intelligent sentences utilizing clear articulation and a loud voice during 4/5 trials during 2/3 sessions. Goal #3: Pt will utilize compensatory strategies re: small sips & bite, sitting upright during meal, tongue sweep, minimized distractions with min cues during 2/3 sessions. Education - Patient has Indicated that the Following Identified Educational Needs: None The Patient has indicated that they have no educational or learning abilities that may effect their care.: Yes - Patient Instruction Patient Education: Diagnosis Person Taught: Patient Teaching Method: Discussion Response to teaching: Reinforcement needed
--- NOTE | 2022-12-21 08:46 | HP.SP.DC ---
ST Discharge Summary Discharged: Discharge: Pt was seen for a voice and swallowing evaluation at [facility] on 07/28/22 s/p CVA. Pt attended additional 7 sessions to target vocal loudness, speech clarity, oropharyngeal strengthening, diet tolerance, implementation of compensatory strategies. Pt is being discharged on this date, 12/21/22, due to no additional sessions between scheduled/attended following the last visit after pt was admitted to [facility] for a fall. Thank you for letting me participate in your plan of care. Will reevaluate at Pt?s request following script from physician.
== END 2022-08-29 19:00 | disposition home or self-care (01) ==
LOC: PT 11:00
PROVIDERS: PCP Family Medicine; Referring Provider Psychiatry & Neurology Sleep Medicine; Visit Provider Psychiatry & Neurology Sleep Medicine
DX: G20 Parkinson's disease (principal); R26.9 Unspecified abnormalities of gait and mobility; R49.8 Other voice and resonance disorders; R13.12 Dysphagia, oropharyngeal phase; R47.1 Dysarthria and anarthria
CPT/HCPCS: 92507; 92526; 97110; 97161; 97166; 97530

== ENCOUNTER 2022-08-29 16:56 | Inpatient (IN) | payer MEDICARE, SELFPAY ==
[2022-08-29] VITALS (8 sets, daily range): BP systolic 128–199; BP diastolic 73–134; PULSE 82–127; RESP 18; TEMP 36.3–37; O2SAT 92–97; BMI 25.5; BMI 23.8
--- NOTE | 2022-08-29 17:22 | CT_ITS ---
STUDY: CT BRAIN WITHOUT CONTRAST REASON FOR EXAM: Female, 76 years old. Trauma. RADIATION DOSAGE (If Supplied By Facility): CTDIvol = ( 44.99 ) mGy, DLP = ( 762.36 ) mGycm TECHNIQUE: Transaxial CT imaging of the brain was performed without administration of intravenous contrast material. Individualized dose optimization techniques were used for this CT. COMPARISON: May 19, 2022. FINDINGS: Normal soft tissue structures. Normal calvarium. There is mild cerebral atrophy with widening of the extra-axial spaces and ventricular dilatation. There are areas of decreased attenuation within the white matter tracts of the supratentorial brain, consistent with microvascular disease changes. Normal basal ganglia and thalami. Normal brainstem. Normal cerebellum. There is no intracranial hemorrhage. There are no findings of an acute ischemic infarction. Normal visualized paranasal sinuses. CT/Brain/Head without Contrast IMPRESSION: Chronic involutional changes without evidence of acute intracranial or calvarial abnormality. There is no interval change. AIDOC was utilized to assist in identifying pertinent positive findings in this case. Electronically Signed: Jay Metcalf DO at 18:38 EDT Reading Location ID and State: [address] [place] [address] Tel [phone], Service support ,
--- NOTE | 2022-08-29 17:22 | RAD_ITS ---
STUDY: X-RAY - PELVIS AND LEFT HIP REASON FOR EXAM: Female, 76 years old. Left hip pain after fall. TECHNIQUE: 3 views of the pelvis and hip. COMPARISON: Pelvis and left hip, December 10, 2018. FINDINGS: Air is seen in large and small bowel loops suggesting ileus. Normal visualized soft tissue structures. Limited visualization of the sacroiliac joints and sacrum due to bowel gas. The iliac wings are unremarkable. Normal bilateral superior and inferior pubic rami. Normal pubic symphysis. Normal bilateral ischial tuberosities. Minimal stable degenerative changes of the right hip.. There is a fracture of the left femoral neck with mild cephalad displacement of the shaft. The femoral head remains in normal alignment with the acetabulum. Normal acetabulum. There is mild articular joint space narrowing of the hip. RAD/HIP, UNI W/ Pelvis 2-3 Views IMPRESSION: Mildly displaced fracture of the left femoral neck. Electronically Signed: Jay Metcalf DO at 18:54 EDT ,
--- NOTE | 2022-08-29 17:23 | EKG12_ITS ---
Test Reason : Blood Pressure : / mmHG Vent. Rate : 115 BPM Atrial Rate : 115 BPM P-R Int : 184 ms QRS Dur : 102 ms QT Int : 340 ms P-R-T Axes : 053 -07 056 degrees QTc Int : 470 ms Sinus tachycardia with Premature atrial complexes Minimal voltage criteria for LVH, may be normal variant ( Filippo product ) Borderline ECG Confirmed by RAHEEM PETERS, JEZ ([id number]), publications editor MARINA ESPINAL ([id number]) on 08/30/2022 8:44:57 AM Referred By: WES Confirmed By:JEZ MACIEL MD
--- NOTE | 2022-08-29 17:23 | ED.VIS.FALL ---
HPI HPI - Fall History of Present Illness Chief Complaint: Fall Detail of Chief Complaint: Fall with injury to left hip Informant: patient and family Narrative Narrative: Patient presents after sustaining a fall at home. Family states that she was home alone for about 20 minutes and they found her on the floor when they came home. Patient states that she was reaching for cookies and lost her balance and fell injuring her left hip. Patient unable to stand or bear weight afterwards. She is not sure if she hit her head. She denies neck pain. She denies chest pain. Patient currently on hospice due to history of Parkinson's. [facility] Medical History Atrial fibrillation with RVR Breast cancer CHI (closed head injury) Diverticulosis Elevated troponin Essential hypertension Fall History of left heart catheterization (LHC) (~10/28/19) Non-smoker NSTEMI (non-ST elevated myocardial infarction) (~10/25/19) Parkinson disease Parkinson disease Paroxysmal atrial fibrillation Pyloric stenosis SBO (small bowel obstruction) TIA (transient ischemic attack) Home Medications cholecalciferol (vitamin D3) 50 mcg (2,000 unit) capsule 1,000 units PO BID 10/15/16 [History Last Taken 10/25/19 09:00] aspirin 81 mg tablet,delayed release (Adult Low Dose Aspirin) 81 mg PO QHS 12/21/18 [History Last Taken 10/25/19 19:00] carbidopa 25 mg-levodopa 100 mg tablet 1.5 tab PO Q6H 07/23/20 [History Last Taken Unknown] cyanocobalamin (vitamin B-12) 100 mcg tablet 1,000 mcg PO BID 12/03/20 [History Last Taken Unknown] carbidopa ER 50 mg-levodopa 200 mg tablet,extended release 1 tab PO QHS 04/19/21 [History Last Taken Unknown] citalopram 40 mg tablet 40 mg PO DAILY 04/19/21 [History Last Taken Unknown] melatonin 3 mg tablet 6 mg PO HS 04/19/21 [History Last Taken Unknown] losartan 50 mg tablet 50 mg PO DAILY #30 tabs 02/04/22 [Rx Last Taken Unknown] metoprolol succinate 25 mg tablet,extended release 24 hr 25 mg PO 1200 05/19/22 [History Last Taken Unknown] sennosides 8.6 mg-docusate sodium 50 mg tablet (Senexon-S) 1 tab-cap PO TIDCM 05/19/22 [History Last Taken Unknown] Allergy/AdvReac Type Severity Reaction Status Date / Time iodine Allergy Hives Verified 08/29/22 17:34 latex Allergy Rash Verified 08/29/22 17:34 rotigotine [From Neupro] Allergy Rash Verified 08/29/22 17:34 shellfish derived Allergy Hives Verified 08/29/22 17:34 Sulfa (Sulfonamide Allergy Hives Verified 08/29/22 17:34 Antibiotics) Benuzdc-MML-FfO Reductase AdvReac Severe Myalgias, Verified 08/29/22 17:34 Inhibitor muscle [Wrbtmdb-Ffv-Zoo Reductase cramps, Inhibitor] poor balance diltiazem AdvReac Rash Verified 08/29/22 17:34 Family History Brother Heart disease Surgical History History of bowel resection Social History Smoking Status: Never smoker alcohol intake: never substance use type: does not use ROS ROS ED Review of Systems ROS Unobtainable: other Constitutional Constitutional ED: Reports lethargy; Denies chills, fever(s), sweats or weight loss Eyes Eyes: Denies blurry vision, change in vision or diplopia ENT ENT ED: Denies rhinorrhea or sore throat Cardiovascular Cardiovascular: Denies chest pain, orthopnea or racing heartbeat Respiratory/Chest Respiratory/Chest: Denies cough, dyspnea, dyspnea on exertion, orthopnea or sputum Gastrointestinal Gastrointestinal: Denies abdominal pain, diarrhea, nausea or vomiting Genitourinary Genitourinary ED: Denies dysuria, hematuria or urinary frequency Musculoskeletal Musculoskeletal: Reports other Details: Left hip pain ; Denies arthralgias, back pain, myalgias or neck pain Integumentary Denies abscess, Abrasions or rash Neurologic Neurologic: Denies headache(s) or weakness Psychiatric Psychiatric: Denies anxiety, depression or suicidal thoughts Endocrine Endocrinology: Denies polydipsia, polyphagia or polyuria Hematologic/Lymphatic Hematologic/Lymphatic: Denies easy bleeding, easy bruising or lymphadenopathy Allergic/Immunologic Allergic/Immunologic ED: Denies mouth swelling, tongue swelling or urticaria EXAM Physical Exam Const Vital Signs: 08/29/22 16:58 08/29/22 17:29 08/29/22 17:34 Temperature 97.3 F L 97.3 F L Temperature Source Temporal Pulse Rate 104 H 127 H Respiratory Rate 18 18 Respiratory Effort Normal Non-Labored Respiratory Depth Normal Respiratory Pattern Normal Blood Pressure 175/134 H 171/120 H Blood Pressure Mean 147 137 Pulse Ox 92 95 94 Oxygen Delivery Method Room Air Nasal Cannula Nasal Cannula Oxygen Flow Rate (L/min) 2 2 Positive well nourished and well developed General Appearance ED: well developed and NAD HEENT Reports TM's clear and moist mucous membranes normocephalic and atraumatic; Negative for trauma or tenderness Tympanic Membrane ED: Yes TM's clear Eyes PERRL and EOMs intact bilaterally General Eye ED: Negative for pale conjunctiva or scleral icterus Neck no lymphadenopathy, supple and no JVD General: Negative for tenderness Chest Wall inspection of chest normal and palpation of chest normal Chest: Negative for tenderness Resp normal respiratory effort and clear to auscultation bilaterally Effort and Inspection: Negative for respiratory distress or pain with movement Auscultation: Negative for rhonchi, wheezes or diminished lung sounds Cardio regular rate, regular rhythm, S1 normal heart sound, S2 normal heart sound and no murmurs Peripheral Pulses: pulses 2+ throughout GI normal to inspection, nondistended, normoactive bowel sounds, soft to palpation, non-tender, non-distended and no masses Back/Spine no CVA tenderness and no thoracic nor lumbar tenderness Extremity Extremity Narrative: Left hip-patient does have some tenderness palpation over the left hip. She holds the hip slightly flexed. She has some mild tenderness with straight leg raise as well as logrolling. Neurovascular intact distally. Possibly slight shortening noted. General Extremety ED: Negative for edema General Extremity: Negative for edema Neuro oriented x3, CN's II-XII intact bilaterally, no sensory deficits noted and gait normal Sensorium / Orientation: awake, alert, oriented to person, oriented to place and oriented to time Motor Exam: strength 5/5 throughout and strength abnormal Psych mental status grossly normal Skin no rashes or lesions noted and no wounds MDM MDM MDM Narrative Medical decision making narrative: Patient presents with a fall with injury to the left hip and not wanting to bear weight. Concern for left hip fracture. Patient had an IV line established and she was placed on a hose handler. Patient initially did not want pain medicine but eventually did require 4 mg of morphine 4 mg Zofran. Patient had a CBC with differential that was unremarkable. Chemistries unremarkable. CT scan of the brain without contrast showed chronic involutional changes. X-rays of the left hip did show a left subcapital hip fracture. Patient had also had a chest x-ray that was unremarkable. I did discuss case with hospitalist to evaluate patient for admission. Discussed case with orthopedic surgeon on-call Dr. Db Robles who was consulted for definitive care. Lab Data Labs: Laboratory Results - last 24 hr 08/29/22 08/29/22 17:05 17:05 WBC 8.0 RBC 4.46 Hgb 14.6 Hct 44.4 MCV 99.6 H MCH 32.7 H MCHC 32.9 RDW Std Deviation 45.1 H RDW Coeff of Patience 12.3 Plt Count 231 MPV 10.7 Immature Gran % (Auto) 0.600 Neut % (Auto) 86.4 H Lymph % (Auto) 7.4 L [place] % (Auto) 4.4 Eos % (Auto) 0.5 Baso % (Auto) 0.7 Absolute Neuts (auto) 6.9 Absolute Lymphs (auto) 0.59 L Nucleated RBC % 0 Differential Comment SCANNED Sodium 137 Potassium 3.5 Chloride 102 Carbon Dioxide 28.0 Anion Gap 7 BUN 23 H Creatinine 1.00 Estim Creat Clear Calc 44.80 Est GFR (MDRD) Af Amer 69 Est GFR (MDRD) Non-Af 57 L BUN/Creatinine Ratio 23.0 H Glucose 169 H Calcium 9.0 Radiography Diagnostic Testing: Clinical Impression(s) from Imaging Studies Brain CT 08/29/22 17:22 IMPRESSION: Chronic involutional changes without evidence of acute intracranial or calvarial abnormality. There is no interval change. AIDOC was utilized to assist in identifying pertinent positive findings in this case. Electronically Signed: Jay Metcalf DO at 18:38 EDT Reading Location ID and State: [address] [place] [address] Tel [phone], Service support , Hip/Pelvis X-Ray 08/29/22 17:22 IMPRESSION: Mildly displaced fracture of the left femoral neck. Electronically Signed: Jay Metcalf DO at 18:54 EDT Reading Location ID and State: [address] [place] [address] Tel [phone], Service support , Three-view x-rays left hip and pelvis obtained interpreted by myself is left subcapital hip fracture. Radiology in agreement. 1 view chest x-ray obtained interpreted by myself as no evidence of infiltrate or pneumothorax or acute disease process. Official report from radiology pending. EKG Initial EKG: Attestation: I personally reviewed and interpreted this EKG as follows: Comments: Sinus tachycardia with a ventricular rate of 115 bpm with no acute ST segment changes. Discharge Plan Triage Chief Complaint: Fall ED Provider: Jacquelin James Dx/Rx/DC Orders Clinical Impression: Fall, Fracture of left hip, History of atrial fibrillation, Hx of Parkinson's disease Prescriptions: No Action aspirin [Adult Low Dose Aspirin] 81 mg tablet,delayed release (DR/EC) 81 mg PO QHS melatonin 3 mg tablet 6 mg PO HS citalopram 40 mg tablet 40 mg PO DAILY cholecalciferol (vitamin D3) 2,000 UNIT capsule 1,000 units PO BID Label Comments: SUPPLEMENT carbidopa-levodopa 25-100 mg tablet 1.5 tab PO Q6H carbidopa-levodopa 50-200 mg tablet extended release 1 tab PO QHS metoprolol succinate 25 mg tablet extended release 24 hr 25 mg PO 1200 sennosides-docusate sodium [Senexon-S] 8.6-50 mg Tablet 1 tab-cap PO TIDCM cyanocobalamin (vitamin B-12) 100 mcg tablet 1,000 mcg PO BID losartan 50 mg tablet 50 mg PO DAILY Qty: 30 11RF Primary Care Provider: Edna Bonner Referrals: Edna Bonner MD [Primary Care Provider] - Disposition Disposition: Acute Care [facility]
[2022-08-29] MEDS: 0.9% Normal Saline 1,000 ML 150 ML IV (17:33)
[2022-08-29 17:41] LABS: Absolute Lymphocyte Count 0.59 X10^3/uL (0.83-4.51); Absolute Neutrophil Count 6.9 X10^3/uL (2.0-7.7); Basophil# 0.06 X10^3/uL; Basophil% 0.7 % (0-1); Eosinophil# 0.04 X10^3/uL; Eosinophils% 0.5 % (0-5); Hematocrit 44.4 % (37-47); Hemoglobin 14.6 g/dL (12.0-15.0); Lymphocyte # 0.59 X10^3/ul (0.83-4.51); Lymphocyte % 7.4 % (19-41); Mean Corp Hgb Conc 32.9 g/dL (32-36); Mean Corpuscular Hgb 32.7 pg (27.0-32.0); Mean Corpuscular Volume 99.6 fL (81-99); Mean Platelet Vol. 10.7 fl (6.2-12.0); Monocyte# 0.35 X10^3/uL; Monocyte% 4.4 % (0-10); NRBC Flagged by Analyzer 0 % (0-5); Neutrophil # 6.93 X10^3/uL (2.7-7.7); Neutrophil % 86.4 % (47-70); POSITIVE DIFFERENTIAL YES; Platelet Count 231 K/mm3 (150-450); RBC Distribution Width CV 12.3 % (11.6-14.6); RBC Distribution Width SD 45.1 fl (35.1-43.9); Red Blood Count 4.46 M/mm3 (4.2-5.4)
[2022-08-29 17:49] LABS: Differential Indicated SCAN CRITERIA MET
[2022-08-29 17:52] LABS: Anion Gap 7 (5-15); BUN 23 mg/dL (7-18); Chloride 102 mmol/L (98-107); EST Glomerular Filtration Rate 57 mL/min (>60); Est Glom Filt Rate - Afr Amer 69 mL/min (>60); Glucose 169 mg/dL (74-106); Potassium 3.5 mmol/L (3.5-5.1); Sodium Level 137 mmol/L (136-145)
--- NOTE | 2022-08-29 18:05 | ED.RN ---
Addendum entered by Jessi Granado 08/29/22 18:08: PT AND PT DAUGHTER AWARE THAT PHONE CALL TOOK PLACE AND AGREE THEY WANT HOSPICE TO HAVE RESULTS OF XRAY AND CT SCAN. Original Note: THIS RN ACCEPTED CALL FROM HOSPICE CARE FOR PT. THEY REQUEST THAT WE CALL THEM WITH RESULTS OF CT SCAN AND X-RAY. PHONE NUMBER IS [phone] OPTION 1.
[2022-08-29 18:11] LABS: Differential Comment SCANNED
--- NOTE | 2022-08-29 18:40 | RAD_ITS ---
STUDY: X-RAY CHEST REASON FOR EXAM: Female, 76 years old. Fall today. Left hip fracture. TECHNIQUE: Single AP portable view of the chest. COMPARISON: October 25, 2019 FINDINGS: The lungs are clear and expanded. There is no demonstrated pleural abnormality. Normal size heart. Normal mediastinum and jamie. Normal visualized pulmonary arteries. Normal visualized aortic arch and descending thoracic aorta. There are diffuse degenerative changes of the visualized thoracic spine. Normal visualized ribs, clavicles, and shoulders. Again seen are surgical clips along the right chest wall and axilla. There is no demonstrated abnormality of the visualized soft tissue structures of the upper abdomen. RAD/Chest 1 View (Portable) IMPRESSION: No acute cardiopulmonary disease or interval change. Electronically Signed: Jay Metcalf DO at 19:26 EDT ,
[2022-08-29] MEDS: Ondansetron 4 MG/2 ML Vial IV (19:06)
[2022-08-29] MEDS: Morphine 4 MG/ML Syringe IV (19:07)
--- NOTE | 2022-08-29 19:13 | PCM.HP.STD ---
HPI - General General Date of Admission: 08/29/22 HPI Narrative MILEY RANKIN, is a 76 F who presents to the hospital after a mechanical fall. Per family she is currently on active hospice secondary to Parkinson's disease and she was home alone for about an hour and she got up to try to get herself some chocolate chip cookies and lost her balance and fell onto her left side. She denies any pain anywhere else. She denies any chest pain, lightheadedness, shortness of breath. Lab work in the ER is unremarkable however she is little bit tachycardic and hypertensive though the daughter states that this is secondary to her nervousness about just being here in the hospital. CT of the brain was negative for bleed and her hip x-ray demonstrates a left femoral neck fracture. [facility] Medical History Atrial fibrillation with RVR Breast cancer CHI (closed head injury) Diverticulosis Elevated troponin Essential hypertension Fall History of left heart catheterization (LHC) (~10/28/19) Non-smoker NSTEMI (non-ST elevated myocardial infarction) (~10/25/19) Parkinson disease Parkinson disease Paroxysmal atrial fibrillation Pyloric stenosis SBO (small bowel obstruction) TIA (transient ischemic attack) Home Medications cholecalciferol (vitamin D3) 50 mcg (2,000 unit) capsule 1,000 units PO BID 10/15/16 [History Last Taken 10/25/19 09:00] aspirin 81 mg tablet,delayed release (Adult Low Dose Aspirin) 81 mg PO QHS 12/21/18 [History Last Taken 10/25/19 19:00] carbidopa 25 mg-levodopa 100 mg tablet 1.5 tab PO Q6H 07/23/20 [History Last Taken Unknown] cyanocobalamin (vitamin B-12) 100 mcg tablet 1,000 mcg PO BID 12/03/20 [History Last Taken Unknown] carbidopa ER 50 mg-levodopa 200 mg tablet,extended release 1 tab PO QHS 04/19/21 [History Last Taken Unknown] citalopram 40 mg tablet 40 mg PO DAILY 04/19/21 [History Last Taken Unknown] melatonin 3 mg tablet 6 mg PO HS 04/19/21 [History Last Taken Unknown] losartan 50 mg tablet 50 mg PO DAILY #30 tabs 08/26/22 [Rx Last Taken Unknown] metoprolol succinate 25 mg tablet,extended release 24 hr 25 mg PO 1200 05/19/22 [History Last Taken Unknown] sennosides 8.6 mg-docusate sodium 50 mg tablet (Senexon-S) 1 tab-cap PO TIDCM 05/19/22 [History Last Taken Unknown] Allergy/AdvReac Type Severity Reaction Status Date / Time iodine Allergy Hives Verified 08/29/22 17:34 latex Allergy Rash Verified 08/29/22 17:34 rotigotine [From Neupro] Allergy Rash Verified 08/29/22 17:34 shellfish derived Allergy Hives Verified 08/29/22 17:34 Sulfa (Sulfonamide Allergy Hives Verified 08/29/22 17:34 Antibiotics) Rixascd-XTT-GpH Reductase AdvReac Severe Myalgias, Verified 08/29/22 17:34 Inhibitor muscle [Yzdcqih-Jsb-Abe Reductase cramps, Inhibitor] poor balance diltiazem AdvReac Rash Verified 08/29/22 17:34 Family History Brother Heart disease Surgical History History of bowel resection Social History Smoking Status: Never smoker alcohol intake: never substance use type: does not use ROS Constitutional Constitutional: Denies chills, fatigue, fever(s) or malaise Eyes Eyes: Denies blurry vision ENT HEENT: Denies headache(s) or nasal discharge Cardiovascular Cardiovascular: Denies chest pain, dyspnea on exertion or syncope Respiratory/Chest Respiratory/Chest: Denies cough, shortness of breath at rest or shortness of breath with exertion Gastrointestinal Gastrointestinal: Denies constipation, diarrhea, nausea or vomiting Genitourinary Genitourinary: Denies dysuria Musculoskeletal Musculoskeletal: Reports joint pain Neurologic Neurologic: Denies focal weakness, numbness or tremor(s) Psychiatric Psychiatric: Denies anxiety or depression Vital Signs Vital Signs Vital Signs: 08/29/22 16:58 08/29/22 17:29 08/29/22 17:34 Temperature 97.3 F L 97.3 F L Temperature Source Temporal Pulse Rate 104 H 127 H Respiratory Rate 18 18 Respiratory Effort Normal Non-Labored Respiratory Depth Normal Respiratory Pattern Normal Blood Pressure 175/134 H 171/120 H Blood Pressure Mean 147 137 Pulse Ox 92 95 94 Oxygen Delivery Method Room Air Nasal Cannula Nasal Cannula Oxygen Flow Rate (L/min) 2 2 Weight Weight: 158 lb 4.67 oz Body Mass Index (BMI) 25.5 Physical Exam Narrative General: Alert, Oriented x3, Cooperative, No apparent distress, difficult speech to understand secondary to her Parkinson's HEENT: Atraumatic, PERRLA, EOMI, Normocephalic Oral: Moist Mucosa Neck: Supple, No JVD Lungs: Diminished, Normal air movement, No rhonchi, No wheeze, No rales Cardiovascular: Tachycardic, Regular Rhythm, Normal S1, Normal S2, No murmurs Abdomen: Soft, Non Tender, Non-Distended, No Hepato-splenomegaly Extremities: No edema, Capillary Refill Less than 3 Seconds Skin: No rashes, No breakdown Musculoskeletal: No Tenderness to Palpation of Joints or Extremities Neurological: Moves her extremities but limited motion secondary to Parkinson's Psych/Mental Status: Flat affect due to Parkinson's Results Lab / Micro Data Result Diagrams: 08/29/22 17:05 08/29/22 17:05 Labs: Laboratory Results - last 24 hr 08/29/22 17:05: WBC 8.0, RBC 4.46, Hgb 14.6, Hct 44.4, MCV 99.6 H, MCH 32.7 H, MCHC 32.9, RDW Std Deviation 45.1 H, RDW Coeff of Patience 12.3, Plt Count 231, MPV 10.7, Immature Gran % (Auto) 0.600, Neut % (Auto) 86.4 H, Lymph % (Auto) 7.4 L, [place] % (Auto) 4.4, Eos % (Auto) 0.5, Baso % (Auto) 0.7, Absolute Neuts (auto) 6.9, Absolute Lymphs (auto) 0.59 L, Nucleated RBC % 0, Differential Comment SCANNED 08/29/22 17:05: Sodium 137, Potassium 3.5, Chloride 102, Carbon Dioxide 28.0, Anion Gap 7, BUN 23 H, Creatinine 1.00, Estim Creat Clear Calc 44.80, Est GFR (MDRD) Af Amer 69, Est GFR (MDRD) Non-Af 57 L, BUN/Creatinine Ratio 23.0 H, Glucose 169 H, Calcium 9.[address] 08/29/22 17:22 IMPRESSION: Chronic involutional changes without evidence of acute intracranial or calvarial abnormality. There is no interval change. AIDOC was utilized to assist in identifying pertinent positive findings in this case. Electronically Signed: Jay MetcalfDO at 18:38 EDT Reading Location ID and State: [facility] / [place] Tel [phone], Service support , Hip/Pelvis X-Ray 08/29/22 17:22 IMPRESSION: Mildly displaced fracture of the left femoral neck. Electronically Signed: Jay MetcalfDO at 18:54 EDT Reading Location ID and State: [facility] / [place] Tel [phone], Service support , Assessment & Plan Assessment/Plan (1) Fracture of left hip: PLAN: Plan 1. Left femoral neck fracture secondary to mechanical fall ? PT/OT for possible placement versus resuming home hospice ? Ortho for repair ? Pain management as needed 2. Parkinson's disease ? She is currently on hospice for this head at 23-minute discussion on advance care planning specifically with the prognosis after left femur fracture and the potential for revoking hospice temporarily to undergo physical therapy at a residential facility versus immediately resuming hospice at home. ? Can resume her home medications when verified 3. HTN/paroxysmal A-fib ? Blood pressures are elevated can resume her home blood pressure medications when verified ? Hold her aspirin secondary plan intervention DVT: SCDs Charges/Coding Visit Charges Inpatient E&M: 05450 Init Hosp L2 Procedures Hospitalists Procedures: 73344 Advncd Care Plan 30 Min
[2022-08-29] MEDS: oxyCODONE 5 MG Tablet PO (21:53)
[2022-08-29] MEDS: LORazepam 0.5 MG Tablet PO (21:53)
[2022-08-29] MEDS: Losartan Potassium 50 MG Tablet PO (21:54)
[2022-08-29] MEDS: Citalopram 40 MG TABLET PO (21:54)
[2022-08-29] MEDS: Cholecalciferol (VIT D3) 25 MCG TABLET (1,000 UNITS) PO (21:55)
[2022-08-29] MEDS: MELATONIN 3 MG TABLET 6 MG PO (21:56)
[2022-08-29] MEDS: Metoprolol(XL)Succ 25 MG Tablet PO (21:56)
[2022-08-29] MEDS: CARBIDOPA/LEVODOPA CR 50/200 Tablet PO (21:57)
[2022-08-30] VITALS (13 sets, daily range): BP systolic 111–173; BP diastolic 60–97; PULSE 70–80; RESP 14–18; TEMP 36.7–37.4; O2SAT 94–98; BMI 23.8
[2022-08-30] MEDS: Morphine 2 MG/ML Syringe IV (05:43)
[2022-08-30] MEDS: 0.9% Saline Lock 10 ML Syringe IV (05:43)
[2022-08-30] MEDS: Ondansetron 4 MG/2 ML Vial IV (05:43)
[2022-08-30] MEDS: Lactated Ringers 1,000 ML 100 ML IV (06:23)
[2022-08-30 06:43] LABS: Absolute Neutrophil Count 15.5 X10^3/uL (2.0-7.7); Basophil% 0.6 % (0-1); Eosinophil# 0.02 X10^3/uL; Eosinophils% 0.1 % (0-5); Hematocrit 41.3 % (37-47); Hemoglobin 13.5 g/dL (12.0-15.0); Lymphocyte % 1.8 % (19-41); Mean Corp Hgb Conc 32.7 g/dL (32-36); Mean Corpuscular Hgb 32.4 pg (27.0-32.0); Mean Platelet Vol. 9.8 fl (6.2-12.0); Monocyte# 0.64 X10^3/uL; Monocyte% 3.8 % (0-10); NRBC Flagged by Analyzer 0 % (0-5); Neutrophil # 15.52 X10^3/uL (2.7-7.7); POSITIVE DIFFERENTIAL YES; Platelet Count 203 K/mm3 (150-450); RBC Distribution Width CV 12.5 % (11.6-14.6); RBC Distribution Width SD 45.8 fl (35.1-43.9); Red Blood Count 4.17 M/mm3 (4.2-5.4); White Blood Count 16.7 K/mm3 (4.4-11.0)
[2022-08-30 06:49] LABS: Differential Indicated SCAN CRITERIA MET
[2022-08-30 06:58] LABS: Anion Gap 5 (5-15); BUN 29 mg/dL (7-18); BUN/Creat Ratio 28.7 RATIO (10-20); Calcium,Total 8.7 mg/dL (8.5-10.1); Chloride 103 mmol/L (98-107); Creatinine, Serum 1.01 mg/dL (0.55-1.02); EST Glomerular Filtration Rate 57 mL/min (>60); Est Glom Filt Rate - Afr Amer 68 mL/min (>60); Estimated Creatinine Clearance 44.36 ml/min; Glucose 150 mg/dL (74-106); Potassium 3.6 mmol/L (3.5-5.1); Sodium Level 138 mmol/L (136-145)
--- NOTE | 2022-08-30 08:00 | HIP_PTH ---
PATIENT: MILEY RANKIN LOC: [facility] U#:[id number] AGE/SX: 76/F ROOM: [facility] RE08/29/[address]: Dr. Collette Bass MD : 1945 BED: 1 DIS: 09/06/2022 SPEC #: [id number] RECD: 08/31/22 09:04 STATUS: LORE REJb #: [id number] ANTIONE: 08/30/22 08:[address]: Db Robles DEPT: SURGICAL PATHOLOGY RECD BY: Shellie Travis ENTERED: 08/31/22 09:41 SP TYPE: TOTAL HIP OTHR DR: MD Dr. Edna Camacho MD Dr. Nana Yaa Koram, MD Dr. Nicholas F Kotsonis, MD Tissues: Hip, NOS Procedures: Decalcification bone/plaque Surgery Specimen Level IV HEADER OPERATION: Hemiarthroplasty hip, cemented PRE-OP DIAGNOSIS: Fracture of left hip TISSUE SUBMITTED: Left hip bone MICROSCOPIC DIAGNOSIS Left hip bone, total hip replacement/resection: Femoral head and detached pieces of bone with focal area of hemorrhage, clinically fractured left?hip. EBONI:pawel 09/05/2022 MICROSCOPIC DESCRIPTION Slides are reviewed. GROSS DESCRIPTION Received is one container labeled with the patient's name and designated bone left hip. The specimen consists of a drake femoral head measuring 4.0 x 4.0 x 3.5 cm. The articular surface is smooth. The resection margin is irregular and hemorrhagic. Also present attached to the femoral head is a piece of soft tissue measuring 2.0 x 1.5 x 0.5 cm. Also present in the specimen container are multiple detached fragments of bone measuring in aggregate 5.5 x 4.5 x 2.0 cm. Litigation Specialist sections are submitted in three cassettes as follows: 1 - soft tissue, entirely submitted, 2 - detached pieces of bone, 3 - femoral head. Cassettes 2 & 3 are submitted after decalcification. / EBONI:pawel 08/31/2022 TC:5 CPT: 30396, 09252
[2022-08-30] MEDS: Metoprolol(XL)Succ 25 MG Tablet PO (08:08)
[2022-08-30] MEDS: Losartan Potassium 50 MG Tablet PO (08:09)
[2022-08-30] MEDS: Carbidopa/Levodopa 25/100 Tablet PO (08:09)
--- NOTE | 2022-08-30 11:05 | CASEMGMT ---
Addendum entered by Evelin Hamilton 08/30/22 14:39: Nelida reported back from TCU and informed that pt case will be reviewed after surgery and a determination on acceptance will be given then. Original Note: Social Work ? Pt here from Hopsice at home after falling and fracturing femur. Family revoked Hospice for surgery. SW in to meet with pt to begin discharge planning. SW introduced self and role at the hospital. Pt , Jacky, agreeable to discussing discharge planning. Jacky stated family is hopeful after surgery pt can stay at [facility] and get Rehab at TCU. MYRON explained a referral can be sent to TCU but also shared a list of SNF providers including quality and resource use data consistent with the patient?s preferred geographic region, medical needs, and insurance network [facility] . MYRNO explained should review and give two more choices in the event TCU cannot accept. Pt to review list with children and share other choices later this day or tomorrow. Pt having surgery today. SW sent referral to Nelida at TCU and will await determination. PLAN: SNF- TCU, pending acceptance and precert? MICH Ramos?
--- NOTE | 2022-08-30 11:06 | PN_ITS ---
Subjective Subjective Patient seen and examined. She was admitted with a complaint of mechanical fall and resultant left femoral fracture. She was on hospice for advanced Parkinson's disease, but this was revoked for her to be admitted. She had no complaints today. Pain is well controlled. Review of systems is otherwise negative. Objective Data Objective Data Vital Signs: Vital Signs Temp Pulse Resp BP Pulse Ox O2 Del Method O2 Flow Rate 99.2 F H 76 14 173/97 H 96 Nasal Cannula 2 08/30/22 08:05 08/30/22 08:08 08/30/22 08:05 08/30/22 08:05 08/30/22 08:05 08/30/22 08:22 08/30/22 08:22 Oxygen Flow Rate (L/min) 2 Oxygen Delivery Method Nasal Cannula Weight: 147 lb 14.883 oz Body Mass Index (BMI) 23.8 Intake & Output: Intake and Output for Last 24 Hours 08/28/22 08/29/22 08/30/22 23:59 23:59 23:59 Intake Total 705 / 705 384 / 384 Output Total 100 / 100 Balance 705 / 705 284 / 284 Lab / Micro Data Result Diagrams: 08/30/22 06:05 08/30/22 06:05 Labs: Laboratory Results - last 24 hr 08/29/22 17:05: WBC 8.0, RBC 4.46, Hgb 14.6, Hct 44.4, MCV 99.6 H, MCH 32.7 H, MCHC 32.9, RDW Std Deviation 45.1 H, RDW Coeff of Patience 12.3, Plt Count 231, MPV 10.7, Immature Gran % (Auto) 0.600, Neut % (Auto) 86.4 H, Lymph % (Auto) 7.4 L, [place]nn % (Auto) 4.4, Eos % (Auto) 0.5, Baso % (Auto) 0.7, Absolute Neuts (auto) 6.9, Absolute Lymphs (auto) 0.59 L, Nucleated RBC % 0, Differential Comment SCANNED 08/29/22 17:05: Sodium 137, Potassium 3.5, Chloride 102, Carbon Dioxide 28.0, Anion Gap 7, BUN 23 H, Creatinine 1.00, Estim Creat Clear Calc 44.80, Est GFR (MDRD) Af Amer 69, Est GFR (MDRD) Non-Af 57 L, BUN/Creatinine Ratio 23.0 H, Glucose 169 H, Calcium 9.0 08/30/22 06:05: WBC 16.7 H, RBC 4.17 L, Hgb 13.5, Hct 41.3, MCV 99.0, MCH 32.4 H , MCHC 32.7, RDW Std Deviation 45.8 H, RDW Coeff of Patience 12.5, Plt Count 203, MPV 9.8, Immature Gran % (Auto) 0.700, Neut % (Auto) 93.0 H, Lymph % (Auto) 1.8 L, Glynn % (Auto) 3.8, Eos % (Auto) 0.1, Baso % (Auto) 0.6, Absolute Neuts (auto) 15.5 H, Absolute Lymphs (auto) 0.30 L, Nucleated RBC % 0 08/30/22 06:05: Sodium 138, Potassium 3.6, Chloride 103, Carbon Dioxide 30.0, Anion Gap 5, BUN 29 H, Creatinine 1.01, Estim Creat Clear Calc 44.36, Est GFR (MDRD) Af Amer 68, Est GFR (MDRD) Non-Af 57 L, BUN/Creatinine Ratio 28.7 H, Glucose 150 H, Calcium 8.7 08/30/22 06:05: Blood Type O NEGATIVE, Antibody Screen NEGATIVE Micro: Microbiology 08/29/22 23:56 Nasal Secretion SARS-CoV-2 Antigen (Rapid) - Final Radiography Diagnostic Testing: Radiology Impression Brain CT 08/29/22 17:22 IMPRESSION: Chronic involutional changes without evidence of acute intracranial or calvarial abnormality. There is no interval change. AIDOC was utilized to assist in identifying pertinent positive findings in this case. Electronically Signed: Jay Metcalf DO at 18:38 EDT Reading Location ID and State: [employer] / [place] Tel [phone], Service support , Hip/Pelvis X-Ray 08/29/22 17:22 IMPRESSION: Mildly displaced fracture of the left femoral neck. Electronically Signed: aJy Metcalf DO at 18:54 EDT Reading Location ID and State: [employer] / [place] Tel [phone], Service support , Chest X-Ray 08/29/22 18:40 IMPRESSION: No acute cardiopulmonary disease or interval change. Electronically Signed: Jay Metcalf DO at 19:26 EDT Reading Location ID and State: [address] [place] [address] Tel [phone], Service support , Physical Exam Const alert and no apparent distress Constitutional Narrative: flat affect General Appearance: cooperative HEENT normocephalic, head/scalp atraumatic and moist oral mucous membranes Eyes PERRL and EOMs intact bilaterally Neck no lymphadenopathy, supple and no JVD Lymph Lymphatic: no lymphadenopathy noted Resp normal respiratory effort, normal air movement and clear to auscultation bilaterally Cardio regular rate, regular rhythm, S1 normal heart sound, S2 normal heart sound and no murmurs GI normal to inspection, nondistended, normoactive bowel sounds, soft to palpation and non-tender Extremity normal capillary refill and no clubbing, cyanosis or edema Extremity Narrative: LLE slightly shortened and externally rotated. Skin General Skin Exam: no breakdown Neuro CN's II-XII intact bilaterally and no focal motor deficits Neuro Narrative: flat affect Psych Psych Narrative: Parkinson's disease with flat affect Assessment & Plan Assessment/Plan (1) Fracture of left hip: (2) Hx of Parkinson's disease: PLAN: Plan #left femoral neck fracture due to mechanical fall * orthopedic surgery on board * PT.OT on board * fall precautions * on PO tylenol, PO oxycodone and IV morphine prn for pain * #Parkinson's disease * Was in hospice care on account of this but this has been revoked now as she would require surgery for the left hip fracture. * Family would wanted to go back on hospice after hip is repaired. * On levodopa carbidopa * #Hypertension: On losartan and metoprolol Paroxysmal A-fib: On metoprolol not anticoagulated likely due to history of falls. #Depression: On citalopram DVT prophylaxis: We will start Lovenox Charges/Coding Visit Charges Inpatient E&M: 42527 Subs Hosp L2
--- NOTE | 2022-08-30 11:46 | CASEMGMT ---
Social Work Pt and family indicated during admission assessment that pt has no LW/HCPOA but asked for more information on completing these documents. Upon entering room to discharge plan with pt , SW assessed pt mentation and determined pt is not alert and oriented enough to complete these documents at this time. Pt presented in pain, ignoring questions of SW. SW attempted to explain to why pt would not be able to complete documents, however, nursing entered and SW had to exit the room as pt was being prepared for upcoming surgery. SW will attempt to see pt again tomorrow after pt's surgery. MICH Ramos
[2022-08-30] MEDS: Lactated Ringers 1,000 ML 15 ML IV (14:45)
[2022-08-30] MEDS: Cefazolin 2 GM in 0.9% Normal Saline 100 ML IV (15:54)
--- NOTE | 2022-08-30 15:54 | CON.PCM_ITS ---
Assessment & Plan Assessment/Plan (1) Fracture of left hip: PLAN: Her diagnosis and treatment options regarding her left hip fracture, mu ltiple medical comorbidities discussed with them at length. Surgical and nonsurgical options discussed. They would like to proceed with left hip cemented hemiarthroplasty. Risk of surgery including but not limited to from operative or postoperative complications. Risk of anesthetic complications such as heart attacks, strokes, seizures, or . Risk of infections. Risk of damage to nerves arteries tendons. Risk of inadvertent fractures or dislocations. Risk of bone or wound healing complications. Possibility of nonunion malunion pain stiffness weakness. Possible need for further surgery such as hardware removal. Risk of DVT PE and other potential complications could lead to or disability explained. No guarantees were stated or implied. All of their questions were answered. Appropriate informed consent was obtained and signed for surgical intervention. Patient has been evaluated by the hospitalist service. Patient has been evaluated by the anesthesia service. She has deemed to be acceptable risk for surgery by those departments. We will plan Ancef for perioperative antibiotic. We will plan Tranexamic acid preop and postop to help with bleeding. We will plan aspirin 81 mg twice a day for DVT prevention postoperatively. Most likely she will be transferred to rehab facility on discharge from the hospital. HPI Consult Data Date of Consult: 08/30/22 HPI Narrative HPI Narrative: MILEY RANKIN, is a 76 F who presents after falling on her left hip yesterday. She was brought to the hospital. She was diagnosed with a left hip fracture. She does have Parkinson's disease. She was under hospice care. She is a DNR status. Patient and her family were explained her diagnosis and treatment options. They do wish to proceed with left hip surgery to help with pain control. [facility] Medical History (Updated 08/30/22 @ 15:40 by Winnie Causey) Atrial fibrillation with RVR Breast cancer CHI (closed head injury) Diverticulosis Elevated troponin Essential hypertension Fall History of left heart catheterization (LHC) (~10/28/19) Non-smoker NSTEMI (non-ST elevated myocardial infarction) (~10/25/19) Parkinson disease Parkinson disease Paroxysmal atrial fibrillation Pyloric stenosis SBO (small bowel obstruction) TIA (transient ischemic attack) Home Medications cholecalciferol (vitamin D3) 50 mcg (2,000 unit) capsule 1,000 units PO BID Check with primary doctor 10/15/16 [History Last Taken 08/29/22] aspirin 81 mg tablet,delayed release (Adult Low Dose Aspirin) 81 mg PO QHS Check with primary doctor 12/21/18 [History Last Taken 08/28/22] carbidopa 25 mg-levodopa 100 mg tablet 1.5 tab PO TID Check with primary doctor 07/23/20 [History Last Taken 08/29/22] cyanocobalamin (vitamin B-12) 100 mcg tablet 1,000 mcg PO BID Check with primary doctor 12/03/20 [History Last Taken 08/29/22] carbidopa ER 50 mg-levodopa 200 mg tablet,extended release 1 tab PO QHS Check with primary doctor 04/19/21 [History Last Taken 08/28/22] citalopram 40 mg tablet 40 mg PO QHS Check with primary doctor 04/19/21 [History Last Taken 08/29/22] melatonin 3 mg tablet 6 mg PO HS Check with primary doctor 04/19/21 [History Last Taken 08/28/22] metoprolol succinate 25 mg tablet,extended release 24 hr 25 mg PO 1200 Check with primary doctor 05/19/22 [History Last Taken 08/29/22] sennosides 8.6 mg-docusate sodium 50 mg tablet (Senexon-S) 1 tab-cap PO TIDCM Check with primary doctor 05/19/22 [History Last Taken 08/29/22] lorazepam 0.5 mg tablet (Ativan) 0.5 mg PO Q4H PRN PRN Anxiety 08/29/22 [History Last Taken 08/29/22] losartan 50 mg tablet 50 mg PO DAILY Check with primary doctor 08/29/22 [History Last Taken 08/29/22] zinc 50 mg capsule 50 mg PO DAILY Check with primary doctor 08/29/22 [History Last Taken 08/28/22] Allergy/AdvReac Type Severity Reaction Status Date / Time iodine Allergy Hives Verified 08/29/22 17:34 latex Allergy Rash Verified 08/29/22 17:34 rotigotine [From Neupro] Allergy Rash Verified 08/29/22 17:34 shellfish derived Allergy Hives Verified 08/29/22 17:34 Sulfa (Sulfonamide Allergy Hives Verified 08/29/22 17:34 Antibiotics) [id number] Reductase AdvReac Severe Myalgias, Verified 08/29/22 17:34 Inhibitor muscle [Wevtejb-Fla-Mst Reductase cramps, Inhibitor] poor balance diltiazem AdvReac Rash Verified 08/29/22 17:34 Family History Brother Heart disease Surgical History (Updated 08/30/22 @ 15:40 by Winnie Causey) History of bowel resection History of gastric surgery History of lumpectomy Social History Smoking Status: Never smoker alcohol intake: never substance use type: does not use ROS ROS Narrative Patient is nonverbal at this point. According to her family there is no new problems with eyes ears nose or throat heart or lungs bowel or bladder not otherwise documented Physical Exam Narrative Left hip has shortening and external rotation. Left hip has pain on palpation. Right hip has no pain. She easily moves her right leg without discomfort. She has MASOOD hose and SCDs on. She was seen with family present. Distal pulses are intact. Patient does follow some commands. X-rays AP pelvis AP and lateral of left hip shows a displaced left femoral neck fracture. No severe hip joint arthritis noted. Lab / Micro Data Result Diagrams: 08/30/22 06:05 08/30/22 06:05 Labs: Laboratory Results - last 24 hr 08/29/22 17:05: WBC 8.0, RBC 4.46, Hgb 14.6, Hct 44.4, MCV 99.6 H, MCH 32.7 H, MCHC 32.9, RDW Std Deviation 45.1 H, RDW Coeff of Patience 12.3, Plt Count 231, MPV 10.7, Immature Gran % (Auto) 0.600, Neut % (Auto) 86.4 H, Lymph % (Auto) 7.4 L, [place] % (Auto) 4.4, Eos % (Auto) 0.5, Baso % (Auto) 0.7, Absolute Neuts (auto) 6.9, Absolute Lymphs (auto) 0.59 L, Nucleated RBC % 0, Differential Comment SCANNED 08/29/22 17:05: Sodium 137, Potassium 3.5, Chloride 102, Carbon Dioxide 28.0, Anion Gap 7, BUN 23 H, Creatinine 1.00, Estim Creat Clear Calc 44.80, Est GFR (MDRD) Af Amer 69, Est GFR (MDRD) Non-Af 57 L, BUN/Creatinine Ratio 23.0 H, Glucose 169 H, Calcium 9.0 08/30/22 06:05: WBC 16.7 H, RBC 4.17 L, Hgb 13.5, Hct 41.3, MCV 99.0, MCH 32.4 H , MCHC 32.7, RDW Std Deviation 45.8 H, RDW Coeff of Patience 12.5, Plt Count 203, MPV 9.8, Immature Gran % (Auto) 0.700, Neut % (Auto) 93.0 H, Lymph % (Auto) 1.8 L, [place] % (Auto) 3.8, Eos % (Auto) 0.1, Baso % (Auto) 0.6, Absolute Neuts (auto) 15.5 H, Absolute Lymphs (auto) 0.30 L, Nucleated RBC % 0 08/30/22 06:05: Sodium 138, Potassium 3.6, Chloride 103, Carbon Dioxide 30.0, Anion Gap 5, BUN 29 H, Creatinine 1.01, Estim Creat Clear Calc 44.36, Est GFR (MDRD) Af Amer 68, Est GFR (MDRD) Non-Af 57 L, BUN/Creatinine Ratio 28.7 H, Glucose 150 H, Calcium 8.7 08/30/22 06:05: Blood Type O NEGATIVE, Antibody Screen NEGATIVE Micro: Microbiology 08/29/22 23:56 Nasal Secretion SARS-CoV-2 Antigen (Rapid) - Final Radiology Impression Brain CT 08/29/22 17:22 IMPRESSION: Chronic involutional changes without evidence of acute intracranial or calvarial abnormality. There is no interval change. AIDOC was utilized to assist in identifying pertinent positive findings in this case. Electronically Signed: Jay Metcalf DO at 18:38 EDT Reading Location ID and State: [employer] / [place] Tel [phone], Service support , Hip/Pelvis X-Ray 08/29/22 17:22 IMPRESSION: Mildly displaced fracture of the left femoral neck. Electronically Signed: Jay Metcalf DO at 18:54 EDT Reading Location ID and State: [facility] / [place] Tel [phone], Service support , Chest X-Ray 08/29/22 18:40 IMPRESSION: No acute cardiopulmonary disease or interval change. Electronically Signed: Jay Metcalf DO at 19:26 EDT Reading Location ID and State: [employer] / [place] Tel [phone], Service support ,
[2022-08-30] MEDS: JPS (Morphine 10mg/ml) OPERA.SITE (17:15)
--- NOTE | 2022-08-30 17:42 | PCM.OP.BLANK ---
Problems Associated Problem List Diagnoses (1) Fracture of left hip: Operative Report Date of Procedure: 08/30/22 Preoperative diagnosis: Left hip displaced femoral neck fracture Postoperative diagnosis: Same Operation: Left hip cemented hemiarthroplasty Surgeon: Dr. Db Robles MD Syrup Shed Supervisor: GERTRUDIS EBL: 200 Anesthesia: General Anesthesiologist; Dr. Santos Special medications: IV [Ancef] 2 g, IV Tranexamic acid IV x 1 Indications for surgery : Patient is a (76) -year-old female that fell yesterday fracturing the involved hip. Appropriate informed consent was obtained and signed. Appropriate medical workup was performed preoperatively and patient was deemed safe for surgery by the anesthesia department casino assistant manager, GERTRUDIS was utilized throughout the entire procedure. They were vital in helping with patient positioning, holding of retractors, exposing the tissues adequately for safe completion of the procedure including cutting of the bone, helping federal judge appropriate alignment and sizing of the components, implantation of the components, as well as wound closure, bandage application, and safe patient transfer. Without certified surgical technician, physician sales assistant institutional sales, surgical time would have been significantly increased, and surgical outcome would have been less optimal. Operative findings: Patient had displaced comminuted femoral neck fracture. We used a Vik Accolade C stem size #5 cemented. Bipolar 44 mm femoral head with a -3 mmneck length. This reproduced there anatomy nicely. Clinically good leg lengths were noted. Good hip stability through range of motion with no undue pistoning. Standard wound closure in layers, followed by corey, followed by Mepilex dressing Details of procedure: Patient was taken to the operating room and transferred to the operating table. Given appropriate anesthetic agent by that department. Patient was then rolled into a lateral decubitus position with the involved painful hip up in the air. Appropriate timeouts had been performed. Hip had been appropriately marked with my initials. Padded anterior and posterior position was utilized. Axillary roll placed. MASOOD hose and SCDs on the nonoperative limb utilized throughout the procedure. Operative lower extremity was prepped padded and draped in the usual orthopedic sterile fashion for the procedure. I injected the pain relieving solution in the standard sterile technique of the soft tissues of the hip carefully. Incision was made curving over the tip of the greater trochanter posteriorly. Full thickness skin flaps are raised down on the fascia addis. Fascia addis was opened in length with our incision. Carloey self-retaining hip retractor was carefully placed by the surgeon. Leg was appropriately rotated by the sales assistant institutional sales. Retractor was used to lift the abductors anteriorly to visualize the piriformis tendon and external rotators. Piriformis tendon and external rotators released off the greater trochanter with the Bovie. Tagging suture was placed in each of these separately. We then split the tissue superior to the piriformis tendon through capsule and onto the pelvis. Acetabular labrum was preserved. Retractors were carefully placed around the femoral neck. Displaced unstable femoral neck fracture identified. cutting guide was utilized to map out the proposed cut approximately 1 fingerbreadth above the lesser trochanter. This femoral neck cut was carried out with a saw. Fractured femoral head removed from the acetabulum and measured and inspected. Appropriate trial was utilized. A proximal femoral elevator utilized. We used a sharp awl entering down inside the bone of the proximal femur. Utilized the [employer]zes cutting osteotome the proximal lateral greater trochanteric region. The fragment removed. Broaching was then done from the smallest broach, upto the appropriate size. Good stability was confirmed. We then trialed the construct with a standard neck length and appropriate sized femoral head. We were happy with the construct. Good stability to flexion, rotation. At this point trials removed. 2 full batches of bone cement were mixed. 2 sponges were placed in the acetabulum we prepared the canal with brushing. Cement restrictor was placed down to the appropriate depth. It was thoroughly irrigated clean and dry. When the cement was as the appropriate texture, we pressurized cement down in the femoral canal. The appropriate size stem then hammered into the proximal femur and seated down to a similar position as the trial had. Excess bone cement removed. Stem was held still while cement fully hardened. Pain relieving solution was injected while this was occurring. The cement was fully hardened, sponges were removed from the acetabulum. We now again trialed and appropriate neck length decided upon. It was then opened. Now impacted the appropriate sized femoral head, neck construct onto the clean dried trunion. Was noted to be stable. Hip was inspected, and joint was reduced for a final time. Good hip stability and leg lengths noted. This was then irrigated with saline and cleaned. Next the remainder of the pain relieving solution was injected carefully throughout the soft tissues of the hip joint. Irrigation was done with sterile Betadine, Irrisept, saline as a had been throughout the procedure. Closure was carried out with a combination of #1 Vicryl repairing the hip capsule as well as piriformis tendon and external rotators to bone, running #2 strata fix in the fascia addis, followed by mid layer #1 Vicryl with #1 strata fix running. Next running 0 strata fix, followed by skin corey, Xeroform, Mepilex dressing. We placed MASOOD hose and SCD on the operative leg. Patient awoken from the anesthetic and transferred back to room bed in recovery room in satisfactory condition. Patient will be admitted to the hospital. Hospitalist service will continue to manage the medical issues. Hopeful discharge to home or ECF in 2-3 days. This note was generated with [employer] dictation software. It may contain incorrect words, spelling, and punctuation that were not noted in checking the note before signing.
--- NOTE | 2022-08-30 18:34 | RAD_ITS ---
STUDY: X-RAY - PELVIS AND LEFT HIP REASON FOR EXAM: Female, 76 years old. Postop. TECHNIQUE: 2 views of the pelvis and hip. COMPARISON: Pelvis and left hip, August 29, 2022. FINDINGS: There is a non-specific bowel gas pattern. Normal visualized soft tissue structures. Normal bilateral iliac wings, sacroiliac joints and visualized sacrum. Normal bilateral superior and inferior pubic rami. Normal pubic symphysis. Normal bilateral ischial tuberosities. Apical degenerative changes right hip. Left hip hemiarthroplasty. The femoral component articulates normally with the acetabulum. There is no fracture or loosening from the underlying bone. Air is seen in the surrounding soft tissues. RAD/Hip Min 2 Views (Portable) IMPRESSION: Status post left hip hemiarthroplasty. Electronically Signed: Jay Metcalf DO at 18:50 EDT ,
--- NOTE | 2022-08-30 19:35 | CPS ---
Pt just arrived from surgery and unable to perform IS/PEP therapy at this time.
[2022-08-30] MEDS: Acetaminophen 500 MG Tablet 1000 MG PO (21:48)
[2022-08-30] MEDS: Cholecalciferol (VIT D3) 25 MCG TABLET (1,000 UNITS) PO (21:48)
[2022-08-30] MEDS: MELATONIN 3 MG TABLET 6 MG PO (21:48)
[2022-08-30] MEDS: Citalopram 40 MG TABLET PO (21:48)
[2022-08-30] MEDS: CARBIDOPA/LEVODOPA CR 50/200 Tablet PO (21:50)
[2022-08-30] MEDS: Aspirin 81 MG TAB.CHEW PO (21:51)
[2022-08-30] MEDS: Cefazolin 1 GM/50 ML BAG IV (23:15)
[2022-08-31] VITALS (42 sets, daily range): BP systolic 56–175; BP diastolic 37–111; PULSE 68–157; RESP 14–21; TEMP 36.5–37.2; O2SAT 84–100; BMI 23.8
--- NOTE | 2022-08-31 04:36 | CT_ITS ---
EXAM: CT HEAD WITHOUT INTRAVENOUS CONTRAST CLINICAL INDICATION: CVA TECHNIQUE: Multiple axial images were obtained of the head without intravenous contrast. This CT exam was performed using one or more of the following dose reduction techniques: automated exposure control, adjustment of the mA and/or kV according to patient size, and/or use of iterative reconstruction technique. This report was created using [employer] report generation technology. RADIATION DOSE: Total DLP: 863.60 mGy-cm. COMPARISON: Previous cranial CT of 08/29/2022. FINDINGS: BRAIN AND EXTRA-AXIAL SPACES: Findings of mild/moderate atrophy present with prominence of cortical sulci, basal cisterns, sylvian fissures and ventricles. Patchy chronic small vessel ischemic changes again noted within the deep white matter tracts. No intra- or extra-axial hemorrhage. No intracranial mass or mass effect. Posterior fossa structures are unremarkable. Quezada-white matter differentiation is preserved. BONES/JOINTS: Torus palatinus incidentally noted. No linear or depressed skull fracture. No discrete lytic abnormalities. VASCULATURE: Atherosclerotic vascular calcification is present. The middle cerebral arteries are not hyperdense. SINUSES: Unremarkable as visualized. Clear. MASTOID AIR CELLS: Unremarkable. Clear. ORBITS: Visualized globes, extraocular muscles, optic nerves and retrobulbar fat appear unremarkable. CT/Brain/Head without Contrast IMPRESSION: No significant interval change. Atrophy and chronic small vessel ischemic changes again noted. No acute findings in the head/brain. Electronically Signed: Adarsh Shin MD at 5:11 EDT ,
--- NOTE | 2022-08-31 04:52 | PCM.HOSP.N ---
Hospitalist Note Rapid response called. Upon review of patient and the chart patient is noted to be DNR CC status. Patient had been in hospice with temporary revoked status for left hip fracture repair with noted intention per review of notes for return to hospice program following her current status. Patient evaluated by nursing staff with notable unresponsive status prompting call for patient evaluation. Upon review patient is unresponsive although she is awake but not following any commands. Blood pressure with systolic in the 70s and heart rate with evidence atrial fibrillation with RVR on monitor. Given her current presentation and comfort care status contact patient's daughter and reviewed her current status. Patient's daughter was amenable to initiation of IV fluids, amiodarone bolus and drip with transition to PCU and CT of the head but no further aggressive interventions beyond this at this time. Patient's daughter will present to the hospital to see her mother. Patient is recent status post left hip fracture repair. From discussion with her daughter patient has not tolerated any type of anticoagulant attempts in the past which is why she is not on any chronic anticoagulation with history of PAF with also prior TIA history.
--- NOTE | 2022-08-31 05:00 | NURSING ---
At approximately 0400 this morning I went into the patients room to do a set of vitals and a post check and the patient was less responsive than the night before. The patient would open her eyes but would not talk at all. The patient at the beginning of my shift was only Alert to self and even though she was drowsy she would at least answer yes or no and took her pills in apple sauce. When taking the patients vital signs at 0400 her Blood pressure was in the 70's systolically. I had another nurse come in the room to get a second opinion on her status. We both agreed she did not look well and we decided to call a rapid. At this time we took the patients blood sugar and it was 180. we also hooked up the patient to the monitor technician which revealed the pt was afib with RVR. Dr. Barba came to the floor and evaluated the patient and contacted the patients family to find out how aggressive they wanted to be with the patient considering her code status of DNRCC. Dr barba put in orders for a LR bolus, Amiodarone IV drip, CT of head and an order to transfer patient to the PCU unit. PT was taken to Radiology and then to PCU. Report was called and surgeon was notified.
--- NOTE | 2022-08-31 05:15 | NURSING ---
PT TO FLOOR, SANJEEV TX TO PCU, REPORT TO THIS RN FROM MELISSA
[2022-08-31 05:35] LABS: Hematocrit 38.8 % (37-47); Mean Corp Hgb Conc 30.9 g/dL (32-36); Mean Corpuscular Hgb 32.2 pg (27.0-32.0); Mean Platelet Vol. 10.3 fl (6.2-12.0); Platelet Count 138 K/mm3 (150-450); RBC Distribution Width CV 12.9 % (11.6-14.6); RBC Distribution Width SD 49.6 fl (35.1-43.9); Red Blood Count 3.73 M/mm3 (4.2-5.4); White Blood Count 10.6 K/mm3 (4.4-11.0)
[2022-08-31] MEDS: Lactated Ringers 1,000 ML 999 ML IV (05:36)
[2022-08-31 05:58] LABS: Magnesium 2.1 mg/dL (1.6-2.6); Troponin-I HS 654 pg/mL (3.0-54.0)
--- NOTE | 2022-08-31 06:00 | NURSING ---
Pt lethargic, NIh not able to be done at this time, Dr. Barba made aware and is OK for NIH to not be done at this time
[2022-08-31] MEDS: 0.9% Normal Saline 1,000 ML 999 ML IV (06:06)
--- NOTE | 2022-08-31 06:11 | CDU_ITS ---
Reason For Study: CVA Rt. Velocities/BP Lt. Velocities/BP Prox CCA 34.3/11.6 cm/sec. Prox CCA 46.6/12.6 cm/sec. Mid CCA 29.9/6.7 cm/sec. Mid CCA 36.2/10.7 cm/sec. Dist CCA 26.4/6.2 cm/sec. Dist CCA 36.2/12.6 cm/sec. Prox ICA 16.2/6.4 cm/sec. Prox ICA 35.8/12.3 cm/sec. Mid ICA 50/22.3 cm/sec. Mid ICA 36.5/15.2 cm/sec. Dist ICA 56.4/22.3 cm/sec. Dist ICA 40.8/20.1 cm/sec. Rt. ICA/CCA = 1.89. Lt. ICA/CCA = 1.13. Prox ECA 22.5/3.9 cm/sec. Prox ECA 24.8/4.1 cm/sec. Rt. Vert. 42.8/7.8 cm/sec. Lt. Vert. 44.3/13.7 cm/sec. Right Extracranial There is intimal thickening but no significant atherosclerotic plaque noted in the right common carotid artery. There is intimal thickening but no significant atherosclerotic plaque noted in the right internal carotid artery. There is intimal thickening but no significant atherosclerotic plaque noted in the right external carotid artery. Antegrade flow is noted in the right vertebral artery. Left Extracranial There is homogeneous, smooth atherosclerotic plaque noted in the left common carotid artery. There is heterogeneous, irregular atherosclerotic plaque noted in the left internal carotid artery. There is intimal thickening but no significant atherosclerotic plaque noted in the left external carotid artery. Antegrade flow is noted in the left vertebral artery. Procedure Carotid Duplex 66843. This is a Carotid Duplex examination using B-mode, color flow and specral Doppler. The study was technically difficult. Exam performed portable in patient room. VL/Carotid Duplex Ultrasound Interpretation Summary Intimal thickening at the proximal bilateral internal carotid arteries with a l ess than 50% stenosis. Less than 50% stenosis bilateral external carotid arteries Patent and antegrade vertebral arteries bilaterally Arterial flow rates generally bilaterally are noted to be low. Clinical correla tion with cardiac output would be appropriate. The examination was noted to be technically difficult. Ordering Physician: Chantell Barba Referring Physician: Edna Bonner Performed By: Jodie Ly RVT
--- NOTE | 2022-08-31 06:11 | ECHOD_ITS ---
Reason For Study: ATRIAL FIB-FLUTTER Procedure This was a 2D Doppler, Color Flow transthoracic echocardiogram. Exam performed portable in patient room. Left Ventricle Moderate concentric left ventricular hypertrophy. Normal LV size. Left ventricular systolic function is normal. The estimated ejection fraction is 55 %. No regional wall motion abnormalities noted. Right Ventricle Normal RV size. Decreased RV systolic function more prominent in the apex. Mitral Valve There is mild to moderate mitral annular calcification. Tricuspid Valve Normal tricuspid valve. Mild to moderate (1-2+) tricuspid valve insufficiency. Pulmonary artery systolic pressure is 36 mmHg. Aortic Valve Mild focal aortic valve calcification. Trisinus/trileaflet aortic valve. Great Vessels Normal aortic root. The pulmonary artery is normal size. Normal inferior vena cava. Pericardium/Pleural No pericardial effusion. MMode/2D Measurements & Calculations LVIDd: 3.6 cm IVSd: 1.5 cm Ao root diam: 3.5 cm LVIDs: 2.5 cm LVPWd: 1.3 cm RVDd: 3.4 cm FS: 28.3 % LAV(MOD-bp): 47.2 ml SV(MOD-sp4): 21.9 ml LVAd ap4: 18.1 cm2 LAV(MOD-bp) Indexed: 26.9 ml/m2 LVLd ap4: 7.3 cm LAV(MOD-sp2): 43.4 ml EDV(MOD-sp4): 38.5 ml LAV(MOD-sp4): 49.8 ml EDV(sp4-el): 38.1 ml LVAs ap4: 11.0 cm2 LVLs ap4: 6.9 cm ESV(MOD-sp4): 16.6 ml ESV(sp4-el): 14.8 ml EF(MOD-sp4): 56.8 % EF(sp4-el): 61.2 % SV(sp4-el): 23.3 ml LA dimension(2D): 3.8 cm LA A4 area: 19.0 cm2 RA A4 area: 19.3 cm2 Doppler Measurements & Calculations PA V2 max: 42.8 cm/sec TR max lesli: 284.1 cm/sec TR max P.3 mmHg ECHO/Echo Complete Interpretation Summary Left ventricular systolic function is normal. Decreased RV systolic function more prominent in the apex. Moderate concentric left ventricular hypertrophy. The estimated ejection fraction is 55 %. Normal LV size. Pulmonary artery systolic pressure is 36 mmHg. Ordering Physician: Chantell Barba Referring Physician: VIJAYA MALLORY Performed By: Danyell Boone RDCS
[2022-08-31] MEDS: Amiodarone 360 MG in Dextrose 5% Viaflo Bag 192.8 ML 16.7 MG CONT INF ×2 (06:18→17:44)
[2022-08-31 06:34] LABS: Hemoglobin 12.3 g/dL (12.0-15.0)
[2022-08-31 06:45] LABS: International Normalized Ratio 1.3; Prothrombin Time (Protime)PT. 15.5 SECONDS (11.7-14.9)
[2022-08-31 06:46] LABS: Partial Thromboplast Time 36.3 Seconds (24.1-36.2)
[2022-08-31] MEDS: Heparin Injection (Vial) 5,000 UNIT/ML VIAL 4500 UNIT IV (06:52)
[2022-08-31] MEDS: HEPARIN/D5w 25,000 UNITS 25,000 UNITS/250 ML IV.SOLN. 10 UNITS CONT INF (06:53)
[2022-08-31 07:18] LABS: Anion Gap 11 (5-15); BUN 37 mg/dL (7-18); BUN/Creat Ratio 22.7 RATIO (10-20); Calcium,Total 8.4 mg/dL (8.5-10.1); Chloride 105 mmol/L (98-107); Creatinine, Serum 1.63 mg/dL (0.55-1.02); EST Glomerular Filtration Rate 33 mL/min (>60); Est Glom Filt Rate - Afr Amer 39 mL/min (>60); Estimated Creatinine Clearance 27.49 ml/min; Glucose 225 mg/dL (74-106); Potassium 4.2 mmol/L (3.5-5.1); Sodium Level 138 mmol/L (136-145)
[2022-08-31 07:22] LABS: Thyroid Stim Hormone (TSH) 1.49 uIU/mL (0.358-3.74); Troponin-I HS 605 pg/mL (3.0-54.0)
--- NOTE | 2022-08-31 07:28 | PCM.PN.ORT ---
Subjective Subjective Patient is resting comfortably in bed during exam multiple family members are present. There was a rapid response called this morning secondary to patient's unresponsive status. She was secondarily transferred to the progressive care unit. Noted to be in atrial fibrillation. She had a CT scan of her head with no acute findings. Troponins are elevated found to be having an acute non-STEMI. She has been placed on a heparin drip. Upon talking to the patient she does turn her head towards the right to acknowledge that I am speaking to her. She smiles slightly. She will not speak. When asked if she is having any pain she is able to shake her head no. Objective Data Objective Data Patient does not appear to be in any acute distress at rest. She will not follow verbal commands. Left hip dressing is dry and intact no active drainage erythema warmth or signs of infection. No calf swelling. Pedal pulses present and equal bilaterally. Vital Signs: Vital Signs Temp Pulse Resp BP Pulse Ox O2 Del Method O2 Flow Rate 97.9 F 113 H 17 78/37 L 96 Nasal Cannula 4 08/31/22 06:20 08/31/22 06:30 08/31/22 06:30 08/31/22 06:30 08/31/22 07:08 08/31/22 07:08 08/31/22 07:08 Oxygen Flow Rate (L/min) 4 Oxygen Delivery Method Nasal Cannula Weight: 67.1 kg Body Mass Index (BMI) 23.8 Intake & Output: Intake and Output for Last 24 Hours 08/29/22 08/30/22 08/31/22 23:59 23:59 23:59 Intake Total 705 / 705 1798.75 / 1798.75 2071.59 / 2071.59 Output Total 100 / 100 100 / 100 Balance 705 / 705 1698.75 / 1698.75 1971.59 / 1971.59 Lab / Micro Data Result Diagrams: 08/31/22 06:15 08/31/22 05:25 Labs: Laboratory Results - last 24 hr 08/30/22 06:05: Blood Type O NEGATIVE, Antibody Screen NEGATIVE 08/31/22 05:25: WBC 10.6, RBC 3.73 L, Hgb 12.0, Hct 38.8, MCV 104.0 H D, MCH 32.2 H, MCHC 30.9 L D, RDW Std Deviation 49.6 H, RDW Coeff of Patience 12.9, Plt Count 138 L, MPV 10.3 08/31/22 05:25: Sodium 138, Potassium 4.2, Chloride 105, Carbon Dioxide 22.0, Anion Gap 11, BUN 37 H, Creatinine 1.63 H, Estim Creat Clear Calc 27.49, Est GFR (MDRD) Af Amer 39 L, Est GFR (MDRD) Non-Af 33 L, BUN/Creatinine Ratio 22.7 H, Glucose 225 H, Calcium 8.4 L 08/31/22 05:25: Magnesium 2.1, Troponin I High Sens 654 H* 08/31/22 06:15: Hgb 12.3, Hct 40.0 08/31/22 06:25: Troponin I High Sens 605 H*, TSH 1.49 08/31/22 06:25: PT 15.5 H, INR 1.3, APTT 36.3 H Micro: Microbiology 08/29/22 23:56 Nasal Secretion SARS-CoV-2 Antigen (Rapid) - Final Radiography Diagnostic Testing: Radiology Impression Hip X-Ray 08/30/22 18:34 IMPRESSION: Status post left hip hemiarthroplasty. Electronically Signed: Jay Metcalf DO at 18:50 EDT Reading Location ID and State: [facility] / [place] Tel [phone], Service support , Brain CT 08/31/22 04:36 IMPRESSION: No significant interval change. Atrophy and chronic small vessel ischemic changes again noted. No acute findings in the head/brain. Electronically Signed: Adarsh Shin MD at 5:11 EDT , Assessment & Plan Assessment/Plan (1) Fracture of left hip: PLAN: 1 status post left hip hemiarthroplasty postoperative day #1 2 continue oral/IV pain medicines as needed 3 if patient is to become responsive or active we would recommend physical therapy rehabilitation with hip dislocation precautions weightbearing as tolerated 4 DVT prophylaxis patient has had heparin drip added and per rectal aspirin per the hospitalist 5 continue management per hospitalist/ hospice comfort care/Case management 6 all the family's questions were answered. She is orthopedically stable okay for discharge when having adequate pain control medically stable. Recommend follow-up 2 weeks in the office reassessment with x-rays and staple removal. Please do not hesitate to contact us with any further orthopedic concerns
--- NOTE | 2022-08-31 08:46 | CON.PCM.CA_ITS ---
Assessment & Plan Assessment/Plan (1) Paroxysmal atrial fibrillation: PLAN: Patient presents with postoperative atrial fibrillation at this time with a rapid ventricular response rate. She is having an echocardiogram performed and preliminarily it demonstrates preserved left ventricular systolic function but a dilated right heart with reduced function. * It may be worthwhile as she is postoperative to evaluate for a pulmonary embolism as a cause of her atrial fibrillation * The mild troponin elevation with respect to her cardiac catheterization within the last 2-1/2 years does not warrant a coronary reevaluation at this time. I suspect the above is likely to be due to demand ischemia. * Further recommendations will depend on the results of MRI/CAT scan of the chest * I think that she is fairly high risk for anticoagulation regardless. * All the above findings have been explained in detail to the family who are all at bedside. They all did express understanding. HPI Consult Data Date of Consult: 08/31/22 HPI Narrative HPI Narrative: MILEY RANKIN, is a 76 F who presents with a hip fracture and undergoes open reduction and internal fixation. Postoperatively patient developed atrial fibrillation with rapid ventricular response rate and has mild elevation in her troponin. Cardiology was called for further evaluation and management. You remember that she does have a history of significant Parkinson's disorder, hypertension and underwent a cardiac catheterization in October 2019 demonstrating nonobstructive coronary disease. She had been discharged on amiodarone and Eliquis therapy and then she was admitted in November 2020 and deemed not to be an ideal candidate for anticoagulation and thus this was discontinued. She has had no chest pain or shortness of breath or paroxysmal nocturnal dyspnea. She has had some significant falls in the past. [facility] Medical History Atrial fibrillation with RVR Breast cancer CHI (closed head injury) Diverticulosis Elevated troponin Essential hypertension Fall History of left heart catheterization (LHC) (~10/28/19) Non-smoker NSTEMI (non-ST elevated myocardial infarction) (~10/25/19) Parkinson disease Parkinson disease Paroxysmal atrial fibrillation Pyloric stenosis SBO (small bowel obstruction) TIA (transient ischemic attack) Home Medications cholecalciferol (vitamin D3) 50 mcg (2,000 unit) capsule 1,000 units PO BID Check with primary doctor 10/15/16 [History Last Taken 08/29/22] aspirin 81 mg tablet,delayed release (Adult Low Dose Aspirin) 81 mg PO QHS Check with primary doctor 12/21/18 [History Last Taken 08/28/22] carbidopa 25 mg-levodopa 100 mg tablet 1.5 tab PO TID Check with primary doctor 07/23/20 [History Last Taken 08/29/22] cyanocobalamin (vitamin B-12) 100 mcg tablet 1,000 mcg PO BID Check with primary doctor 12/03/20 [History Last Taken 08/29/22] carbidopa ER 50 mg-levodopa 200 mg tablet,extended release 1 tab PO QHS Check with primary doctor 04/19/21 [History Last Taken 08/28/22] citalopram 40 mg tablet 40 mg PO QHS Check with primary doctor 04/19/21 [History Last Taken 08/29/22] melatonin 3 mg tablet 6 mg PO HS Check with primary doctor 04/19/21 [History Last Taken 08/28/22] metoprolol succinate 25 mg tablet,extended release 24 hr 25 mg PO 1200 Check with primary doctor 05/19/22 [History Last Taken 08/29/22] sennosides 8.6 mg-docusate sodium 50 mg tablet (Senexon-S) 1 tab-cap PO TIDCM Check with primary doctor 05/19/22 [History Last Taken 08/29/22] lorazepam 0.5 mg tablet (Ativan) 0.5 mg PO Q4H PRN PRN Anxiety 08/29/22 [History Last Taken 08/29/22] losartan 50 mg tablet 50 mg PO DAILY Check with primary doctor 08/29/22 [History Last Taken 08/29/22] zinc 50 mg capsule 50 mg PO DAILY Check with primary doctor 08/29/22 [History Last Taken 08/28/22] Allergy/AdvReac Type Severity Reaction Status Date / Time iodine Allergy Hives Verified 08/29/22 17:34 latex Allergy Rash Verified 08/29/22 17:34 rotigotine [From Neupro] Allergy Rash Verified 08/29/22 17:34 shellfish derived Allergy Hives Verified 08/29/22 17:34 Sulfa (Sulfonamide Allergy Hives Verified 08/29/22 17:34 Antibiotics) [id number]-[id number] Reductase AdvReac Severe Myalgias, Verified 08/29/22 17:34 Inhibitor muscle [Sjaogev-Osm-Mxx Reductase cramps, Inhibitor] poor balance diltiazem AdvReac Rash Verified 08/29/22 17:34 Family History Brother Heart disease Surgical History History of bowel resection History of gastric surgery History of lumpectomy Social History Smoking Status: Never smoker alcohol intake: never substance use type: does not use ROS Constitutional Constitutional: Denies fever(s) or weight loss Eyes Eyes: Reports systems reviewed and no addt'l complaints, except as documented ENT HEENT: Reports systems reviewed and no addt'l complaints, except as documented Cardiovascular Cardiovascular: Denies chest pain at rest, chest pain with activity, dyspnea at rest, dyspnea on exertion, edema, palpitations or paroxysmal nocturnal dyspnea Respiratory/Chest Respiratory/Chest: Denies dyspnea on exertion, productive cough, shortness of breath at rest or shortness of breath with exertion Gastrointestinal Gastrointestinal: Denies change in bowel habits, nausea, vomiting or weight changes Genitourinary Genitourinary: Denies difficulty urinating Musculoskeletal Musculoskeletal: Denies joint stiffness or muscle weakness Integumentary Integumentary: Denies lesions Neurologic Neurologic: Denies dizziness or syncope Psychiatric Psychiatric: Denies anxiety Endocrine Endocrinology: Denies excessive sweating or fatigue Hematologic/Lymphatic Hematologic/Lymphatic: Denies anemia Allergic/Immunologic Allergic/Immunologic: Denies seasonal rhinorrhea Physical Exam Const alert, oriented x3 and no apparent distress General Appearance: cooperative HEENT hearing grossly normal bilaterally Head and Scalp: atraumatic Eyes EOMs intact bilaterally Neck General: normal visual inspection Chest inspection of chest normal and palpation of chest normal Resp normal respiratory effort Auscultation: clear to auscultation bilaterally Cardio S1 normal heart sound and S2 normal heart sound Jugular Venous Distention: JVD Rhythm: abnormal rhythm irregularly irregular GI normal to inspection, nondistended, normoactive bowel sounds Extremity normal capillary refill and no pedal edema Peripheral Pulses: Yes pulses 2+ throughout and femoral pulses present Skin no rashes or lesions noted Neuro oriented x3 and CN's II-XII intact bilaterally Psych Appearance: grossly normal and appropriate Risk Stratification Risk Stratification Applicable: No Objective Data Vital Signs: Vital Signs Temp Pulse Resp BP Pulse Ox O2 Del Method O2 Flow Rate 98.3 F 121 H 17 67/54 L 98 Nasal Cannula 2 08/31/22 07:20 08/31/22 08:31 08/31/22 08:00 08/31/22 08:31 08/31/22 08:31 08/31/22 08:31 08/31/22 08:31 Oxygen Flow Rate (L/min) 2 Oxygen Delivery Method Nasal Cannula Weight: 147 lb 14.883 oz Body Mass Index (BMI) 23.8 Intake & Output: Intake and Output for Last 24 Hours 08/29/22 08/30/22 08/31/22 23:59 23:59 23:59 Intake Total 705 / 705 1798.75 / 1798.75 3105.28 / 3105.28 Output Total 100 / 100 100 / 100 Balance 705 / 705 1698.75 / 1698.75 3005.28 / 3005.28 Lab / Micro Data Result Diagrams: 08/31/22 06:15 08/31/22 05:25 Labs: Laboratory Results - last 24 hr 08/31/22 05:25: WBC 10.6, RBC 3.73 L, Hgb 12.0, Hct 38.8, MCV 104.0 H D, MCH 32.2 H, MCHC 30.9 L D, RDW Std Deviation 49.6 H, RDW Coeff of Patience 12.9, Plt Count 138 L, MPV 10.3 08/31/22 05:25: Sodium 138, Potassium 4.2, Chloride 105, Carbon Dioxide 22.0, Anion Gap 11, BUN 37 H, Creatinine 1.63 H, Estim Creat Clear Calc 27.49, Est GFR (MDRD) Af Amer 39 L, Est GFR (MDRD) Non-Af 33 L, BUN/Creatinine Ratio 22.7 H, Glucose 225 H, Calcium 8.4 L 08/31/22 05:25: Magnesium 2.1, Troponin I High Sens 654 H* 08/31/22 06:15: Hgb 12.3, Hct 40.0 08/31/22 06:25: Troponin I High Sens 605 H*, TSH 1.49 08/31/22 06:25: PT 15.5 H, INR 1.3, APTT 36.3 H Cardiology Labs/Tests 08/31/22 05:25: WBC 10.6, RBC 3.73 L, Hgb 12.0, Hct 38.8, MCV 104.0 H D, MCH 32.2 H, MCHC 30.9 L D, Plt Count 138 L, MPV 10.3 08/31/22 05:25: Sodium 138, Potassium 4.2, Chloride 105, Carbon Dioxide 22.0, Anion Gap 11, BUN 37 H, Creatinine 1.63 H, Est GFR (MDRD) Af Amer 39 L, Est GFR (MDRD) Non-Af 33 L, BUN/Creatinine Ratio 22.7 H, Glucose 225 H, Calcium 8.4 L 08/31/22 05:25: Magnesium 2.1 08/31/22 06:15: Hgb 12.3, Hct 40.0 08/31/22 06:25: PT 15.5 H, INR 1.3, APTT 36.3 H Rhythm: EKG: ECHO: Stress Test: Cardiac Cath: PCI: CT Surgery: Holter monitor: EPS: PPM: CXR: Chest CT Scan: Radiography Diagnostic Testing: Radiology Impression Hip X-Ray 08/30/22 18:34 IMPRESSION: Status post left hip hemiarthroplasty. Electronically Signed: Jay Metcalf DO at 18:50 EDT , Brain CT 08/31/22 04:36 IMPRESSION: No significant interval change. Atrophy and chronic small vessel ischemic changes again noted. No acute findings in the head/brain. Electronically Signed: Adarsh Shin MD at 5:11 EDT ,
[2022-08-31] MEDS: DiphenhydrAMINE 50 MG/ML Syringe IV (09:43)
[2022-08-31] MEDS: 0.9% Saline Lock 10 ML Syringe IV (09:43)
--- NOTE | 2022-08-31 10:18 | NURSING ---
Unable to complete NIHSS, as pt does not respond to commands. MD notified.
--- NOTE | 2022-08-31 10:50 | NURSING ---
Report called to Afsaneh in ICU
[2022-08-31 11:25] LABS: Bedside Glucose 180 mg/dL (74-106)
[2022-08-31 11:25] LABS: Troponin-I HS 755 pg/mL (3.0-54.0)
[2022-08-31 11:51] LABS: Allen Test Positive; Base Excess -5 mmol/L (-2 to +2); Bicarbonate 20.4 mmol/L (22-26); Blood Gas Specimen Type ART; O2 Delivery Device Cannula; PO2 90 mmHG (75-100); SITE L Radial; SO2 97 % (95-99); Total Carbon Dioxide 22 mmol/L; pCO2 37.8 mmHg (35-45); pH 7.34 (7.35-7.45)
--- NOTE | 2022-08-31 12:04 | CT_ITS ---
STUDY: CTA CHEST REASON FOR EXAM: Female, 76 years old. Pulmonary embolism RADIATION DOSAGE (If Supplied By Facility): CTDIvol = ( 16.99 ) mGy, DLP = ( 393.96 ) mGycm TECHNIQUE: The examination was performed with the intravenous administration of IV 100mL Isovue-370. Post-processing of the angiographic images was performed, with multiplanar reformation and 3D reconstruction. Individualized dose optimization techniques were used for this CT. COMPARISON: None. FINDINGS: Several small intraluminal filling defects are seen in branches of the right lower lobe pulmonary artery suggestive of a pulmonary emboli. There is atherosclerotic calcification of the aortic arch with tortuosity. There is no demonstrated aortic dissection. There are calcifications of the coronary arteries. Normal mediastinum. Normal hilar regions. Normal visualized trachea and bronchi. The lungs are well expanded. Small bilateral pleural effusions right greater than left with increased markings at the lung bases suggestive of atelectasis and/or scarring. There is a 3.4 cm x 2.6 cm bulla in the posterior aspect of the lingular segment of the left upper lobe abutting the left major fissure. Normal chest wall structures. There are degenerative changes of thoracic spine. Normal visualized upper abdomen. CT/CTA Chest W/WO Contrast IMPRESSION: Evidence of pulmonary embolism in branches of the right lower lobe pulmonary artery. Small bilateral pleural effusions right greater than left with bibasilar atelectasis and/or infiltrates. Electronically Signed: Ismael Taveras MD at 12:27 EDT ,
--- NOTE | 2022-08-31 12:07 | EX.PCM.CONCC ---
Assessment & Plan Assessment/Plan (1) Shock: PLAN: Plan RECOMMENDATIONS: 1. Continue Levophed to maintain a mean arterial pressure at or above 65 mmHg. 2. Obtain CTA chest to rule out pulmonary embolism. 3. Obtain MRI brain. 4. We will obtain arterial blood gas. 5. Echocardiogram is pending. 6. Start continuous IV fluids per order. 7. Avoid administration of sedating medications. IMPRESSIONS: 1. Undifferentiated shock The patient was initially admitted to the hospital with a left hip displaced femoral neck fracture and underwent left hip hemiarthroplasty on August 30. During the mobile home park manager hours of August 31, the patient was found to be far less responsive with associated hypotension and atrial fibrillation with RVR. The patient's hypotension did necessitate transient use of low-dose Levophed for stabilization. The exact etiology for her hypotension is not entirely clear. However, I cannot discount the possibility of hypovolemia, cardiogenic etiologies or pulmonary embolism. The patient will be maintained on low-dose Levophed as tolerated to maintain a mean arterial pressure at or above 65 mmHg. 2. Encephalopathy Unclear etiology. May be secondary to global tissue hypoperfusion in the setting of #1. Continue supportive measures as noted above. Obtain arterial blood gas, especially given apneic events noted on exam. MRI brain is currently pending. 3. Acute kidney injury Most likely prerenal etiology. Recommend continuing supplemental IV fluids for now. We will continue to monitor urine output. No current indication for renal replacement therapy. 4. Left hip femoral neck fracture status post left hip hemiarthroplasty Continue routine postoperative care per orthopedic surgery recommendations. 5. Paroxysmal atrial fibrillation/troponin elevation Likely secondary to demand ischemia in the setting of #1. However, I cannot discount the possibility of an acute cardiac etiology. Therefore, I agree with obtaining an echocardiogram. Continue amiodarone for rate control. Cardiology is following to assist with medical management. TIME: 33 minutes of critical care time, independent of procedures, was spent addressing the patient's undifferentiated shock, encephalopathy, acute kidney injury, femoral neck fracture, review of all data and collaboration with the care team. HPI Consult Data Date of Consult: 09/01/22 HPI Narrative Reason for Consultation: Undifferentiated shock HPI Narrative: The patient is a 76-year-old female, with a history as outlined below, who presented to the emergency department via EMS on August 29 after sustaining a mechanical fall. The patient has a history of advanced Parkinson's and was apparently on home hospice care services. Work-up in the ED demonstrated a mildly displaced fracture of the left femoral neck. The patient was seen in consultation by orthopedic surgery and was taken to the OR on August 30 for a left hip cemented hemiarthroplasty. The patient's intraoperative course was uncomplicated. She returned to the progressive care unit following her surgery. During the mobile home park manager hours of August 31, the patient was noted to be less responsive. Evaluation by the overnight provider revealed that the patient was hypotensive and was in atrial fibrillation with a rapid ventricular rate. The patient was taken for a stat CT head which revealed no acute intracranial findings. The patient last received IV morphine yesterday morning. No other sedating medications have been administered recently. Laboratory work-up this morning revealed an elevated creatinine of 1.63. Troponin was elevated at 605. The patient was placed on an amiodarone infusion and started empirically on a heparin drip over concerns for potential pulmonary embolism as the precipitating etiology for her hypotension. The patient's CODE STATUS was updated to DNR CCA, per family request. On account of the patient's persistent hypotension, she was transferred to the medical intensive care unit to be initiated on vasopressor support. On my evaluation of the patient in the ICU, the patient remained minimally responsive to verbal stimulation. Her blood pressures stabilized with low-dose Levophed. [facility] Medical History Atrial fibrillation with RVR Breast cancer CHI (closed head injury) Diverticulosis Elevated troponin Essential hypertension Fall History of left heart catheterization (LHC) (~10/28/19) Non-smoker NSTEMI (non-ST elevated myocardial infarction) (~10/25/19) Parkinson disease Parkinson disease Paroxysmal atrial fibrillation Pyloric stenosis SBO (small bowel obstruction) TIA (transient ischemic attack) Home Medications cholecalciferol (vitamin D3) 50 mcg (2,000 unit) capsule 1,000 units PO BID Check with primary doctor 10/15/16 [History Last Taken 08/29/22] aspirin 81 mg tablet,delayed release (Adult Low Dose Aspirin) 81 mg PO QHS Check with primary doctor 12/21/18 [History Last Taken 08/28/22] carbidopa 25 mg-levodopa 100 mg tablet 1.5 tab PO TID Check with primary doctor 07/23/20 [History Last Taken 08/29/22] cyanocobalamin (vitamin B-12) 100 mcg tablet 1,000 mcg PO BID Check with primary doctor 12/03/20 [History Last Taken 08/29/22] carbidopa ER 50 mg-levodopa 200 mg tablet,extended release 1 tab PO QHS Check with primary doctor 04/19/21 [History Last Taken 08/28/22] citalopram 40 mg tablet 40 mg PO QHS Check with primary doctor 04/19/21 [History Last Taken 08/29/22] melatonin 3 mg tablet 6 mg PO HS Check with primary doctor 04/19/21 [History Last Taken 08/28/22] metoprolol succinate 25 mg tablet,extended release 24 hr 25 mg PO 1200 Check with primary doctor 05/19/22 [History Last Taken 08/29/22] sennosides 8.6 mg-docusate sodium 50 mg tablet (Senexon-S) 1 tab-cap PO TIDCM Check with primary doctor 05/19/22 [History Last Taken 08/29/22] lorazepam 0.5 mg tablet (Ativan) 0.5 mg PO Q4H PRN PRN Anxiety 08/29/22 [History Last Taken 08/29/22] losartan 50 mg tablet 50 mg PO DAILY Check with primary doctor 08/29/22 [History Last Taken 08/29/22] zinc 50 mg capsule 50 mg PO DAILY Check with primary doctor 08/29/22 [History Last Taken 08/28/22] Allergy/AdvReac Type Severity Reaction Status Date / Time iodine Allergy Hives Verified 08/29/22 17:34 latex Allergy Rash Verified 08/29/22 17:34 rotigotine [From Neupro] Allergy Rash Verified 08/29/22 17:34 shellfish derived Allergy Hives Verified 08/29/22 17:34 Sulfa (Sulfonamide Allergy Hives Verified 08/29/22 17:34 Antibiotics) Ricfoup-AAK-TeS Reductase AdvReac Severe Myalgias, Verified 08/29/22 17:34 Inhibitor muscle [Wyirgxs-[id number]-Mcm Reductase cramps, Inhibitor] poor balance diltiazem AdvReac Rash Verified 08/29/22 17:34 Family History Brother Heart disease Surgical History History of bowel resection History of gastric surgery History of lumpectomy Social History Smoking Status: Never smoker alcohol intake: never substance use type: does not use ROS Review of Systems ROS Unobtainable: due to mental status Physical Exam Const Constitutional Narrative: Lethargic. Minimally responsive to verbal stimulation. HEENT normocephalic and head/scalp atraumatic Eyes PERRL and EOMs intact bilaterally Neck supple General: trachea midline Chest inspection of chest normal Resp Resp Narrative: The patient is demonstrating frequent periods of apneic episodes. Auscultation: diminished lung sounds Cardio S1 normal heart sound and S2 normal heart sound Rhythm: abnormal rhythm GI normal to inspection, nondistended, normoactive bowel sounds Extremity no clubbing, cyanosis or edema Skin no rashes or lesions noted Neuro Neuro Narrative: Minimally responsive to verbal stimulation. Lab / Micro Data Result Diagrams: 09/01/22 04:35 08/31/22 05:25 Labs: Laboratory Results - last 24 hr 08/31/22 04:22: POC Glucose 180 H 08/31/22 05:25: WBC 10.6, RBC 3.73 L, Hgb 12.0, Hct 38.8, MCV 104.0 H D, MCH 32.2 H, MCHC 30.9 L D, RDW Std Deviation 49.6 H, RDW Coeff of Patience 12.9, Plt Count 138 L, MPV 10.3 08/31/22 05:25: Sodium 138, Potassium 4.2, Chloride 105, Carbon Dioxide 22.0, Anion Gap 11, BUN 37 H, Creatinine 1.63 H, Estim Creat Clear Calc 27.49, Est GFR (MDRD) Af Amer 39 L, Est GFR (MDRD) Non-Af 33 L, BUN/Creatinine Ratio 22.7 H, Glucose 225 H, Calcium 8.4 L 08/31/22 05:25: Magnesium 2.1, Troponin I High Sens 654 H* 08/31/22 06:15: Hgb 12.3, Hct 40.0 08/31/22 06:25: Troponin I High Sens 605 H*, TSH 1.49 08/31/22 06:25: PT 15.5 H, INR 1.3, APTT 36.3 H 08/31/22 10:44: Troponin I High Sens 755 H* ABG Data ABG results: ABG 08/31/22 11:44 Specimen Type ART Sample Site L Radial pH 7.34 L Bicarbonate Actual 20.4 L Total CO2 22 Base Excess -5 L O2 Saturation 97 ABG pCO2 37.8 ABG pO2 90 Bj Test Positive O2 Delivery Device Cannula Liter Flow 4.0 Radiology Impression Hip X-Ray 08/30/22 18:34 IMPRESSION: Status post left hip hemiarthroplasty. Electronically Signed: Jay Metcalf DO at 18:50 EDT , Brain CT 08/31/22 04:36 IMPRESSION: No significant interval change. Atrophy and chronic small vessel ischemic changes again noted. No acute findings in the head/brain. Electronically Signed: Adarsh Shin MD at 5:11 EDT , Carotid Duplex 08/31/22 06:11 Interpretation Summary Intimal thickening at the proximal bilateral internal carotid arteries with a less than 50% stenosis. Less than 50% stenosis bilateral external carotid arteries Patent and antegrade vertebral arteries bilaterally Arterial flow rates generally bilaterally are noted to be low. Clinical correlation with cardiac output would be appropriate. The examination was noted to be technically difficult. Ordering Physician: Chantell Barba Referring Physician: Edna Bonner Performed By: Jodie Ly RVT Charges/Coding Procedures Hospitalists Procedures: [id number] [facility]
[2022-08-31] MEDS: Aspirin 300 MG Suppository RC (12:19)
--- NOTE | 2022-08-31 13:35 | PN_ITS ---
Subjective Subjective Patient seen and examined. Patient had left hip cemented hemiarthroplasty for left hip displaced femoral neck fracture. Postop course was complicated early this down by rapid response on account of patient being found unresponsive. She was noted to have a markedly elevated heart rate. She was also hypotensive with systolic blood pressure in the 70s and EKG showed A-fib with RVR. She was started on amiodarone drip and hydrated with IV fluids. CT of the brain showed no acute intracranial pathology. Troponins were elevated but at the time of the rapid response family declined any further intervention and cardiology consults. Objective Data Objective Data Vital Signs: Vital Signs Temp Pulse Resp BP Pulse Ox O2 Del Method O2 Flow Rate 97.7 F L 130 H 16 105/64 100 Nasal Cannula 4 08/31/22 12:00 08/31/22 13:00 08/31/22 13:00 08/31/22 13:15 08/31/22 13:00 08/31/22 13:00 08/31/22 13:00 Oxygen Flow Rate (L/min) 4 Oxygen Delivery Method Nasal Cannula Weight: 147 lb 14.883 oz Body Mass Index (BMI) 23.8 Intake & Output: Intake and Output for Last 24 Hours 08/29/22 08/30/22 08/31/22 23:59 23:59 23:59 Intake Total 705 / 705 1798.75 / 1798.75 3638.61 / 3638.61 Output Total 100 / 100 100 / 100 Balance 705 / 705 1698.75 / 1698.75 3538.61 / 3538.61 Lab / Micro Data Result Diagrams: 08/31/22 06:15 08/31/22 05:25 Labs: Laboratory Results - last 24 hr 08/31/22 04:22: POC Glucose 180 H 08/31/22 05:25: WBC 10.6, RBC 3.73 L, Hgb 12.0, Hct 38.8, MCV 104.0 H D, MCH 32.2 H, MCHC 30.9 L D, RDW Std Deviation 49.6 H, RDW Coeff of Patience 12.9, Plt Count 138 L, MPV 10.3 08/31/22 05:25: Sodium 138, Potassium 4.2, Chloride 105, Carbon Dioxide 22.0, Anion Gap 11, BUN 37 H, Creatinine 1.63 H, Estim Creat Clear Calc 27.49, Est GFR (MDRD) Af Amer 39 L, Est GFR (MDRD) Non-Af 33 L, BUN/Creatinine Ratio 22.7 H, Glucose 225 H, Calcium 8.4 L 08/31/22 05:25: Magnesium 2.1, Troponin I High Sens 654 H* 08/31/22 06:15: Hgb 12.3, Hct 40.0 08/31/22 06:25: Troponin I High Sens 605 H*, TSH 1.49 08/31/22 06:25: PT 15.5 H, INR 1.3, APTT 36.3 H 08/31/22 10:44: Troponin I High Sens 755 H* 08/31/22 13:00: APTT Cancelled Micro: Microbiology 08/29/22 23:56 Nasal Secretion SARS-CoV-2 Antigen (Rapid) - Final ABG Data ABG results: ABG 08/31/22 11:44 Specimen Type ART Sample Site L Radial pH 7.34 L Bicarbonate Actual 20.4 L Total CO2 22 Base Excess -5 L O2 Saturation 97 ABG pCO2 37.8 ABG pO2 90 Bj Test Positive O2 Delivery Device Cannula Liter Flow 4.0 Radiography Diagnostic Testing: Radiology Impression Hip X-Ray 08/30/22 18:34 IMPRESSION: Status post left hip hemiarthroplasty. Electronically Signed: Jay Metcalf DO at 18:50 EDT Reading Location ID and State: [facility] / [place] Tel [phone], Service support , Brain CT 08/31/22 04:36 IMPRESSION: No significant interval change. Atrophy and chronic small vessel ischemic changes again noted. No acute findings in the head/brain. Electronically Signed: Adarsh Shin MD at 5:11 EDT , Carotid Duplex 08/31/22 06:11 Interpretation Summary Intimal thickening at the proximal bilateral internal carotid arteries with a less than 50% stenosis. Less than 50% stenosis bilateral external carotid arteries Patent and antegrade vertebral arteries bilaterally Arterial flow rates generally bilaterally are noted to be low. Clinical correlation with cardiac output would be appropriate. The examination was noted to be technically difficult. Ordering Physician: Chantell Barba Referring Physician: Edna Bonner Performed By: Jodie Ly, RVT Chest CTA 08/31/22 12:04 IMPRESSION: Evidence of pulmonary embolism in branches of the right lower lobe pulmonary artery. Small bilateral pleural effusions right greater than left with bibasilar atelectasis and/or infiltrates. Electronically Signed: Ismael Taveras MD at 12:27 EDT , Physical Exam Const Constitutional Narrative: Lethargic, minimally responsive. HEENT normocephalic, head/scalp atraumatic and moist oral mucous membranes Eyes PERRL and EOMs intact bilaterally Neck no lymphadenopathy and supple Lymph Lymphatic: no lymphadenopathy noted and no lymphedema noted Resp Resp Narrative: Mildly diminished breath sounds bibasally. No wheezes or crackles. On 2 L of oxygen. Cardio Cardio Narrative: A-fib with RVR GI normal to inspection, nondistended, normoactive bowel sounds, soft to palpation and non-tender Extremity normal capillary refill Extremity Narrative: Intact dressing over left hip. Skin General Skin Exam: no breakdown Neuro Neuro Narrative: Patient opens her eyes and respond to voice but not answering questions. Assessment & Plan Assessment/Plan (1) Shock: (2) Paroxysmal atrial fibrillation: (3) Pulmonary embolism: (4) Fracture of left hip: (5) Hx of Parkinson's disease: PLAN: Plan #Undifferentiated shock * Patient developed A-fib with RVR at this morning became unresponsive. CT of the brain showed no acute intracranial pathology. * She was started on amiodarone drip. Blood pressure was not in the 60s. She was hydrated with IV fluids. Blood pressure still remains low. * Troponins were also elevated. CTA of the chest done today showed evidence of filling defects in the right pulmonary artery area * patient transferred to ICU due to shock not responding to fluids * start levophed to maintain MAP>75 * band head saw operator consulted * 2D echo ordered * #?massive Pulmonary embolism * as mentioned above, went into afib with RVR and awas also hypotensive, with elevated troponins * CTA chest done today showed evidence of pulmonary embolism in branches of the right lower lobe pulmonary artery. * 2D echo showed EF of 55% with no regional wall motion abnormalities noted and normal left ventricular systolic function with pulmonary artery systolic pressure of 36 mmHg. * Currently on heparin drip. We will continue. * Patient transferred to ICU on account of shock. #Nonstemi * Patient had elevated troponin of 654 at time of response was called which trended down slightly to 605 but then went up to 755. * Cardiology consulted. This may be type II non-STEMI due to hypotension and can also be explained by the PE. * 2D echo as above. * Per cardiology no active intervention like cardiac cath #left femoral neck fracture due to mechanical fall * orthopedic surgery on board * s/p left hemiarthroplasty * today is POD 1 * PT.OT on board * fall precautions * on PO tylenol, PO oxycodone and IV morphine prn for pain * #Parkinson's disease * Was in hospice care on account of this but this has been revoked now as she would require surgery for the left hip fracture. * Family would wanted to go back on hospice after hip is repaired. * On levodopa carbidopa * #Hypertension: On losartan and metoprolol Paroxysmal A-fib: On metoprolol not anticoagulated likely due to history of falls. #Depression: On citalopram DVT prophylaxis: not indicated as patient is on heparin drip CODE STATUS: DNR CCA. I had an extensive discussion with patient's , daughter, son, her 2 sisters as well as a niece who are in patient's room. We explained that patient had been DNR CC but they would want her treated for the current developments including the non-STEMI and PE in the as well as the probable stroke. They wanted to get MRI and would want cardiology consults. They were agreeable to patient being transferred to the ICU for higher level of care but were adamant that patient had never wanted to be intubated or undergo CPR. After explaining the different types of CODE STATUS including full code, DNR CCA and DNR CC, family opted for patient to be made DNRCCA no intubation. Charges/Coding Visit Charges Inpatient E&M: 34436 Subs Hosp L3
[2022-08-31] MEDS: Digoxin 250 MCG/ML Ampul 500 MCG IV (13:38)
[2022-08-31] MEDS: 0.9% Normal Saline 1,000 ML 100 ML IV (13:38)
[2022-08-31 14:19] LABS: Partial Thromboplast Time > 200.0 Seconds (24.1-36.2)
--- NOTE | 2022-08-31 14:35 | NURSING ---
Difficulty assessing NIH d/t pt being obtunded.
[2022-08-31 16:55] LABS: Bedside Glucose 174 mg/dL (74-106)
[2022-08-31 22:18] LABS: Partial Thromboplast Time 76.6 Seconds (24.1-36.2)
[2022-09-01] VITALS (32 sets, daily range): BP systolic 120–181; BP diastolic 79–131; PULSE 86–133; RESP 12–22; TEMP 36.5–37.9; O2SAT 88–100; BMI 23.8; BMI 27.6
[2022-09-01] MEDS: 0.9% Saline Lock 10 ML Syringe IV ×4 (00:04→22:24)
[2022-09-01] MEDS: 0.9% Normal Saline 1,000 ML 100 ML IV ×3 (00:04→20:42)
[2022-09-01 04:47] LABS: Hematocrit 39.4 % (37-47); Hemoglobin 12.3 g/dL (12.0-15.0); Mean Corp Hgb Conc 31.2 g/dL (32-36); Mean Corpuscular Hgb 31.9 pg (27.0-32.0); Mean Corpuscular Volume 102.3 fL (81-99); Mean Platelet Vol. 10.5 fl (6.2-12.0); Platelet Count 154 K/mm3 (150-450); RBC Distribution Width CV 12.9 % (11.6-14.6); RBC Distribution Width SD 48.5 fl (35.1-43.9); Red Blood Count 3.85 M/mm3 (4.2-5.4); White Blood Count 10.4 K/mm3 (4.4-11.0)
[2022-09-01 05:08] LABS: Cholesterol 142 mg/dL (200); High Density Lipoprotein 48 mg/dL; Triglycerides 92 mg/dL; Very Low Density Lipoprotein 18 mg/dL (5-40)
[2022-09-01 05:21] LABS: Partial Thromboplast Time 134.8 Seconds (24.1-36.2)
[2022-09-01] MEDS: Amiodarone 360 MG in Dextrose 5% Viaflo Bag 192.8 ML 16.7 MG CONT INF ×2 (05:51→15:53)
--- NOTE | 2022-09-01 07:26 | PN.CC_ITS ---
Assessment & Plan Assessment/Plan (1) Shock: PLAN: Plan RECOMMENDATIONS: 1. Complete neuro work-up with MRI brain. 2. Avoid sedating medications. 3. Continue heparin infusion. 4. Gentle IV fluid hydration. 5. Encourage incentive spirometer use and mobilize patient as tolerated. 6. The patient is medically stable for transfer out of the intensive care unit. IMPRESSIONS: 1. Undifferentiated shock The patient was initially admitted to the hospital with a left hip displaced femoral neck fracture and underwent left hip hemiarthroplasty on August 30. During the director of distribution hours of August 31, the patient was found to be far less responsive with associated hypotension and atrial fibrillation with RVR. The patient's hypotension did necessitate transient use of low-dose Levophed for stabilization. The exact etiology for her hypotension is not entirely clear. However, I do suspect that it is far more likely that hypovolemia contributed to her hypotension. While the patient did have a right lower lobe pulmonary embo lism, the clot burden was not significant enough to cause significant hemodynamic perturbations. Echocardiogram revealed preserved ejection fraction. The patient remains hemodynamically stable this morning off of vasopressor support. 2. Encephalopathy Unclear etiology. Likely secondary to global tissue hypoperfusion in the setting of #1. Continue supportive measures as noted above. Patient is far more alert and interactive this morning. MRI brain is pending. 3. Acute kidney injury Most likely prerenal etiology. Recommend continuing supplemental IV fluids for now. We will continue to monitor urine output. No current indication for renal replacement therapy. 4. Left hip femoral neck fracture status post left hip hemiarthroplasty Continue routine postoperative care per orthopedic surgery recommendations. 5. Paroxysmal atrial fibrillation/troponin elevation Likely secondary to demand ischemia in the setting of #1. Echocardiogram revealed preserved ejection fraction. Continue amiodarone for rate control. Cardiology is following to assist with medical management. This note was generated with [employer] dictation software. It may contain incorrect words, spelling, and punctuation that were not noted in checking the note before signing. Subjective Subjective The patient was seen and examined at the bedside this morning. Events from the last 24 hours have been reviewed. The patient is currently afebrile, hemodynamically stable and maintaining appropriate oxygen saturations on 1 L/min via nasal cannula. The patient is much more alert this morning, although she does remain confused. CT imaging of the chest yesterday demonstrated findings of pulmonary embolism. The patient was only very transiently on vasopressor support. Objective Data Objective Data The patient's most recent lab work, culture data and imaging studies have all been personally reviewed. Surface echocardiogram demonstrated moderate co ncentric LVH with an ejection fraction of 55%. CTA chest demonstrated pulmonary embolism in the right lower lobe and small bilateral pleural effusions. Vital Signs: Vital Signs Temp Pulse Resp BP Pulse Ox O2 Del Method O2 Flow Rate 97.8 F 109 H 14 131/108 H 97 Nasal Cannula 1 09/01/22 06:00 09/01/22 07:00 09/01/22 07:00 09/01/22 07:00 09/01/22 07:00 09/01/22 07:00 09/01/22 07:00 Oxygen Flow Rate (L/min) 1 Oxygen Delivery Method Nasal Cannula Weight: 170 lb 13.732 oz Body Mass Index (BMI) 27.6 Intake & Output: Intake and Output for Last 24 Hours 08/30/22 08/31/22 09/01/22 23:59 23:59 23:59 Intake Total 1798.75 / 1798.75 4009.68 / 4009.68 1227.03 / 1227.03 Output Total 100 / 100 100 / 100 350 / 350 Balance 1698.75 / 1698.75 3909.68 / 3909.68 877.03 / 877.03 Lab / Micro Data Attestation: I reviewed the patient's lab results. Result Diagrams: 09/01/22 04:35 09/01/22 04:35 Labs: Laboratory Results - last 24 hr 08/31/22 04:22: POC Glucose 180 H 08/31/22 10:44: Troponin I High Sens 755 H* 08/31/22 13:00: APTT Cancelled 08/31/22 13:37: APTT > 200.0 H* 08/31/22 16:32: POC Glucose 174 H 08/31/22 22:03: APTT 76.6 H 09/01/22 04:35: WBC 10.4, RBC 3.85 L, Hgb 12.3, Hct 39.4, MCV 102.3 H, MCH 31.9, MCHC 31.2 L, RDW Std Deviation 48.5 H, RDW Coeff of Patience 12.9, Plt Count 154, MPV 10.5 09/01/22 04:35: Triglycerides 92, Cholesterol 142, LDL Cholesterol 76, VLDL Cholesterol 18, HDL Cholesterol 48 09/01/22 04:35: APTT 134.8 H* Micro: Microbiology 08/29/22 23:56 Nasal Secretion SARS-CoV-2 Antigen (Rapid) - Final ABG Data ABG results: ABG 08/31/22 11:44 Specimen Type ART Sample Site L Radial pH 7.34 L Bicarbonate Actual 20.4 L Total CO2 22 Base Excess -5 L O2 Saturation 97 ABG pCO2 37.8 ABG pO2 90 Bj Test Positive O2 Delivery Device Cannula Liter Flow 4.0 Radiography Diagnostic Testing: Radiology Impression Carotid Duplex 08/31/22 06:11 Interpretation Summary Intimal thickening at the proximal bilateral internal carotid arteries with a less than 50% stenosis. Less than 50% stenosis bilateral external carotid arteries Patent and antegrade vertebral arteries bilaterally Arterial flow rates generally bilaterally are noted to be low. Clinical correlation with cardiac output would be appropriate. The examination was noted to be technically difficult. Ordering Physician: Chantell Barba Referring Physician: Edna Bonner Performed By: Jodie Ly RVT Echocardiogram 08/31/22 06:11 Interpretation Summary Left ventricular systolic function is normal. Decreased RV systolic function more prominent in the apex. Moderate concentric left ventricular hypertrophy. The estimated ejection fraction is 55 %. Normal LV size. Pulmonary artery systolic pressure is 36 mmHg. Ordering Physician: Chantell Barba Referring Physician: EDNA BONNER Performed By: Mely, Danyell, RDCS Chest CTA 08/31/22 12:04 IMPRESSION: Evidence of pulmonary embolism in branches of the right lower lobe pulmonary artery. Small bilateral pleural effusions right greater than left with bibasilar atelectasis and/or infiltrates. Electronically Signed: Ismael Taveras MD at 12:27 EDT , Physical Exam Const alert and no apparent distress Orientation / Consciousness: confused and disoriented HEENT normocephalic and head/scalp atraumatic Eyes PERRL and EOMs intact bilaterally Neck supple General: trachea midline Chest inspection of chest normal Resp normal respiratory effort Auscultation: diminished lung sounds; Negative for rales, rhonchi or wheezes Cardio S1 normal heart sound and S2 normal heart sound Rate: tachycardic Rhythm: abnormal rhythm GI normal to inspection, nondistended, normoactive bowel sounds Extremity no clubbing, cyanosis or edema Skin no rashes or lesions noted Neuro CN's II-XII intact bilaterally and no focal motor deficits Psych Mood & Affect: flat affect Charges/Coding Visit Charges Inpatient E&M: 02257 Subs Hosp L3
[2022-09-01 07:52] LABS: Anion Gap 11 (5-15); BUN 51 mg/dL (7-18); BUN/Creat Ratio 30.5 RATIO (10-20); Calcium,Total 8.4 mg/dL (8.5-10.1); Chloride 106 mmol/L (98-107); Creatinine, Serum 1.67 mg/dL (0.55-1.02); EST Glomerular Filtration Rate 32 mL/min (>60); Est Glom Filt Rate - Afr Amer 38 mL/min (>60); Estimated Creatinine Clearance 26.83 ml/min; Glucose 168 mg/dL (74-106); Potassium 4.2 mmol/L (3.5-5.1); Sodium Level 139 mmol/L (136-145)
--- NOTE | 2022-09-01 07:55 | PCM.PN.CARD ---
Subjective Subjective Patient seen and evaluated. Appears to be doing better this morning. Not on any pressors. Objective Data Vital Signs: Vital Signs Temp Pulse Resp BP Pulse Ox O2 Del Method O2 Flow Rate 97.8 F 109 H 14 131/108 H 97 Nasal Cannula 1 09/01/22 06:00 09/01/22 07:00 09/01/22 07:00 09/01/22 07:00 09/01/22 07:00 09/01/22 07:00 09/01/22 07:00 Oxygen Flow Rate (L/min) 1 Oxygen Delivery Method Nasal Cannula Weight: 170 lb 13.732 oz Body Mass Index (BMI) 27.6 Intake & Output: Intake and Output for Last 24 Hours 08/30/22 08/31/22 09/01/22 23:59 23:59 23:59 Intake Total 1798.75 / 1798.75 4009.68 / 4009.68 1227.03 / 1227.03 Output Total 100 / 100 100 / 100 350 / 350 Balance 1698.75 / 1698.75 3909.68 / 3909.68 877.03 / 877.03 Lab / Micro Data Result Diagrams: 09/01/22 04:35 09/01/22 04:35 Labs: Laboratory Results - last 24 hr 08/31/22 04:22: POC Glucose 180 H 08/31/22 10:44: Troponin I High Sens 755 H* 08/31/22 13:00: APTT Cancelled 08/31/22 13:37: APTT > 200.0 H* 08/31/22 16:32: POC Glucose 174 H 08/31/22 22:03: APTT 76.6 H 09/01/22 04:35: WBC 10.4, RBC 3.85 L, Hgb 12.3, Hct 39.4, MCV 102.3 H, MCH 31.9, MCHC 31.2 L, RDW Std Deviation 48.5 H, RDW Coeff of Patience 12.9, Plt Count 154, MPV 10.5 09/01/22 04:35: Triglycerides 92, Cholesterol 142, LDL Cholesterol 76, VLDL Cholesterol 18, HDL Cholesterol 48 09/01/22 04:35: APTT 134.8 H* 09/01/22 04:35: Sodium 139, Potassium 4.2, Chloride 106, Carbon Dioxide 22.0, Anion Gap 11, BUN 51 H, Creatinine 1.67 H, Estim Creat Clear Calc 26.83, Est GFR (MDRD) Af Amer 38 L, Est GFR (MDRD) Non-Af 32 L, BUN/Creatinine Ratio 30.5 H, Glucose 168 H, Calcium 8.4 L ABG Data ABG results: ABG 08/31/22 11:44 Specimen Type ART Sample Site L Radial pH 7.34 L Bicarbonate Actual 20.4 L Total CO2 22 Base Excess -5 L O2 Saturation 97 ABG pCO2 37.8 ABG pO2 90 Bj Test Positive O2 Delivery Device Cannula Liter Flow 4.0 Cardiology Labs/Tests 08/31/22 11:44: pH 7.34 L, Bicarbonate Actual 20.4 L, Base Excess -5 L, O2 Saturation 97, ABG pCO2 37.8, ABG pO2 90, Bj Test Positive 08/31/22 13:00: APTT Cancelled 08/31/22 13:37: APTT > 200.0 H* 08/31/22 22:03: APTT 76.6 H 09/01/22 04:35: WBC 10.4, RBC 3.85 L, Hgb 12.3, Hct 39.4, MCV 102.3 H, MCH 31.9, MCHC 31.2 L, Plt Count 154, MPV 10.5 09/01/22 04:35: Triglycerides 92, Cholesterol 142, LDL Cholesterol 76, VLDL Cholesterol 18, HDL Cholesterol 48 09/01/22 04:35: APTT 134.8 H* 09/01/22 04:35: Sodium 139, Potassium 4.2, Chloride 106, Carbon Dioxide 22.0, Anion Gap 11, BUN 51 H, Creatinine 1.67 H, Est GFR (MDRD) Af Amer 38 L, Est GFR (MDRD) Non-Af 32 L, BUN/Creatinine Ratio 30.5 H, Glucose 168 H, Calcium 8.4 L Rhythm: EKG: ECHO: Stress Test: Cardiac Cath: PCI: CT Surgery: Holter monitor: EPS: PPM: CXR: Chest CT Scan: Radiography Diagnostic Testing: Radiology Impression Carotid Duplex 08/31/22 06:11 Interpretation Summary Intimal thickening at the proximal bilateral internal carotid arteries with a less than 50% stenosis. Less than 50% stenosis bilateral external carotid arteries Patent and antegrade vertebral arteries bilaterally Arterial flow rates generally bilaterally are noted to be low. Clinical correlation with cardiac output would be appropriate. The examination was noted to be technically difficult. Ordering Physician: Chantell Barba Referring Physician: Edna Bonner Performed By: Jodie Ly RVT Echocardiogram 08/31/22 06:11 Interpretation Summary Left ventricular systolic function is normal. Decreased RV systolic function more prominent in the apex. Moderate concentric left ventricular hypertrophy. The estimated ejection fraction is 55 %. Normal LV size. Pulmonary artery systolic pressure is 36 mmHg. Ordering Physician: Chantell Barba Referring Physician: EDNA BONNER Performed By: Danyell Boone, [facility] Chest CTA 08/31/22 12:04 IMPRESSION: Evidence of pulmonary embolism in branches of the right lower lobe pulmonary artery. Small bilateral pleural effusions right greater than left with bibasilar atelectasis and/or infiltrates. Electronically Signed: Ismael Taveras MD at 12:27 EDT , Physical Exam Const alert and no apparent distress Orientation / Consciousness: confused and disoriented HEENT normocephalic and head/scalp atraumatic Eyes PERRL and EOMs intact bilaterally Neck supple General: trachea midline Chest inspection of chest normal Resp normal respiratory effort Auscultation: diminished lung sounds; Negative for rales, rhonchi or wheezes Cardio S1 normal heart sound and S2 normal heart sound Rate: tachycardic Rhythm: abnormal rhythm GI normal to inspection, nondistended, normoactive bowel sounds Extremity no clubbing, cyanosis or edema Skin no rashes or lesions noted Neuro CN's II-XII intact bilaterally and no focal motor deficits Psych Mood & Affect: flat affect Assessment & Plan Assessment/Plan (1) Paroxysmal atrial fibrillation: PLAN: Patient presents with postoperative atrial fibrillation at this time with a rapid ventricular response rate. This was most likely secondary to the pulmonary embolism. Her echocardiogram did demonstrate right ventricular systolic dysfunction likely resulting in the troponin rise as well as the hypotension. Her left ventricular appears to be preserved. We will recommend continued supportive measures. We will continue amiodarone for now We will start low-dose beta-rubi with metoprolol 25 mg twice a day especially as blood pressure appears to be elevated. Continue heparin for now and at this juncture we are committed to oral anticoagulation at least for a few months. Would not pursue hinduism of sinus rhythm by aggressive maintenance at this time. Thank you for allowing me to participate in the care of your patient. Please don't hesitate to call if any issues arise.
[2022-09-01] MEDS: Metoprolol Tartrate 25 MG Tablet PO ×2 (10:43→20:39)
--- NOTE | 2022-09-01 11:08 | PN_ITS ---
Subjective Subjective Patient seen and examined. Her son was by her bedside. She was much more alert today. She was able to answer questions. She denied any fever, chills, cough, chest pain, palpitations, dizziness, nausea, vomiting or any other symptoms. Review of systems is otherwise negative. She has remained hemodynamically stable. She did require levophed yesterday due to hypotension, but has been weaned off of it. Objective Data Objective Data Vital Signs: Vital Signs Temp Pulse Resp BP Pulse Ox O2 Del Method O2 Flow Rate 99.1 F 133 H 21 H 143/98 H 93 Room Air 1 09/01/22 08:00 09/01/22 10:43 09/01/22 10:00 09/01/22 10:00 09/01/22 10:00 09/01/22 10:00 09/01/22 08:00 Oxygen Flow Rate (L/min) 1 Oxygen Delivery Method Room Air Weight: 170 lb 13.732 oz Body Mass Index (BMI) 27.6 Intake & Output: Intake and Output for Last 24 Hours 08/30/22 08/31/22 09/01/22 23:59 23:59 23:59 Intake Total 1798.75 / 1798.75 4009.68 / 4009.68 2227.03 / 2227.03 Output Total 100 / 100 100 / 100 350 / 350 Balance 1698.75 / 1698.75 3909.68 / 3909.68 1877.03 / 1877.03 Lab / Micro Data Result Diagrams: 09/01/22 04:35 09/01/22 04:35 Labs: Laboratory Results - last 24 hr 08/31/22 04:22: POC Glucose 180 H 08/31/22 10:44: Troponin I High Sens 755 H* 08/31/22 13:00: APTT Cancelled 08/31/22 13:37: APTT > 200.0 H* 08/31/22 16:32: POC Glucose 174 H 08/31/22 22:03: APTT 76.6 H 09/01/22 04:35: WBC 10.4, RBC 3.85 L, Hgb 12.3, Hct 39.4, MCV 102.3 H, MCH 31.9, MCHC 31.2 L, RDW Std Deviation 48.5 H, RDW Coeff of Patience 12.9, Plt Count 154, MPV 10.5 09/01/22 04:35: Triglycerides 92, Cholesterol 142, LDL Cholesterol 76, VLDL Cholesterol 18, HDL Cholesterol 48 09/01/22 04:35: APTT 134.8 H* 09/01/22 04:35: Sodium 139, Potassium 4.2, Chloride 106, Carbon Dioxide 22.0, Anion Gap 11, BUN 51 H, Creatinine 1.67 H, Estim Creat Clear Calc 26.83, Est GFR (MDRD) Af Amer 38 L, Est GFR (MDRD) Non-Af 32 L, BUN/Creatinine Ratio 30.5 H, Glucose 168 H, Calcium 8.4 L Micro: Microbiology 08/29/22 23:56 Nasal Secretion SARS-CoV-2 Antigen (Rapid) - Final ABG Data ABG results: ABG 08/31/22 11:44 Specimen Type ART Sample Site L Radial pH 7.34 L Bicarbonate Actual 20.4 L Total CO2 22 Base Excess -5 L O2 Saturation 97 ABG pCO2 37.8 ABG pO2 90 Bj Test Positive O2 Delivery Device Cannula Liter Flow 4.0 Radiography Diagnostic Testing: Radiology Impression Carotid Duplex 08/31/22 06:11 Interpretation Summary Intimal thickening at the proximal bilateral internal carotid arteries with a less than 50% stenosis. Less than 50% stenosis bilateral external carotid arteries Patent and antegrade vertebral arteries bilaterally Arterial flow rates generally bilaterally are noted to be low. Clinical correlation with cardiac output would be appropriate. The examination was noted to be technically difficult. Ordering Physician: Chantell Barba Referring Physician: Edna Bonner Performed By: Jodie Ly RVT Echocardiogram 08/31/22 06:11 Interpretation Summary Left ventricular systolic function is normal. Decreased RV systolic function more prominent in the apex. Moderate concentric left ventricular hypertrophy. The estimated ejection fraction is 55 %. Normal LV size. Pulmonary artery systolic pressure is 36 mmHg. Ordering Physician: Chantell Barba Referring Physician: EDNA BONNER Performed By: Danyell Boone RDCS Chest CTA 08/31/22 12:04 IMPRESSION: Evidence of pulmonary embolism in branches of the right lower lobe pulmonary artery. Small bilateral pleural effusions right greater than left with bibasilar atelectasis and/or infiltrates. Electronically Signed: Ismael Taveras MD at 12:27 EDT , Physical Exam Const alert and no apparent distress General Appearance: cooperative HEENT normocephalic, head/scalp atraumatic and moist oral mucous membranes Eyes PERRL and EOMs intact bilaterally Neck no lymphadenopathy, supple and no JVD Lymph Lymphatic: no lymphadenopathy noted and no lymphedema noted Resp normal respiratory effort, normal air movement and clear to auscultation bilaterally Resp Narrative: Mildly diminished breath sounds bibasally. No wheezes or crackles. On 2 L of oxygen. Cardio regular rhythm, S1 normal heart sound, S2 normal heart sound and no murmurs Cardio Narrative: tachycardic GI normal to inspection, nondistended, normoactive bowel sounds, soft to palpation and non-tender Extremity normal capillary refill and no clubbing, cyanosis or edema Extremity Narrative: Intact dressing over left hip. Skin General Skin Exam: no breakdown Neuro CN's II-XII intact bilaterally and no focal motor deficits Neuro Narrative: patient now more alert, moves all extremities and is answering questions. Motor Exam: strength 5/5 throughout Psych Psych Narrative: Parkinson's disease with flat affect Assessment & Plan Assessment/Plan (1) Shock: (2) Paroxysmal atrial fibrillation: (3) Pulmonary embolism: (4) Fracture of left hip: (5) Hx of Parkinson's disease: PLAN: Plan #Undifferentiated shock * resolved. NOw off levophed * She was started on amiodarone drip. Blood pressure was not in the 60s. She was hydrated with IV fluids. Blood pressure still remains low. * Troponins were also elevated. CTA of the chest done showed evidence of filling defects in the right pulmonary artery area * required levophed overnight, but is now off levophed * train attendant on board' * 2D echo showed EF of 55%, with no regional wall motion abnormalities, and decreased RV function, more prominent in the apex and moderate concentric LVH. * # Pulmonary embolism * as mentioned above, went into afib with RVR and awas also hypotensive, with elevated troponins * CTA chest done today showed evidence of pulmonary embolism in branches of the right lower lobe pulmonary artery. * 2D echo showed EF of 55% with no regional wall motion abnormalities noted and normal left ventricular systolic function with pulmonary artery systolic pressure of 36 mmHg. * Currently on heparin drip. We will continue. * Patient transferred to ICU on account of shock. Shock has now resolved * remains on heparin drip. Will transfer out of ICU #Nonstemi * Patient had elevated troponin of 654 at time of response was called which trended down slightly to 605 but then went up to 755. * Cardiology on boarrd. This may be type II non-STEMI due to hypotension and can also be explained by the PE. * 2D echo as above. * Per cardiology no active intervention like cardiac cath #left femoral neck fracture due to mechanical fall * orthopedic surgery on board * s/p left hemiarthroplasty * today is POD 2 * PT.OT on board * fall precautions * on PO tylenol, PO oxycodone and IV morphine prn for pain * #Parkinson's disease * Was in hospice care on account of this but this has been revoked now as she would require surgery for the left hip fracture. * Family would wanted to go back on hospice after hip is repaired. * On levodopa carbidopa * #Hypertension: On losartan and metoprolol Paroxysmal A-fib: On metoprolol not anticoagulated likely due to history of falls. CUrrently on heparin drip due to PE #Depression: On citalopram DVT prophylaxis: not indicated as patient is on heparin drip CODE STATUS: DNR CCA. I had an extensive discussion with patient's , daughter, son, her 2 sisters as well as a niece who are in patient's room. We explained that patient had been DNR CC but they would want her treated for the current developments including the non-STEMI and PE in the as well as the probable stroke. They wanted to get MRI and would want cardiology consults. They were agreeable to patient being transferred to the ICU for higher level of care but were adamant that patient had never wanted to be intubated or undergo CPR. After explaining the different types of CODE STATUS including full code, DNR CCA and DNR CC, family opted for patient to be made DNRCCA no intubation. Charges/Coding Visit Charges Inpatient E&M: 92721 Subs Hosp L2
--- NOTE | 2022-09-01 11:11 | CASEMGMT ---
Social Work SW spoke w/Nelida in TCU, they have not yet decided if they will take pt, will let SW know. SW spoke pt, daughter Renu and son Darian in room. Pt alert but not verbalizing answers, nodding yes or no, or mouthing answers with no voice. SW spoke to son and daughter about discharge plan. As per daughter Renu, she and pt's really want pt to go to TCU. SW explained that it is not clear yet whether or not TCU would be able to take pt. Daughter states the [facility] would be the next choice. SW explained if SW hears from TCU, will let family know. At that point, if needed SW will then make referral to [facility]. Also, SW had spoken w/ about pt completing POA papers. Pt is not alert enough today to complete LW/POA papers. SW will continue to follow for this. GENA Lee
[2022-09-01] MEDS: Aspirin 300 MG Suppository RC (11:35)
--- NOTE | 2022-09-01 12:00 | MRI_ITS ---
STUDY: MRA OF THE HEAD WITHOUT CONTRAST REASON FOR EXAM: Female, 76 years old. CVA TECHNIQUE: 3-D [id number] (TOF) imaging was performed with MIPs. The study was performed unenhanced. COMPARISON: None. FINDINGS: Bilateral base of skull carotids, bifurcations, anterior and middle cerebral arteries and proximal branches are patent. Posterior cerebral arteries and superior cerebellar arteries and proximal branches are patent. Vertebral arteries, basilar arteries are patent. MRI/MRA Head ONLY without Contrast IMPRESSION: 1. Unremarkable [place] and proximal branches. Electronically Signed: Swati Brady MD at 14:18 EDT ,
--- NOTE | 2022-09-01 12:00 | MRI_ITS ---
We are attempting to reach an attending provider to discuss findings. An addendum with communication details will be sent when the communication is complete. STUDY: MRI BRAIN WITHOUT CONTRAST REASON FOR EXAM: Female, 76 years old. CVA TECHNIQUE: Standardized multiplanar fat and water weighted pulse sequences were obtained. COMPARISON: 29 August 2022, FINDINGS: There are acute punctate cortical infarcts, in the left posterior frontal lobe, right parietal lobe and right cerebellum and left occipital lobe. There is no territorial infarct. There is no mass effect, extra parenchymal fluid collections, herniation. Ventricular size is normal. Major vascular flow structures are intact. Craniocervical junction is unremarkable. MRI/Brain without Contrast IMPRESSION: 1. Multiple acute punctate cortical infarcts in the bilateral cerebral hemispheres and right cerebellum. Electronically Signed: Swati Brady MD at 14:16 EDT ,
--- NOTE | 2022-09-01 14:27 | TELEMED_ITS ---
[facility] Telemed has confirmed receipt of a request for visit. This document confirms receipt of the order initiating the consult. To find the results of the consultation, please view the patient's reports for the scanned Telemed Consult.
[2022-09-01 14:35] LABS: Partial Thromboplast Time 32.4 Seconds (24.1-36.2)
[2022-09-01] MEDS: Heparin Injection (Vial) 5,000 UNIT/ML VIAL IV ×2 (14:59→21:40)
[2022-09-01] MEDS: HEPARIN/D5w 25,000 UNITS 25,000 UNITS/250 ML IV.SOLN. 6 UNITS CONT INF (15:54)
--- NOTE | 2022-09-01 22:14 | PCM.HOSP.N ---
Hospitalist Note Neurology evaluation of patient. Recommendation for transition from heparin drip to oral anticoagulant even if high fall risk. Recommended now that oral intake appears safe to restart her sinemet.
[2022-09-01] MEDS: hydrALAZINE 20 MG/ML Vial 5 MG IV (22:24)
[2022-09-01] MEDS: Citalopram 40 MG TABLET PO (22:57)
[2022-09-01] MEDS: CARBIDOPA/LEVODOPA CR 50/200 Tablet PO (22:57)
[2022-09-02] VITALS (22 sets, daily range): BP systolic 109–188; BP diastolic 77–121; PULSE 66–92; RESP 12–21; TEMP 36.9–37.4; O2SAT 92–99; BMI 26.8
[2022-09-02] MEDS: Amiodarone 360 MG in Dextrose 5% Viaflo Bag 192.8 ML 16.7 MG CONT INF ×2 (03:52→15:31)
[2022-09-02] MEDS: 0.9% Saline Lock 10 ML Syringe IV (03:56)
[2022-09-02 04:02] LABS: Hematocrit 36.3 % (37-47); Hemoglobin 11.7 g/dL (12.0-15.0); Mean Corp Hgb Conc 32.2 g/dL (32-36); Mean Corpuscular Hgb 32.7 pg (27.0-32.0); Mean Corpuscular Volume 101.4 fL (81-99); Mean Platelet Vol. 10.7 fl (6.2-12.0); Platelet Count 169 K/mm3 (150-450); RBC Distribution Width CV 12.6 % (11.6-14.6); RBC Distribution Width SD 47.5 fl (35.1-43.9); Red Blood Count 3.58 M/mm3 (4.2-5.4); White Blood Count 9.2 K/mm3 (4.4-11.0)
[2022-09-02 04:11] LABS: Partial Thromboplast Time 53.1 Seconds (24.1-36.2)
[2022-09-02] MEDS: Heparin Injection (Vial) 5,000 UNIT/ML VIAL IV (04:15)
[2022-09-02] MEDS: 0.9% Normal Saline 1,000 ML 100 ML IV (06:17)
[2022-09-02] MEDS: Carbidopa/Levodopa 25/100 Tablet PO ×2 (06:23→16:08)
--- NOTE | 2022-09-02 06:52 | PCM.PN.INT ---
Assessment & Plan Assessment/Plan (1) Shock: PLAN: Plan RECOMMENDATIONS: 1. Wean supplemental oxygen as tolerated. 2. Avoid sedating medications. 3. Continue heparin infusion. Transition to oral anticoagulation, when feasible. 4. Okay to discontinue supplemental IV fluids given normalization of creatinine. 5. Encourage incentive spirometer use and mobilize patient as tolerated. 6. We will sign off from a critical care perspective. Please call with any additional questions. IMPRESSIONS: 1. Undifferentiated shock The patient was initially admitted to the hospital with a left hip displaced femoral neck fracture and underwent left hip hemiarthroplasty on August 30. During the cable engineer hours of August 31, the patient was found to be far less responsive with associated hypotension and atrial fibrillation with RVR. The patient's hypotension did necessitate transient use of low-dose Levophed for stabilization. The exact etiology for her hypotension is not entirely clear. However, I do suspect that it is far more likely that hypovolemia contributed to her hypotension. While the patient did have a right lower lobe pulmonary embolism, the clot burden was not significant enough to cause significant hemodynamic perturbations. Echocardiogram revealed preserved ejection fraction. The patient remains hemodynamically stable at this time. 2. Encephalopathy/acute CVA Improved. Most likely related to global tissue hypoperfusion in the setting of #1, coupled with acute infarcts noted on brain MRI. 3. Acute kidney injury Resolved. Most likely prerenal etiology. Creatinine normalized with volume resuscitation. Okay to discontinue supplemental IV fluids. 4. Left hip femoral neck fracture status post left hip hemiarthroplasty Continue routine postoperative care per orthopedic surgery recommendations. 5. Paroxysmal atrial fibrillation/troponin elevation Likely secondary to demand ischemia in the setting of #1. Echocardiogram revealed preserved ejection fraction. Continue amiodarone for rate control. Cardiology is following to assist with medical management. This note was generated with [employer] dictation software. It may contain incorrect words, spelling, and punctuation that were not noted in checking the note before signing. Subjective Subjective The patient was seen and examined at the bedside this morning. Events from the last 24 hours have been reviewed. The patient is currently afebrile, hemodynamically stable and maintaining appropriate oxygen saturations on 2 L/min via nasal cannula. The patient is documented to be overall net +9.8 L for the hospitalization. The patient's brain MRI yesterday demonstrated multiple acute punctate cortical infarcts in the bilateral cerebral hemispheres and right cerebellum. Objective Data Objective Data The patient's most recent lab work, culture data and imaging studies have all been personally reviewed. Surface echocardiogram demonstrated moderate concentric LVH with an ejection fraction of 55%. CTA chest demonstrated pulmonary embolism in the right lower lobe and small bilateral pleural effusions. Vital Signs: Vital Signs Temp Pulse Resp BP Pulse Ox O2 Del Method O2 Flow Rate 99.1 F 85 17 162/99 H 96 Nasal Cannula 2 09/02/22 06:00 09/02/22 06:00 09/02/22 06:00 09/02/22 06:00 09/02/22 06:00 09/02/22 06:00 09/02/22 06:00 Oxygen Flow Rate (L/min) 2 Oxygen Delivery Method Nasal Cannula Weight: 166 lb 3.657 oz Body Mass Index (BMI) 26.8 Intake & Output: Intake and Output for Last 24 Hours 08/31/22 09/01/22 09/02/22 23:59 23:59 23:59 Intake Total 4009.68 / 4009.68 3574.15 / 3590.85 1128.71 / 1128.71 Output Total 100 / 100 825 / 825 300 / 300 Balance 3909.68 / 3909.68 2749.15 / 2765.85 828.71 / 828.71 Lab / Micro Data Attestation: I reviewed the patient's lab results. Result Diagrams: 09/02/22 03:42 09/02/22 03:42 Labs: Laboratory Results - last 24 hr 09/01/22 04:35: Sodium 139, Potassium 4.2, Chloride 106, Carbon Dioxide 22.0, Anion Gap 11, BUN 51 H, Creatinine 1.67 H, Estim Creat Clear Calc 26.83, Est GFR (MDRD) Af Amer 38 L, Est GFR (MDRD) Non-Af 32 L, BUN/Creatinine Ratio 30.5 H, Glucose 168 H, Calcium 8.4 L 09/01/22 13:40: APTT 32.4 09/01/22 21:06: APTT 37.0 H 09/02/22 03:42: WBC 9.2, RBC 3.58 L, Hgb 11.7 L, Hct 36.3 L, MCV 101.4 H, MCH 32.7 H, MCHC 32.2, RDW Std Deviation 47.5 H, RDW Coeff of Patience 12.6, Plt Count 169, MPV 10.7 09/02/22 03:42: APTT 53.1 H Micro: Microbiology 08/29/22 23:56 Nasal Secretion SARS-CoV-2 Antigen (Rapid) - Final ABG Data ABG results: ABG 08/31/22 11:44 Specimen Type ART Sample Site L Radial pH 7.34 L Bicarbonate Actual 20.4 L Total CO2 22 Base Excess -5 L O2 Saturation 97 ABG pCO2 37.8 ABG pO2 90 Bj Test Positive O2 Delivery Device Cannula Liter Flow 4.0 Radiography Diagnostic Testing: Radiology Impression Brain MRI 09/01/22 12:00 IMPRESSION: 1. Multiple acute punctate cortical infarcts in the bilateral cerebral hemispheres and right cerebellum. Electronically Signed: Swati Brady MD at 14:16 EDT , ADDENDUM: 09/01/22 1435 IMPRESSION: 1. Multiple acute punctate cortical infarcts in the bilateral cerebral hemispheres and right cerebellum. N.B. : The above Results were Read Back by Swati Brady MD to Nanda Aly RN, and understanding confirmed on 09/01/2022 14:28:37 (ET). Electronically Signed: Swati Brady MD at 14:16 EDT , Head MRA 09/01/22 12:00 IMPRESSION: 1. Unremarkable [place] and proximal branches. Electronically Signed: Swati Brady MD at 14:18 EDT , Physical Exam Const alert and no apparent distress General Appearance: cooperative HEENT normocephalic and head/scalp atraumatic Eyes PERRL and EOMs intact bilaterally Neck supple General: trachea midline Chest inspection of chest normal Resp normal respiratory effort Auscultation: diminished lung sounds; Negative for rales, rhonchi or wheezes Cardio S1 normal heart sound and S2 normal heart sound Rhythm: abnormal rhythm GI normal to inspection, nondistended, normoactive bowel sounds Extremity no clubbing, cyanosis or edema Skin no rashes or lesions noted Neuro CN's II-XII intact bilaterally and no focal motor deficits Psych Mood & Affect: flat affect Charges/Coding Visit Charges Inpatient E&M: 14844 Subs Hosp L2
[2022-09-02 07:16] LABS: Anion Gap 8 (5-15); BUN 49 mg/dL (7-18); BUN/Creat Ratio 50.4 RATIO (10-20); Calcium,Total 8.4 mg/dL (8.5-10.1); Chloride 110 mmol/L (98-107); Creatinine, Serum 0.97 mg/dL (0.55-1.02); EST Glomerular Filtration Rate 59 mL/min (>60); Est Glom Filt Rate - Afr Amer 71 mL/min (>60); Estimated Creatinine Clearance 46.19 ml/min; Glucose 142 mg/dL (74-106); Sodium Level 142 mmol/L (136-145)
--- NOTE | 2022-09-02 09:40 | CASEMGMT ---
Addendum entered by Cass Harding 09/02/22 12:45: Social Work SW let family know still waiting to hear from TCU if they will take pt, will depend on therapy today. Therapy did see pt, SW notified Nelida in TCU to review. GENA Lee Addendum entered by Cass Harding 09/02/22 11:54: Social Work As per Nelida in TCU they want to see today's therapy notes before accepting pt. SW asked therapy to see pt earlier than later today if possible. GENA Lee Original Note: Social Work SW spoke w/Nelida in TCU, she inquired if family is aware pt will need to participate in therapy every day. She also needs to check on medications and what else may be needed for pt due to pt's insurance. SW spoke w/ and son in room. SW explained pt will be expected to participate daily in therapy. They are in agreement with this. Son explained that pt is on hospice due to Parkinson's, and that hospice has been very helpful in care of pt. He states pt's , daughter and son in law all help w/pt, and he comes in from [place] also occasionally to help. He states that even while on hospice family has been paying privately for pt to have therapy at [facility]. She occasionally walks down the street a half mile with her walker.. Their goal is to get pt back home on hospice, but they want her to work on her functioning to get her back to her baseline. SW explained will let TCU know and see if they can take her. SW let Nelida in TCU know the above information, she is to get back to SW in regard to whether or not they can take pt. Also, pt did have strokes as per neurology consult. PHQ-9 not completed at this time as pt is not alert enough at this moment to participate. GENA Lee
[2022-09-02] MEDS: Aspirin 81 MG TAB.CHEW PO (09:46)
[2022-09-02] MEDS: Metoprolol Tartrate 25 MG Tablet PO ×2 (09:46→21:33)
[2022-09-02 10:37] LABS: Partial Thromboplast Time 60.1 Seconds (24.1-36.2)
--- NOTE | 2022-09-02 13:02 | CASEMGMT ---
Social Work SW spoke w/Nelida in TCU, they anticipate having a bed Monday. SW texted Dr. Zapata, she does think pt will be ready for discharge Monday. SW let Nelida know, she will start precert for pt to come to TCU on Monday when appropriate. SW let daughter in room know that TCU will have a bed Monday and they will start precert when appropriate. GENA Lee
--- NOTE | 2022-09-02 13:49 | PN_ITS ---
Subjective Subjective Patient seen and examined. She had no active complaints and had an uneventful night. She was lying calmly in the bed and the really answer questions. Son was by her bedside. Review of systems otherwise negative. Objective Data Objective Data Vital Signs: Vital Signs Temp Pulse Resp BP Pulse Ox O2 Del Method O2 Flow Rate 98.7 F 82 16 183/120 H 96 Room Air 2 09/02/22 09:00 09/02/22 10:00 09/02/22 10:00 09/02/22 10:00 09/02/22 12:05 09/02/22 10:00 09/02/22 07:00 Oxygen Flow Rate (L/min) 2 Oxygen Delivery Method Room Air Weight: 166 lb 3.657 oz Body Mass Index (BMI) 26.8 Intake & Output: Intake and Output for Last 24 Hours 08/31/22 09/01/22 09/02/22 23:59 23:59 23:59 Intake Total 4009.68 / 4009.68 3574.15 / 3590.85 1204.51 / 1204.51 Output Total 100 / 100 825 / 825 300 / 300 Balance 3909.68 / 3909.68 2749.15 / 2765.85 904.51 / 904.51 Lab / Micro Data Result Diagrams: 09/02/22 03:42 09/02/22 03:42 Labs: Laboratory Results - last 24 hr 09/01/22 13:40: APTT 32.4 09/01/22 21:06: APTT 37.0 H 09/02/22 03:42: WBC 9.2, RBC 3.58 L, Hgb 11.7 L, Hct 36.3 L, MCV 101.4 H, MCH 32.7 H, MCHC 32.2, RDW Std Deviation 47.5 H, RDW Coeff of Patience 12.6, Plt Count 169, MPV 10.7 09/02/22 03:42: APTT 53.1 H 09/02/22 03:42: Sodium 142, Potassium 4.0, Chloride 110 H, Carbon Dioxide 24.0, Anion Gap 8, BUN 49 H, Creatinine 0.97, Estim Creat Clear Calc 46.19, Est GFR (MDRD) Af Amer 71, Est GFR (MDRD) Non-Af 59 L, BUN/Creatinine Ratio 50.4 H, Glucose 142 H, Calcium 8.4 L 09/02/22 10:15: APTT 60.1 H Micro: Microbiology 08/29/22 23:56 Nasal Secretion SARS-CoV-2 Antigen (Rapid) - Final Radiography Diagnostic Testing: Radiology Impression Brain MRI 09/01/22 12:00 IMPRESSION: 1. Multiple acute punctate cortical infarcts in the bilateral cerebral hemispheres and right cerebellum. Electronically Signed: Swati Brady MD at 14:16 EDT , ADDENDUM: 09/01/22 1435 IMPRESSION: 1. Multiple acute punctate cortical infarcts in the bilateral cerebral hemispheres and right cerebellum. N.B. : The above Results were Read Back by Swati Brady MD to Nanda Aly RN, and understanding confirmed on 09/01/2022 14:28:37 (ET). Electronically Signed: Swati Brady MD at 14:16 EDT , Head MRA 09/01/22 12:00 IMPRESSION: 1. Unremarkable [place] of [place] and proximal branches. Electronically Signed: Swati Brady MD at 14:18 EDT , Physical Exam Const alert and no apparent distress Constitutional Narrative: flat affect General Appearance: cooperative HEENT normocephalic, head/scalp atraumatic and moist oral mucous membranes Eyes PERRL and EOMs intact bilaterally Neck no lymphadenopathy, supple and no JVD Lymph Lymphatic: no lymphadenopathy noted and no lymphedema noted Resp normal respiratory effort, normal air movement and clear to auscultation bilaterally Resp Narrative: Mildly diminished breath sounds bibasally. No wheezes or crackles. On 2 L of oxygen. Cardio regular rate, regular rhythm, S1 normal heart sound, S2 normal heart sound and no murmurs GI normal to inspection, nondistended, normoactive bowel sounds, soft to palpation and non-tender Extremity normal capillary refill and no clubbing, cyanosis or edema Extremity Narrative: Intact dressing over left hip. Skin General Skin Exam: no breakdown Neuro CN's II-XII intact bilaterally and no focal motor deficits Neuro Narrative: flat affect Motor Exam: strength 5/5 throughout Psych Psych Narrative: Parkinson's disease with flat affect Assessment & Plan Assessment/Plan (1) Shock: (2) Paroxysmal atrial fibrillation: (3) Pulmonary embolism: (4) Fracture of left hip: (5) Hx of Parkinson's disease: PLAN: Plan #Undifferentiated shock * resolved. NOw off levophed * She was started on amiodarone drip. Blood pressure was not in the 60s. She was hydrated with IV fluids. Blood pressure still remains low. * Troponins were also elevated. 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 * # Pulmonary embolism * as mentioned above, went into afib with RVR and awas also hypotensive, with e levated troponins * CTA chest done showed evidence of pulmonary embolism in branches of the right lower lobe pulmonary artery. * 2D echo showed EF of 55% with no regional wall motion abnormalities noted and normal left ventricular systolic function with pulmonary artery systolic pressure of 36 mmHg. * Will switch heparin drip to Eliquis. #Nonstemi * Patient had elevated troponin of 654 at time of response was called which trended down slightly to 605 but then went up to 755. * Cardiology on boarrd. This may be type II non-STEMI due to hypotension and can also be explained by the PE. * 2D echo as above. * Per cardiology no active intervention like cardiac cath #left femoral neck fracture due to mechanical fall * orthopedic surgery on board * s/p left hemiarthroplasty * today is POD 3 * PT.OT on board * fall precautions * on PO tylenol, PO oxycodone and IV morphine prn for pain * #Parkinson's disease * Was in hospice care on account of this but this has been revoked now as she would require surgery for the left hip fracture. * Family would wanted to go back on hospice after hip is repaired. * On levodopa carbidopa * #Hypertension: On losartan and metoprolol Paroxysmal A-fib: On metoprolol not anticoagulated likely due to history of falls. CUrrently on heparin drip due to PE #Depression: On citalopram DVT prophylaxis: not indicated as pateint is being treated for PE Charges/Coding Visit Charges Inpatient E&M: 32761 Subs Hosp L2
--- NOTE | 2022-09-02 14:21 | SP.MBSS_ITS ---
Modified Barium Swallow - Patient Information Study Date: 09/02/22 Study Time: 13:30 Direct Billable Minutes: 80 Total Minutes procedure & reportin Diagnosis: Hx of Parkinson's Disease (Z86.69) Referring Physician: Arminda Zapata Reason for Referral: Objectively assess swallow function, assess risk for aspiration, and determine recommendations for least restrictive diet textures and compensatory strategies to improve safety of swallow. Medical History: Izzy Miller is a 76 F who presented to the hospital after a mechanical fall 08/29/2022. Patient was on hospice secondary to Parkinson's disease, but this was revoked during stay. Patient diagnosed with left hip displaced femoral neck fracture and underwent left hip cemented hemiarthroplasty 08/30/2022. Patient referred for ST consult after being made NPO due to poor alertness after surgery. Pt was not appropriate to evaluate 08/31/22 as she was too lethargic and being transferred to ICU. BSE 09/03/22 recommended continuing NPO with ice chips one at a time supervised and meds crushed in applesauce with plans for MBSS 09/02/22 prior to further diet advancement. Hx of OP ST for dysphagia and dysphonia secondary to Parkinson's. Most recent MBSS 12/27/20, which revealed mild-moderate oropharyngeal dysphagia and recommended soft textures / nectar thick liquids with recommendation to follow with OP speech therapy for further assessment of diet tolerance and training in strategies to decrease risk for aspiration. 07/28/22 Patient was seen for dysphagia evaluation w/ OP ST and was recommended for MBSS, which has not yet been completed. PMH: Atrial fibrillation with RVR, Breast cancer, CHI (closed head injury), Diverticulosis, Elevated troponin, HTN, Fall, History of left heart catheterization (LHC) (~10/28/19), Non-smoker, NSTEMI (non-ST elevated myocardial infarction) (~10/25/19), Parkinson disease, Paroxysmal atrial fibrillation, TIA (SEE EMR for full PMH). Current Diet Ordered: NPO with ice chips Dentition: Natural Teeth Mental Status: Impaired Respiratory Status: Oxygenating on Room Air - Penetration-Aspiration Scale Penetration-Aspiration Scale: OBJECTIVE ASSESSMENT OF SWALLOW FUNCTION (QUANTITATIVE ? PER TRIAL): PENETRATION / ASPIRATION SCALE (FERNANDES): 1 = does not enter airway 2 = enters airway/above vocal folds/ejected 3 = enters airway/above vocal folds/not ejected 4 = enters airway/contacts vocal folds/ejected 5 = enters airway/contacts vocal folds/not ejected 6 = enters airway/below vocal folds/ejected 7 = enters airway/below vocal folds/not ejected despite effort 8 = enters airway/below vocal folds/no effort VIDEOFLOROSCOPIC SCALE SCORE (FERNANDES): Grade I = aspiration of material that has penetrated into the laryngeal vestibule, intact cough reflex Grade II = aspiration < 10 % of the bolus, intact cough reflex Grade III = aspiration of < 10 % of the bolus, reduced cough reflex or aspiration of > 10 % of the bolus, intact cough reflex Grade IV = aspiration of > 10 % of the bolus, reduced cough reflex - Penetration-Aspiration Scale Score Thin Liquid via teaspoon Result: 7= enters airways/below vocal folds/not ejected despite effort - weak and ineffective reflexive cough Thin Liquid via single sip from straw Result: 1= does not enter airway Thin Liquid via single sip from straw Trial 2 Result: 5= enters airways/contacts vocal folds/not ejected [place] Thick Liquid via single sip from straw Result: 1= does not enter airway Pudding via teaspoon with esophageal screen Result: 1= does not enter airway 06/15 Cookie Result: 1= does not enter airway [place] Thick Liquid via single sip from straw Trial 2 Result: 1= does not enter airway - Oral Phase Labial Seal: No Labial Escape Tongue Control During Bolus Hold: Posterior escape of greater than half of bolus Bolus Preparation/Mastication: Disorganized chewing/mashing with solid pieces of bolus unchewed Bolus Transport/Lingual Motion: Repetitive/disorganized tongue motion Oral Residue: Residue collection on oral structures - Pharyngeal Phase Initiation of Pharyngeal Swallow: Bolus head in pyriforms Soft Palate Elevation: No bolus between soft palate and pharyngeal wall Laryngeal Elevation: Partial superior movement thyroid cart/partial apprx aryt- epig petiole Anterior Hyoid Excursion: Partial anterior movement - minimal Epiglottic Movement: Partial inversion Laryngeal Vestibule Closure at Height of Swallow: Incomplete; narrow column of air/contrast in laryngeal vestibule Pharyngeal Stripping Wave: Present - diminished Pharyngoesophageal Segment Opening: Parital distension and partial duration; parital obstruction of flow Tongue Base Retraction: Wide column of contrast between tongue base & post. pharyngeal wall Pharyngeal Residue: Collection of residue within or on pharyngeal structures - Esophageal Phase Esophageal Clearance: Esophageal retention w/ retrograde flow below pharyngoesophageal seg. - Diagnosis/Impression Diagnosis: Moderate-severe oropharyngeal phase dysphagia (R13.12) Impression: The oral phase is primarily marked by... -Decreased bolus control with >1/2 of various boluses spilling posteriorly to pharynx prior to swallow onset. Thin by tsp spilled to the vocal folds prior to swallow onset with resulting aspiration during the swallow. -Slowed, lingual pumping for A-P transport. -Prolonged mastication and A-P transport of 1/4 Asha Doone cookie with mild oral residues after two swallows. The pharyngeal phase is primarily marked by... -Decreased airway closure during the swallow due to minimal anterior hyoid excursion, partial and inconsistent epiglottic inversion, and decreased beka ngeal elevation. -Moderately decreased tongue base retraction, mildly decreased UES opening/duration, and mildly decreased pharyngeal stripping wave with resulting mild pharyngeal residues after the swallow. -Aspiration of thin liquids by tsp during the swallow with weak and ineffective cough response. Deep laryngeal penetration of thin liquids via small, single straw sip to the vocal folds, which did not fully eject placing patient at increased risk for post prandial aspiration. Cued cough was unable to expel penetrated contrast from the vocal folds. The esophageal phase is primarily marked by... -Esophageal retention of pudding in lower esophagus with minimal retrograde flow remaining well below upper esophageal sphincter. - Recommendations Diet: Puree Textures, [place]-thick Liquids Compensatory Strategies: Small Bites, Small Sips, Sips by straw only, Slow Rate - Sips one at a time, Sitting upright, Remain sitting upright for 30 minutes after PO intake Supervision: Total Feed - due to upper extremity weakness and to ensure slow rate of oral intake Recommend Repeat Modified Barium Swallow: TBD Need for Skilled Speech Therapy Services: Yes Comment: Will recommend the patient for dysphagia therapy to address deficits in oropharyngeal swallow function. Will recommend the patient for oropharyngeal strengthening as able to improve lingual strength/coordination, laryngeal elevation, hyoid excursion, and pharyngeal contraction. Consider lingual resistance exercises, lingual coordination exercises, effortful swallows, and CTAR if patient is able to follow commands. The patient and family would benefit from thorough education regarding diet recommendations and recommended compensatory strategies. Education Completed: 1. Described result of evaluation., 7. Pt requires further education on strategies & risks. - Status Active ST Patient: Active - Contact Information [facility] Speech Therapy:: Divya Eden M.A. [facility] [employer] Speech-Language Pathologist [facility] [address] [place] [address] [email or web address] [phone] 09/02/22 14:36
[2022-09-02] MEDS: cloNIDine HCl 0.2 MG Tablet PO (16:08)
[2022-09-02 16:28] LABS: Partial Thromboplast Time 59.4 Seconds (24.1-36.2)
[2022-09-02] MEDS: CARBIDOPA/LEVODOPA CR 50/200 Tablet PO (21:33)
[2022-09-02] MEDS: Citalopram 40 MG TABLET PO (21:33)
[2022-09-02] MEDS: HEPARIN/D5w 25,000 UNITS 25,000 UNITS/250 ML IV.SOLN. 9 UNITS CONT INF (22:17)
[2022-09-03] VITALS (19 sets, daily range): BP systolic 107–196; BP diastolic 70–112; PULSE 48–94; RESP 13–18; TEMP 36.4–37.1; O2SAT 95–100; BMI 26.8; BMI 27.6
--- NOTE | 2022-09-03 00:15 | PCM.HOSP.N ---
Hospitalist Note Patient converted, now sinus bradycardic, will hold amiodarone given rate currently. Has metoprolol 25 mg BID that was started per Cardiology with planned dose this AM pending repeat HR assessment at that time. Still on heparin drip with planned oral transition soon from review of cardiology note.
[2022-09-03 05:44] LABS: Partial Thromboplast Time 50.1 Seconds (24.1-36.2)
[2022-09-03] MEDS: Heparin Injection (Vial) 5,000 UNIT/ML VIAL IV (06:10)
[2022-09-03] MEDS: Metoprolol Tartrate 25 MG Tablet PO ×2 (08:15→21:20)
[2022-09-03] MEDS: Carbidopa/Levodopa 25/100 Tablet PO ×3 (08:15→16:22)
[2022-09-03] MEDS: Aspirin 81 MG TAB.CHEW PO (08:16)
--- NOTE | 2022-09-03 10:46 | PN_ITS ---
Subjective Subjective Patient seen and examined. She was more alert today and eating breakfast. She had no active complaints. She has remained hemodynamically stable. Review of systems is otherwise negative. Objective Data Objective Data Vital Signs: Vital Signs Temp Pulse Resp BP Pulse Ox O2 Del Method O2 Flow Rate 98.4 F 63 14 157/92 H 97 Room Air 2 09/03/22 08:00 09/03/22 09:00 09/03/22 09:00 09/03/22 09:00 09/03/22 09:00 09/03/22 09:00 09/02/22 07:00 Oxygen Flow Rate (L/min) 2 Oxygen Delivery Method Room Air Weight: 171 lb 4.787 oz Body Mass Index (BMI) 27.6 Intake & Output: Intake and Output for Last 24 Hours 09/01/22 09/02/22 09/03/22 23:59 23:59 23:59 Intake Total 3574.15 / 3590.85 1822.06 / 1842.06 325.41 / 325.41 Output Total 825 / 825 650 / 850 375 / 375 Balance 2749.15 / 2765.85 1172.06 / 992.06 -49.59 / -49.59 Lab / Micro Data Result Diagrams: 09/02/22 03:42 09/02/22 03:42 Labs: Laboratory Results - last 24 hr 09/02/22 16:00: APTT 59.4 H 09/03/22 04:10: APTT Cancelled 09/03/22 05:20: APTT 50.1 H Micro: Microbiology 08/29/22 23:56 Nasal Secretion SARS-CoV-2 Antigen (Rapid) - Final Physical Exam Const alert and no apparent distress Constitutional Narrative: flat affect General Appearance: cooperative HEENT normocephalic, head/scalp atraumatic and moist oral mucous membranes Eyes PERRL and EOMs intact bilaterally Neck no lymphadenopathy, supple and no JVD Lymph Lymphatic: no lymphadenopathy noted and no lymphedema noted Resp normal respiratory effort, normal air movement and clear to auscultation bilaterally Resp Narrative: Mildly diminished breath sounds bibasally. No wheezes or crackles. On room air Cardio regular rate, regular rhythm, S1 normal heart sound, S2 normal heart sound and no murmurs Cardio Narrative: tachycardic GI normal to inspection, nondistended, normoactive bowel sounds, soft to palpation and non-tender Extremity normal capillary refill and no clubbing, cyanosis or edema Extremity Narrative: Intact dressing over left hip. Skin General Skin Exam: no breakdown Neuro CN's II-XII intact bilaterally and no focal motor deficits Neuro Narrative: flat affect Motor Exam: strength 5/5 throughout Psych Psych Narrative: Parkinson's disease with flat affect Assessment & Plan Assessment/Plan (1) Shock: (2) Paroxysmal atrial fibrillation: (3) Pulmonary embolism: (4) Fracture of left hip: (5) Hx of Parkinson's disease: PLAN: Plan #Undifferentiated shock * resolved. NOw off levophed * She was started on amiodarone drip. Blood pressure was not in the 60s. She was hydrated with IV fluids. * Troponins were also elevated. CTA of the chest done showed evidence of filling defects in the right pulmonary artery area * order worker on board' * 2D echo showed EF of 55%, with no regional wall motion abnormalities, and decreased RV function, more prominent in the apex and moderate concentric LVH. * # Pulmonary embolism * as mentioned above, went into afib with RVR and awas also hypotensive, with elevated troponins * CTA chest done showed evidence of pulmonary embolism in branches of the right lower lobe pulmonary artery. * 2D echo showed EF of 55% with no regional wall motion abnormalities noted and normal left ventricular systolic function with pulmonary artery systolic pressure of 36 mmHg. * Will switch heparin drip to Eliquis. #Nonstemi * Patient had elevated troponin of 654 at time of response was called which trended down slightly to 605 but then went up to 755. * Cardiology on boarrd. This may be type II non-STEMI due to hypotension and can also be explained by the PE. * 2D echo as above. * Per cardiology no active intervention like cardiac cath #left femoral neck fracture due to mechanical fall * orthopedic surgery on board * s/p left hemiarthroplasty * today is POD 4 * PT.OT on board * fall precautions * on PO tylenol, PO oxycodone and IV morphine prn for pain * #Parkinson's disease * Was in hospice care on account of this but this has been revoked now as she would require surgery for the left hip fracture. * Family would want to go back on hospice after hip is repaired. * On levodopa carbidopa * #Hypertension: On losartan and metoprolol Paroxysmal A-fib: On metoprolol not anticoagulated likely due to history of falls. CUrrently on heparin drip due to PE. Switch to eliquis #Depression: On citalopram DVT prophylaxis: not indicated as pateint is being treated for PE Disposition: transfer out of ICU when bed available on PCU. Awaiting placement. Charges/Coding Visit Charges Inpatient E&M: 20319 Subs Hosp L2
[2022-09-03] MEDS: APIXABAN 5 MG TABLET 10 MG PO ×2 (11:53→21:20)
[2022-09-03 14:32] LABS: Anion Gap 4 (5-15); BUN 41 mg/dL (7-18); BUN/Creat Ratio 50.9 RATIO (10-20); Calcium,Total 8.9 mg/dL (8.5-10.1); Chloride 109 mmol/L (98-107); EST Glomerular Filtration Rate 73 mL/min (>60); Est Glom Filt Rate - Afr Amer 89 mL/min (>60); Estimated Creatinine Clearance 56.01 ml/min; Glucose 128 mg/dL (74-106); Potassium 4.2 mmol/L (3.5-5.1); Sodium Level 139 mmol/L (136-145)
[2022-09-03] MEDS: Morphine 2 MG/ML Syringe IV (16:33)
[2022-09-03] MEDS: CARBIDOPA/LEVODOPA CR 50/200 Tablet PO (21:20)
[2022-09-03] MEDS: Citalopram 40 MG TABLET PO (21:20)
[2022-09-04] VITALS (9 sets, daily range): BP systolic 169–198; BP diastolic 87–99; PULSE 61–73; RESP 14–18; TEMP 36.2–36.8; O2SAT 94–98; BMI 27.6; BMI 27.9
[2022-09-04] MEDS: hydrALAZINE 20 MG/ML Vial 10 MG IV ×2 (04:41→22:02)
[2022-09-04] MEDS: 0.9% Saline Lock 10 ML Syringe IV ×3 (04:42→22:02)
[2022-09-04] MEDS: Carbidopa/Levodopa 25/100 Tablet PO ×3 (06:24→15:29)
[2022-09-04 06:38] LABS: Absolute Lymphocyte Count 0.99 X10^3/uL (0.83-4.51); Absolute Neutrophil Count 6.2 X10^3/uL (2.0-7.7); Basophil# 0.05 X10^3/uL; Basophil% 0.6 % (0-1); Eosinophil# 0.16 X10^3/uL; Eosinophils% 1.9 % (0-5); Hematocrit 34.4 % (37-47); Hemoglobin 11.1 g/dL (12.0-15.0); Lymphocyte # 0.99 X10^3/ul (0.83-4.51); Lymphocyte % 11.8 % (19-41); Mean Corp Hgb Conc 32.3 g/dL (32-36); Mean Corpuscular Hgb 32.7 pg (27.0-32.0); Mean Corpuscular Volume 101.5 fL (81-99); Mean Platelet Vol. 10.8 fl (6.2-12.0); Monocyte% 9.6 % (0-10); NRBC Flagged by Analyzer 0.2 % (0-5); Neutrophil # 6.24 X10^3/uL (2.7-7.7); Neutrophil % 74.5 % (47-70); Platelet Count 148 K/mm3 (150-450); RBC Distribution Width CV 12.8 % (11.6-14.6); Red Blood Count 3.39 M/mm3 (4.2-5.4); White Blood Count 8.4 K/mm3 (4.4-11.0)
--- NOTE | 2022-09-04 08:24 | PN.HOSP_ITS ---
Reason for Visit Reason for Visit: Diagnoses Other pulmonary embolism without acute cor pulmonale (08/29/22) Paroxysmal atrial fibrillation (08/29/22) Shock, unspecified (08/29/22) Fracture of unspecified part of neck of left femur, initial encounter for closed fracture (08/29/22) Personal history of other diseases of the nervous system and sense organs (08/29/22) Subjective Subjective Laying in bed with no acute distress, whispering words. Did not voice any complaints Objective Data Objective Data Vital Signs: Vital Signs Temp Pulse Resp BP Pulse Ox O2 Del Method O2 Flow Rate 98.3 F 61 18 178/98 H 94 Room Air 2 09/04/22 03:15 09/04/22 04:41 09/04/22 03:15 09/04/22 04:41 09/04/22 03:15 09/04/22 03:15 09/02/22 07:00 Oxygen Flow Rate (L/min) 2 Oxygen Delivery Method Room Air Weight: 78.5 kg Body Mass Index (BMI) 27.9 Intake & Output: Intake and Output for Last 24 Hours 09/02/22 09/03/22 09/04/22 23:59 23:59 23:59 Intake Total 1822.06 / 1842.06 658.41 / 658.41 Output Total 650 / 850 775 / 875 175 / 175 Balance 1172.06 / 992.06 -116.59 / -216.59 -175 / -175 Lab / Micro Data Result Diagrams: 09/04/22 06:10 09/03/22 14:00 Labs: Laboratory Results - last 24 hr 09/03/22 14:00: Sodium 139, Potassium 4.2, Chloride 109 H, Carbon Dioxide 26.0, Anion Gap 4 L, BUN 41 H, Creatinine 0.80, Estim Creat Clear Calc 56.01, Est GFR (MDRD) Af Amer 89, Est GFR (MDRD) Non-Af 73, BUN/Creatinine Ratio 50.9 H, Glucose 128 H, Calcium 8.9 09/04/22 06:10: WBC 8.4, RBC 3.39 L, Hgb 11.1 L, Hct 34.4 L, MCV 101.5 H, MCH 32.7 H, MCHC 32.3, RDW Std Deviation 48.0 H, RDW Coeff of Patience 12.8, Plt Count 148 L, MPV 10.8, Immature Gran % (Auto) 1.600 H, Neut % (Auto) 74.5 H, Lymph % (Auto) 11.8 L, [place] % (Auto) 9.6, Eos % (Auto) 1.9, Baso % (Auto) 0.6, Absolute Neuts (auto) 6.2, Absolute Lymphs (auto) 0.99, Nucleated RBC % 0.2 Micro: Microbiology 08/29/22 23:56 Nasal Secretion SARS-CoV-2 Antigen (Rapid) - Final Physical Exam Narrative General: Alert, no acute distress HEENT: Atraumatic, normocephalic Eyes: Anicteric, normal conjunctiva, extraocular movements grossly intact Neck: Supple Respiratory: Clear to auscultation bilaterally, normal respiratory effort Cardiovascular: Regular rate GI: Soft, nontender, nondistended Extremities: No edema Musculoskeletal: Moving all extremities Neuro: No overt focal neurological deficits Skin: No rashes appreciated Psych: Overall cooperative Assessment & Plan Assessment/Plan (1) Pulmonary embolism: (2) Fracture of left hip: (3) History of atrial fibrillation: (4) Hx of Parkinson's disease: PLAN: Plan # Pulmonary embolism -CTA chest done? showed evidence of pulmonary embolism in branches of the right lower lobe pulmonary artery. -went into afib with RVR and awas also hypotensive, with elevated troponins -2D echo showed EF of 55% with no regional wall motion abnormalities noted and normal left ventricular systolic function with pulmonary artery systolic pressure of 36 mmHg. -Hemodynamically improved and stable and heparin drip was transitioned to Eliquis full dose #left femoral neck fracture due to mechanical fall -Status post left hemiarthroplasty 08/30/[address] Robles -pain control -Awaiting placement #Acute CVA -Infarcts noted on brain MRI, continue aspirin and Eliquis -Has not tolerated statins in the past #Nonstemi likely type II -Patient had elevated troponin of 654 at time of response was called which trended down slightly to 605 but then went up to 755. -Cardiology on evaluated, no other intervention at this time -2D echo as above. #Paroxysmal atrial fibrillation -Metoprolol -Eliquis, on 10 mg twice daily due to acute PE #GABRIEL -Resolved #Shock- resolved -Likely obstructive shock 2/2 PE -Now off levophed -Was followed by dispersion mixer but was subsequently transfered out of ICU -2D echo showed EF of 55%, with no regional wall motion abnormalities, and decreased RV function, more prominent in the apex and moderate concentric LVH #Parkinson's disease -Was in hospice care due to her Parkinson's but this was revoked on admission so she could receive intervention. -Continue Sinemet #DVT ppx: Juan C Bass MD Time spent in the patient's overall evaluation,decision-making process, review of diagnostic data, adjustment of management, discussion with other providers, nursing nursing and ancillary staff involved in patient's care documentation, 60 minutes Charges/Coding Visit Charges Inpatient E&M: 56182 Subs Hosp L2
[2022-09-04] MEDS: Aspirin 81 MG TAB.CHEW PO (09:13)
[2022-09-04] MEDS: APIXABAN 5 MG TABLET 10 MG PO ×2 (09:13→20:37)
[2022-09-04] MEDS: Metoprolol Tartrate 25 MG Tablet PO ×2 (09:13→20:38)
[2022-09-04] MEDS: Losartan Potassium 25 MG Tablet PO (15:29)
[2022-09-04] MEDS: Citalopram 40 MG TABLET PO (20:37)
[2022-09-04] MEDS: CARBIDOPA/LEVODOPA CR 50/200 Tablet PO (20:37)
[2022-09-05] VITALS (14 sets, daily range): BP systolic 119–183; BP diastolic 63–98; PULSE 65–125; RESP 16–18; TEMP 36.6–37; O2SAT 94–99; BMI 27.9; BMI 28.0
[2022-09-05] MEDS: hydrALAZINE 20 MG/ML Vial 10 MG IV (03:12)
[2022-09-05] MEDS: 0.9% Saline Lock 10 ML Syringe IV ×3 (03:13→06:10)
--- NOTE | 2022-09-05 03:41 | PCM.HOSP.N ---
Hospitalist Note Patient with recurrent atrial fibrillation with RVR. Given cardizem reaction with rash will administer lopressor 5 mg IV x 1 now and reassess.
[2022-09-05] MEDS: Metoprolol Tartrate 5 MG/5 ML Vial IV ×2 (04:00→06:08)
[2022-09-05] MEDS: Carbidopa/Levodopa 25/100 Tablet PO ×3 (04:54→16:39)
[2022-09-05] MEDS: Metoprolol Tartrate 25 MG Tablet PO ×2 (06:44→08:04)
[2022-09-05] MEDS: Aspirin 81 MG TAB.CHEW PO (08:04)
[2022-09-05] MEDS: Losartan Potassium 25 MG Tablet PO (08:04)
[2022-09-05] MEDS: APIXABAN 5 MG TABLET 10 MG PO ×2 (08:04→20:51)
[2022-09-05 09:22] LABS: Absolute Lymphocyte Count 0.88 X10^3/uL (0.83-4.51); Absolute Neutrophil Count 11.2 X10^3/uL (2.0-7.7); Basophil% 0.7 % (0-1); Eosinophil# 0.08 X10^3/uL; Eosinophils% 0.6 % (0-5); Hematocrit 38.3 % (37-47); Hemoglobin 12.6 g/dL (12.0-15.0); Lymphocyte # 0.88 X10^3/ul (0.83-4.51); Lymphocyte % 6.5 % (19-41); Mean Corp Hgb Conc 32.9 g/dL (32-36); Mean Corpuscular Hgb 32.4 pg (27.0-32.0); Mean Corpuscular Volume 98.5 fL (81-99); Mean Platelet Vol. 10.6 fl (6.2-12.0); Monocyte% 7.3 % (0-10); NRBC Flagged by Analyzer 0 % (0-5); Neutrophil # 11.21 X10^3/uL (2.7-7.7); Neutrophil % 82.3 % (47-70); Platelet Count 224 K/mm3 (150-450); RBC Distribution Width CV 12.9 % (11.6-14.6); RBC Distribution Width SD 45.8 fl (35.1-43.9); Red Blood Count 3.89 M/mm3 (4.2-5.4); White Blood Count 13.6 K/mm3 (4.4-11.0)
[2022-09-05 10:35] LABS: Anion Gap 4 (5-15); BUN 20 mg/dL (7-18); BUN/Creat Ratio 32.9 RATIO (10-20); Calcium,Total 8.5 mg/dL (8.5-10.1); Chloride 104 mmol/L (98-107); Creatinine, Serum 0.61 mg/dL (0.55-1.02); EST Glomerular Filtration Rate 102 mL/min (>60); Est Glom Filt Rate - Afr Amer 123 mL/min (>60); Glucose 117 mg/dL (74-106); Magnesium 1.8 mg/dL (1.6-2.6); Potassium 3.6 mmol/L (3.5-5.1); Sodium Level 135 mmol/L (136-145)
--- NOTE | 2022-09-05 15:58 | EKG12_ITS ---
Test Reason : A-FIB Blood Pressure : / mmHG Vent. Rate : 113 BPM Atrial Rate : 286 BPM P-R Int : 000 ms QRS Dur : 098 ms QT Int : 270 ms P-R-T Axes : 000 -20 176 degrees QTc Int : 370 ms Atrial flutter with variable A-V block Cannot rule out Anterior infarct , age undetermined Abnormal ECG Confirmed by RAHEEM PETERS, JEZ ([id number]), visual effects editor MARINA ESPINAL ([id number]) on 09/07/2022 9:59:27 AM Referred By: GEETHA Confirmed By:JEZ MACIEL MD
--- NOTE | 2022-09-05 16:27 | PCM.PN.HOSP ---
Reason for Visit Reason for Visit: Diagnoses Other pulmonary embolism without acute cor pulmonale (08/29/22) Paroxysmal atrial fibrillation (08/29/22) Shock, unspecified (08/29/22) Fracture of unspecified part of neck of left femur, initial encounter for closed fracture (08/29/22) Personal history of other diseases of the nervous system and sense organs (08/29/22) Personal history of other diseases of the circulatory system (08/29/22) Subjective Subjective Patient resting comfortably in bed, no new complaints. Evaluated later in the day with daughter at bedside who reports she is overall significantly improved though somewhat confused today and yesterday but still overall better Objective Data Objective Data Vital Signs: Vital Signs Temp Pulse Resp BP Pulse Ox O2 Del Method O2 Flow Rate 98.0 F 71 16 119/63 99 Room Air 2 09/05/22 14:15 09/05/22 14:15 09/05/22 14:15 09/05/22 14:15 09/05/22 14:15 09/05/22 14:15 09/02/22 07:00 Oxygen Flow Rate (L/min) 2 Oxygen Delivery Method Room Air Weight: 78.9 kg Body Mass Index (BMI) 28.0 Intake & Output: Intake and Output for Last 24 Hours 09/03/22 09/04/22 09/05/22 23:59 23:59 23:59 Intake Total 658.41 / 658.41 480 / 480 Output Total 775 / 875 625 / 1225 1800 / 1800 Balance -116.59 / -216.59 -145 / -745 -1800 / -1800 Lab / Micro Data Result Diagrams: 09/05/22 09:10 09/05/22 09:10 Labs: Laboratory Results - last 24 hr 09/05/22 09:10: WBC 13.6 H, RBC 3.89 L, Hgb 12.6, Hct 38.3, MCV 98.5, MCH 32.4 H, MCHC 32.9, RDW Std Deviation 45.8 H, RDW Coeff of Patience 12.9, Plt Count 224, MPV 10.6, Immature Gran % (Auto) 2.600 H, Neut % (Auto) 82.3 H, Lymph % (Auto) 6.5 L, [place] % (Auto) 7.3, Eos % (Auto) 0.6, Baso % (Auto) 0.7, Absolute Neuts (auto) 11.2 H, Absolute Lymphs (auto) 0.88, Nucleated RBC % 0 09/05/22 09:10: Sodium 135 L, Potassium 3.6, Chloride 104, Carbon Dioxide 27.0, Anion Gap 4 L, BUN 20 H, Creatinine 0.61, Estim Creat Clear Calc 44.80, Est GFR (MDRD) Af Amer 123, Est GFR (MDRD) Non-Af 102, BUN/Creatinine Ratio 32.9 H, Glucose 117 H, Calcium 8.5, Magnesium 1.8 Micro: Microbiology 08/29/22 23:56 Nasal Secretion SARS-CoV-2 Antigen (Rapid) - Final Physical Exam Narrative General: Alert, no acute distress HEENT: Atraumatic, normocephalic Eyes: Anicteric, normal conjunctiva, extraocular movements grossly intact Neck: Supple Respiratory: Clear to auscultation bilaterally, normal respiratory effort Cardiovascular: Regular rate GI: Soft, nontender, nondistended Extremities: No edema Musculoskeletal: Moving all extremities Neuro: No overt focal neurological deficits Skin: No rashes appreciated Psych: Overall cooperative Assessment & Plan Assessment/Plan (1) Pulmonary embolism: (2) Fracture of left hip: (3) History of atrial fibrillation: (4) Hx of Parkinson's disease: PLAN: Plan # Pulmonary embolism -CTA chest done? showed evidence of pulmonary embolism in branches of the right lower lobe pulmonary artery. -went into afib with RVR and awas also hypotensive, with elevated troponins -2D echo showed EF of 55% with no regional wall motion abnormalities noted and normal left ventricular systolic function with pulmonary artery systolic pressure of 36 mmHg. -Hemodynamically improved and stable and heparin drip was transitioned to Eliquis full dose #Waxing and waning confusion -Could be due to hospital delirium White blood cell count slightly elevated today with no localizing signs or symptoms of infection however patient is poor historian, will get UA and will additionally pull Hill catheter #left femoral neck fracture due to mechanical fall -Status post left hemiarthroplasty 08/30/[address] Robles -pain control -Awaiting placement #Acute CVA -Infarcts noted on brain MRI, continue aspirin and Eliquis -Has not tolerated statins in the past #Nonstemi likely type II -Patient had elevated troponin of 654 at time of response was called which trended down slightly to 605 but then went up to 755. -Cardiology on evaluated, no other intervention at this time -2D echo as above. #Paroxysmal atrial fibrillation -Metoprolol -Eliquis, on 10 mg twice daily due to acute PE -Had heart rate she had in 100s several times today, metoprolol dose increased and given small bolus of fluid #GABRIEL -Resolved #Shock- resolved -Likely obstructive shock 2/2 PE -Now off levophed -Was followed by international affairs vice president but was subsequently transfered out of ICU -2D echo showed EF of 55%, with no regional wall motion abnormalities, and decreased RV function, more prominent in the apex and moderate concentric LVH #Parkinson's disease -Was in hospice care due to her Parkinson's but this was revoked on admission so she could receive intervention. -Continue Sinemet #DVT ppx: Juan C Bass MD Time spent in the patient's overall evaluation,decision-making process, review of diagnostic data, adjustment of management, discussion with other providers, nursing nursing and ancillary staff involved in patient's care documentation, 30 minutes Charges/Coding Visit Charges Inpatient E&M: 16481 Subs Hosp L2
[2022-09-05] MEDS: 0.9% Normal Saline 1,000 ML 250 ML IV (16:39)
[2022-09-05 18:03] LABS: Bacteria 0 SEEN /hpf (None Seen); Squamous Epithelial Cells - UA 0 SEEN /hpf (5-10)
[2022-09-05 18:36] LABS: Color, Urine Brown (Yellow); Glucose, Dipstick Normal (Normal); Ketone-Dipstick 15 mg/dl (Negative); Leukocyte Esterase-Dipstick 100 /ul (Negative); Nitrite-Dipstick Positive (Negative); Occult Blood-Urine 250 /ul (Negative); Protein-Dipstick 100 mg/dl (Negative); Urine Clarity Sl. Cloudy (Clear); Urine Urobilinogen 4 mg/dl (Normal)
[2022-09-05 19:59] LABS: Urine Bilirubin Dipstick 3 mg/dL (Negative)
[2022-09-05 20:02] LABS: Mucous, Urine 2+ /hpf (<or=2+); Red Blood Cells-Urine 50-100 SEEN /hpf (0-5); White Blood Cells 50-100 SEEN /hpf (0-5)
[2022-09-05] MEDS: Metoprolol Tartrate 25 MG Tablet 37.5 MG PO (20:51)
[2022-09-05] MEDS: Citalopram 40 MG TABLET PO (20:52)
[2022-09-05] MEDS: CARBIDOPA/LEVODOPA CR 50/200 Tablet PO (20:52)
[2022-09-06] VITALS (9 sets, daily range): BP systolic 116–173; BP diastolic 78–112; PULSE 92–111; RESP 14–18; TEMP 36.3–36.9; O2SAT 95–98; BMI 27.8
[2022-09-06] MEDS: Ceftriaxone 1 GM/50 ML BAG IV (00:53)
[2022-09-06 06:05] LABS: Absolute Lymphocyte Count 0.99 X10^3/uL (0.83-4.51); Absolute Neutrophil Count 9.5 X10^3/uL (2.0-7.7); Basophil# 0.08 X10^3/uL; Basophil% 0.7 % (0-1); Eosinophils% 0.8 % (0-5); Hematocrit 36.7 % (37-47); Hemoglobin 11.7 g/dL (12.0-15.0); Lymphocyte # 0.99 X10^3/ul (0.83-4.51); Lymphocyte % 8.3 % (19-41); Mean Corp Hgb Conc 31.9 g/dL (32-36); Mean Corpuscular Hgb 31.8 pg (27.0-32.0); Mean Corpuscular Volume 99.7 fL (81-99); Mean Platelet Vol. 10.8 fl (6.2-12.0); Monocyte# 0.97 X10^3/uL; Monocyte% 8.2 % (0-10); NRBC Flagged by Analyzer 0 % (0-5); Neutrophil # 9.45 X10^3/uL (2.7-7.7); Neutrophil % 79.4 % (47-70); Platelet Count 204 K/mm3 (150-450); RBC Distribution Width CV 13.1 % (11.6-14.6); RBC Distribution Width SD 47.9 fl (35.1-43.9); Red Blood Count 3.68 M/mm3 (4.2-5.4); White Blood Count 11.9 K/mm3 (4.4-11.0)
[2022-09-06] MEDS: Carbidopa/Levodopa 25/100 Tablet PO ×3 (06:21→16:32)
[2022-09-06 06:52] LABS: Anion Gap 6 (5-15); BUN 29 mg/dL (7-18); BUN/Creat Ratio 41.9 RATIO (10-20); Calcium,Total 8.3 mg/dL (8.5-10.1); Chloride 107 mmol/L (98-107); Creatinine, Serum 0.69 mg/dL (0.55-1.02); EST Glomerular Filtration Rate 87 mL/min (>60); Est Glom Filt Rate - Afr Amer 106 mL/min (>60); Glucose 110 mg/dL (74-106); Potassium 3.8 mmol/L (3.5-5.1); Sodium Level 136 mmol/L (136-145)
[2022-09-06] MEDS: Aspirin 81 MG TAB.CHEW PO (10:13)
[2022-09-06] MEDS: Losartan Potassium 25 MG Tablet PO (10:13)
[2022-09-06] MEDS: APIXABAN 5 MG TABLET 10 MG PO (10:14)
[2022-09-06] MEDS: Metoprolol Tartrate 25 MG Tablet 37.5 MG PO (10:17)
--- NOTE | 2022-09-06 11:25 | NURSING ---
DIRECTOR MEDICAL SAFETY asked for RN to come to patient room, felt like patient was having increased weakness on the left side. financial sales associate also notified, RN at bedside. Focused NIH and VS completed. Patient awake and alert, no facial droop noted and no drifting/weakness to left arm. Left leg has some drift/weakness but had a recent hip surgery. No significant findings, scrap charger in agreement.
--- NOTE | 2022-09-06 12:29 | CASEMGMT ---
Insurance approved patient for [facility]. SW notified physician and patient's daughter. Patient will go today per physician. Nelida in TCU was also notified. Thu MOODY
[2022-09-06] MEDS: hydrALAZINE 20 MG/ML Vial 10 MG IV (14:45)
[2022-09-06] MEDS: 0.9% Saline Lock 10 ML Syringe IV (14:46)
--- NOTE | 2022-09-06 14:46 | TREXTCAR_ITS ---
Diet Diet Order/Speech Therapy: 09/02/22 14:44 Diet: Regular - General Food consistency:: Mechanical (Minced/Moist) Liquid Consistency:: [place]/Mildly Thick Type of Dietary Supplement:: fort pud w/ L & D Is pt able to select menu?: Yes Diet Comments: TOTAL FEED, Liquids via straw, small sips 1 at a time, Meds crushed in Routine Orders/Code Status Suppository Type: Dulcolax 10mg Suppository Frequency: Daily PRN Code Status: DNRCC-A Wound(s) LEFT HIP: Wound Type: Surgical Incision Therapies Weight Bearing: Weight bearing as tolerated Problem/Diagnosis (1) Pulmonary embolism: Status: Acute Code(s): I26.99 - Other pulmonary embolism without acute cor pulmonale (2) Fracture of left hip: Status: Acute Code(s): S72.002A - Fracture of unspecified part of neck of left femur, initial encounter for closed fracture (3) History of atrial fibrillation: Status: Acute Code(s): Z86.79 - Personal history of other diseases of the circulatory system (4) Hx of Parkinson's disease: Status: Acute Code(s): Z86.69 - Personal history of other diseases of the nervous system and sense organs Plan # Pulmonary embolism #Waxing and waning confusion #left femoral neck fracture due to mechanical fall #Acute CVA #Nonstemi likely type II #Paroxysmal atrial fibrillation #GABRIEL- resolved #Shock- resolved #Parkinson's disease 76-year-old female with history of A-fib, consents disease, TIA presented to [facility] 08/29/2022 after mechanical fall. She is active with hospice secondary to Parkinson's however she had a left femoral neck fracture so hospice revoked so she can have surgery. She had left hemiarthroplasty 08/30/[address] Sudhakar Robles and did well. The following morning however she became unresponsive and had a systolic heart rate in the 70s and was in A- fib with RVR. Given her DNR/DNI status daughter was amenable to IV fluids and amiodarone bolus with drip and transition to PCU with no further aggressive interventions. She had an non-STEMI and was placed on a heparin drip. She did have echo performed which showed dilated right heart with reduced function and it was advised to assess for pulmonary embolism which was found on CTA. She was found to have PE and was treated for this as well. At 1 point she did require Levophed and ICU consultation but slowly improved. She was then found to have multiple small scattered embolic CVAs and neurology was consulted and they still recommended transitioning to oral anticoagulation, given her PE she was given 10 of Eliquis twice daily. She slowly improved and was ready for placement. She did have a slight increase in white blood cell count and UA did not show bacteria but had nitrate and leuk esterase as well as white and red blood cells so she was started on Rocephin overnight. Mental status was slightly better this morning so we will finish off course of Keflex. Discharge instructions as followed: DISCHARGE INSTRUCTIONS PLEASE READ *Please take this with you to your next doctors appointment* -You were found to have a blood clot and had been placed on a blood thinner, Eliquis. You will need to take 10 mg of Eliquis tonight and 10 mg twice daily for the next 3 days. After that you will take 5 mg twice daily -There was concern that you had a UTI prior to discharge so you were started on antibiotic. Would recommend Keflex 500 mg every 8 hours for 4 more days. He received a dose of Rocephin 09/06 you can begin Keflex the morning of 09/07 -Your metoprolol has been changed from metoprolol succinate 25 mg daily to metoprolol tartrate 37.5 mg twice daily. Please discontinue metoprolol succinate 25 mg daily and only take metoprolol tartrate 37.5 mg twice daily. -For your hip fracture and surgery orthopedic recommend follow-up 1 week in the office reassessment with x-rays and staple removal -Please call your primary care provider's office upon discharge to schedule a hospital follow up within 1 week. -For any concerning signs or symptoms please call 911 or proceed to the nearest emergency department Allergies/Procedures Done in Hospital Allergies iodine Allergy (Verified 08/29/22 17:34) Hives latex Allergy (Verified 08/29/22 17:34) Rash rotigotine [From Neupro] Allergy (Verified 08/29/22 17:34) Rash shellfish derived Allergy (Verified 08/29/22 17:34) Hives Sulfa (Sulfonamide Antibiotics) Allergy (Verified 08/29/22 17:34) Hives Znzukxg-DVT-QaT Reductase Inhibitor [Sjurolu-Szt-Etw Reductase Inhibitor] Adverse Reaction (Severe, Verified 08/29/22 17:34) Myalgias, muscle cramps, poor balance Procedures: 2-D Echocardiogram and - (CTA, MRI/MRA, modified barium swallow) Type of Care/Length of Stay Estimated LOS: Convalescent Care Less Than 30 days Type of Care Needed: Skilled Rehab Potential: Poor Prognosis: Poor Additional Orders/Day of Discharge Day of Discharge: 09/06/22 Dietary and Speech Recommendations Dietitian Recommendations/Changes: Continue regular diet with texture/consistency modifications per HAT LINING PASTER. Will add fortified pudding BID w/ lunch and dinner. Adjust ONS as needed. Discharge Plan Admission Admit Date/Time: 08/29/22 19:08 Primary Reason for Your Visit: Fall Attending Provider: Collette Bass Primary Care Provider: Edna Bonner Consulting Providers: Moisés Ashby ; David Brown ; Rob Dockery ; Remi Roberts ; Doni Mao ; Ryan Grace ; Josi Montemayor NP ; Db Robles ; Arminda Zapata Instructions Patient Instructions: ED Fall Prevention Additional Instructions / Restrictions: DISCHARGE INSTRUCTIONS PLEASE READ *Please take this with you to your next doctors appointment* -You were found to have a blood clot and had been placed on a blood thinner, Eliquis. You will need to take 10 mg of Eliquis tonight and 10 mg twice daily for the next 3 days. After that you will take 5 mg twice daily -There was concern that you had a UTI prior to discharge so you were started on antibiotic. Would recommend Keflex 500 mg every 8 hours for 4 more days. He received a dose of Rocephin 09/06 you can begin Keflex the morning of 09/07 -Your metoprolol has been changed from metoprolol succinate 25 mg daily to metoprolol tartrate 37.5 mg twice daily. Please discontinue metoprolol succinate 25 mg daily and only take metoprolol tartrate 37.5 mg twice daily. -For your hip fracture and surgery orthopedic recommend follow-up 1 week in the office reassessment with x-rays and staple removal -Please call your primary care provider's office upon discharge to schedule a hospital follow up within 1 week. -For any concerning signs or symptoms please call 911 or proceed to the nearest emergency department Discharge Orders/Prescriptions Prescriptions: New metoprolol tartrate 25 mg Tablet 37.5 mg PO BID 30 Days Qty: 90 0RF Eliquis DVT-PE Treat 30D Start 5 mg (74 tabs) tablets,dose pack See Rx Instructions .ROUTE .COMPLEX Qty: 74 0RF Rx Instructions: 10 mg of Eliquis tonight and 10 mg twice daily for the next 3 days. After that you will take 5 mg twice daily cephalexin 500 mg capsule 500 mg PO TID 4 Days Qty: 12 0RF Rx Instructions: Begin 09/07 Continued aspirin [Adult Low Dose Aspirin] 81 mg tablet,delayed release (DR/EC) 81 mg PO QHS melatonin 3 mg tablet 6 mg PO HS citalopram 40 mg tablet 40 mg PO QHS cholecalciferol (vitamin D3) 2,000 UNIT capsule 1,000 units PO BID Label Comments: SUPPLEMENT carbidopa-levodopa 25-100 mg tablet 1.5 tab PO TID carbidopa-levodopa 50-200 mg tablet extended release 1 tab PO QHS sennosides-docusate sodium [Senexon-S] 8.6-50 mg Tablet 1 tab-cap PO TIDCM lorazepam [Ativan] 0.5 mg Tablet 0.5 mg PO Q4H PRN PRN (Reason: Anxiety) zinc 50 mg Capsule 50 mg PO DAILY losartan 50 mg tablet 50 mg PO DAILY cyanocobalamin (vitamin B-12) 100 mcg tablet 1,000 mcg PO BID Discontinued metoprolol succinate 25 mg tablet extended release 24 hr 25 mg PO 1200 Referrals / Follow Up: Edna Bonner MD [Primary Care Provider] - Within 1 Week Db Robles MD [Med Staff - Active Staff] - Within 1 Week (Recommend follow- up 1 week in the office reassessment with x-rays and staple removal) Disposition Disposition (needs filled in before D/C Order can be placed): [facility]
--- NOTE | 2022-09-06 14:57 | PCM.DC.SUM ---
Providers Date of Admission: 08/29/22 Date of Discharge: 09/06/22 Primary Care Physician: Dr. Edna Bonner MD Consultations 08/29/22 19:58 Consult: Orthopedics Routine Consulting Provider: Db Robles Reason for Consult: Left femur fracture EMERGENT Consult: No Notified: Yes Date Notified: 08/29/22 Time Notified: 19:11 Method of Notification: ED Physician Initiated 08/31/22 08:25 Consult: Cardiology Routine Consulting Provider: David Brown Reason for Consult: nonstemi, afib with rvr EMERGENT Consult: No Notified: Yes Date Notified: 08/31/22 Time Notified: 08:26 Method of Notification: Verbal 08/31/22 11:00 Consult: Nutrition Associate / Pulmonary Medicine Routine Consulting Provider: Pulmonary Medicine haim Burgos Reason for Consult: shock EMERGENT Consult: No Notified: Yes Date Notified: 08/31/22 Time Notified: 10:15 Method of Notification: Verbal Reason For Visit: LEFT FEMUR FRACTURE Diagnosis Discharge Diagnosis (1) Pulmonary embolism: Status: Acute Code(s): I26.99 - Other pulmonary embolism without acute cor pulmonale (2) Fracture of left hip: Status: Acute Code(s): S72.002A - Fracture of unspecified part of neck of left femur, initial encounter for closed fracture (3) History of atrial fibrillation: Status: Acute Code(s): Z86.79 - Personal history of other diseases of the circulatory system (4) Hx of Parkinson's disease: Status: Acute Code(s): Z86.69 - Personal history of other diseases of the nervous system and sense organs Plan # Pulmonary embolism #Waxing and waning confusion #left femoral neck fracture due to mechanical fall #Acute CVA #Nonstemi likely type II #Paroxysmal atrial fibrillation #GABRIEL- resolved #Shock- resolved #Parkinson's disease Medications at Discharge Home Medications cholecalciferol (vitamin D3) 50 mcg (2,000 unit) capsule 1,000 units PO BID Supplement 10/15/16 aspirin 81 mg tablet,delayed release (Adult Low Dose Aspirin) 81 mg PO QHS [facility] 12/21/18 carbidopa 25 mg-levodopa 100 mg tablet 1.5 tab PO TID Parkinson 07/23/20 cyanocobalamin (vitamin B-12) 100 mcg tablet 1,000 mcg PO BID Supplement 12/03/20 carbidopa ER 50 mg-levodopa 200 mg tablet,extended release 1 tab PO QHS Parkinson 04/19/21 citalopram 40 mg tablet 40 mg PO QHS Mood 04/19/21 melatonin 3 mg tablet 6 mg PO HS Sleep 04/19/21 sennosides 8.6 mg-docusate sodium 50 mg tablet (Senexon-S) 1 tab-cap PO TIDCM Stool softner 05/19/22 lorazepam 0.5 mg tablet (Ativan) 0.5 mg PO Q4H PRN PRN Anxiety 08/29/22 losartan 50 mg tablet 50 mg PO DAILY BP 08/29/22 zinc 50 mg capsule 50 mg PO DAILY supplement 08/29/22 apixaban 5 mg (74 tabs) tablets in a dose pack (Eliquis DVT-PE Treat 30D Start) See Rx Instructions .ROUTE .COMPLEX Blood thinner 09/06/22 cephalexin 500 mg capsule 500 mg PO TID Antibiotic 09/06/22 metoprolol tartrate 25 mg tablet 37.5 mg PO BID BP 09/06/22 Hospital Course Procedures - (Echo, CTA) Summary of Care Provided Minutes Spent on Discharge: 33 Hospital Course: 76-year-old female with history of A-fib, consents disease, TIA presented to [facility] 08/29/2022 after mechanical fall. She is active with hospice secondary to Parkinson's however she had a left femoral neck fracture so hospice revoked so she can have surgery. She had left hemiarthroplasty 08/30/[address] Sudhakar Robles and did well. The following morning however she became unresponsive and had a systolic heart rate in the 70s and was in A-fib with RVR. Given her DNR/DNI status daughter was amenable to IV fluids and amiodarone bolus with drip and transition to PCU with no further aggressive interventions. She had an non-STEMI and was placed on a heparin drip. She did have echo performed which showed dilated right heart with reduced function and it was advised to assess for pulmonary embolism which was found on CTA. She was found to have PE and was treated for this as well. At 1 point she did require Levophed and ICU consultation but slowly improved. She was then found to have multiple small scattered embolic CVAs and neurology was consulted and they still recommended transitioning to oral anticoagulation, given her PE she was given 10 of Eliquis twice daily. She slowly improved and was ready for placement. She did have a slight increase in white blood cell count and UA did not show bacteria but had nitrate and leuk esterase as well as white and red blood cells so she was started on Rocephin overnight. Mental status was slightly better this morning so we will finish off course of Keflex. Discharge instructions as followed: DISCHARGE INSTRUCTIONS PLEASE READ *Please take this with you to your next doctors appointment* -You were found to have a blood clot and had been placed on a blood thinner, Eliquis. You will need to take 10 mg of Eliquis tonight and 10 mg twice daily for the next 3 days. After that you will take 5 mg twice daily -There was concern that you had a UTI prior to discharge so you were started on antibiotic. Would recommend Keflex 500 mg every 8 hours for 4 more days. He received a dose of Rocephin 09/06 you can begin Keflex the morning of 09/07 -Your metoprolol has been changed from metoprolol succinate 25 mg daily to metoprolol tartrate 37.5 mg twice daily. Please discontinue metoprolol succinate 25 mg daily and only take metoprolol tartrate 37.5 mg twice daily. -For your hip fracture and surgery orthopedic recommend follow-up 1 week in the office reassessment with x-rays and staple removal -Please call your primary care provider's office upon discharge to schedule a hospital follow up within 1 week. -For any concerning signs or symptoms please call 911 or proceed to the nearest emergency department Physical Exam Narrative General: Alert, no acute distress HEENT: Atraumatic, normocephalic Eyes: Anicteric, normal conjunctiva, extraocular movements grossly intact Neck: Supple Respiratory: Clear to auscultation bilaterally, normal respiratory effort Cardiovascular: Regular rate GI: Soft, nontender, nondistended Extremities: No edema Musculoskeletal: Moving all extremities Neuro: Tremor Skin: No rashes appreciated Psych: Overall cooperative Weight / BMI Weight Weight: 78.1 kg Body Mass Index (BMI) 27.8 ABG / Lab / Microbiology Data Result Diagrams: 09/06/22 05:37 09/06/22 05:37 Laboratory: Laboratory Results - last 24 hr 09/05/22 17:58: Urine Color Brown, Urine Clarity Sl. Cloudy, Urine pH 6.0, Ur Specific [place] 1.020, Urine Protein 100 H, Urine Glucose (UA) Normal, Urine Ketones 15 H, Urine Occult Blood 250 H, Urine Nitrite Positive H, Urine Bilirubin 3 H, Urine Urobilinogen 4 H, Ur Leukocyte Esterase 100 H, Urine RBC 50-100 SEEN, Urine WBC 50-100 SEEN, Ur Squamous Epith Cells 0 SEEN, Urine Bacteria 0 SEEN, Urine Mucus 2+ 09/06/22 05:37: WBC 11.9 H, RBC 3.68 L, Hgb 11.7 L, Hct 36.7 L, MCV 99.7 H, MCH 31.8, MCHC 31.9 L, RDW Std Deviation 47.9 H, RDW Coeff of Patience 13.1, Plt Count 204, MPV 10.8, Immature Gran % (Auto) 2.600 H, Neut % (Auto) 79.4 H, Lymph % (Auto) 8.3 L, Merrick % (Auto) 8.2, Eos % (Auto) 0.8, Baso % (Auto) 0.7, Absolute Neuts (auto) 9.5 H, Absolute Lymphs (auto) 0.99, Nucleated RBC % 0 09/06/22 05:37: Sodium 136, Potassium 3.8, Chloride 107, Carbon Dioxide 23.0, Anion Gap 6, BUN 29 H, Creatinine 0.69, Estim Creat Clear Calc 44.80, Est GFR (MDRD) Af Amer 106, Est GFR (MDRD) Non-Af 87, BUN/Creatinine Ratio 41.9 H, Glucose 110 H, Calcium 8.3 L Microbiology: Microbiology 08/29/22 23:56 Nasal Secretion SARS-CoV-2 Antigen (Rapid) - Final Meaningful Use Info Meaningful Use Diagnoses (Choose all that apply): VTE VTE Anticoag overlap given w/in hospital stay or rx'd at dc?: Yes Pt receive overlap for 5 days?: Yes Discharge Plan Admission Admit Date/Time: 08/29/22 19:08 Primary Reason for Your Visit: Fall Attending Provider: Collette Bass Primary Care Provider: Edna Bonner Consulting Providers: Moisés Ashby ; David Brown ; Rob Dockery ; Remi Roberts ; Doni Mao ; Ryan Grace ; Josi Montemayor EMERGENCY SPILL RESPONSE TECHNICIAN ; Db Robles ; Arminda Zapata Instructions Patient Instructions: ED Fall Prevention Additional Instructions / Restrictions: DISCHARGE INSTRUCTIONS PLEASE READ *Please take this with you to your next doctors appointment* -You were found to have a blood clot and had been placed on a blood thinner, Eliquis. You will need to take 10 mg of Eliquis tonight and 10 mg twice daily for the next 3 days. After that you will take 5 mg twice daily -There was concern that you had a UTI prior to discharge so you were started on antibiotic. Would recommend Keflex 500 mg every 8 hours for 4 more days. He received a dose of Rocephin 09/06 you can begin Keflex the morning of 09/07 -Your metoprolol has been changed from metoprolol succinate 25 mg daily to metoprolol tartrate 37.5 mg twice daily. Please discontinue metoprolol succinate 25 mg daily and only take metoprolol tartrate 37.5 mg twice daily. -For your hip fracture and surgery orthopedic recommend follow-up 1 week in the office reassessment with x-rays and staple removal -Please call your primary care provider's office upon discharge to schedule a hospital follow up within 1 week. -For any concerning signs or symptoms please call 911 or proceed to the nearest emergency department Discharge Orders/Prescriptions Prescriptions: Continued aspirin [Adult Low Dose Aspirin] 81 mg tablet,delayed release (DR/EC) 81 mg PO QHS melatonin 3 mg tablet 6 mg PO HS citalopram 40 mg tablet 40 mg PO QHS cholecalciferol (vitamin D3) 2,000 UNIT capsule 1,000 units PO BID Label Comments: SUPPLEMENT carbidopa-levodopa 25-100 mg tablet 1.5 tab PO TID carbidopa-levodopa 50-200 mg tablet extended release 1 tab PO QHS sennosides-docusate sodium [Senexon-S] 8.6-50 mg Tablet 1 tab-cap PO TIDCM lorazepam [Ativan] 0.5 mg Tablet 0.5 mg PO Q4H PRN PRN (Reason: Anxiety) zinc 50 mg Capsule 50 mg PO DAILY losartan 50 mg tablet 50 mg PO DAILY cyanocobalamin (vitamin B-12) 100 mcg tablet 1,000 mcg PO BID Discontinued metoprolol succinate 25 mg tablet extended release 24 hr 25 mg PO 1200 No Action cephalexin 500 mg capsule 500 mg PO TID Rx Instructions: Begin 09/07 metoprolol tartrate 25 mg tablet 37.5 mg PO BID Eliquis DVT-PE Treat 30D Start 5 mg (74 tabs) tablets,dose pack See Rx Instructions .ROUTE .COMPLEX Rx Instructions: 10 mg of Eliquis tonight and 10 mg twice daily for the next 3 days. After that you will take 5 mg twice daily Referrals / Follow Up: Edna Bonner MD [Primary Care Provider] - Within 1 Week Db Robles MD [Med Staff - Active Staff] - Within 1 Week (Recommend follow-up 1 week in the office reassessment with x-rays and staple removal) Disposition Disposition (needs filled in before D/C Order can be placed): Detention Facility Charges/Coding Visit Charges Inpatient E&M: 69200 Disch Hosp >30min
--- NOTE | 2022-09-06 15:41 | CASEMGMT ---
d/c to [facility] TCU under skilled level of care. Family aware and in agreement with d/c plan. Thu Alexis MSW HEIDY
--- NOTE | 2022-09-06 16:45 | NURSING ---
Report called to TCU. Pt to go to room 14
== END 2022-09-06 17:15 | disposition skilled nursing facility (03) | DRG 521 ==
LOC: ED 18:59 → MS3 19:13 → PCU 08-31 05:04 → ICU 08-31 10:54 → PCU 09-03 15:19
PROVIDERS: Family Medicine; Internal Medicine Cardiovascular Disease; Internal Medicine Critical Care Medicine; Orthopaedic Surgery; Student in an Organized Health Care Education/Training Program; Admitting Provider Family Medicine; Emergency Provider Emergency Medicine; PCP Family Medicine; Visit Provider Internal Medicine
PROC: 0SRS0J9 Replacement of Left Hip Joint, Femoral Surface with Synthetic Substitute, Cemented, Open Approach (ICD-10-PCS; CPT 27125; principal; 2022-08-30 07:40)
DX: S72.012A Unspecified intracapsular fracture of left femur, initial encounter for closed fracture (principal); I63.133 Cerebral infarction due to embolism of bilateral carotid arteries; I21.A1 Myocardial infarction type 2; T81.19XA Other postprocedural shock, initial encounter; N17.9 Acute kidney failure, unspecified; G93.40 Encephalopathy, unspecified; I48.0 Paroxysmal atrial fibrillation; I26.99 Other pulmonary embolism without acute cor pulmonale; G20 Parkinson's disease; I10 Essential (primary) hypertension; I25.10 Atherosclerotic heart disease of native coronary artery without angina pectoris; W19.XXXA Unspecified fall, initial encounter; I25.2 Old myocardial infarction; R06.81 Apnea, not elsewhere classified; Y92.009 Unspecified place in unspecified non-institutional (private) residence as the place of occurrence of the external cause; F32.A Depression, unspecified; Z66 Do not resuscitate; Z20.822 Contact with and (suspected) exposure to COVID-19; Z79.01 Long term (current) use of anticoagulants; Z79.82 Long term (current) use of aspirin; Z79.899 Other long term (current) drug therapy; Z86.73 Personal history of transient ischemic attack (TIA), and cerebral infarction without residual deficits; Y83.8 Other surgical procedures as the cause of abnormal reaction of the patient, or of later complication, without mention of misadventure at the time of the procedure; Y92.239 Unspecified place in hospital as the place of occurrence of the external cause; R29.704 NIHSS score 4; R26.9 Unspecified abnormalities of gait and mobility; R49.8 Other voice and resonance disorders
CPT/HCPCS: 36415; 36600; 70450; 70544; 70551; 71045; 71275; 73502; 74230; 80048; 80061; 81001; 82803; 82962; 83735; 84443; 84484; 85014; 85018; 85025; 85027; 85610; 85730; 86850; 86900; 86901; 87426; 87811; 88305; 88311; 92507; 92526; 92610; 92611; 93005; 93306; 93880; 94668; 94762; 97110; 97162; 97166; 97530; 97535; 99252; 99285; C1776; J7030; J7040; J7050; J7120; Q9967; A4216; G0463; J2405

== ENCOUNTER 2022-09-06 17:41 | Inpatient (IN) | payer MEDICARE, SELFPAY ==
[2022-09-06 17:52] VITALS: BMI 27.2
[2022-09-06 18:00] VITALS: BP 154/75; PULSE 113; RESP 16; TEMP 36.7; O2SAT 96
--- NOTE | 2022-09-06 18:48 | HP.PCM_ITS ---
HPI - General General Date of Admission: 09/06/22 Date of Service: 09/07/22 Chief Complaint: Here for rehabilitation. HPI Narrative 08/29/2022 MILEY RANKIN, is a 76 Female who presents to [facility] Emergency Department with fall, left hip injury. 08/29/2022 EKG sinus tachycardia with premature atrial contractions, minimal volt age criteria for LVH, maybe normal variant. Fell, injured left hip, unable to stand, unable to bear weight. On hospice due to Parkinson Disease. Morphine given, Zofran given. CT brain negative, Chest X-ray negative. X-ray showed left hip fracture. 08/29/2022 Admit to Hospital. Revoke hospice, Pain control, PT/OT, consult Orthopedics. Prepare for surgery. 08/30/2022 Tylenol, Oxycodone, Morphine for pain. 08/30/2022 Dr. Robles performed left hip cemented hemiarthroplasty. 08/31/2022 PRACTICE MANAGEMENT CONSULTANT unresponsiveness secondary to atrial fibrillation with rapid ventricular response, IV fluids given, Amiodarone drip started. 08/31/2022 Echo Left ventricular systolic function normal. Moderate LVH. EF 55%. Pulmonary artery systolic pressure 36mm HG. 08/31/2022 Troponin elevated, family declined intervention. Levophed given for hypotension. CTA chest shows pulmonary embolism, treated with heparin drip. 09/01/2022 Off Levophed. Heparin drip for pulmonary embolism. 09/02/2022, Heparin drip changed to Eliquis for pulmonary embolism. 09/03/2022 Hold amiodarone due to bradycardia. 09/03/2022 More alert, eating breakfast. Family declined cardiac catheterization for NSTEMI. 09/04/2022 Await placement. 09/05/2022 Lopressor 5mg IV x 1 dose for recurrent atrial fibrillation with rapid ventricular response. 09/05/2022 Overall improvement, somewhat confused. MRI brain shows stroke, aspirin, Eliquis, statins intolerable. Increase Metoprolol for atrial fibrillation with rapid ventricular response. 09/06/2022 Admit to TCU with debility, here for rehabilitation, strengthening, prior to disposition determination. [facility] Medical History Atrial fibrillation with RVR Breast cancer CHI (closed head injury) Diverticulosis Elevated troponin Essential hypertension Fall History of left heart catheterization (LHC) (~10/28/19) Non-smoker NSTEMI (non-ST elevated myocardial infarction) (~10/25/19) Parkinson disease Parkinson disease Paroxysmal atrial fibrillation Pyloric stenosis SBO (small bowel obstruction) TIA (transient ischemic attack) Home Medications cholecalciferol (vitamin D3) 50 mcg (2,000 unit) capsule 1,000 units PO BID Supplement 10/15/16 [History Last Taken 08/29/22] aspirin 81 mg tablet,delayed release (Adult Low Dose Aspirin) 81 mg PO QHS Heart health 12/21/18 [History Last Taken 08/28/22] carbidopa 25 mg-levodopa 100 mg tablet 1.5 tab PO TID Parkinson 07/23/20 [History Last Taken 08/29/22] cyanocobalamin (vitamin B-12) 100 mcg tablet 1,000 mcg PO BID Supplement 12/03/20 [History Last Taken 08/29/22] carbidopa ER 50 mg-levodopa 200 mg tablet,extended release 1 tab PO QHS Parkinson 04/19/21 [History Last Taken 08/28/22] citalopram 40 mg tablet 40 mg PO QHS Mood 04/19/21 [History Last Taken 08/29/22] melatonin 3 mg tablet 6 mg PO HS Sleep 04/19/21 [History Last Taken 08/28/22] sennosides 8.6 mg-docusate sodium 50 mg tablet (Senexon-S) 1 tab-cap PO TIDCM Stool softner 05/19/22 [History Last Taken 08/29/22] lorazepam 0.5 mg tablet (Ativan) 0.5 mg PO Q4H PRN PRN Anxiety 08/29/22 [History Last Taken 08/29/22] losartan 50 mg tablet 50 mg PO DAILY BP 08/29/22 [History Last Taken 08/29/22] zinc 50 mg capsule 50 mg PO DAILY supplement 08/29/22 [History Last Taken 08/28/22] apixaban 5 mg (74 tabs) tablets in a dose pack (Eliquis DVT-PE Treat 30D Start) See Rx Instructions .ROUTE .COMPLEX Blood thinner 09/06/22 [History Last Taken Unknown] cephalexin 500 mg capsule 500 mg PO TID Antibiotic 09/06/22 [History Last Taken Unknown] metoprolol tartrate 25 mg tablet 37.5 mg PO BID BP 09/06/22 [History Last Taken Unknown] Allergy/AdvReac Type Severity Reaction Status Date / Time iodine Allergy Hives Verified 08/29/22 17:34 latex Allergy Rash Verified 08/29/22 17:34 rotigotine [From Neupro] Allergy Rash Verified 08/29/22 17:34 shellfish derived Allergy Hives Verified 08/29/22 17:34 Sulfa (Sulfonamide Allergy Hives Verified 08/29/22 17:34 Antibiotics) [id number] Reductase AdvReac Severe Myalgias, Verified 08/29/22 17:34 Inhibitor muscle [Plqemsw-Mfq-Rly Reductase cramps, Inhibitor] poor balance Family History Brother Heart disease Surgical History History of bowel resection History of gastric surgery History of lumpectomy Social History (Updated 09/06/22 @ 18:[address] Jacky Aggarwal MD) household members: spouse Smoking Status: Unknown if ever smoked alcohol intake: never substance use type: does not use ROS Constitutional Constitutional: Denies chills, fever(s) or weight gain ENT HEENT: Denies headache(s), nasal congestion or nasal discharge Cardiovascular Cardiovascular: Denies chest pain or palpitations Respiratory/Chest Respiratory/Chest: Denies cough, excessive phlegm production or shortness of breath with exertion Gastrointestinal Gastrointestinal: Denies abdominal pain, nausea or vomiting Genitourinary Genitourinary: Denies dysuria Musculoskeletal Musculoskeletal: Denies joint pain or joint swelling Integumentary Integumentary: Denies rash or wounds Neurologic Neurologic: Denies focal weakness, numbness or tingling Psychiatric Psychiatric: Denies anxiety, auditory hallucinations, depression, homicidal ideation or suicidal ideation Physical Exam Const alert General Appearance: cooperative HEENT normocephalic Eyes PERRL and EOMs intact bilaterally Neck supple, no JVD and no carotid bruits Resp normal respiratory effort, normal air movement and clear to auscultation bilaterally Cardio regular rate and regular rhythm GI normal to inspection, nondistended, normoactive bowel sounds, non-tender and non-distended Extremity normal capillary refill General Extremity: Negative for edema Skin no rashes or lesions noted General Skin Exam: no breakdown Psych affect normal Appearance: appropriate Results Lab / Micro Data Result Diagrams: 09/07/22 05:14 09/07/22 05:14 Assessment & Plan Assessment/Plan (1) Debility: (2) Closed left hip fracture: (3) Atrial fibrillation with rapid ventricular response: (4) Pulmonary embolism: (5) Stroke: (6) NSTEMI (non-ST elevated myocardial infarction): (7) Parkinson disease: (8) Depression: (9) Insomnia: (10) Hypertension: (11) Coronary artery disease: PLAN: Plan 76 year old female with below past medical history significant for hospice for Parkinson Disease, hospitalized for left hip fracture, underwent left hip hemiarthroplasty 08/30/[address] Db Robles, complicated by atrial fibrillation with rapid ventricular response, pulnonary embolism, stroke, NSTEMI, admitted to TCU with debility, here for rehabilitation, strengthening, prior to discharge home with resumption of hospice. * Debility - PT/OT. * Pain - Tylenol 1000mg q8, Tramadol 50mg q6h prn pain (1-5), Oxycodone 5mg Q4H prn pain (6-10). * Bowel - senna/colace 1 tablet tidcm, Dulcolax 10mg pr daily prn. * Adult immunization - Administer pneumonia vaccine, covid19 vaccine, flu vaccine. * DVT prophylaxis - Eliquis. * Pulmonary embolism - Eliquis 10mg bid thru 09/09/2022, then 5mg bid forever. * Stroke - Aspirin 81mg qhs x 30 days, then Eliquis 5mg bid forever. * Parkinson Disease - Sinemet 25/100mg 1.5 tablets tidac, Sinemet 50/200mg 1 tablet qhs. * Urinary tract infection - Keflex 500mg bid x 7 days, received Ceftriaxone in hospital. 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 * Vitamin B12 deficiency - B12 1000mcg bidcm. * Anxiety - Lorazepam 0.5mg q4h prn, stable chronic care home use, GDR not recommended. * Coronary artery disease - Metoprolol 37.5mg bid, Losartan 50mg daily, Aspirin 81mg x 30 days, then Eliquis 5mg bid forever. Family declined cardiac catheterization for NSTEMI. * Atrial Fibrillation - Metoprolol 37.5mg bid, Eliquis as above. * Insomnia - Melatonin 6mg qhs. * Vitamin D deficiency - D3 25mcg bidcm. * Zinc deficiency - Zinc 220mg daily.
[2022-09-06 19:45] VITALS: O2SAT 96
[2022-09-06] MEDS: APIXABAN 5 MG TABLET 10 MG PO (21:00)
[2022-09-06] MEDS: Acetaminophen 500 MG Tablet 1000 MG PO (21:00)
[2022-09-06] MEDS: CARBIDOPA/LEVODOPA CR 50/200 Tablet PO (21:02)
[2022-09-06] MEDS: MELATONIN 3 MG TABLET 6 MG PO (21:02)
[2022-09-06] MEDS: Citalopram 40 MG TABLET PO (21:03)
[2022-09-06] MEDS: Menthol/Lanolin/Calamine/Znox 113 GM Tube 1 APPLIC TOPICAL (22:00)
[2022-09-07 05:23] VITALS: BP 133/70; PULSE 94
[2022-09-07] MEDS: Metoprolol Tartrate 25 MG Tablet 37.5 MG PO ×2 (05:23→17:39)
[2022-09-07] MEDS: Acetaminophen 500 MG Tablet 1000 MG PO ×3 (05:24→20:57)
[2022-09-07] MEDS: Losartan Potassium 50 MG Tablet PO (05:24)
[2022-09-07] MEDS: Carbidopa/Levodopa 25/100 Tablet PO ×3 (05:24→17:37)
[2022-09-07] MEDS: Cephalexin 500 MG Capsule PO ×2 (05:25→17:35)
[2022-09-07] MEDS: APIXABAN 5 MG TABLET 10 MG PO ×2 (05:25→17:35)
[2022-09-07] MEDS: Menthol/Lanolin/Calamine/Znox 113 GM Tube 1 APPLIC TOPICAL ×2 (05:30→17:38)
[2022-09-07] MEDS: Nystatin Powder 15gm Bottle 1 APPLIC TOPICAL ×2 (05:30→17:39)
[2022-09-07 05:49] LABS: Absolute Lymphocyte Count 1.05 X10^3/uL (0.83-4.51); Absolute Neutrophil Count 8.9 X10^3/uL (2.0-7.7); Basophil% 0.9 % (0-1); Eosinophil# 0.11 X10^3/uL; Eosinophils% 0.9 % (0-5); Hematocrit 35.4 % (37-47); Hemoglobin 11.5 g/dL (12.0-15.0); Lymphocyte # 1.05 X10^3/ul (0.83-4.51); Lymphocyte % 9.1 % (19-41); Mean Corp Hgb Conc 32.5 g/dL (32-36); Mean Corpuscular Hgb 32.3 pg (27.0-32.0); Mean Corpuscular Volume 99.4 fL (81-99); Mean Platelet Vol. 10.4 fl (6.2-12.0); Monocyte# 0.97 X10^3/uL; Monocyte% 8.4 % (0-10); NRBC Flagged by Analyzer 0 % (0-5); Neutrophil % 76.6 % (47-70); Platelet Count 242 K/mm3 (150-450); RBC Distribution Width SD 47.6 fl (35.1-43.9); Red Blood Count 3.56 M/mm3 (4.2-5.4); White Blood Count 11.6 K/mm3 (4.4-11.0)
[2022-09-07 06:07] LABS: Anion Gap 4 (5-15); BUN 29 mg/dL (7-18); Calcium,Total 8.2 mg/dL (8.5-10.1); Chloride 106 mmol/L (98-107); Creatinine, Serum 0.64 mg/dL (0.55-1.02); EST Glomerular Filtration Rate 95 mL/min (>60); Est Glom Filt Rate - Afr Amer 115 mL/min (>60); Glucose 120 mg/dL (74-106); Potassium 3.7 mmol/L (3.5-5.1); Sodium Level 137 mmol/L (136-145)
[2022-09-07] MEDS: Cholecalciferol (VIT D3) 25 MCG TABLET (1,000 UNITS) PO ×3 (08:31→17:36)
[2022-09-07] MEDS: Senna/Docusate Sodium 1 Tablet PO ×3 (08:32→17:36)
[2022-09-07] MEDS: Cyanocobalamin 500 MCG Tablet 1000 MCG PO ×2 (08:32→17:35)
[2022-09-07] MEDS: Tuberculin,Purif.prot.deriv. 50 TU/ML Vial 0.1 ML ID (08:32)
--- NOTE | 2022-09-07 11:10 | PCM.PN.DRR ---
TCU RX Drug Regimen Review Subjective: TCU Admission. 76 YOF presented to the ER with fall, left hip injury. Hospitalized for left hip fracture, underwent left hip hemiarthroplasty 08/30/[address] Db Robles, complicated by atrial fibrillation with rapid ventricular response, pulmonary embolism, stroke, NSTEMI. Admitted to TCU with debility for strengthening and rehabilitation. Objective: Allergies iodine Allergy (Verified 08/29/22 17:34) Hives latex Allergy (Verified 08/29/22 17:34) Rash rotigotine [From Neupro] Allergy (Verified 08/29/22 17:34) Rash shellfish derived Allergy (Verified 08/29/22 17:34) Hives Sulfa (Sulfonamide Antibiotics) Allergy (Verified 08/29/22 17:34) Hives Hleluve-IRY-IzW Reductase Inhibitor [Nzgoaon-Orx-Xjh Reductase Inhibitor] Adverse Reaction (Severe, Verified 08/29/22 17:34) Myalgias, muscle cramps, poor balance Current Medications Generic Name Dose Route Start Last Admin Trade Name Freq PRN Reason Stop Dose Admin Acetaminophen 1,000 mg 09/06/22 22:00 09/07/22 05:24 Acetaminophen 500 Mg Tablet PO 1,000 mg Q8 TITUS Administration Apixaban 10 mg 09/06/22 19:00 09/07/22 05:25 Apixaban 5 Mg Tablet PO 09/09/22 18:01 10 mg BID TITUS Administration Apixaban 5 mg 09/10/22 06:00 Apixaban 5 Mg Tablet PO BID [facility] Aspirin 81 mg 09/07/22 22:00 Aspirin E.C. 81 Mg Tablet PO 10/07/22 22:01 QHS TITUS Bisacodyl 10 mg 09/06/22 18:14 Bisacodyl 10 Mg Suppository RC DAILY PRN CONSTIPATION Calamine/Phenol 1 applic 09/06/22 22:00 09/07/22 05:30 Menthol/Lanolin/Calamine/Znox 113 Gm Tube TOPICAL 1 applic BID TITUS Administration Protocol Carbidopa/Levodopa 1.5 tablet 09/07/22 06:45 09/07/22 05:24 Carbidopa/Levodopa 25/100 Tablet PO 1.5 tablet TIDAC TITUS Administration Carbidopa/Levodopa 1 tablet 09/06/22 22:00 09/06/22 21:02 Carbidopa/Levodopa Cr 50/200 Tablet PO 1 tablet QHS [facility] Administration Cephalexin 500 mg 09/07/22 06:00 09/07/22 05:25 Cephalexin 500 Mg Capsule PO 09/14/22 06:01 500 mg BID [facility] Administration Cholecalciferol 25 mcg 09/07/22 08:00 09/07/22 08:31 Cholecalciferol (Vit D3) 25 Mcg Tablet (1,000 Units) PO 25 mcg BIDCM [facility] Administration Citalopram Hydrobromide 40 mg 09/06/22 22:00 09/06/22 21:03 Citalopram 40 Mg Tablet PO 40 mg QHS [facility] Administration Cyanocobalamin 1,000 mcg 09/07/22 08:00 09/07/22 08:32 Cyanocobalamin 500 Mcg Tablet PO 1,000 mcg BIDCM [facility] Administration Lorazepam 0.5 mg 09/06/22 18:05 Lorazepam 0.5 Mg Tablet PO Q4H PRN PRN ANXIETY Losartan Potassium 50 mg 09/07/22 06:00 09/07/22 05:24 Losartan Potassium 50 Mg Tablet PO 50 mg DAILY [facility] Administration Melatonin 6 mg 09/06/22 22:00 09/06/22 21:02 Melatonin 3 Mg Tablet PO 6 mg HS [facility] Administration Metoprolol Tartrate 37.5 mg 09/07/22 06:00 09/07/22 05:23 Metoprolol Tartrate 25 Mg Tablet PO 37.5 mg BID [facility] Administration Nystatin 1 applic 09/07/22 06:00 09/07/22 05:30 Nystatin Powder 15gm Bottle TOPICAL 1 applic BID [facility] Administration Protocol Oxycodone HCl 5 mg 09/06/22 19:17 Oxycodone 5 Mg Tablet PO Q4H PRN PRN Pain Score 6-10 Senna/Docusate Sodium 1 tablet 09/07/22 07:45 09/07/22 08:32 Senna/Docusate Sodium 1 Tablet PO 1 tablet TIDCM [facility] Administration Sodium Chloride 10 - 40 ml 09/06/22 18:55 0.9% Saline Lock 10 Ml Syringe IV UD PRN SALINE FLUSH Tramadol HCl 50 mg 09/06/22 19:17 Tramadol 50 Mg Tablet PO Q6H PRN PRN Pain Score 1-5 Tuberculin PPD 0.1 ml 09/14/22 10:00 Tuberculin,Purif.Prot.Deriv. 50 Tu/Ml Vial ID 09/14/22 10:01 X1 ONE Zinc Sulfate 220 mg 09/07/22 08:00 09/07/22 08:32 Zinc Sulfate (50mg Elemental) 220 Mg Capsule PO 220 mg DAILYCM [facility] Administration Problem List (Last Reviewed 09/06/22 @ 18:[address] Jacky Aggarwal MD) Coronary artery disease (Acute) Hypertension (Chronic) Insomnia (Acute) Depression (Acute) Parkinson disease (Acute) NSTEMI (non-ST elevated myocardial infarction) (Acute) Stroke (Acute) Pulmonary embolism (Acute) Atrial fibrillation with rapid ventricular response (Acute) Closed left hip fracture (Acute) Debility (Acute) Vital Signs Temp Pulse Resp BP Pulse Ox O2 Del Method 98.0 F 94 16 133/70 H 96 Room Air 09/06/22 18:00 09/07/22 05:23 09/06/22 18:00 09/07/22 05:23 09/06/22 19:45 09/06/22 19:45 Oxygen Delivery Method Room Air Sodium 137 mmol/L (136-145) 09/07/22 05:14 Potassium 3.7 mmol/L (3.5-5.1) 09/07/22 05:14 Chloride 106 mmol/L (98-107) 09/07/22 05:14 Carbon Dioxide 27.0 mmol/L (21.0-32.0) 09/07/22 05:14 Anion Gap 4 (5-15) L 09/07/22 05:14 BUN 29 mg/dL (7-18) H 09/07/22 05:14 Creatinine 0.64 mg/dL (0.55-1.02) 09/07/22 05:14 Est GFR (MDRD) Af Amer 115 mL/min (>60) 09/07/22 05:14 Est GFR (MDRD) Non-Af 95 mL/min (>60) 09/07/22 05:14 BUN/Creatinine Ratio 45.0 RATIO (10-20) H 09/07/22 05:14 Glucose 120 mg/dL (74-106) H 09/07/22 05:14 Assessment/Plan: 1. Pain: acetaminophen 1000mg PO Q8, tramadol 50mg PO Q6H PRN pain 1-5 and oxycodone 5mg PO Q4H PRN pain 6-10. Resident has not used any PRN doses. Please continue to monitor for increased pain and PRN usage. 2. Bowel: senna/docusate 1T PO TIDCM and bisacodyl 10mg RC x1 PRN constipation. No PRN doses so far. Please continue to monitor for constipation and PRN usage. Last documented bowel movement from 09/06. 3. Pulmonary embolism/stroke/CAD/atrial fibrillation: apixaban 10mg PO BID thru 09/09/22, then 5mg PO BID starting 09/10/22, aspirin 81mg PO QHS thru 10/07/22, metoprolol tartrate 37.5mg PO BID and losartan 50mg PO daily. Please continue to monitor for S/S of bleeding, hemoglobin (last 11.5g/dL), HR (last 94), BP (last 133/70), renal function and potassium (last 3.7mmol/L). 4. UTI: cephalexin 500mg PO BID x 7 days. Please continue to monitor for S/S of infection, diarrhea and renal function. 5. Parkinson disease: Sinemet 25/100mg 1.5 tablets PO TIDAC and Sinemet CR 50/200mg 1T PO QHS. Please continue to monitor for dyskinesias, GI side effects and dizziness. 6. Insomnia: melatonin 6mg PO QHS. Please continue to monitor for insomnia and excessive drowsiness. 7. Vitamin B12 deficiency/vitamin D deficiency/zinc deficiency: cyanocobalamin 1000mcg PO BIDCM, cholecalciferol 25mcg PO BIDCM and zinc 220mg PO dailycm. Please consider ordering vitamin D and vitamin B12 levels as the last vitamin D level was from 09/2018 and there is no B12 level. Thanks. Assessment/Plan for indications treated with psychotropic medications: 1. Depression: citalopram 40mg PO QHS. Please see physician note regarding GDR. Please continue to monitor for suicidal ideation (black box warning), falls/fractures (BEERs medication, resident came in due to a fall/fracture) and sodium (last 137mmol/L). 2. Anxiety: lorazepam 0.5mg PO Q4h PRN anxiety. Please see physician note regarding GDR. Please continue to monitor for falls/fractures (BEERs medication, resident came in due to a fall/fracture) and dementia/delirium (BEERs medication). Medical chart and medication regimen reviewed. The following medication irregularities or issues were identified: *1. Cyanocobalamin 1000mcg PO BIDCM and cholecalciferol 25mcg PO BIDCM. Please consider ordering vitamin D and vitamin B12 levels as the last vitamin D level was from 09/2018 and there is no B12 level. Thanks. Date of Note:: 09/07/22
--- NOTE | 2022-09-07 11:38 | NURSING ---
Industrial Sociologist Note; Activity Asset: Complete Izzy was admitted due to decline in health and for therapy. she is able to answer small yes or no questions for me and w/the nodding of her head. Family will visit w/her daily. She will watch tv, visit/Solar Sales Assessor. She is not interested in group activities at this time, will continue to do social visit and encourage small group activities for social well-being.
--- NOTE | 2022-09-07 11:55 | NURSING ---
CALLED AND TALK TO DAUGHTER ABOUT PT GETTING THE FLU AND COVID SHOTS. DAUGHTER STATED THE FAMILY TALKED ABOUT PT GETTING THE SHOTS AND STATED THEY DID NOT WANT PT TO HAVE ANY DO TO THE PT CONDITION AND DIAGNOSES THAT IT MAY WORSEN OR EFFECT THE PT IN A BAD WAY. RN AND RYDER/KIMMIE AWARE.
[2022-09-07] MEDS: 0.9% Saline Lock 10 ML Syringe IV (13:26)
[2022-09-07 14:00] VITALS: BP 113/65; PULSE 72; RESP 20; TEMP 36.6; O2SAT 96
--- NOTE | 2022-09-07 14:20 | NURSING ---
CALLED /[facility] OFFICE PER PT FAMILY STATING THEY THINK THE PT HAD A PNEUMOCOCCAL VACCINE THERE. CALLED OFFICE AND TALKED TO NURSE AND SHE STATED THAT THERE WAS NO DOCUMENTATION OF PT HAVING ANY IMMUNIZATIONS. THIS NURSE STATED TO FAMILY THAT THERE WAS NO IMMUNIZATIONS ON RECORD AND FAMILY STATED IT WAS OK FOR PT TO RECEIVE PNEUMOCOCCAL VACCINE. RN AWARE
--- NOTE | 2022-09-07 14:57 | NURSING ---
FOLLOW UP APPOINTMENT MADE WITH DR. YUNIOR CORTES ON 09/14/22 AT 10:30 AM. TRANSPORT NEEDS MADE. STATED IF PT CANT GO BY WHEELCHAIR HE WANTS TO KNOW IF WE CAN TAKE THE NISH OUT HERE. RN AWARE
[2022-09-07 15:14] VITALS: PULSE 71; RESP 15; O2SAT 94
[2022-09-07 17:39] VITALS: BP 128/69; PULSE 76
[2022-09-07] MEDS: Pneumococcal Vaccine 20 Valent 0.5 ML Syringe IM (18:01)
--- NOTE | 2022-09-07 18:13 | NURSING ---
Called pharmacy for verification on latex allergy and Prevnar vaccine, they said to ask Dr. Aggarwal. Dr. Jasen villalobos administrated of vaccine, family consented.
[2022-09-07] MEDS: NYSTATIN 500,000 UNIT/5 ML UDC 500000 UNIT PO (20:55)
[2022-09-07] MEDS: CARBIDOPA/LEVODOPA CR 50/200 Tablet PO (20:56)
[2022-09-07] MEDS: MELATONIN 3 MG TABLET 6 MG PO (20:56)
[2022-09-07] MEDS: Aspirin E.C. 81 MG Tablet PO (20:58)
[2022-09-07] MEDS: Citalopram 40 MG TABLET PO (20:58)
[2022-09-07] MEDS: LORazepam 0.5 MG Tablet PO (23:20)
[2022-09-08] MEDS: Nystatin Powder 15gm Bottle 1 APPLIC TOPICAL ×2 (05:27→16:59)
[2022-09-08] MEDS: Menthol/Lanolin/Calamine/Znox 113 GM Tube 1 APPLIC TOPICAL ×2 (05:27→17:00)
[2022-09-08] MEDS: oxyCODONE 5 MG Tablet PO ×3 (05:28→21:18)
[2022-09-08 05:29] VITALS: PULSE 66
[2022-09-08] MEDS: Metoprolol Tartrate 25 MG Tablet 37.5 MG PO ×2 (05:29→16:55)
[2022-09-08] MEDS: APIXABAN 5 MG TABLET 10 MG PO ×2 (05:30→16:55)
[2022-09-08] MEDS: Acetaminophen 500 MG Tablet 1000 MG PO ×3 (05:30→21:21)
[2022-09-08] MEDS: Losartan Potassium 50 MG Tablet PO (05:31)
[2022-09-08] MEDS: Cephalexin 500 MG Capsule PO ×2 (05:31→16:59)
[2022-09-08 05:37] VITALS: BP 182/95; PULSE 66; RESP 18
[2022-09-08] MEDS: Carbidopa/Levodopa 25/100 Tablet PO ×3 (06:35→16:56)
[2022-09-08] MEDS: NYSTATIN 500,000 UNIT/5 ML UDC 500000 UNIT PO ×4 (06:37→21:21)
[2022-09-08] MEDS: 0.9% Saline Lock 10 ML Syringe IV (07:00)
[2022-09-08] MEDS: Cyanocobalamin 500 MCG Tablet 1000 MCG PO ×2 (08:35→16:58)
--- NOTE | 2022-09-08 11:38 | CASEMGMT ---
Social Work Pt unable to complete assessment with pt. Contacted to complete assessment. Educated to [facility] insurance with NRD 09/12 and continued stay is not guaranteed. stated plan is for pt to DC home [facility] with assistance. SW to continue to follow. Misty Ba, VETERINARY MEDICINE TEACHER VENEER SHEET REPAIRER
[2022-09-08 14:00] VITALS: BP 122/66; PULSE 66; RESP 20; TEMP 36.3; O2SAT 95
[2022-09-08 16:55] VITALS: BP 122/66; PULSE 66
[2022-09-08] MEDS: Senna/Docusate Sodium 1 Tablet PO (16:58)
[2022-09-08] MEDS: Cholecalciferol (VIT D3) 25 MCG TABLET (1,000 UNITS) PO (16:58)
--- NOTE | 2022-09-08 18:24 | NURSING ---
patient's gave us permission for us to use 4 bed rails at all times.
[2022-09-08] MEDS: LORazepam 0.5 MG Tablet PO (21:17)
[2022-09-08] MEDS: MELATONIN 3 MG TABLET 6 MG PO (21:20)
[2022-09-08] MEDS: Citalopram 40 MG TABLET PO (21:20)
[2022-09-08] MEDS: Aspirin E.C. 81 MG Tablet PO (21:21)
[2022-09-08] MEDS: CARBIDOPA/LEVODOPA CR 50/200 Tablet PO (21:21)
[2022-09-08 21:49] VITALS: PULSE 63; RESP 16; O2SAT 97
[2022-09-09] MEDS: Nystatin Powder 15gm Bottle 1 APPLIC TOPICAL ×2 (05:15→17:18)
[2022-09-09] MEDS: Menthol/Lanolin/Calamine/Znox 113 GM Tube 1 APPLIC TOPICAL ×2 (05:15→17:18)
[2022-09-09] MEDS: NYSTATIN 500,000 UNIT/5 ML UDC 500000 UNIT PO ×4 (05:16→21:28)
[2022-09-09] MEDS: Carbidopa/Levodopa 25/100 Tablet PO ×3 (05:16→17:14)
[2022-09-09 05:17] VITALS: BP 167/89; PULSE 69
[2022-09-09] MEDS: Metoprolol Tartrate 25 MG Tablet 37.5 MG PO ×2 (05:17→17:15)
[2022-09-09] MEDS: Losartan Potassium 50 MG Tablet PO (05:17)
[2022-09-09] MEDS: Cephalexin 500 MG Capsule PO ×2 (05:17→17:15)
[2022-09-09] MEDS: Acetaminophen 500 MG Tablet 1000 MG PO ×3 (05:18→21:28)
[2022-09-09] MEDS: APIXABAN 5 MG TABLET 10 MG PO ×2 (05:20→17:15)
[2022-09-09] MEDS: Cholecalciferol (VIT D3) 25 MCG TABLET (1,000 UNITS) PO ×2 (08:33→17:17)
[2022-09-09] MEDS: Cyanocobalamin 500 MCG Tablet 1000 MCG PO ×2 (08:33→17:14)
[2022-09-09] MEDS: oxyCODONE 5 MG Tablet PO (08:33)
[2022-09-09] MEDS: Senna/Docusate Sodium 1 Tablet PO ×3 (08:33→17:15)
[2022-09-09 10:00] VITALS: PULSE 60; RESP 16; O2SAT 94
[2022-09-09 14:00] VITALS: BP 110/74; PULSE 69; RESP 14; TEMP 36; O2SAT 97
[2022-09-09 17:15] VITALS: BP 116/61; PULSE 74
[2022-09-09] MEDS: MELATONIN 3 MG TABLET 6 MG PO (21:27)
[2022-09-09] MEDS: Aspirin E.C. 81 MG Tablet PO (21:27)
[2022-09-09] MEDS: Citalopram 40 MG TABLET PO (21:28)
[2022-09-09] MEDS: CARBIDOPA/LEVODOPA CR 50/200 Tablet PO (21:30)
[2022-09-10] MEDS: Menthol/Lanolin/Calamine/Znox 113 GM Tube 1 APPLIC TOPICAL ×2 (05:30→17:26)
[2022-09-10] MEDS: NYSTATIN 500,000 UNIT/5 ML UDC 500000 UNIT PO ×4 (05:31→21:06)
[2022-09-10] MEDS: Carbidopa/Levodopa 25/100 Tablet PO ×3 (05:32→17:20)
[2022-09-10] MEDS: Losartan Potassium 50 MG Tablet PO (05:32)
[2022-09-10 05:33] VITALS: BP 192/95; PULSE 98
[2022-09-10] MEDS: Cephalexin 500 MG Capsule PO ×2 (05:33→17:23)
[2022-09-10] MEDS: Acetaminophen 500 MG Tablet 1000 MG PO ×3 (05:33→21:08)
[2022-09-10] MEDS: APIXABAN 5 MG TABLET PO ×2 (05:33→17:23)
[2022-09-10] MEDS: Metoprolol Tartrate 25 MG Tablet 37.5 MG PO ×2 (05:33→17:24)
[2022-09-10] MEDS: Nystatin Powder 15gm Bottle 1 APPLIC TOPICAL ×2 (05:35→17:25)
[2022-09-10] MEDS: Cholecalciferol (VIT D3) 25 MCG TABLET (1,000 UNITS) PO ×2 (08:12→17:22)
[2022-09-10] MEDS: Senna/Docusate Sodium 1 Tablet PO ×3 (08:12→17:22)
[2022-09-10] MEDS: Cyanocobalamin 500 MCG Tablet 1000 MCG PO ×2 (08:12→17:21)
[2022-09-10 10:00] VITALS: PULSE 60; RESP 16; O2SAT 95
[2022-09-10 14:00] VITALS: BP 154/81; PULSE 63; RESP 18; TEMP 36.4; O2SAT 96
[2022-09-10 17:24] VITALS: BP 154/81; PULSE 63
[2022-09-10] MEDS: Aspirin E.C. 81 MG Tablet PO (21:05)
[2022-09-10] MEDS: MELATONIN 3 MG TABLET 6 MG PO (21:06)
[2022-09-10] MEDS: Citalopram 40 MG TABLET PO (21:06)
[2022-09-10] MEDS: CARBIDOPA/LEVODOPA CR 50/200 Tablet PO (21:07)
[2022-09-11] MEDS: Nystatin Powder 15gm Bottle 1 APPLIC TOPICAL ×2 (05:16→18:01)
[2022-09-11] MEDS: Menthol/Lanolin/Calamine/Znox 113 GM Tube 1 APPLIC TOPICAL ×2 (05:17→18:00)
[2022-09-11] MEDS: oxyCODONE 5 MG Tablet PO ×2 (05:22→21:11)
[2022-09-11] MEDS: Losartan Potassium 50 MG Tablet PO (05:23)
[2022-09-11] MEDS: Carbidopa/Levodopa 25/100 Tablet PO ×2 (05:23→11:25)
[2022-09-11 05:24] VITALS: BP 166/77; PULSE 64
[2022-09-11] MEDS: Cephalexin 500 MG Capsule PO ×2 (05:24→18:07)
[2022-09-11] MEDS: Metoprolol Tartrate 25 MG Tablet 37.5 MG PO ×2 (05:24→18:05)
[2022-09-11] MEDS: APIXABAN 5 MG TABLET PO ×2 (05:24→18:07)
[2022-09-11] MEDS: NYSTATIN 500,000 UNIT/5 ML UDC 500000 UNIT PO ×4 (05:25→21:11)
[2022-09-11] MEDS: Acetaminophen 500 MG Tablet 1000 MG PO ×2 (05:26→21:11)
[2022-09-11] MEDS: Senna/Docusate Sodium 1 Tablet PO ×2 (08:46→18:08)
[2022-09-11] MEDS: Cholecalciferol (VIT D3) 25 MCG TABLET (1,000 UNITS) PO ×2 (08:46→18:05)
[2022-09-11] MEDS: Cyanocobalamin 500 MCG Tablet 1000 MCG PO ×2 (08:46→18:09)
[2022-09-11 11:35] VITALS: PULSE 63; RESP 18; O2SAT 96
--- NOTE | 2022-09-11 14:56 | NURSING ---
THIS NURSE IN TO SEE PT. STATED TO PT I HAD HER TYLENOL,PT STATED NO. ASKED PT AGAIN TO MAKE SURE SHE UNDER STOOD THIS NURSE,PT STATED NO I DONT WANT IT. STATED TO PT THAT I NEEDED TO BLADDER SCAN HER PER ORDERS. PT STATED NO! EDUCATED PT ON BLADDER SCANNING AND VOIDING,PT STATED NO!. THEN STATED TO PT THAT I NEEDED TO CHECK HER ATTENDS. THIS NURSE WENT TO REACH FOR HER ATTENDS AND PT GRABBED THIS NURSES HAND AND STATED I SAID NO! AGAIN TRIED TO EDUCATE PT ON HOW IMPORTANT IT WAS TO CHANGE HER. PT STATED NO LEAVE ME ALONE. STATED TO PT I WOULD COME BACK LATER TO CHECK ON HER AND TO PUSH THE CALL LIGHT IF SHE NEEDED US. RN AWARE
[2022-09-11 18:05] VITALS: BP 178/86; PULSE 73
[2022-09-11 18:21] VITALS: BP 178/86; PULSE 73; RESP 16; TEMP 36.9; O2SAT 96
[2022-09-11] MEDS: CARBIDOPA/LEVODOPA CR 50/200 Tablet PO (21:11)
[2022-09-11] MEDS: Aspirin E.C. 81 MG Tablet PO (21:11)
[2022-09-11] MEDS: MELATONIN 3 MG TABLET 6 MG PO (21:11)
[2022-09-11] MEDS: Citalopram 40 MG TABLET PO (21:11)
[2022-09-12] MEDS: Carbidopa/Levodopa 25/100 Tablet PO ×3 (04:59→17:56)
[2022-09-12] MEDS: Acetaminophen 500 MG Tablet 1000 MG PO ×3 (05:00→21:07)
[2022-09-12 05:01] VITALS: BP 182/79; PULSE 65
[2022-09-12] MEDS: Metoprolol Tartrate 25 MG Tablet 37.5 MG PO ×2 (05:01→17:58)
[2022-09-12] MEDS: Losartan Potassium 50 MG Tablet PO (05:02)
[2022-09-12] MEDS: Cephalexin 500 MG Capsule PO ×2 (05:02→17:58)
[2022-09-12] MEDS: APIXABAN 5 MG TABLET PO ×2 (05:02→17:57)
[2022-09-12] MEDS: Nystatin Powder 15gm Bottle 1 APPLIC TOPICAL ×2 (05:02→18:09)
[2022-09-12] MEDS: NYSTATIN 500,000 UNIT/5 ML UDC 500000 UNIT PO ×4 (05:02→21:06)
[2022-09-12] MEDS: Menthol/Lanolin/Calamine/Znox 113 GM Tube 1 APPLIC TOPICAL ×2 (05:12→18:09)
[2022-09-12] MEDS: Senna/Docusate Sodium 1 Tablet PO ×3 (08:18→17:57)
[2022-09-12] MEDS: Cyanocobalamin 500 MCG Tablet 1000 MCG PO ×2 (08:18→17:57)
[2022-09-12] MEDS: Cholecalciferol (VIT D3) 25 MCG TABLET (1,000 UNITS) PO ×2 (08:18→17:57)
--- NOTE | 2022-09-12 11:55 | CASEMGMT ---
BIMS (11/24) and PHQ9 (08/08) interviews completed on this date for MDS assessment. MICH Sorto
[2022-09-12 14:00] VITALS: BP 102/50; PULSE 85; RESP 18; TEMP 36.2; O2SAT 99
[2022-09-12 17:58] VITALS: PULSE 85
[2022-09-12] MEDS: Citalopram 40 MG TABLET PO (21:06)
[2022-09-12] MEDS: MELATONIN 3 MG TABLET 6 MG PO (21:06)
[2022-09-12] MEDS: Aspirin E.C. 81 MG Tablet PO (21:06)
[2022-09-12] MEDS: CARBIDOPA/LEVODOPA CR 50/200 Tablet PO (21:07)
[2022-09-12 22:00] VITALS: PULSE 65; RESP 16; O2SAT 96
[2022-09-13] MEDS: Menthol/Lanolin/Calamine/Znox 113 GM Tube 1 APPLIC TOPICAL ×2 (04:29→17:19)
[2022-09-13] MEDS: Cephalexin 500 MG Capsule PO ×2 (04:31→17:21)
[2022-09-13] MEDS: APIXABAN 5 MG TABLET PO ×2 (04:31→17:21)
[2022-09-13] MEDS: Losartan Potassium 50 MG Tablet PO (04:31)
[2022-09-13] MEDS: NYSTATIN 500,000 UNIT/5 ML UDC 500000 UNIT PO ×4 (04:31→22:11)
[2022-09-13] MEDS: Nystatin Powder 15gm Bottle 1 APPLIC TOPICAL ×2 (04:32→17:24)
[2022-09-13] MEDS: Acetaminophen 500 MG Tablet 1000 MG PO ×3 (04:32→22:11)
[2022-09-13] MEDS: Carbidopa/Levodopa 25/100 Tablet PO ×3 (04:32→17:20)
[2022-09-13 04:33] VITALS: BP 152/86; PULSE 68
[2022-09-13] MEDS: Metoprolol Tartrate 25 MG Tablet 37.5 MG PO ×2 (04:33→17:22)
[2022-09-13] MEDS: Cholecalciferol (VIT D3) 25 MCG TABLET (1,000 UNITS) PO ×2 (08:38→17:21)
[2022-09-13] MEDS: Cyanocobalamin 500 MCG Tablet 1000 MCG PO ×2 (08:38→17:20)
[2022-09-13 11:09] VITALS: BP 124/80; PULSE 68; RESP 16; TEMP 37.2; O2SAT 94
--- NOTE | 2022-09-13 11:16 | NURSING ---
Spoke with Ilana at Dr. Robles's office, order from SKYLER Lacy for TCU nurse to remove corey.
[2022-09-13] MEDS: Senna/Docusate Sodium 1 Tablet PO ×2 (12:30)
--- NOTE | 2022-09-13 13:52 | WOUNDNOTE ---
wound photo: buttocks
--- NOTE | 2022-09-13 13:54 | WOUNDNOTE ---
wound photo: left hip
--- NOTE | 2022-09-13 15:45 | CHAPLAIN ---
Type of Pastoral Visit ___ Initial Visit ___ Follow-up Visit ___ On-call Visit ___ General Patient Visit ___ Spiritual Assessment ___ Family Conference ___ Bereavement ___ Rapid Response ___ Code Blue ___ Other (describe below) Pastoral Care Referral From ___ Patient ___ Family ___ Nurse ___ Physician ___ Network Pricing Consultant ___ Desulfurizer Operator ___ Other (describe below) Sacrament/Intervention ___ Active listening ___ Anointing ___ Zoroastrian ___ Bereavement ___ Communion ___ Dana exploration ___ ___ Life review ___ Prayer ___ Reconciliation ___ Sacrament of Sick ___ Supportive presence ___ Wedding ___ Other (describe below) Pastoral Comments patient was sleeping soundly and did not awaken at this time; left a calling card
[2022-09-13 16:56] VITALS: BMI 25.2
[2022-09-13 17:22] VITALS: PULSE 65
[2022-09-13] MEDS: Aspirin E.C. 81 MG Tablet PO (22:11)
[2022-09-13] MEDS: MELATONIN 3 MG TABLET 6 MG PO (22:11)
[2022-09-13] MEDS: Citalopram 40 MG TABLET PO (22:11)
[2022-09-13] MEDS: CARBIDOPA/LEVODOPA CR 50/200 Tablet PO (22:11)
[2022-09-14] MEDS: LORazepam 0.5 MG Tablet PO ×2 (02:51→20:43)
[2022-09-14 05:32] LABS: Absolute Lymphocyte Count 0.98 X10^3/uL (0.83-4.51); Absolute Neutrophil Count 5.8 X10^3/uL (2.0-7.7); Basophil% 1.3 % (0-1); Eosinophil# 0.16 X10^3/uL; Hematocrit 28.7 % (37-47); Hemoglobin 8.8 g/dL (12.0-15.0); Lymphocyte # 0.98 X10^3/ul (0.83-4.51); Lymphocyte % 12.5 % (19-41); Mean Corp Hgb Conc 30.7 g/dL (32-36); Mean Corpuscular Hgb 31.5 pg (27.0-32.0); Mean Corpuscular Volume 102.9 fL (81-99); Mean Platelet Vol. 9.7 fl (6.2-12.0); Monocyte# 0.69 X10^3/uL; Monocyte% 8.8 % (0-10); NRBC Flagged by Analyzer 0 % (0-5); Neutrophil # 5.81 X10^3/uL (2.7-7.7); Neutrophil % 74.1 % (47-70); Platelet Count 315 K/mm3 (150-450); RBC Distribution Width CV 13.2 % (11.6-14.6); RBC Distribution Width SD 49.1 fl (35.1-43.9); Red Blood Count 2.79 M/mm3 (4.2-5.4); White Blood Count 7.8 K/mm3 (4.4-11.0)
[2022-09-14 05:56] VITALS: BP 165/79; PULSE 68
[2022-09-14] MEDS: Metoprolol Tartrate 25 MG Tablet 37.5 MG PO ×2 (05:56→18:01)
[2022-09-14] MEDS: Carbidopa/Levodopa 25/100 Tablet PO ×3 (05:57→16:37)
[2022-09-14] MEDS: NYSTATIN 500,000 UNIT/5 ML UDC 500000 UNIT PO ×4 (05:57→20:41)
[2022-09-14] MEDS: Cephalexin 500 MG Capsule PO (05:58)
[2022-09-14] MEDS: Nystatin Powder 15gm Bottle 1 APPLIC TOPICAL ×2 (05:58→17:58)
[2022-09-14] MEDS: Losartan Potassium 50 MG Tablet PO (05:58)
[2022-09-14] MEDS: Acetaminophen 500 MG Tablet 1000 MG PO ×3 (05:58→20:41)
[2022-09-14] MEDS: APIXABAN 5 MG TABLET PO ×2 (05:58→18:01)
[2022-09-14] MEDS: Menthol/Lanolin/Calamine/Znox 113 GM Tube 1 APPLIC TOPICAL (06:03)
[2022-09-14 06:13] LABS: Anion Gap 5 (5-15); BUN 21 mg/dL (7-18); BUN/Creat Ratio 33.1 RATIO (10-20); Calcium,Total 8.2 mg/dL (8.5-10.1); Chloride 102 mmol/L (98-107); Creatinine, Serum 0.63 mg/dL (0.55-1.02); EST Glomerular Filtration Rate 97 mL/min (>60); Est Glom Filt Rate - Afr Amer 117 mL/min (>60); Glucose 100 mg/dL (74-106); Potassium 3.2 mmol/L (3.5-5.1); Sodium Level 138 mmol/L (136-145)
[2022-09-14] MEDS: Senna/Docusate Sodium 1 Tablet PO ×3 (08:07→18:00)
[2022-09-14] MEDS: Cholecalciferol (VIT D3) 25 MCG TABLET (1,000 UNITS) PO ×2 (08:07→18:03)
[2022-09-14] MEDS: Cyanocobalamin 500 MCG Tablet 1000 MCG PO ×2 (08:07→18:03)
[2022-09-14] MEDS: Potassium Chloride Oral Tablet 20 MEQ 40 MEQ PO (08:15)
--- NOTE | 2022-09-14 08:38 | NURSING ---
Postage Machine Operator Note; MDS for 4/4 Complete
[2022-09-14] MEDS: Tuberculin,Purif.prot.deriv. 50 TU/ML Vial 0.1 ML ID (11:01)
[2022-09-14 13:55] VITALS: BP 122/59; PULSE 66; RESP 16; TEMP 36.1; O2SAT 98
[2022-09-14 18:01] VITALS: BP 122/59; PULSE 66
[2022-09-14] MEDS: Citalopram 40 MG TABLET PO (20:40)
[2022-09-14] MEDS: MELATONIN 3 MG TABLET 6 MG PO (20:41)
[2022-09-14] MEDS: Aspirin E.C. 81 MG Tablet PO (20:41)
[2022-09-14] MEDS: CARBIDOPA/LEVODOPA CR 50/200 Tablet PO (20:42)
[2022-09-14 21:00] VITALS: PULSE 62; RESP 16; O2SAT 98
[2022-09-15 05:30] VITALS: BP 176/83; PULSE 66
[2022-09-15] MEDS: APIXABAN 5 MG TABLET PO ×2 (05:30→18:03)
[2022-09-15] MEDS: Menthol/Lanolin/Calamine/Znox 113 GM Tube 1 APPLIC TOPICAL (05:30)
[2022-09-15] MEDS: Metoprolol Tartrate 25 MG Tablet 37.5 MG PO ×2 (05:30→18:03)
[2022-09-15] MEDS: Carbidopa/Levodopa 25/100 Tablet PO ×3 (05:30→18:24)
[2022-09-15] MEDS: Losartan Potassium 50 MG Tablet PO (05:30)
[2022-09-15] MEDS: NYSTATIN 500,000 UNIT/5 ML UDC 500000 UNIT PO ×4 (05:30→23:25)
[2022-09-15] MEDS: Nystatin Powder 15gm Bottle 1 APPLIC TOPICAL ×2 (05:30→18:03)
[2022-09-15] MEDS: Acetaminophen 500 MG Tablet 1000 MG PO ×3 (05:30→23:26)
[2022-09-15] MEDS: traMADol 50 MG Tablet PO (08:32)
[2022-09-15] MEDS: Cholecalciferol (VIT D3) 25 MCG TABLET (1,000 UNITS) PO ×2 (08:34→18:03)
[2022-09-15] MEDS: Cyanocobalamin 500 MCG Tablet 1000 MCG PO ×2 (08:34→18:03)
[2022-09-15] MEDS: Senna/Docusate Sodium 1 Tablet PO ×3 (08:34→18:03)
[2022-09-15] MEDS: Potassium Chloride Oral Tablet 20 MEQ PO (08:35)
[2022-09-15 09:38] VITALS: PULSE 64; RESP 16; O2SAT 97
--- NOTE | 2022-09-15 12:11 | CASEMGMT ---
Social Work IDT met with patient, , dtr and son for care plan meeting. Discussed patient's progress in PT/OT/ST/SN. Educated to [facility] with [facility]D 09/19 and continued stay is not guaranteed with each review. Discussed discharge plans with family. Family is between home with hospice or skilled HHC. Family expressed concern with having enough assistance for pt and at home. Pt is progressing well in therapy and by next week, the goal is pt can be primarily one person assist. SW educated and provided resources for nonskilled TURNSTILE COLLECTOR, [facility], Assisted Living facilities and support groups for family. Offered SNF list but family is not sure if they would like to pursue that. SW educated most ALs can accept pts with x1 assist and with hospice services, and SNF or AL can be 30 days at a time for payment. Family expressed understanding that insurance either pays for hospice or skilled HHC, and no facility. SW offered ongoing assistance with DC plans. FAmily appreciative. Will continue to follow. RONNY GarciaW
[2022-09-15 14:00] VITALS: BP 114/62; PULSE 81; RESP 16; TEMP 36.3; O2SAT 98
[2022-09-15 18:03] VITALS: BP 114/62; PULSE 79
[2022-09-15] MEDS: Citalopram 40 MG TABLET PO (23:24)
[2022-09-15] MEDS: CARBIDOPA/LEVODOPA CR 50/200 Tablet PO (23:26)
[2022-09-15] MEDS: MELATONIN 3 MG TABLET 6 MG PO (23:26)
[2022-09-15] MEDS: Aspirin E.C. 81 MG Tablet PO (23:26)
[2022-09-16] MEDS: Menthol/Lanolin/Calamine/Znox 113 GM Tube 1 APPLIC TOPICAL ×2 (07:19→17:40)
[2022-09-16] MEDS: Losartan Potassium 50 MG Tablet PO (07:20)
[2022-09-16] MEDS: APIXABAN 5 MG TABLET PO ×2 (07:20→17:37)
[2022-09-16] MEDS: NYSTATIN 500,000 UNIT/5 ML UDC 500000 UNIT PO ×4 (07:21→19:54)
[2022-09-16] MEDS: Carbidopa/Levodopa 25/100 Tablet PO ×3 (07:21→17:37)
[2022-09-16] MEDS: Acetaminophen 500 MG Tablet 1000 MG PO ×3 (07:21→19:54)
[2022-09-16] MEDS: Nystatin Powder 15gm Bottle 1 APPLIC TOPICAL ×2 (07:21→17:41)
[2022-09-16 07:24] VITALS: BP 183/84; PULSE 61
[2022-09-16] MEDS: Metoprolol Tartrate 25 MG Tablet 37.5 MG PO ×2 (07:24→17:46)
[2022-09-16 08:21] LABS: Anion Gap 2 (5-15); BUN 18 mg/dL (7-18); BUN/Creat Ratio 30.8 RATIO (10-20); Calcium,Total 8.7 mg/dL (8.5-10.1); Chloride 102 mmol/L (98-107); Creatinine, Serum 0.58 mg/dL (0.55-1.02); EST Glomerular Filtration Rate 106 mL/min (>60); Est Glom Filt Rate - Afr Amer 128 mL/min (>60); Glucose 97 mg/dL (74-106); Potassium 4.1 mmol/L (3.5-5.1); Sodium Level 135 mmol/L (136-145)
[2022-09-16] MEDS: oxyCODONE 5 MG Tablet PO (09:19)
[2022-09-16] MEDS: Senna/Docusate Sodium 1 Tablet PO ×3 (09:20→17:39)
[2022-09-16] MEDS: Potassium Chloride Oral Tablet 20 MEQ PO (09:20)
[2022-09-16] MEDS: amLODIPine 10 MG Tablet PO (09:21)
[2022-09-16] MEDS: Cholecalciferol (VIT D3) 25 MCG TABLET (1,000 UNITS) PO ×2 (09:22→17:39)
[2022-09-16] MEDS: Cyanocobalamin 500 MCG Tablet 1000 MCG PO ×2 (09:22→17:38)
[2022-09-16 09:33] VITALS: BP 122/57
[2022-09-16 10:00] VITALS: O2SAT 95
[2022-09-16 14:00] VITALS: BP 102/50; PULSE 60; RESP 15; TEMP 35.9; O2SAT 94
[2022-09-16 17:46] VITALS: BP 147/73; PULSE 70
[2022-09-16] MEDS: CARBIDOPA/LEVODOPA CR 50/200 Tablet PO (19:53)
[2022-09-16] MEDS: MELATONIN 3 MG TABLET 6 MG PO (19:56)
[2022-09-16] MEDS: Citalopram 40 MG TABLET PO (19:56)
[2022-09-16] MEDS: Aspirin E.C. 81 MG Tablet PO (19:57)
[2022-09-17 05:45] VITALS: BP 145/78; PULSE 87
[2022-09-17] MEDS: Metoprolol Tartrate 25 MG Tablet 37.5 MG PO ×2 (05:45→17:42)
[2022-09-17] MEDS: Acetaminophen 500 MG Tablet 1000 MG PO ×3 (05:45→20:44)
[2022-09-17] MEDS: Carbidopa/Levodopa 25/100 Tablet PO ×3 (05:46→17:40)
[2022-09-17] MEDS: Losartan Potassium 100 MG Tablet PO (05:46)
[2022-09-17] MEDS: amLODIPine 10 MG Tablet PO (05:46)
[2022-09-17] MEDS: NYSTATIN 500,000 UNIT/5 ML UDC 500000 UNIT PO ×4 (05:47→20:45)
[2022-09-17] MEDS: APIXABAN 5 MG TABLET PO ×2 (05:47→17:43)
[2022-09-17] MEDS: Menthol/Lanolin/Calamine/Znox 113 GM Tube 1 APPLIC TOPICAL ×2 (05:47→17:43)
[2022-09-17] MEDS: Nystatin Powder 15gm Bottle 1 APPLIC TOPICAL ×2 (05:48→17:41)
[2022-09-17] MEDS: Cyanocobalamin 500 MCG Tablet 1000 MCG PO ×2 (08:41→17:44)
[2022-09-17] MEDS: Potassium Chloride Oral Tablet 20 MEQ PO (08:41)
[2022-09-17] MEDS: Cholecalciferol (VIT D3) 25 MCG TABLET (1,000 UNITS) PO ×2 (08:42→17:41)
[2022-09-17] MEDS: Senna/Docusate Sodium 1 Tablet PO ×2 (08:42→17:44)
[2022-09-17 14:00] VITALS: BP 153/78; PULSE 65; RESP 16; TEMP 36.6; O2SAT 96
[2022-09-17 17:42] VITALS: PULSE 65
[2022-09-17] MEDS: LORazepam 0.5 MG Tablet PO (20:43)
[2022-09-17] MEDS: MELATONIN 3 MG TABLET 6 MG PO (20:43)
[2022-09-17] MEDS: CARBIDOPA/LEVODOPA CR 50/200 Tablet PO (20:44)
[2022-09-17] MEDS: Citalopram 40 MG TABLET PO (20:44)
[2022-09-17] MEDS: Aspirin E.C. 81 MG Tablet PO (20:44)
--- NOTE | 2022-09-17 21:10 | RAD_ITS ---
INDICATION: Possible aspiration. EXAMINATION/TECHNIQUE: X-RAY - XR Chest 2 Views COMPARISON: August 29, 2022 chest x-ray. FINDINGS: LINES/DEVICES: None. LUNGS: No focal consolidation or pleural effusion. No pneumothorax. MEDIASTINUM AND CARDIOVASCULAR STRUCTURES: Stable enlarged cardiac silhouette and aortic calcification and tortuosity. Unchanged appearance of the pulmonary vascularity. BONES AND SOFT TISSUES: Surgical clips in the right axilla. Stable degenerative changes. RAD/Chest PA and Lateral IMPRESSION: No acute cardiopulmonary disease. Electronically Signed: Shawn Cortes MD at 21:42 EDT ,
[2022-09-18 05:03] VITALS: BP 114/67; PULSE 87
[2022-09-18] MEDS: Metoprolol Tartrate 25 MG Tablet 37.5 MG PO ×2 (05:03→17:27)
[2022-09-18] MEDS: APIXABAN 5 MG TABLET PO ×2 (05:03→17:27)
[2022-09-18] MEDS: Losartan Potassium 100 MG Tablet PO (05:03)
[2022-09-18] MEDS: amLODIPine 10 MG Tablet PO (05:04)
[2022-09-18] MEDS: Carbidopa/Levodopa 25/100 Tablet PO ×3 (05:04→17:24)
[2022-09-18] MEDS: Acetaminophen 500 MG Tablet 1000 MG PO ×3 (05:04→20:54)
[2022-09-18] MEDS: Nystatin Powder 15gm Bottle 1 APPLIC TOPICAL ×2 (05:05→17:28)
[2022-09-18] MEDS: Menthol/Lanolin/Calamine/Znox 113 GM Tube 1 APPLIC TOPICAL ×2 (05:05→17:26)
[2022-09-18] MEDS: Cyanocobalamin 500 MCG Tablet 1000 MCG PO ×2 (09:20→17:25)
[2022-09-18] MEDS: Senna/Docusate Sodium 1 Tablet PO ×3 (09:20→17:29)
[2022-09-18] MEDS: Potassium Chloride Oral Tablet 20 MEQ PO (09:21)
[2022-09-18] MEDS: Cholecalciferol (VIT D3) 25 MCG TABLET (1,000 UNITS) PO ×2 (09:22→17:26)
[2022-09-18 14:00] VITALS: BP 142/68; PULSE 65; RESP 18; TEMP 36.4; O2SAT 98
[2022-09-18 17:27] VITALS: PULSE 65
[2022-09-18 19:25] VITALS: PULSE 70; RESP 18; O2SAT 98
[2022-09-18] MEDS: Citalopram 40 MG TABLET PO (20:53)
[2022-09-18] MEDS: Aspirin E.C. 81 MG Tablet PO (20:53)
[2022-09-18] MEDS: MELATONIN 3 MG TABLET 6 MG PO (20:53)
[2022-09-18] MEDS: CARBIDOPA/LEVODOPA CR 50/200 Tablet PO (20:54)
[2022-09-19] MEDS: Menthol/Lanolin/Calamine/Znox 113 GM Tube 1 APPLIC TOPICAL (05:17)
[2022-09-19] MEDS: Losartan Potassium 100 MG Tablet PO (05:18)
[2022-09-19 05:19] VITALS: BP 158/80; PULSE 67
[2022-09-19] MEDS: APIXABAN 5 MG TABLET PO ×2 (05:19→18:08)
[2022-09-19] MEDS: Metoprolol Tartrate 25 MG Tablet 37.5 MG PO ×2 (05:19→18:08)
[2022-09-19] MEDS: Nystatin Powder 15gm Bottle 1 APPLIC TOPICAL (05:20)
[2022-09-19] MEDS: Carbidopa/Levodopa 25/100 Tablet PO ×3 (05:20→16:34)
[2022-09-19] MEDS: amLODIPine 10 MG Tablet PO (05:20)
[2022-09-19] MEDS: Acetaminophen 500 MG Tablet 1000 MG PO ×3 (05:21→20:55)
[2022-09-19] MEDS: Senna/Docusate Sodium 1 Tablet PO ×3 (07:39→18:08)
[2022-09-19] MEDS: Potassium Chloride Oral Tablet 20 MEQ PO (07:40)
[2022-09-19] MEDS: Cyanocobalamin 500 MCG Tablet 1000 MCG PO ×2 (07:41→16:33)
[2022-09-19] MEDS: Cholecalciferol (VIT D3) 25 MCG TABLET (1,000 UNITS) PO ×2 (07:41→16:35)
--- NOTE | 2022-09-19 08:06 | MDS.RN ---
Information for the mds was obtained from review of the clinical record, interview of resident, staff, and direct observation of resident's care.
[2022-09-19 10:00] VITALS: PULSE 60; RESP 14; O2SAT 98
[2022-09-19 14:00] VITALS: BP 123/64; PULSE 63; RESP 12; TEMP 36.6; O2SAT 97
[2022-09-19 18:08] VITALS: BP 123/64; PULSE 83
[2022-09-19] MEDS: Citalopram 40 MG TABLET PO (20:54)
[2022-09-19] MEDS: MELATONIN 3 MG TABLET 6 MG PO (20:55)
[2022-09-19] MEDS: Aspirin E.C. 81 MG Tablet PO (20:55)
[2022-09-19] MEDS: CARBIDOPA/LEVODOPA CR 50/200 Tablet PO (20:56)
[2022-09-19] MEDS: LORazepam 0.5 MG Tablet PO (21:02)
[2022-09-20] MEDS: Losartan Potassium 100 MG Tablet PO (05:23)
[2022-09-20] MEDS: APIXABAN 5 MG TABLET PO ×2 (05:23→17:24)
[2022-09-20] MEDS: Acetaminophen 500 MG Tablet 1000 MG PO ×3 (05:23→21:53)
[2022-09-20] MEDS: Carbidopa/Levodopa 25/100 Tablet PO ×3 (05:24→16:14)
[2022-09-20] MEDS: amLODIPine 10 MG Tablet PO (05:24)
[2022-09-20 05:25] VITALS: BP 132/61; PULSE 87
[2022-09-20] MEDS: Menthol/Lanolin/Calamine/Znox 113 GM Tube 1 APPLIC TOPICAL (05:25)
[2022-09-20] MEDS: Metoprolol Tartrate 25 MG Tablet 37.5 MG PO ×2 (05:25→17:24)
[2022-09-20] MEDS: Nystatin Powder 15gm Bottle 1 APPLIC TOPICAL ×2 (05:26→17:25)
[2022-09-20] MEDS: Potassium Chloride Oral Tablet 20 MEQ PO (07:26)
[2022-09-20] MEDS: Senna/Docusate Sodium 1 Tablet PO ×3 (07:26→17:23)
[2022-09-20] MEDS: Cyanocobalamin 500 MCG Tablet 1000 MCG PO ×2 (07:27→16:14)
[2022-09-20] MEDS: Cholecalciferol (VIT D3) 25 MCG TABLET (1,000 UNITS) PO ×2 (07:27→16:14)
[2022-09-20 11:15] VITALS: BMI 24.7
--- NOTE | 2022-09-20 13:35 | WOUNDNOTE ---
Pt resting in recliner with legs elevated. did not awaken patient at time to assess buttocks. will reassess this week.
[2022-09-20 13:48] VITALS: BP 93/62; PULSE 78; RESP 16; TEMP 36.4; O2SAT 95
--- NOTE | 2022-09-20 15:42 | CHAPLAIN ---
Type of Pastoral Visit _x__ Initial Visit ___ Follow-up Visit ___ On-call Visit ___ General Patient Visit ___ Spiritual Assessment ___ Family Conference ___ Bereavement ___ Rapid Response ___ Code Blue ___ Other (describe below) Pastoral Care Referral From _x__ Patient ___ Family ___ Nurse ___ Physician ___ Bar Pointer ___ Food Service Counter Clerk ___ Other (describe below) Sacrament/Intervention ___ Active listening ___ Anointing ___ Scientologist ___ Bereavement ___ Communion ___ Dana exploration ___ ___ Life review ___ Prayer ___ Reconciliation ___ Sacrament of Sick _x__ Supportive presence ___ Wedding ___ Other (describe below) Pastoral Comments patient is sitting up in chair with a visitor at her side; visitor identified as a sister by the patient; pt gives one word answers to questions; offer of return visit when more convenient to talk is accepted by pt; pt welcomes a prayer before leaving room
[2022-09-20 17:24] VITALS: BP 134/74; PULSE 65
[2022-09-20 20:25] VITALS: PULSE 63; RESP 18; O2SAT 98
[2022-09-20 20:32] VITALS: BP 168/81; PULSE 63; RESP 16; TEMP 36.9; O2SAT 98
[2022-09-20] MEDS: MELATONIN 3 MG TABLET 6 MG PO (21:49)
[2022-09-20] MEDS: Aspirin E.C. 81 MG Tablet PO (21:51)
[2022-09-20] MEDS: Citalopram 40 MG TABLET PO (21:51)
[2022-09-20] MEDS: CARBIDOPA/LEVODOPA CR 50/200 Tablet PO (21:52)
[2022-09-20] MEDS: traMADol 50 MG Tablet PO (21:53)
[2022-09-20] MEDS: LORazepam 0.5 MG Tablet PO (21:53)
[2022-09-21 05:34] LABS: Absolute Lymphocyte Count 1.18 X10^3/uL (0.83-4.51); Absolute Neutrophil Count 2.8 X10^3/uL (2.0-7.7); Basophil# 0.08 X10^3/uL; Basophil% 1.6 % (0-1); Eosinophil# 0.24 X10^3/uL; Eosinophils% 4.8 % (0-5); Hematocrit 28.9 % (37-47); Hemoglobin 9.2 g/dL (12.0-15.0); Lymphocyte # 1.18 X10^3/ul (0.83-4.51); Lymphocyte % 23.5 % (19-41); Mean Corp Hgb Conc 31.8 g/dL (32-36); Mean Corpuscular Hgb 33.1 pg (27.0-32.0); Mean Platelet Vol. 9.7 fl (6.2-12.0); Monocyte# 0.73 X10^3/uL; Monocyte% 14.5 % (0-10); NRBC Flagged by Analyzer 0 % (0-5); Neutrophil # 2.79 X10^3/uL (2.7-7.7); Neutrophil % 55.4 % (47-70); Platelet Count 302 K/mm3 (150-450); RBC Distribution Width CV 14.3 % (11.6-14.6); RBC Distribution Width SD 53.8 fl (35.1-43.9); Red Blood Count 2.78 M/mm3 (4.2-5.4)
[2022-09-21 05:58] VITALS: BP 175/97; PULSE 64
[2022-09-21] MEDS: Losartan Potassium 100 MG Tablet PO (05:58)
[2022-09-21] MEDS: Metoprolol Tartrate 25 MG Tablet 37.5 MG PO ×2 (05:58→17:48)
[2022-09-21] MEDS: Carbidopa/Levodopa 25/100 Tablet PO ×3 (05:58→17:45)
[2022-09-21] MEDS: amLODIPine 10 MG Tablet PO (05:58)
[2022-09-21] MEDS: APIXABAN 5 MG TABLET PO ×2 (05:58→17:48)
[2022-09-21 05:59] LABS: Anion Gap 3 (5-15); BUN 20 mg/dL (7-18); BUN/Creat Ratio 29.9 RATIO (10-20); Calcium,Total 8.6 mg/dL (8.5-10.1); Chloride 103 mmol/L (98-107); Creatinine, Serum 0.67 mg/dL (0.55-1.02); EST Glomerular Filtration Rate 91 mL/min (>60); Est Glom Filt Rate - Afr Amer 110 mL/min (>60); Glucose 96 mg/dL (74-106); Potassium 4.4 mmol/L (3.5-5.1); Sodium Level 136 mmol/L (136-145)
[2022-09-21] MEDS: Acetaminophen 500 MG Tablet 1000 MG PO ×3 (06:00→21:47)
[2022-09-21] MEDS: Menthol/Lanolin/Calamine/Znox 113 GM Tube 1 APPLIC TOPICAL ×2 (06:03→17:57)
[2022-09-21] MEDS: Senna/Docusate Sodium 1 Tablet PO ×3 (07:46→17:47)
[2022-09-21] MEDS: Cholecalciferol (VIT D3) 25 MCG TABLET (1,000 UNITS) PO ×2 (07:46→17:47)
[2022-09-21] MEDS: Cyanocobalamin 500 MCG Tablet 1000 MCG PO ×2 (07:46→17:46)
[2022-09-21] MEDS: Potassium Chloride Oral Tablet 20 MEQ PO (07:46)
[2022-09-21] MEDS: traMADol 50 MG Tablet PO (08:38)
[2022-09-21 13:47] VITALS: BP 123/61; PULSE 59; RESP 17; TEMP 36.8; O2SAT 95
--- NOTE | 2022-09-21 14:17 | CASEMGMT ---
Social Work Updated dtr that received approval from insurance with NRD 09/23. Misty Ba, MANUFACTURING ENGINEERING TECHNOLOGIST HOT DIP TINNING SUPERVISOR
[2022-09-21 17:48] VITALS: BP 150/81; PULSE 66
[2022-09-21] MEDS: Nystatin Powder 15gm Bottle 1 APPLIC TOPICAL (17:56)
[2022-09-21 21:40] VITALS: O2SAT 95
[2022-09-21] MEDS: Citalopram 40 MG TABLET PO (21:45)
[2022-09-21] MEDS: MELATONIN 3 MG TABLET 6 MG PO (21:46)
[2022-09-21] MEDS: Aspirin E.C. 81 MG Tablet PO (21:46)
[2022-09-21] MEDS: CARBIDOPA/LEVODOPA CR 50/200 Tablet PO (21:47)
[2022-09-22] MEDS: Acetaminophen 500 MG Tablet 1000 MG PO ×3 (06:36→21:35)
[2022-09-22 06:37] VITALS: BP 170/86; PULSE 65
[2022-09-22] MEDS: Carbidopa/Levodopa 25/100 Tablet PO ×3 (06:37→17:28)
[2022-09-22] MEDS: Losartan Potassium 100 MG Tablet PO (06:37)
[2022-09-22] MEDS: amLODIPine 10 MG Tablet PO (06:37)
[2022-09-22] MEDS: Metoprolol Tartrate 25 MG Tablet 37.5 MG PO ×2 (06:37→17:31)
[2022-09-22] MEDS: APIXABAN 5 MG TABLET PO ×2 (06:40→17:30)
[2022-09-22] MEDS: Nystatin Powder 15gm Bottle 1 APPLIC TOPICAL ×2 (06:46→17:27)
[2022-09-22] MEDS: Cyanocobalamin 500 MCG Tablet 1000 MCG PO ×2 (08:29→17:29)
[2022-09-22] MEDS: Senna/Docusate Sodium 1 Tablet PO (08:29)
[2022-09-22] MEDS: Cholecalciferol (VIT D3) 25 MCG TABLET (1,000 UNITS) PO ×2 (08:29→17:29)
[2022-09-22] MEDS: Potassium Chloride Oral Tablet 20 MEQ PO (08:29)
--- NOTE | 2022-09-22 10:39 | NURSING ---
pt is having diarrhea i held her 1245 and 1745 dose of stool softeners. daughter request pt have it once a day just so she does not get constipated.
[2022-09-22 14:00] VITALS: BP 132/64; PULSE 76; RESP 18; TEMP 36.4; O2SAT 97
[2022-09-22] MEDS: Menthol/Lanolin/Calamine/Znox 113 GM Tube 1 APPLIC TOPICAL (17:30)
[2022-09-22 17:31] VITALS: PULSE 76
[2022-09-22] MEDS: LORazepam 0.5 MG Tablet PO (21:35)
[2022-09-22] MEDS: MELATONIN 3 MG TABLET 6 MG PO (21:36)
[2022-09-22] MEDS: Aspirin E.C. 81 MG Tablet PO (21:36)
[2022-09-22] MEDS: Citalopram 40 MG TABLET PO (21:36)
[2022-09-22] MEDS: CARBIDOPA/LEVODOPA CR 50/200 Tablet PO (21:36)
[2022-09-22 22:00] VITALS: O2SAT 97
[2022-09-23 05:58] VITALS: BP 114/62; PULSE 66
[2022-09-23] MEDS: Acetaminophen 500 MG Tablet 1000 MG PO ×3 (05:58→20:56)
[2022-09-23] MEDS: Losartan Potassium 100 MG Tablet PO (05:58)
[2022-09-23] MEDS: Metoprolol Tartrate 25 MG Tablet 37.5 MG PO ×2 (05:58→18:19)
[2022-09-23] MEDS: amLODIPine 10 MG Tablet PO (05:59)
[2022-09-23] MEDS: APIXABAN 5 MG TABLET PO ×2 (05:59→18:18)
[2022-09-23] MEDS: Carbidopa/Levodopa 25/100 Tablet PO ×3 (05:59→17:21)
[2022-09-23] MEDS: Menthol/Lanolin/Calamine/Znox 113 GM Tube 1 APPLIC TOPICAL (05:59)
[2022-09-23] MEDS: Nystatin Powder 15gm Bottle 1 APPLIC TOPICAL ×2 (05:59→18:22)
[2022-09-23] MEDS: Potassium Chloride Oral Tablet 20 MEQ PO (08:53)
[2022-09-23] MEDS: Cyanocobalamin 500 MCG Tablet 1000 MCG PO ×2 (08:53→18:17)
[2022-09-23] MEDS: Cholecalciferol (VIT D3) 25 MCG TABLET (1,000 UNITS) PO ×2 (08:54→18:18)
[2022-09-23] MEDS: Senna/Docusate Sodium 1 Tablet PO ×2 (11:08→18:17)
[2022-09-23 14:00] VITALS: BP 113/66; PULSE 68; RESP 16; TEMP 36.5; O2SAT 92
[2022-09-23 18:19] VITALS: BP 113/66; PULSE 68
[2022-09-23 19:51] VITALS: O2SAT 96
[2022-09-23] MEDS: MELATONIN 3 MG TABLET 6 MG PO (20:54)
[2022-09-23] MEDS: Citalopram 40 MG TABLET PO (20:54)
[2022-09-23] MEDS: CARBIDOPA/LEVODOPA CR 50/200 Tablet PO (20:55)
[2022-09-23] MEDS: Aspirin E.C. 81 MG Tablet PO (20:55)
[2022-09-24] MEDS: Menthol/Lanolin/Calamine/Znox 113 GM Tube 1 APPLIC TOPICAL ×2 (05:46→18:13)
[2022-09-24] MEDS: Nystatin Powder 15gm Bottle 1 APPLIC TOPICAL ×2 (05:47→18:19)
[2022-09-24] MEDS: APIXABAN 5 MG TABLET PO ×2 (05:47→18:14)
[2022-09-24] MEDS: Carbidopa/Levodopa 25/100 Tablet PO ×3 (05:48→16:53)
[2022-09-24] MEDS: Acetaminophen 500 MG Tablet 1000 MG PO ×3 (05:48→20:59)
[2022-09-24 05:49] VITALS: BP 172/85; PULSE 62
[2022-09-24] MEDS: Metoprolol Tartrate 25 MG Tablet 37.5 MG PO ×2 (05:49→18:14)
[2022-09-24] MEDS: amLODIPine 10 MG Tablet PO (05:50)
[2022-09-24] MEDS: Losartan Potassium 100 MG Tablet PO (05:50)
[2022-09-24] MEDS: Cholecalciferol (VIT D3) 25 MCG TABLET (1,000 UNITS) PO ×2 (08:47→18:12)
[2022-09-24] MEDS: Cyanocobalamin 500 MCG Tablet 1000 MCG PO ×2 (08:48→18:12)
[2022-09-24] MEDS: Potassium Chloride Oral Tablet 20 MEQ PO (08:48)
[2022-09-24] MEDS: Senna/Docusate Sodium 1 Tablet PO ×2 (08:48→18:13)
[2022-09-24] MEDS: traMADol 50 MG Tablet PO (08:48)
[2022-09-24 10:08] VITALS: PULSE 61; RESP 15; O2SAT 96
[2022-09-24 14:00] VITALS: BP 103/55; PULSE 55; RESP 18; TEMP 36.3; O2SAT 95
[2022-09-24 18:14] VITALS: BP 126/64; PULSE 62
[2022-09-24] MEDS: MELATONIN 3 MG TABLET 6 MG PO (20:59)
[2022-09-24] MEDS: Aspirin E.C. 81 MG Tablet PO (20:59)
[2022-09-24] MEDS: CARBIDOPA/LEVODOPA CR 50/200 Tablet PO (20:59)
[2022-09-24] MEDS: Citalopram 40 MG TABLET PO (20:59)
[2022-09-25] MEDS: Nystatin Powder 15gm Bottle 1 APPLIC TOPICAL ×2 (05:23→17:19)
[2022-09-25] MEDS: Menthol/Lanolin/Calamine/Znox 113 GM Tube 1 APPLIC TOPICAL (05:23)
[2022-09-25] MEDS: Acetaminophen 500 MG Tablet 1000 MG PO ×3 (05:26→20:53)
[2022-09-25 05:27] VITALS: BP 167/83; PULSE 60
[2022-09-25] MEDS: APIXABAN 5 MG TABLET PO ×2 (05:27→17:14)
[2022-09-25] MEDS: Losartan Potassium 100 MG Tablet PO (05:27)
[2022-09-25] MEDS: Metoprolol Tartrate 25 MG Tablet 37.5 MG PO ×2 (05:27→17:14)
[2022-09-25] MEDS: amLODIPine 10 MG Tablet PO (05:28)
[2022-09-25] MEDS: Carbidopa/Levodopa 25/100 Tablet PO ×3 (05:28→17:18)
[2022-09-25 06:29] VITALS: BP 167/83; PULSE 60
[2022-09-25] MEDS: Senna/Docusate Sodium 1 Tablet PO (08:14)
[2022-09-25] MEDS: Potassium Chloride Oral Tablet 20 MEQ PO (08:14)
[2022-09-25] MEDS: Cyanocobalamin 500 MCG Tablet 1000 MCG PO ×2 (08:14→17:14)
[2022-09-25] MEDS: Cholecalciferol (VIT D3) 25 MCG TABLET (1,000 UNITS) PO ×2 (08:14→18:14)
[2022-09-25 14:00] VITALS: BP 142/64; PULSE 62; RESP 16; TEMP 36.4; O2SAT 96
[2022-09-25 17:14] VITALS: BP 139/70; PULSE 65
[2022-09-25 19:55] VITALS: PULSE 72; RESP 16; O2SAT 94
[2022-09-25] MEDS: CARBIDOPA/LEVODOPA CR 50/200 Tablet PO (20:52)
[2022-09-25] MEDS: Citalopram 40 MG TABLET PO (20:52)
[2022-09-25] MEDS: MELATONIN 3 MG TABLET 6 MG PO (20:52)
[2022-09-25] MEDS: Aspirin E.C. 81 MG Tablet PO (20:52)
[2022-09-26] MEDS: Nystatin Powder 15gm Bottle 1 APPLIC TOPICAL ×2 (05:08→16:35)
[2022-09-26] MEDS: Menthol/Lanolin/Calamine/Znox 113 GM Tube 1 APPLIC TOPICAL ×2 (05:08→16:34)
[2022-09-26 05:09] VITALS: BP 169/86; PULSE 61
[2022-09-26] MEDS: Losartan Potassium 100 MG Tablet PO (05:09)
[2022-09-26] MEDS: Metoprolol Tartrate 25 MG Tablet 37.5 MG PO ×2 (05:09→16:36)
[2022-09-26] MEDS: APIXABAN 5 MG TABLET PO ×2 (05:09→16:34)
[2022-09-26] MEDS: amLODIPine 10 MG Tablet PO (05:10)
[2022-09-26] MEDS: Acetaminophen 500 MG Tablet 1000 MG PO ×3 (05:11→20:26)
[2022-09-26] MEDS: Carbidopa/Levodopa 25/100 Tablet PO ×3 (05:11→16:33)
[2022-09-26 06:17] VITALS: BP 169/86; PULSE 61
[2022-09-26] MEDS: Potassium Chloride Oral Tablet 20 MEQ PO (08:25)
[2022-09-26] MEDS: Senna/Docusate Sodium 1 Tablet PO ×3 (08:25→16:34)
[2022-09-26] MEDS: Cholecalciferol (VIT D3) 25 MCG TABLET (1,000 UNITS) PO ×2 (08:26→16:34)
[2022-09-26] MEDS: Cyanocobalamin 500 MCG Tablet 1000 MCG PO ×2 (08:26→16:34)
[2022-09-26 14:00] VITALS: BP 134/70; PULSE 63; RESP 16; TEMP 36.1; O2SAT 96
[2022-09-26 16:36] VITALS: PULSE 64
[2022-09-26] MEDS: MELATONIN 3 MG TABLET 6 MG PO (20:22)
[2022-09-26] MEDS: Aspirin E.C. 81 MG Tablet PO (20:22)
[2022-09-26] MEDS: Citalopram 40 MG TABLET PO (20:22)
[2022-09-26] MEDS: CARBIDOPA/LEVODOPA CR 50/200 Tablet PO (20:24)
[2022-09-26] MEDS: LORazepam 0.5 MG Tablet PO (20:35)
[2022-09-27] MEDS: Menthol/Lanolin/Calamine/Znox 113 GM Tube 1 APPLIC TOPICAL ×2 (05:18→18:08)
[2022-09-27] MEDS: Losartan Potassium 100 MG Tablet PO (05:20)
[2022-09-27] MEDS: Acetaminophen 500 MG Tablet 1000 MG PO ×3 (05:20→20:39)
[2022-09-27] MEDS: amLODIPine 10 MG Tablet PO (05:22)
[2022-09-27 05:23] VITALS: BP 175/85; PULSE 69
[2022-09-27] MEDS: Metoprolol Tartrate 25 MG Tablet 37.5 MG PO ×2 (05:23→18:07)
[2022-09-27] MEDS: APIXABAN 5 MG TABLET PO ×2 (05:23→18:05)
[2022-09-27] MEDS: Carbidopa/Levodopa 25/100 Tablet PO ×3 (05:23→16:19)
[2022-09-27] MEDS: Nystatin Powder 15gm Bottle 1 APPLIC TOPICAL ×2 (05:30→18:08)
[2022-09-27] MEDS: Cyanocobalamin 500 MCG Tablet 1000 MCG PO ×2 (07:36→16:19)
[2022-09-27] MEDS: Senna/Docusate Sodium 1 Tablet PO ×3 (07:36→18:05)
[2022-09-27] MEDS: Potassium Chloride Oral Tablet 20 MEQ PO (07:36)
[2022-09-27] MEDS: Cholecalciferol (VIT D3) 25 MCG TABLET (1,000 UNITS) PO ×2 (07:37→16:20)
[2022-09-27 13:52] VITALS: BMI 24.1
[2022-09-27 14:00] VITALS: BP 107/55; PULSE 59; RESP 20; TEMP 36.2; O2SAT 96
[2022-09-27 18:07] VITALS: BP 175/85; PULSE 69
[2022-09-27] MEDS: MELATONIN 3 MG TABLET 6 MG PO (20:39)
[2022-09-27] MEDS: CARBIDOPA/LEVODOPA CR 50/200 Tablet PO (20:40)
[2022-09-27] MEDS: Aspirin E.C. 81 MG Tablet PO (20:40)
[2022-09-27] MEDS: Citalopram 40 MG TABLET PO (20:40)
[2022-09-27] MEDS: LORazepam 0.5 MG Tablet PO (20:47)
[2022-09-27 21:07] VITALS: O2SAT 97
[2022-09-28 05:45] LABS: Absolute Lymphocyte Count 1.15 X10^3/uL (0.83-4.51); Absolute Neutrophil Count 2.5 X10^3/uL (2.0-7.7); Basophil# 0.11 X10^3/uL; Basophil% 2.4 % (0-1); Eosinophil# 0.21 X10^3/uL; Eosinophils% 4.6 % (0-5); Hematocrit 32.7 % (37-47); Lymphocyte # 1.15 X10^3/ul (0.83-4.51); Lymphocyte % 25.2 % (19-41); Mean Corp Hgb Conc 30.6 g/dL (32-36); Mean Corpuscular Hgb 31.8 pg (27.0-32.0); Mean Corpuscular Volume 104.1 fL (81-99); Mean Platelet Vol. 9.8 fl (6.2-12.0); Monocyte# 0.56 X10^3/uL; Monocyte% 12.3 % (0-10); NRBC Flagged by Analyzer 0 % (0-5); Neutrophil # 2.52 X10^3/uL (2.7-7.7); Neutrophil % 55.1 % (47-70); Platelet Count 270 K/mm3 (150-450); RBC Distribution Width CV 14.2 % (11.6-14.6); Red Blood Count 3.14 M/mm3 (4.2-5.4); White Blood Count 4.6 K/mm3 (4.4-11.0)
[2022-09-28 05:51] VITALS: BP 134/67; PULSE 87
[2022-09-28] MEDS: Carbidopa/Levodopa 25/100 Tablet PO ×3 (05:51→16:39)
[2022-09-28] MEDS: Metoprolol Tartrate 25 MG Tablet 37.5 MG PO ×2 (05:51→17:42)
[2022-09-28] MEDS: Acetaminophen 500 MG Tablet 1000 MG PO ×3 (05:52→20:31)
[2022-09-28] MEDS: APIXABAN 5 MG TABLET PO ×2 (05:53→17:41)
[2022-09-28] MEDS: amLODIPine 10 MG Tablet PO (05:53)
[2022-09-28] MEDS: Menthol/Lanolin/Calamine/Znox 113 GM Tube 1 APPLIC TOPICAL ×2 (05:53→17:46)
[2022-09-28] MEDS: Losartan Potassium 100 MG Tablet PO (05:53)
[2022-09-28] MEDS: Nystatin Powder 15gm Bottle 1 APPLIC TOPICAL ×2 (05:54→17:43)
[2022-09-28 06:07] LABS: Anion Gap 2 (5-15); BUN 28 mg/dL (7-18); Calcium,Total 8.6 mg/dL (8.5-10.1); Chloride 105 mmol/L (98-107); Creatinine, Serum 0.74 mg/dL (0.55-1.02); EST Glomerular Filtration Rate 81 mL/min (>60); Est Glom Filt Rate - Afr Amer 99 mL/min (>60); Glucose 89 mg/dL (74-106); Sodium Level 137 mmol/L (136-145)
[2022-09-28] MEDS: Potassium Chloride Oral Tablet 20 MEQ PO (07:35)
[2022-09-28] MEDS: Senna/Docusate Sodium 1 Tablet PO ×3 (07:35→17:41)
[2022-09-28] MEDS: Cyanocobalamin 500 MCG Tablet 1000 MCG PO ×2 (07:36→16:39)
[2022-09-28] MEDS: Cholecalciferol (VIT D3) 25 MCG TABLET (1,000 UNITS) PO ×2 (07:36→16:39)
[2022-09-28 10:00] VITALS: PULSE 73; RESP 18; O2SAT 100
[2022-09-28 14:00] VITALS: BP 149/77; PULSE 72; RESP 16; TEMP 36.3; O2SAT 95
[2022-09-28 17:42] VITALS: BP 149/77; PULSE 72
[2022-09-28] MEDS: LORazepam 0.5 MG Tablet PO (20:30)
[2022-09-28] MEDS: MELATONIN 3 MG TABLET 6 MG PO (20:32)
[2022-09-28] MEDS: Aspirin E.C. 81 MG Tablet PO (20:33)
[2022-09-28] MEDS: Citalopram 40 MG TABLET PO (20:33)
[2022-09-28] MEDS: CARBIDOPA/LEVODOPA CR 50/200 Tablet PO (20:33)
[2022-09-29 05:55] VITALS: BP 115/60; PULSE 64
[2022-09-29] MEDS: Metoprolol Tartrate 25 MG Tablet 37.5 MG PO ×2 (05:55→16:53)
[2022-09-29] MEDS: Losartan Potassium 100 MG Tablet PO (05:56)
[2022-09-29] MEDS: Carbidopa/Levodopa 25/100 Tablet PO ×3 (05:56→16:53)
[2022-09-29] MEDS: Acetaminophen 500 MG Tablet 1000 MG PO ×3 (05:56→20:34)
[2022-09-29] MEDS: amLODIPine 10 MG Tablet PO (05:56)
[2022-09-29] MEDS: APIXABAN 5 MG TABLET PO ×2 (05:57→16:53)
[2022-09-29] MEDS: Menthol/Lanolin/Calamine/Znox 113 GM Tube 1 APPLIC TOPICAL ×2 (05:58→16:54)
[2022-09-29] MEDS: Nystatin Powder 15gm Bottle 1 APPLIC TOPICAL ×2 (06:00→16:54)
[2022-09-29] MEDS: Cyanocobalamin 500 MCG Tablet 1000 MCG PO ×2 (08:27→16:53)
[2022-09-29] MEDS: Potassium Chloride Oral Tablet 20 MEQ PO (08:28)
[2022-09-29] MEDS: traMADol 50 MG Tablet PO (09:00)
[2022-09-29] MEDS: Cholecalciferol (VIT D3) 25 MCG TABLET (1,000 UNITS) PO ×2 (09:00→16:53)
--- NOTE | 2022-09-29 10:45 | CASEMGMT ---
Social work Updated dtr that received approval from insurance with NRD 10/03. MICH Sorto
[2022-09-29] MEDS: Senna/Docusate Sodium 1 Tablet PO ×2 (13:11→16:53)
[2022-09-29 13:57] VITALS: BP 111/61; PULSE 66; RESP 20; TEMP 36.3; O2SAT 95
[2022-09-29 16:53] VITALS: BP 111/61; PULSE 66
[2022-09-29] MEDS: LORazepam 0.5 MG Tablet PO (20:33)
[2022-09-29] MEDS: MELATONIN 3 MG TABLET 6 MG PO (20:35)
[2022-09-29] MEDS: CARBIDOPA/LEVODOPA CR 50/200 Tablet PO (20:35)
[2022-09-29] MEDS: Citalopram 40 MG TABLET PO (20:35)
[2022-09-29] MEDS: Aspirin E.C. 81 MG Tablet PO (20:35)
[2022-09-29 21:16] VITALS: O2SAT 95
[2022-09-30] MEDS: APIXABAN 5 MG TABLET PO ×2 (05:49→18:30)
[2022-09-30] MEDS: amLODIPine 10 MG Tablet PO (05:49)
[2022-09-30] MEDS: Acetaminophen 500 MG Tablet 1000 MG PO ×3 (05:49→21:14)
[2022-09-30 05:50] VITALS: BP 114/60; PULSE 68
[2022-09-30] MEDS: Carbidopa/Levodopa 25/100 Tablet PO ×3 (05:50→16:49)
[2022-09-30] MEDS: Losartan Potassium 100 MG Tablet PO (05:50)
[2022-09-30] MEDS: Metoprolol Tartrate 25 MG Tablet 37.5 MG PO ×2 (05:50→18:30)
[2022-09-30] MEDS: Nystatin Powder 15gm Bottle 1 APPLIC TOPICAL ×2 (05:55→18:30)
[2022-09-30] MEDS: Menthol/Lanolin/Calamine/Znox 113 GM Tube 1 APPLIC TOPICAL ×2 (05:55→18:30)
[2022-09-30] MEDS: Cholecalciferol (VIT D3) 25 MCG TABLET (1,000 UNITS) PO ×2 (08:20→18:30)
[2022-09-30] MEDS: Senna/Docusate Sodium 1 Tablet PO ×3 (08:20→18:30)
[2022-09-30] MEDS: Potassium Chloride Oral Tablet 20 MEQ PO (08:20)
[2022-09-30] MEDS: Cyanocobalamin 500 MCG Tablet 1000 MCG PO ×2 (08:20→18:30)
--- NOTE | 2022-09-30 09:29 | CASEMGMT ---
Social Work Contacted dtr via phone to offer setting DC date or if dtr is agreeable to remain with continued therapy. Dtr states she would like continued stay for further improvement in therapy. Dtr expressing concern with pt returning home with . Dtr will discuss with brother and notify this worker if home or AL/SNF at DC. Dtr expressed understanding. SW to continue to follow. Misty Ba, WALKING DRAGLINE OPERATOR CRATE LINER
[2022-09-30 14:00] VITALS: BP 128/67; PULSE 62; RESP 18; TEMP 36.2; O2SAT 98
[2022-09-30 14:15] VITALS: PULSE 67; RESP 16; O2SAT 95
[2022-09-30 18:30] VITALS: BP 123/62; PULSE 78
[2022-09-30] MEDS: LORazepam 0.5 MG Tablet PO (19:48)
[2022-09-30] MEDS: MELATONIN 3 MG TABLET 6 MG PO (21:14)
[2022-09-30] MEDS: CARBIDOPA/LEVODOPA CR 50/200 Tablet PO (21:14)
[2022-09-30] MEDS: Citalopram 40 MG TABLET PO (21:14)
[2022-09-30] MEDS: Aspirin E.C. 81 MG Tablet PO (21:14)
[2022-10-01] MEDS: Menthol/Lanolin/Calamine/Znox 113 GM Tube 1 APPLIC TOPICAL ×2 (05:11→17:26)
[2022-10-01] MEDS: Nystatin Powder 15gm Bottle 1 APPLIC TOPICAL ×2 (05:11→21:33)
[2022-10-01 05:13] VITALS: BP 163/92; PULSE 67
[2022-10-01] MEDS: Metoprolol Tartrate 25 MG Tablet 37.5 MG PO ×2 (05:13→18:22)
[2022-10-01] MEDS: Acetaminophen 500 MG Tablet 1000 MG PO ×3 (05:14→21:35)
[2022-10-01] MEDS: Carbidopa/Levodopa 25/100 Tablet PO ×3 (05:14→17:23)
[2022-10-01] MEDS: amLODIPine 10 MG Tablet PO (05:14)
[2022-10-01] MEDS: Losartan Potassium 100 MG Tablet PO (05:15)
[2022-10-01] MEDS: APIXABAN 5 MG TABLET PO ×2 (05:15→18:20)
[2022-10-01 05:22] VITALS: BP 163/92; PULSE 67
[2022-10-01] MEDS: Senna/Docusate Sodium 1 Tablet PO ×3 (08:03→18:20)
[2022-10-01] MEDS: Potassium Chloride Oral Tablet 20 MEQ PO (08:04)
[2022-10-01] MEDS: Cyanocobalamin 500 MCG Tablet 1000 MCG PO ×2 (08:04→18:20)
[2022-10-01] MEDS: Cholecalciferol (VIT D3) 25 MCG TABLET (1,000 UNITS) PO ×2 (08:05→18:20)
[2022-10-01 18:22] VITALS: BP 124/55; PULSE 72
[2022-10-01 18:26] VITALS: BP 124/55; PULSE 72; RESP 18; TEMP 36.4; O2SAT 94
[2022-10-01] MEDS: CARBIDOPA/LEVODOPA CR 50/200 Tablet PO (21:34)
[2022-10-01] MEDS: MELATONIN 3 MG TABLET 6 MG PO (21:35)
[2022-10-01] MEDS: Aspirin E.C. 81 MG Tablet PO (21:36)
[2022-10-01] MEDS: Citalopram 40 MG TABLET PO (21:37)
[2022-10-02 06:00] VITALS: BP 145/88; PULSE 63
[2022-10-02] MEDS: Nystatin Powder 15gm Bottle 1 APPLIC TOPICAL ×2 (06:05→22:34)
[2022-10-02] MEDS: Carbidopa/Levodopa 25/100 Tablet PO ×3 (06:06→16:57)
[2022-10-02 06:07] VITALS: BP 145/88; PULSE 63
[2022-10-02] MEDS: Metoprolol Tartrate 25 MG Tablet 37.5 MG PO ×2 (06:07→17:43)
[2022-10-02] MEDS: Losartan Potassium 100 MG Tablet PO (06:07)
[2022-10-02] MEDS: amLODIPine 10 MG Tablet PO (06:08)
[2022-10-02] MEDS: Acetaminophen 500 MG Tablet 1000 MG PO ×3 (06:08→22:43)
[2022-10-02] MEDS: APIXABAN 5 MG TABLET PO ×2 (06:08→17:41)
[2022-10-02] MEDS: Menthol/Lanolin/Calamine/Znox 113 GM Tube 1 APPLIC TOPICAL (06:21)
[2022-10-02] MEDS: Senna/Docusate Sodium 1 Tablet PO ×3 (08:28→17:41)
[2022-10-02] MEDS: Potassium Chloride Oral Tablet 20 MEQ PO (08:29)
[2022-10-02] MEDS: Cyanocobalamin 500 MCG Tablet 1000 MCG PO ×2 (08:29→17:41)
[2022-10-02] MEDS: Cholecalciferol (VIT D3) 25 MCG TABLET (1,000 UNITS) PO ×2 (08:30→17:41)
[2022-10-02 14:00] VITALS: BP 142/80; PULSE 66; RESP 16; TEMP 36.6; O2SAT 97
--- NOTE | 2022-10-02 16:34 | NURSING ---
PT WALKED 1 FULL LAP ON UNIT WITH AIDS. TOLERATED WELL.
[2022-10-02 17:43] VITALS: BP 142/80; PULSE 66
[2022-10-02] MEDS: CARBIDOPA/LEVODOPA CR 50/200 Tablet PO (22:43)
[2022-10-02] MEDS: MELATONIN 3 MG TABLET 6 MG PO (22:44)
[2022-10-02] MEDS: Aspirin E.C. 81 MG Tablet PO (22:44)
[2022-10-02] MEDS: Citalopram 40 MG TABLET PO (22:45)
[2022-10-03] MEDS: Carbidopa/Levodopa 25/100 Tablet PO ×3 (04:58→16:36)
[2022-10-03 04:59] VITALS: BP 174/95; PULSE 67
[2022-10-03] MEDS: Metoprolol Tartrate 25 MG Tablet 37.5 MG PO ×2 (04:59→17:49)
[2022-10-03] MEDS: Acetaminophen 500 MG Tablet 1000 MG PO ×3 (05:00→19:52)
[2022-10-03] MEDS: amLODIPine 10 MG Tablet PO (05:00)
[2022-10-03] MEDS: Losartan Potassium 100 MG Tablet PO (05:00)
[2022-10-03] MEDS: Nystatin Powder 15gm Bottle 1 APPLIC TOPICAL ×2 (05:01→17:48)
[2022-10-03] MEDS: APIXABAN 5 MG TABLET PO ×2 (05:01→17:49)
[2022-10-03] MEDS: Menthol/Lanolin/Calamine/Znox 113 GM Tube 1 APPLIC TOPICAL ×2 (05:05→17:48)
[2022-10-03] MEDS: Senna/Docusate Sodium 1 Tablet PO ×2 (08:38→17:49)
[2022-10-03] MEDS: Cholecalciferol (VIT D3) 25 MCG TABLET (1,000 UNITS) PO ×2 (08:38→17:49)
[2022-10-03] MEDS: Potassium Chloride Oral Tablet 20 MEQ PO (08:38)
[2022-10-03] MEDS: Cyanocobalamin 500 MCG Tablet 1000 MCG PO ×2 (08:38→17:49)
[2022-10-03 14:00] VITALS: BP 105/65; PULSE 63; RESP 16; TEMP 36.3; O2SAT 93
--- NOTE | 2022-10-03 15:45 | CASEMGMT ---
Social Work Received call from dtr inquiring about insurance update outcome. No outcome received yet. SW reiterated if pt is unable to return home, to begin search for accepting SNF. Dtr confirms she is concerned with getting 24/7 care from pt's at home, although acknowledge pt has made significant progress. Dtr and family requesting continued therapy at another SNF, while resuming with [facility], when insurance issues DC for TCU. Dtr requesting referrals to [facility] and [facility]. SW placed referrals to both SNFs via [facility], clarifying pt will pay privately for room and board and therapy, while active with [facility]. SW to continue to follow. Misty Ba, FUNERAL LOCATION MANAGER LICENSED MENTAL HEALTH COUNSELOR
[2022-10-03 17:49] VITALS: BP 123/76; PULSE 66
--- NOTE | 2022-10-03 19:23 | PN.TCU_ITS ---
Subjective Subjective Resident seen and examined for regulatory visit. She is eating supper, using built up utensils. She appears well, has no new problems, concerns, issues, complaints. Objective Data Objective Data Vital Signs: Vital Signs Temp Pulse Resp BP Pulse Ox O2 Del Method 97.3 F L 66 16 123/76 H 93 Room Air 10/03/22 14:00 10/03/22 17:49 10/03/22 14:00 10/03/22 17:49 10/03/22 14:00 10/03/22 14:00 Oxygen Delivery Method Room Air Weight: 68.175 kg Body Mass Index (BMI) 24.1 Intake & Output: Intake and Output for Last 24 Hours 10/01/22 10/02/22 10/03/22 23:59 23:59 23:59 Intake Total 600 / 600 840 / 840 480 / 480 Balance 600 / 600 840 / 840 480 / 480 Lab / Micro Data Result Diagrams: 09/28/22 05:15 09/28/22 05:15 Micro: Microbiology 09/20/22 06:00 Nasal Secretion SARS-CoV-2 Antigen (Rapid) - Final 09/13/22 05:00 Nasal Secretion SARS-CoV-2 Antigen (Rapid) - Final 09/10/22 14:10 Nasal Secretion SARS-CoV-2 Antigen (Rapid) - Final 09/08/22 05:30 Nasal Secretion SARS-CoV-2 Antigen (Rapid) - Final Physical Exam Const alert General Appearance: cooperative HEENT normocephalic Eyes PERRL and EOMs intact bilaterally Neck supple, no JVD and no carotid bruits Resp normal respiratory effort, normal air movement and clear to auscultation bilaterally Cardio regular rate and regular rhythm GI normal to inspection, nondistended, normoactive bowel sounds, non-tender and non-distended Extremity normal capillary refill General Extremity: Negative for edema Skin no rashes or lesions noted General Skin Exam: no breakdown Psych affect normal Appearance: appropriate Assessment & Plan Assessment/Plan (1) Debility: (2) Closed left hip fracture: (3) Atrial fibrillation with rapid ventricular response: (4) Pulmonary embolism: (5) Stroke: (6) NSTEMI (non-ST elevated myocardial infarction): (7) Parkinson disease: (8) Depression: (9) Insomnia: (10) Hypertension: (11) Coronary artery disease: PLAN: Plan 76 year old female with below past medical history significant for hospice for Parkinson Disease, hospitalized for left hip fracture, underwent left hip hemiarthroplasty 08/30/[address] Db Robles, complicated by atrial fibr illation with rapid ventricular response, pulnonary embolism, stroke, NSTEMI, admitted to TCU with debility, here for rehabilitation, strengthening, prior to discharge home with resumption of hospice. * Debility - PT/OT. * Pain - Tylenol 1000mg q8, Tramadol 50mg q6h prn pain (1-5), Oxycodone 5mg Q4H prn pain (6-10). * Bowel - senna/colace 1 tablet tidcm, Dulcolax 10mg pr daily prn. * Adult immunization - Administer pneumonia vaccine, covid19 vaccine, flu vaccine. * DVT prophylaxis - Eliquis. * Pulmonary embolism - Eliquis 10mg bid thru 09/09/2022, then 5mg bid forever. * Stroke - Aspirin 81mg qhs x 30 days, then Eliquis 5mg bid forever. * Parkinson Disease - Sinemet 25/100mg 1.5 tablets tidac, Sinemet 50/200mg 1 tablet qhs. * Depression - Citalopram 40mg qhs, stable chronic wallpaper inspector use, GDR not recommended. * Vitamin B12 deficiency - B12 1000mcg bidcm. * Anxiety - Lorazepam 0.5mg q4h prn, stable chronic penitentiary use, GDR not recommended. * Coronary artery disease - Metoprolol 37.5mg bid, Losartan 100mg daily, Aspirin 81mg x 30 days, then Eliquis 5mg bid forever. Family declined cardiac catheterization for NSTEMI. * Atrial Fibrillation - Metoprolol 37.5mg bid, Eliquis as above. * Insomnia - Melatonin 6mg qhs. * Vitamin D deficiency - D3 25mcg bidcm. * Zinc deficiency - Zinc 220mg daily. * Nutrition - Ensure Compact 118ml tidcm. * Skin irritation - Calmoseptine topical bid. * Tinea Corporis - Nystatin powder topical bid. * Hypokalemia - KCL 20meq daily. Capacity Capacity Assessment Tool Can the patient make a choice & communicate that choice?: Yes Can the patient understand benefits, risks and alternatives?: Yes Can the patient make a logical, rational choice?: Yes Is the choice the patient makes consistent w/ their values?: Yes Is there an impending, emergent risk to the patient?: No Does the patient have an Advance Directive?: Yes Is there a Surrogate Available?: Yes i.e. HCPOA: Yes i.e. close relative (spouse, child, parent, sibling)?: Yes
[2022-10-03] MEDS: Citalopram 40 MG TABLET PO (19:53)
[2022-10-03] MEDS: CARBIDOPA/LEVODOPA CR 50/200 Tablet PO (19:53)
[2022-10-03] MEDS: MELATONIN 3 MG TABLET 6 MG PO (19:54)
[2022-10-03] MEDS: Aspirin E.C. 81 MG Tablet PO (19:54)
[2022-10-03 20:02] VITALS: O2SAT 98
[2022-10-04] MEDS: Carbidopa/Levodopa 25/100 Tablet PO ×3 (05:30→18:29)
[2022-10-04 05:31] VITALS: BP 113/62; PULSE 75
[2022-10-04] MEDS: Acetaminophen 500 MG Tablet 1000 MG PO ×3 (05:31→22:14)
[2022-10-04] MEDS: amLODIPine 10 MG Tablet PO (05:31)
[2022-10-04] MEDS: Metoprolol Tartrate 25 MG Tablet 37.5 MG PO ×2 (05:31→18:30)
[2022-10-04] MEDS: Losartan Potassium 100 MG Tablet PO (05:31)
[2022-10-04] MEDS: Nystatin Powder 15gm Bottle 1 APPLIC TOPICAL ×2 (05:32→18:31)
[2022-10-04] MEDS: APIXABAN 5 MG TABLET PO ×2 (05:32→18:29)
[2022-10-04] MEDS: Menthol/Lanolin/Calamine/Znox 113 GM Tube 1 APPLIC TOPICAL ×2 (05:32→18:30)
[2022-10-04] MEDS: Potassium Chloride Oral Tablet 20 MEQ PO (08:16)
[2022-10-04] MEDS: Senna/Docusate Sodium 1 Tablet PO ×3 (08:16→18:30)
[2022-10-04] MEDS: Cyanocobalamin 500 MCG Tablet 1000 MCG PO ×2 (08:16→18:29)
[2022-10-04] MEDS: Cholecalciferol (VIT D3) 25 MCG TABLET (1,000 UNITS) PO ×2 (08:17→18:29)
--- NOTE | 2022-10-04 09:36 | CASEMGMT ---
Addendum entered by Misty Ba 10/04/22 11:00: [facility] does not have any beds. Received return call from [facility] - answered further questions. Team continues to review. SW spoke with pt to update on DC and DC plan. SW called dtr to update on DC date and SNF outcomes. Will finalize with dtr when [facility] gives official acceptance. Dtr can transport pt. PASRR started. SW updated Loree at [facility] of DC date and plan. Plan: DC 10/07, [facility] SNF, intermediate, [facility], private pay for room and board and therapies. Original Note: Social Work Insurance issued LCD 10/06, DC 10/07. SW left messages with both [facility] and [facility] requesting call back with outcome. Will continue to follow. Misty Ba, RONNY DACOSTAW
[2022-10-04 10:36] VITALS: BMI 24.1
[2022-10-04 14:00] VITALS: BP 126/68; PULSE 90; RESP 14; TEMP 36.5; O2SAT 98
[2022-10-04 18:30] VITALS: PULSE 90
--- NOTE | 2022-10-04 19:00 | DS.PCM_ITS ---
Providers Date of Admission: 09/06/22 Primary Care Physician: Dr. Edna Bonner MD Reason For Visit: LEFT FEMUR FRACTURE Diagnosis Discharge Diagnosis (1) Debility: Status: Acute Code(s): R53.81 - Other malaise (2) Closed left hip fracture: Status: Acute Code(s): S72.002A - Fracture of unspecified part of neck of left femur, initial encounter for closed fracture (3) Atrial fibrillation with rapid ventricular response: Status: Acute Code(s): I48.91 - Unspecified atrial fibrillation (4) Pulmonary embolism: Status: Acute Code(s): I26.99 - Other pulmonary embolism without acute cor pulmonale (5) Stroke: Status: Acute Code(s): I63.9 - Cerebral infarction, unspecified (6) NSTEMI (non-ST elevated myocardial infarction): Status: Acute Code(s): I21.4 - Non-ST elevation (NSTEMI) myocardial infarction (7) Parkinson disease: Status: Acute Code(s): G20 - Parkinson's disease (8) Depression: Status: Acute Code(s): F32.A - Depression, unspecified (9) Insomnia: Status: Acute Code(s): G47.00 - Insomnia, unspecified (10) Hypertension: Status: Chronic Code(s): I10 - Essential (primary) hypertension (11) Coronary artery disease: Status: Acute Code(s): I25.10 - Atherosclerotic heart disease of [place] coronary artery without angina pectoris Plan 76 year old female with below past medical history significant for hospice for Parkinson Disease, hospitalized for left hip fracture, underwent left hip hemiarthroplasty 08/30/[address] Db Cortes, complicated by atrial fibrilla tion with rapid ventricular response, pulnonary embolism, stroke, NSTEMI, admitted to TCU with debility, here for rehabilitation, strengthening, prior to discharge home with resumption of hospice. * Debility - PT/OT. * Pain - Tylenol 1000mg q8, Tramadol 50mg q6h prn pain (1-5), Oxycodone 5mg Q4H prn pain (6-10). * Bowel - senna/colace 1 tablet tidcm, Dulcolax 10mg pr daily prn. * Adult immunization - Administer pneumonia vaccine, covid19 vaccine, flu vaccine. * DVT prophylaxis - Eliquis. * Pulmonary embolism - Eliquis 10mg bid thru 09/09/2022, then 5mg bid forever. * Stroke - Aspirin 81mg qhs x 30 days, then Eliquis 5mg bid forever. * Parkinson Disease - Sinemet 25/100mg 1.5 tablets tidac, Sinemet 50/200mg 1 tablet qhs. * Depression - Citalopram 40mg qhs, stable chronic [place] use, GDR not recommended. * Vitamin B12 deficiency - B12 1000mcg bidcm. * Anxiety - Lorazepam 0.5mg q4h prn, stable chronic [place] use, GDR not recommended. * Coronary artery disease - Metoprolol 37.5mg bid, Losartan 100mg daily, Aspirin 81mg x 30 days, then Eliquis 5mg bid forever. Family declined cardiac catheterization for NSTEMI. * Atrial Fibrillation - Metoprolol 37.5mg bid, Eliquis as above. * Insomnia - Melatonin 6mg qhs. * Vitamin D deficiency - D3 25mcg bidcm. * Zinc deficiency - Zinc 220mg daily. * Nutrition - Ensure Compact 118ml tidcm. * Skin irritation - Calmoseptine topical bid. * Tinea Corporis - Nystatin powder topical bid. * Hypokalemia - KCL 20meq daily. Medications at Discharge Home Medications cholecalciferol (vitamin D3) 50 mcg (2,000 unit) capsule 1,000 units PO BID Supplement 10/15/16 aspirin 81 mg tablet,delayed release (Adult Low Dose Aspirin) 81 mg PO QHS Heart health 12/21/18 carbidopa 25 mg-levodopa 100 mg tablet 1.5 tab PO TID Parkinson 07/23/20 cyanocobalamin (vitamin B-12) 100 mcg tablet 1,000 mcg PO BID Supplement 12/03/20 carbidopa ER 50 mg-levodopa 200 mg tablet,extended release 1 tab PO QHS Parkinson 04/19/21 citalopram 40 mg tablet 40 mg PO QHS Mood 04/19/21 melatonin 3 mg tablet 6 mg PO HS Sleep 04/19/21 sennosides 8.6 mg-docusate sodium 50 mg tablet (Senexon-S) 1 tab-cap PO TIDCM Stool softner 12/08/22 losartan 50 mg tablet 50 mg PO DAILY BP 08/29/22 zinc 50 mg capsule 50 mg PO DAILY supplement 08/29/22 metoprolol tartrate 25 mg tablet 37.5 mg PO BID BP 09/06/22 acetaminophen 500 mg tablet 1,000 mg PO Q8 #0 tabs 10/04/22 amlodipine 10 mg tablet 10 mg PO DAILY #0 tabs 10/04/22 apixaban 5 mg tablet (Eliquis) 5 mg PO BID #0 tabs 10/04/22 food supplemt, lactose-reduced (Ensure Compact oral liquid) 118 ml PO TIDCM #0 mL 10/04/22 lorazepam 0.5 mg tablet 0.5 mg PO Q4H PRN PRN Anxiety 3 days #18 tabs 10/04/22 menthol 0.44 %-zinc oxide 20.6 % topical ointment (Calmoseptine) 1 applic topical BID #0 grams 10/04/22 nystatin 100,000 unit/gram topical powder (Nyamyc) 1 applic topical BID #0 grams 10/04/22 potassium chloride 20 mEq tablet,extended release(part/cryst) (Klor-Con M) 20 meq PO DAILYCM #0 tabs 10/04/22 Hospital Course Operations None and - (Left hip hemiarthroplasty.) Procedures None Summary of Care Provided Minutes Spent on Discharge: 35 Hospital Course: 76 year old female with below past medical history significant for hospice for Parkinson Disease, hospitalized for left hip fracture, underwent left hip hemiarthroplasty 08/30/[address] Db Cortes, complicated by atrial fib rillation with rapid ventricular response, pulnonary embolism, stroke, NSTEMI, admitted to TCU with debility, here for rehabilitation, strengthening, prior to discharge home with resumption of hospice. Discharge to [facility] 10/07/2022, intermediate, [facility], private pay for room, board, therapies. Physical Exam Const alert General Appearance: cooperative HEENT normocephalic Eyes PERRL and EOMs intact bilaterally Neck supple, no JVD and no carotid bruits Resp normal respiratory effort, normal air movement and clear to auscultation bilaterally Cardio regular rate and regular rhythm GI normal to inspection, nondistended, normoactive bowel sounds, non-tender and non-distended Extremity normal capillary refill General Extremity: Negative for edema Skin no rashes or lesions noted General Skin Exam: no breakdown Psych affect normal Appearance: appropriate Weight / BMI Weight Weight: 67.857 kg Body Mass Index (BMI) 24.1 ABG / Lab / Microbiology Data Result Diagrams: 09/28/22 05:15 09/28/22 05:15 Microbiology: Microbiology 09/20/22 06:00 Nasal Secretion SARS-CoV-2 Antigen (Rapid) - Final 09/13/22 05:00 Nasal Secretion SARS-CoV-2 Antigen (Rapid) - Final 09/10/22 14:10 Nasal Secretion SARS-CoV-2 Antigen (Rapid) - Final 09/08/22 05:30 Nasal Secretion SARS-CoV-2 Antigen (Rapid) - Final D/C Instructions Discharge Diet: No restrictions Discharge Activity: Return to Normal Activity, May Shower and Use Walker Weight Bearing Status: Weight bearing as tolerated Call your doctor if you observe: Fever of 101 or Higher, Inability to urinate, Inability to have a bowel movement, Shortness of breath, Dizziness, Fainting spells, Swelling in the ankles, Chest pain and Uncontrolled pain Additional Instructions: Discharge to [facility] 10/07/2022, intermediate, [facility], private pay for room, board, therapies. Please Follow Up With: DR.RODNEY CORTES When: As scheduled. Meaningful Use Info Meaningful Use Diagnoses (Choose all that apply): None applicable Discharge Plan Admission Admit Date/Time: 09/06/22 17:41 Primary Reason for Your Visit: Debility. Attending Provider: Jacky Aggarwal Chi Primary Care Provider: Edna Bonner Instructions Additional Instructions / Restrictions: Discharge to [facility] 10/07/2022, [facility], [facility], private pay for room, board, therapies. Discharge Orders/Prescriptions Prescriptions: New acetaminophen 500 mg Tablet 1,000 mg PO Q8 Qty: 0 0RF lorazepam 0.5 mg Tablet 0.5 mg PO Q4H PRN PRN (Reason: Anxiety) 3 Days Qty: 18 0RF amlodipine 10 mg Tablet 10 mg PO DAILY Qty: 0 0RF Eliquis 5 mg Tablet 5 mg PO BID Qty: 0 0RF potassium chloride [Klor-Con M20] 20 mEq Tablet,Er Particles/Crystals 20 meq PO DAILYCM Qty: 0 0RF nystatin [Nyamyc] 100,000 unit/gram Powder 1 applic topical BID Qty: 0 0RF Protocol: *Topical Application Instructions APPLICATION INSTRUCTIONS: Apply to abdominal folds, groin and under breasts. Ensure Compact Liquid 118 ml PO TIDCM Qty: 0 0RF menthol-zinc oxide [Calmoseptine] 0.44-20.6 % Ointment 1 applic topical BID Qty: 0 0RF Protocol: *Topical Application Instructions APPLICATION INSTRUCTIONS: Apply to bilateral buttocks Continued aspirin [Adult Low Dose Aspirin] 81 mg tablet,delayed release (DR/EC) 81 mg PO QHS melatonin 3 mg tablet 6 mg PO HS citalopram 40 mg tablet 40 mg PO QHS cholecalciferol (vitamin D3) 2,000 UNIT capsule 1,000 units PO BID Label Comments: SUPPLEMENT carbidopa-levodopa 25-100 mg tablet 1.5 tab PO TID carbidopa-levodopa 50-200 mg tablet extended release 1 tab PO QHS sennosides-docusate sodium [Senexon-S] 8.6-50 mg Tablet 1 tab-cap PO TIDCM zinc 50 mg Capsule 50 mg PO DAILY losartan 50 mg tablet 50 mg PO DAILY metoprolol tartrate 25 mg tablet 37.5 mg PO BID cyanocobalamin (vitamin B-12) 100 mcg tablet 1,000 mcg PO BID Discontinued lorazepam [Ativan] 0.5 mg Tablet 0.5 mg PO Q4H PRN PRN (Reason: Anxiety) cephalexin 500 mg capsule 500 mg PO TID Rx Instructions: Begin 09/07 Eliquis DVT-PE Treat 30D Start 5 mg (74 tabs) tablets,dose pack See Rx Instructions .ROUTE .COMPLEX Rx Instructions: 10 mg of Eliquis tonight and 10 mg twice daily for the next 3 days. After that you will take 5 mg twice daily Referrals / Follow Up: Edna Bonner MD [Primary Care Provider] - Yosef Hanks MD [Non-Staff] - (Parkinson's and CVA After Discharge ) Disposition Disposition (needs filled in before D/C Order can be placed): NonSkilled NH/Intermed Care
--- NOTE | 2022-10-04 19:06 | TREXTCAR_ITS ---
Diet Diet Order/Speech Therapy: 09/06/22 17:52 Diet: Regular - General Food consistency:: Soft & Bite Sized Liquid Consistency:: [place]/Mildly Thick Is pt able to select menu?: No Diet Comments: fort pud w/ L & D, BUILD UP UTENSILS AND SIPPY CUP, extra gravy/sauces Routine Orders/Code Status Code Status: DNRCC-A (No intubation.) Wound(s) Left Inner Buttock: Wound Type: Shear Injury Dressing Change: TRIAD CREAM Lft hip: Wound Type: Surgical Incision Dressing Change: Dry Sterile Dressing Therapies Weight Bearing: Weight bearing as tolerated Extremity Affected:: Bilateral Lower Physical Therapy: Eval and Treat Occupational Therapy: Eval and Treat Speech Therapy: Eval and Treat Problem/Diagnosis (1) Debility: Status: Acute Code(s): R53.81 - Other malaise (2) Closed left hip fracture: Status: Acute Code(s): S72.002A - Fracture of unspecified part of neck of left femur, initial encounter for closed fracture (3) Atrial fibrillation with rapid ventricular response: Status: Acute Code(s): I48.91 - Unspecified atrial fibrillation (4) Pulmonary embolism: Status: Acute Code(s): I26.99 - Other pulmonary embolism without acute cor pulmonale (5) Stroke: Status: Acute Code(s): I63.9 - Cerebral infarction, unspecified (6) NSTEMI (non-ST elevated myocardial infarction): Status: Acute Code(s): I21.4 - Non-ST elevation (NSTEMI) myocardial infarction (7) Parkinson disease: Status: Acute Code(s): G20 - Parkinson's disease (8) Depression: Status: Acute Code(s): F32.A - Depression, unspecified (9) Insomnia: Status: Acute Code(s): G47.00 - Insomnia, unspecified (10) Hypertension: Status: Chronic Code(s): I10 - Essential (primary) hypertension (11) Coronary artery disease: Status: Acute Code(s): I25.10 - Atherosclerotic heart disease of [place] coronary artery without angina pectoris Plan 76 year old female with below past medical history significant for hospice for Parkinson Disease, hospitalized for left hip fracture, underwent left hip hemiarthroplasty 08/30/[address] Db Cortes, complicated by atrial fibrillation with rapid ventricular response, pulnonary embolism, stroke, NSTEMI, admitted to TCU with debility, here for rehabilitation, strengthening, prior to discharge home with resumption of hospice. * Debility - PT/OT. * Pain - Tylenol 1000mg q8, Tramadol 50mg q6h prn pain (1-5), Oxycodone 5mg Q4H prn pain (6-10). * Bowel - senna/colace 1 tablet tidcm, Dulcolax 10mg pr daily prn. * Adult immunization - Administer pneumonia vaccine, covid19 vaccine, flu vaccine. * DVT prophylaxis - Eliquis. * Pulmonary embolism - Eliquis 10mg bid thru 09/09/2022, then 5mg bid forever. * Stroke - Aspirin 81mg qhs x 30 days, then Eliquis 5mg bid forever. * Parkinson Disease - Sinemet 25/100mg 1.5 tablets tidac, Sinemet 50/200mg 1 tablet qhs. * Depression - Citalopram 40mg qhs, stable chronic watermaster use, GDR not recommended. * Vitamin B12 deficiency - B12 1000mcg bidcm. * Anxiety - Lorazepam 0.5mg q4h prn, stable chronic watermaster use, GDR not recommended. * Coronary artery disease - Metoprolol 37.5mg bid, Losartan 100mg daily, Aspirin 81mg x 30 days, then Eliquis 5mg bid forever. Family declined cardiac catheterization for NSTEMI. * Atrial Fibrillation - Metoprolol 37.5mg bid, Eliquis as above. * Insomnia - Melatonin 6mg qhs. * Vitamin D deficiency - D3 25mcg bidcm. * Zinc deficiency - Zinc 220mg daily. * Nutrition - Ensure Compact 118ml tidcm. * Skin irritation - Calmoseptine topical bid. * Tinea Corporis - Nystatin powder topical bid. * Hypokalemia - KCL 20meq daily. Allergies/Procedures Done in Hospital Allergies iodine Allergy (Verified 08/29/22 17:34) Hives latex Allergy (Verified 08/29/22 17:34) Rash rotigotine [From Neupro] Allergy (Verified 08/29/22 17:34) Rash shellfish derived Allergy (Verified 08/29/22 17:34) Hives Sulfa (Sulfonamide Antibiotics) Allergy (Verified 08/29/22 17:34) Hives Mfifszd-[id number]-MfT Reductase Inhibitor [Mxkifwo-Rck-Eoz Reductase Inhibitor] Adverse Reaction (Severe, Verified 08/29/22 17:34) Myalgias, muscle cramps, poor balance Type of Care/Length of Stay Estimated LOS: Convalescent Care Less Than 30 days Type of Care Needed: Intermediate Rehab Potential: Fair Prognosis: Fair Additional Orders/Day of Discharge Day of Discharge: 10/07/22 Dietary and Speech Recommendations Dietitian Recommendations/Changes: Will continue liberal regular diet w/ consistencies per MANAGER BRAND Will continue fortified pudding w/ L&D and ensure compact 3x/day w/ medpass Monitor wt trends w/ same scale Follow Up Care Please Follow Up With: DR.RODNEY CORTES Please Follow Up With: Dr. Yosef Hanks Discharge Plan Admission Admit Date/Time: 09/06/22 17:41 Primary Reason for Your Visit: Debility. Attending Provider: Jacky Aggarwal Chi Primary Care Provider: Edna Bonner Instructions Additional Instructions / Restrictions: Discharge to [facility] 10/07/2022, intermediate, [facility], private pay for room, board, therapies. Discharge Orders/Prescriptions Prescriptions: New acetaminophen 500 mg Tablet 1,000 mg PO Q8 Qty: 0 0RF lorazepam 0.5 mg Tablet 0.5 mg PO Q4H PRN PRN (Reason: Anxiety) 3 Days Qty: 18 0RF amlodipine 10 mg Tablet 10 mg PO DAILY Qty: 0 0RF Eliquis 5 mg Tablet 5 mg PO BID Qty: 0 0RF potassium chloride [Klor-Con M20] 20 mEq Tablet,Er Particles/Crystals 20 meq PO DAILYCM Qty: 0 0RF nystatin [Nyamyc] 100,000 unit/gram Powder 1 applic topical BID Qty: 0 0RF Protocol: *Topical Application Instructions APPLICATION INSTRUCTIONS: Apply to abdominal folds, groin and under breasts. Ensure Compact Liquid 118 ml PO TIDCM Qty: 0 0RF menthol-zinc oxide [Calmoseptine] 0.44-20.6 % Ointment 1 applic topical BID Qty: 0 0RF Protocol: *Topical Application Instructions APPLICATION INSTRUCTIONS: Apply to bilateral buttocks Continued aspirin [Adult Low Dose Aspirin] 81 mg tablet,delayed release (DR/EC) 81 mg PO QHS melatonin 3 mg tablet 6 mg PO HS citalopram 40 mg tablet 40 mg PO QHS cholecalciferol (vitamin D3) 2,000 UNIT capsule 1,000 units PO BID Label Comments: SUPPLEMENT carbidopa-levodopa 25-100 mg tablet 1.5 tab PO TID carbidopa-levodopa 50-200 mg tablet extended release 1 tab PO QHS sennosides-docusate sodium [Senexon-S] 8.6-50 mg Tablet 1 tab-cap PO TIDCM zinc 50 mg Capsule 50 mg PO DAILY losartan 50 mg tablet 50 mg PO DAILY metoprolol tartrate 25 mg tablet 37.5 mg PO BID cyanocobalamin (vitamin B-12) 100 mcg tablet 1,000 mcg PO BID Discontinued lorazepam [Ativan] 0.5 mg Tablet 0.5 mg PO Q4H PRN PRN (Reason: Anxiety) cephalexin 500 mg capsule 500 mg PO TID Rx Instructions: Begin 09/07 Eliquis DVT-PE Treat 30D Start 5 mg (74 tabs) tablets,dose pack See Rx Instructions .ROUTE .COMPLEX Rx Instructions: 10 mg of Eliquis tonight and 10 mg twice daily for the next 3 days. After that you will take 5 mg twice daily Referrals / Follow Up: Edna Bonner MD [Primary Care Provider] - Yosef Hanks MD [Non-Staff] - (Parkinson's and CVA After Discharge ) Disposition Disposition (needs filled in before D/C Order can be placed): NonSkilled NH/Intermed Care
--- NOTE | 2022-10-04 19:57 | PCA ---
This COMMUNICATIONS CONTROLLER was helping patient walk to the bathroom. After taking several steps towards the bathroom, patients knees gave out and patient had to be lowered gently to the ground. Patient not complaining of pain at this time. RN is aware
[2022-10-04 22:00] VITALS: PULSE 82; RESP 16; O2SAT 94
[2022-10-04] MEDS: Aspirin E.C. 81 MG Tablet PO (22:14)
[2022-10-04] MEDS: MELATONIN 3 MG TABLET 6 MG PO (22:14)
[2022-10-04] MEDS: CARBIDOPA/LEVODOPA CR 50/200 Tablet PO (22:14)
[2022-10-04] MEDS: Citalopram 40 MG TABLET PO (22:14)
[2022-10-05 05:52] LABS: Absolute Lymphocyte Count 1.22 X10^3/uL (0.83-4.51); Absolute Neutrophil Count 3.2 X10^3/uL (2.0-7.7); Basophil# 0.08 X10^3/uL; Basophil% 1.5 % (0-1); Eosinophil# 0.07 X10^3/uL; Eosinophils% 1.3 % (0-5); Hematocrit 33.7 % (37-47); Hemoglobin 10.4 g/dL (12.0-15.0); Lymphocyte # 1.22 X10^3/ul (0.83-4.51); Lymphocyte % 23.1 % (19-41); Mean Corp Hgb Conc 30.9 g/dL (32-36); Mean Corpuscular Volume 103.7 fL (81-99); Mean Platelet Vol. 9.7 fl (6.2-12.0); Monocyte# 0.71 X10^3/uL; Monocyte% 13.4 % (0-10); NRBC Flagged by Analyzer 0 % (0-5); Neutrophil # 3.18 X10^3/uL (2.7-7.7); Neutrophil % 60.3 % (47-70); Platelet Count 241 K/mm3 (150-450); RBC Distribution Width CV 14.1 % (11.6-14.6); RBC Distribution Width SD 53.9 fl (35.1-43.9); Red Blood Count 3.25 M/mm3 (4.2-5.4); White Blood Count 5.3 K/mm3 (4.4-11.0)
[2022-10-05] MEDS: Menthol/Lanolin/Calamine/Znox 113 GM Tube 1 APPLIC TOPICAL ×2 (06:25→18:00)
[2022-10-05] MEDS: Nystatin Powder 15gm Bottle 1 APPLIC TOPICAL ×2 (06:26→18:05)
[2022-10-05] MEDS: Acetaminophen 500 MG Tablet 1000 MG PO ×3 (06:27→21:16)
[2022-10-05 06:28] VITALS: BP 160/79; PULSE 61
[2022-10-05] MEDS: amLODIPine 10 MG Tablet PO (06:28)
[2022-10-05] MEDS: Metoprolol Tartrate 25 MG Tablet 37.5 MG PO ×2 (06:28→17:59)
[2022-10-05] MEDS: Carbidopa/Levodopa 25/100 Tablet PO ×3 (06:28→16:48)
[2022-10-05] MEDS: Losartan Potassium 100 MG Tablet PO (06:28)
[2022-10-05] MEDS: APIXABAN 5 MG TABLET PO ×2 (06:29→17:59)
[2022-10-05 06:31] LABS: Anion Gap 3 (5-15); BUN 32 mg/dL (7-18); BUN/Creat Ratio 43.4 RATIO (10-20); Calcium,Total 8.8 mg/dL (8.5-10.1); Chloride 104 mmol/L (98-107); Creatinine, Serum 0.74 mg/dL (0.55-1.02); EST Glomerular Filtration Rate 81 mL/min (>60); Est Glom Filt Rate - Afr Amer 98 mL/min (>60); Glucose 98 mg/dL (74-106); Sodium Level 135 mmol/L (136-145)
[2022-10-05] MEDS: Cyanocobalamin 500 MCG Tablet 1000 MCG PO ×2 (07:48→16:47)
[2022-10-05] MEDS: Potassium Chloride Oral Tablet 20 MEQ PO (07:49)
[2022-10-05] MEDS: Senna/Docusate Sodium 1 Tablet PO ×3 (07:49→16:49)
[2022-10-05] MEDS: Cholecalciferol (VIT D3) 25 MCG TABLET (1,000 UNITS) PO ×2 (07:50→16:49)
[2022-10-05 09:31] VITALS: PULSE 56; RESP 18; O2SAT 98
[2022-10-05 13:37] VITALS: BP 104/61; PULSE 58; RESP 16; TEMP 36; O2SAT 96
--- NOTE | 2022-10-05 15:05 | CASEMGMT ---
Social Work Received call from [facility] stating they are unable to accept pt d/t bed availability. SW contacted dtr to update and inquire about additional SNFs. Dtr unsure who would be next choice. SW offered to refer to the [facility] SNFs. Dtr agreeable. Referrals made to [facility], [facility] and [facility]. SW to continue to follow. Misty Ba, CAR BUILDER MOTION PICTURE SCENE BUILDER
[2022-10-05 17:59] VITALS: BP 104/61; PULSE 58
[2022-10-05] MEDS: MELATONIN 3 MG TABLET 6 MG PO (21:15)
[2022-10-05] MEDS: CARBIDOPA/LEVODOPA CR 50/200 Tablet PO (21:16)
[2022-10-05] MEDS: Aspirin E.C. 81 MG Tablet PO (21:16)
[2022-10-05] MEDS: Citalopram 40 MG TABLET PO (21:16)
[2022-10-06 06:02] VITALS: BP 158/77; PULSE 64
[2022-10-06] MEDS: APIXABAN 5 MG TABLET PO ×2 (06:02→17:37)
[2022-10-06] MEDS: Metoprolol Tartrate 25 MG Tablet 37.5 MG PO ×2 (06:02→17:37)
[2022-10-06] MEDS: Losartan Potassium 100 MG Tablet PO (06:02)
[2022-10-06] MEDS: amLODIPine 10 MG Tablet PO (06:02)
[2022-10-06] MEDS: Acetaminophen 500 MG Tablet 1000 MG PO ×3 (06:02→21:40)
[2022-10-06] MEDS: Carbidopa/Levodopa 25/100 Tablet PO ×3 (06:03→17:35)
[2022-10-06] MEDS: Menthol/Lanolin/Calamine/Znox 113 GM Tube 1 APPLIC TOPICAL ×2 (06:09→17:43)
[2022-10-06] MEDS: Nystatin Powder 15gm Bottle 1 APPLIC TOPICAL ×2 (06:09→17:38)
[2022-10-06] MEDS: Senna/Docusate Sodium 1 Tablet PO ×3 (07:56→17:36)
[2022-10-06] MEDS: Potassium Chloride Oral Tablet 20 MEQ PO (07:57)
[2022-10-06] MEDS: Cyanocobalamin 500 MCG Tablet 1000 MCG PO ×2 (07:57→17:34)
[2022-10-06] MEDS: Cholecalciferol (VIT D3) 25 MCG TABLET (1,000 UNITS) PO ×2 (07:57→17:36)
[2022-10-06 10:00] VITALS: PULSE 89; RESP 20; O2SAT 99
--- NOTE | 2022-10-06 11:04 | NURSING ---
Pt left facility with family for outpatient appt with Dr Hanks at 10:45am.
--- NOTE | 2022-10-06 12:01 | MDS.RN ---
MDS pain interview for [facility] 10/07/22 completed.
[2022-10-06 14:00] VITALS: BP 145/58; PULSE 66; RESP 16; TEMP 36.1; O2SAT 98
--- NOTE | 2022-10-06 14:43 | CASEMGMT ---
Social Work SW spoke with dtr to update on accepting facilities. Dtr spoke with [facility] yesterday to inquire about no longer being able to [facility]. SW provided private pay rate to dtr for pt to remain in TCU until bed is available. Dtr agreed to pay. [facility] is stating pt can admit BY Tuesday 10/10. SW educated to paying for 3 days up front and if pt does not DC by then, an additional week of payment will be collected. Dtr expressed understanding. IDT updated. PASRR completed. Spoke with Loree at [facility]. Plan: DC to [facility] when bed is available. Misty Ba, OPTICS TECHNICAL OFFICER INTRAVENOUS THERAPY NURSE
[2022-10-06 17:37] VITALS: BP 145/58; PULSE 66
[2022-10-06] MEDS: Aspirin E.C. 81 MG Tablet PO (21:40)
[2022-10-06] MEDS: Citalopram 40 MG TABLET PO (21:40)
[2022-10-06] MEDS: CARBIDOPA/LEVODOPA CR 50/200 Tablet PO (21:40)
[2022-10-06] MEDS: MELATONIN 3 MG TABLET 6 MG PO (21:40)
[2022-10-07] MEDS: Nystatin Powder 15gm Bottle 1 APPLIC TOPICAL ×2 (05:11→17:46)
[2022-10-07] MEDS: Losartan Potassium 100 MG Tablet PO (05:12)
[2022-10-07] MEDS: Menthol/Lanolin/Calamine/Znox 113 GM Tube 1 APPLIC TOPICAL ×2 (05:12→17:47)
[2022-10-07 05:13] VITALS: BP 171/78; PULSE 63
[2022-10-07] MEDS: Metoprolol Tartrate 25 MG Tablet 37.5 MG PO ×2 (05:13→17:48)
[2022-10-07] MEDS: APIXABAN 5 MG TABLET PO ×2 (05:13→17:48)
[2022-10-07] MEDS: amLODIPine 10 MG Tablet PO (05:13)
[2022-10-07] MEDS: Carbidopa/Levodopa 25/100 Tablet PO ×3 (05:14→17:47)
[2022-10-07] MEDS: Acetaminophen 500 MG Tablet 1000 MG PO ×3 (05:14→22:23)
[2022-10-07 05:24] VITALS: BP 171/78; PULSE 63
[2022-10-07] MEDS: Senna/Docusate Sodium 1 Tablet PO ×3 (08:52→17:48)
[2022-10-07] MEDS: Potassium Chloride Oral Tablet 20 MEQ PO (08:52)
[2022-10-07] MEDS: Cyanocobalamin 500 MCG Tablet 1000 MCG PO ×2 (08:52→17:47)
[2022-10-07] MEDS: Cholecalciferol (VIT D3) 25 MCG TABLET (1,000 UNITS) PO ×2 (08:52→17:48)
[2022-10-07 09:09] VITALS: PULSE 61; RESP 16; O2SAT 97
[2022-10-07 14:00] VITALS: BP 142/74; PULSE 63; RESP 18; TEMP 35.6; O2SAT 98
--- NOTE | 2022-10-07 15:15 | PHA.CONS_ITS ---
TCU RX Drug Regimen Review Subjective: September TCU note. 76 YOF presented to the ER with fall, left hip injury. Hospitalized for left hip fracture, underwent left hip hemiarthroplasty 08/30/[address] Db Robles, complicated by atrial fibrillation with rapid ventricular response, pulmonary embolism, stroke, NSTEMI. Admitted to TCU with debility for strengthening and rehabilitation. Objective: Allergies iodine Allergy (Verified 08/29/22 17:34) Hives latex Allergy (Verified 08/29/22 17:34) Rash rotigotine [From Neupro] Allergy (Verified 08/29/22 17:34) Rash shellfish derived Allergy (Verified 08/29/22 17:34) Hives Sulfa (Sulfonamide Antibiotics) Allergy (Verified 08/29/22 17:34) Hives Blogbpr-[id number] Reductase Inhibitor [Jlsmjde-Ycl-Mho Reductase Inhibitor] Adverse Reaction (Severe, Verified 08/29/22 17:34) Myalgias, muscle cramps, poor balance Current Medications Generic Name Dose Route Start Last Admin Trade Name Freq PRN Reason Stop Dose Admin Acetaminophen 1,000 mg 09/06/22 22:00 10/07/22 13:34 Acetaminophen 500 Mg Tablet PO 1,000 mg Q8 TITUS Administration Amlodipine Besylate 10 mg 09/16/22 08:00 10/07/22 05:13 Amlodipine 10 Mg Tablet PO 10 mg DAILY TITUS Administration Apixaban 5 mg 09/10/22 06:00 10/07/22 05:13 Apixaban 5 Mg Tablet PO 5 mg BID TITUS Administration Aspirin 81 mg 09/07/22 22:00 10/06/22 21:40 Aspirin E.C. 81 Mg Tablet PO 10/07/22 22:01 81 mg QHS TITUS Administration Bisacodyl 10 mg 09/06/22 18:14 Bisacodyl 10 Mg Suppository RC DAILY PRN CONSTIPATION Calamine/Phenol 1 applic 09/06/22 22:00 10/07/22 05:12 Menthol/Lanolin/Calamine/Znox 113 Gm Tube TOPICAL 1 applic BID TITUS Administration Protocol Carbidopa/Levodopa 1.5 tablet 09/07/22 06:45 10/07/22 13:34 Carbidopa/Levodopa 25/100 Tablet PO 1.5 tablet TIDAC TITUS Administration Carbidopa/Levodopa 1 tablet 09/06/22 22:00 10/06/22 21:40 Carbidopa/Levodopa Cr 50/200 Tablet PO 1 tablet QHS TITUS Administration Cholecalciferol 25 mcg 09/07/22 08:00 10/07/22 08:52 Cholecalciferol (Vit D3) 25 Mcg Tablet (1,000 Units) PO 25 mcg BIDCM [facility] Administration Citalopram Hydrobromide 40 mg 09/06/22 22:00 10/06/22 21:40 Citalopram 40 Mg Tablet PO 40 mg QHS TITUS Administration Cyanocobalamin 1,000 mcg 09/07/22 08:00 10/07/22 08:52 Cyanocobalamin 500 Mcg Tablet PO 1,000 mcg BIDCM [facility] Administration Lorazepam 0.5 mg 09/06/22 18:05 09/30/22 19:48 Lorazepam 0.5 Mg Tablet PO 0.5 mg Q4H PRN PRN Administration ANXIETY Losartan Potassium 100 mg 09/16/22 08:00 10/07/22 05:12 Losartan Potassium 100 Mg Tablet PO 100 mg DAILY [facility] Administration Melatonin 6 mg 09/06/22 22:00 10/06/22 21:40 Melatonin 3 Mg Tablet PO 6 mg HS [facility] Administration Metoprolol Tartrate 37.5 mg 09/07/22 06:00 10/07/22 05:13 Metoprolol Tartrate 25 Mg Tablet PO 37.5 mg BID TITUS Administration Nutritional Formula (Lactose Free) 118 ml 09/11/22 07:45 10/07/22 13:33 Ensure Compact 118 Ml Liquid PO Not Given TIDCM [facility] Nystatin 1 applic 09/07/22 06:00 10/07/22 05:11 Nystatin Powder 15gm Bottle TOPICAL 1 applic BID [facility] Administration Protocol Oxycodone HCl 5 mg 09/06/22 19:17 09/16/22 09:19 Oxycodone 5 Mg Tablet PO 5 mg Q4H PRN PRN Administration Pain Score 6-10 Potassium Chloride 20 meq 09/15/22 08:00 10/07/22 08:52 Potassium Chloride Oral Tablet 20 Meq PO 20 meq DAILYCM [facility] Administration Senna/Docusate Sodium 1 tablet 09/07/22 07:45 10/07/22 13:34 Senna/Docusate Sodium 1 Tablet PO 1 tablet TIDCM [facility] Administration Sodium Chloride 10 - 40 ml 09/06/22 18:55 09/08/22 07:00 0.9% Saline Lock 10 Ml Syringe IV 10 ml UD PRN Administration SALINE FLUSH Tramadol HCl 50 mg 09/06/22 19:17 09/29/22 09:00 Tramadol 50 Mg Tablet PO 50 mg Q6H PRN PRN Administration Pain Score 1-5 Zinc Sulfate 220 mg 09/07/22 08:00 10/07/22 08:52 Zinc Sulfate (50mg Elemental) 220 Mg Capsule PO 220 mg DAILYCM [facility] Administration Problem List (Last Reviewed 09/06/22 @ 18:[address] Jacky Aggarwal MD) Coronary artery disease (Acute) Hypertension (Chronic) Insomnia (Acute) Depression (Acute) Parkinson disease (Acute) NSTEMI (non-ST elevated myocardial infarction) (Acute) Stroke (Acute) Pulmonary embolism (Acute) Atrial fibrillation with rapid ventricular response (Acute) Closed left hip fracture (Acute) Debility (Acute) Vital Signs Temp Pulse Resp BP Pulse Ox O2 Del Method 96.1 F L 63 18 142/74 H 98 Room Air 10/07/22 14:00 10/07/22 14:00 10/07/22 14:00 10/07/22 14:00 10/07/22 14:00 10/07/22 14:00 Oxygen Delivery Method Room Air Weight: 67.857 kg Body Mass Index (BMI) 24.1 Sodium 135 mmol/L (136-145) L 10/05/22 05:14 Potassium 4.0 mmol/L (3.5-5.1) 10/05/22 05:14 Chloride 104 mmol/L (98-107) 10/05/22 05:14 Carbon Dioxide 28.0 mmol/L (21.0-32.0) 10/05/22 05:14 Anion Gap 3 (5-15) L 10/05/22 05:14 BUN 32 mg/dL (7-18) H 10/05/22 05:14 Creatinine 0.74 mg/dL (0.55-1.02) 10/05/22 05:14 Est GFR (MDRD) Af Amer 98 mL/min (>60) 10/05/22 05:14 Est GFR (MDRD) Non-Af 81 mL/min (>60) 10/05/22 05:14 BUN/Creatinine Ratio 43.4 RATIO (10-20) H 10/05/22 05:14 Glucose 98 mg/dL (74-106) 10/05/22 05:14 Assessment/Plan: 1. Pain: acetaminophen 1000mg PO Q8, tramadol 50mg PO Q6H PRN pain 1-5 and oxycodone 5mg PO Q4H PRN pain 6-10. Resident has used tramadol (last used 09/29) and oxycodone (last use 09/16). Please continue to monitor for increased pain and PRN usage. 2. Bowel: senna/docusate 1T PO TIDCM and bisacodyl 10mg RC x1 PRN constipation. No PRN doses so far. Please continue to monitor for constipation and PRN usage. Last documented bowel movement from10/02. 3. Pulmonary embolism/stroke/CAD/atrial fibrillation: apixaban 5mg PO BID starting, aspirin 81mg PO QHS thru 10/07/22, metoprolol tartrate 37.5mg PO BID and losartan 100mg PO daily. Please continue to monitor for S/S of bleeding, hemoglobin (last 10.4g/dL), HR (last 63), BP (last 142/74), renal function and potassium (last 4mmol/L). 4. Parkinson disease: Sinemet 25/100mg 1.5 tablets PO TIDAC and Sinemet CR 50/200mg 1T PO QHS. Please continue to monitor for dyskinesias, GI side effects and dizziness. 5. Insomnia: melatonin 6mg PO QHS. Please continue to monitor for insomnia and excessive drowsiness. 6. Vitamin B12 deficiency/vitamin D deficiency/zinc deficiency: cyanocobalamin 1000mcg PO BIDCM, cholecalciferol 25mcg PO BIDCM and zinc 220mg PO dailycm. Please see March note for recommendations. Last vitamin D level was from 09/2018 and there is no B12 level. Thanks. 7. Hypokalemia: potassium chloride 20mEQ PO DAILYCM. Please continue to monitor potassium levels (last 4mmol/L). Assessment/Plan for indications treated with psychotropic medications: 1. Depression: citalopram 40mg PO QHS. Please see physician note regarding GDR. Please continue to monitor for suicidal ideation (black box warning), falls/fractures (BEERs medication, resident came in due to a fall/fracture) and sodium (last 137mmol/L). 2. Anxiety: lorazepam 0.5mg PO Q4H PRN anxiety. Please see physician note regarding GDR.Last dose given 09/30. Please continue to monitor for falls/fractures (BEERs medication, resident came in due to a fall/fracture) and dementia/delirium (BEERs medication). Medical chart and medication regimen reviewed. The following medication irregularities or issues were identified: No new recommendations, see August note for vitamin D and B12 recommendations. Thanks. Date of Note:: 10/07/22
[2022-10-07 17:48] VITALS: BP 142/74; PULSE 63
[2022-10-07] MEDS: Citalopram 40 MG TABLET PO (22:23)
[2022-10-07] MEDS: MELATONIN 3 MG TABLET 6 MG PO (22:23)
[2022-10-07] MEDS: Aspirin E.C. 81 MG Tablet PO (22:23)
[2022-10-07] MEDS: CARBIDOPA/LEVODOPA CR 50/200 Tablet PO (22:23)
[2022-10-08] MEDS: Nystatin Powder 15gm Bottle 1 APPLIC TOPICAL ×2 (05:53→17:01)
[2022-10-08] MEDS: Menthol/Lanolin/Calamine/Znox 113 GM Tube 1 APPLIC TOPICAL ×2 (05:53→17:01)
[2022-10-08] MEDS: Carbidopa/Levodopa 25/100 Tablet PO ×3 (05:54→17:00)
[2022-10-08 05:55] VITALS: BP 179/90; PULSE 63
[2022-10-08] MEDS: Metoprolol Tartrate 25 MG Tablet 37.5 MG PO ×2 (05:55→16:58)
[2022-10-08] MEDS: amLODIPine 10 MG Tablet PO (05:56)
[2022-10-08] MEDS: Acetaminophen 500 MG Tablet 1000 MG PO ×3 (05:56→21:03)
[2022-10-08] MEDS: APIXABAN 5 MG TABLET PO ×2 (05:56→17:00)
[2022-10-08] MEDS: Losartan Potassium 100 MG Tablet PO (05:56)
[2022-10-08] MEDS: Senna/Docusate Sodium 1 Tablet PO ×3 (08:51→17:00)
[2022-10-08] MEDS: Cholecalciferol (VIT D3) 25 MCG TABLET (1,000 UNITS) PO ×2 (08:51→17:00)
[2022-10-08] MEDS: Potassium Chloride Oral Tablet 20 MEQ PO (08:51)
[2022-10-08] MEDS: Cyanocobalamin 500 MCG Tablet 1000 MCG PO ×2 (08:52→17:01)
[2022-10-08 14:00] VITALS: BP 135/65; PULSE 62; RESP 18; TEMP 36.3; O2SAT 96
[2022-10-08 16:58] VITALS: PULSE 62
[2022-10-08] MEDS: CARBIDOPA/LEVODOPA CR 50/200 Tablet PO (21:04)
[2022-10-08] MEDS: MELATONIN 3 MG TABLET 6 MG PO (21:04)
[2022-10-08] MEDS: Citalopram 40 MG TABLET PO (21:05)
[2022-10-08 22:25] VITALS: O2SAT 96
[2022-10-09] MEDS: Acetaminophen 500 MG Tablet 1000 MG PO ×3 (05:25→20:48)
[2022-10-09 05:26] VITALS: BP 166/87; PULSE 61
[2022-10-09] MEDS: Carbidopa/Levodopa 25/100 Tablet PO ×3 (05:26→17:32)
[2022-10-09] MEDS: Metoprolol Tartrate 25 MG Tablet 37.5 MG PO ×2 (05:26→17:31)
[2022-10-09] MEDS: amLODIPine 10 MG Tablet PO (05:26)
[2022-10-09] MEDS: APIXABAN 5 MG TABLET PO ×2 (05:26→17:31)
[2022-10-09] MEDS: Losartan Potassium 100 MG Tablet PO (05:27)
[2022-10-09] MEDS: Nystatin Powder 15gm Bottle 1 APPLIC TOPICAL ×2 (05:33→17:30)
[2022-10-09] MEDS: Menthol/Lanolin/Calamine/Znox 113 GM Tube 1 APPLIC TOPICAL ×2 (05:33→17:30)
[2022-10-09] MEDS: Cholecalciferol (VIT D3) 25 MCG TABLET (1,000 UNITS) PO ×2 (07:48→17:32)
[2022-10-09] MEDS: Cyanocobalamin 500 MCG Tablet 1000 MCG PO ×2 (07:48→17:32)
[2022-10-09] MEDS: Senna/Docusate Sodium 1 Tablet PO ×3 (07:48→17:31)
[2022-10-09] MEDS: Potassium Chloride Oral Tablet 20 MEQ PO (07:48)
[2022-10-09 14:00] VITALS: BP 148/81; PULSE 58; RESP 19; TEMP 36.3; O2SAT 100
[2022-10-09 17:31] VITALS: PULSE 58
[2022-10-09] MEDS: CARBIDOPA/LEVODOPA CR 50/200 Tablet PO (20:48)
[2022-10-09] MEDS: Citalopram 40 MG TABLET PO (20:48)
[2022-10-09] MEDS: MELATONIN 3 MG TABLET 6 MG PO (20:48)
[2022-10-10] MEDS: Carbidopa/Levodopa 25/100 Tablet PO ×3 (06:12→17:12)
[2022-10-10] MEDS: Acetaminophen 500 MG Tablet 1000 MG PO ×3 (06:12→19:56)
[2022-10-10 06:13] VITALS: BP 159/78; PULSE 59
[2022-10-10] MEDS: Metoprolol Tartrate 25 MG Tablet 37.5 MG PO ×2 (06:13→17:48)
[2022-10-10] MEDS: APIXABAN 5 MG TABLET PO ×2 (06:14→17:47)
[2022-10-10] MEDS: Menthol/Lanolin/Calamine/Znox 113 GM Tube 1 APPLIC TOPICAL ×2 (06:14→17:49)
[2022-10-10] MEDS: amLODIPine 10 MG Tablet PO (06:14)
[2022-10-10] MEDS: Losartan Potassium 100 MG Tablet PO (06:14)
[2022-10-10] MEDS: Nystatin Powder 15gm Bottle 1 APPLIC TOPICAL ×2 (06:14→17:50)
[2022-10-10] MEDS: Cyanocobalamin 500 MCG Tablet 1000 MCG PO ×2 (08:17→17:46)
[2022-10-10] MEDS: Senna/Docusate Sodium 1 Tablet PO ×3 (08:17→17:47)
[2022-10-10] MEDS: Potassium Chloride Oral Tablet 20 MEQ PO (08:17)
[2022-10-10] MEDS: Cholecalciferol (VIT D3) 25 MCG TABLET (1,000 UNITS) PO ×2 (08:18→17:47)
--- NOTE | 2022-10-10 08:45 | CASEMGMT ---
Social Work Called Nisha at [facility] to f/u on bed availability for pt to transfer. Nisha stated she does not have a bed today and unsure when she will have one open. Nisha to keep this worke updated. MYRON updated IDT. MYRON contacted dtr to update as well and advised to provide 5 additional days of payment to center aisle cashier's office. Dtr agreed and appreciative of update. Will continue to follow. Misty Ba, [employer]
[2022-10-10 13:56] VITALS: BP 134/65; PULSE 60; RESP 16; TEMP 36.3; O2SAT 96
[2022-10-10 17:48] VITALS: BP 134/65; PULSE 60
[2022-10-10] MEDS: MELATONIN 3 MG TABLET 6 MG PO (19:57)
[2022-10-10] MEDS: Citalopram 40 MG TABLET PO (19:58)
[2022-10-10] MEDS: CARBIDOPA/LEVODOPA CR 50/200 Tablet PO (19:58)
[2022-10-10 20:06] VITALS: O2SAT 95
[2022-10-11] MEDS: Carbidopa/Levodopa 25/100 Tablet PO ×3 (05:23→17:00)
[2022-10-11] MEDS: APIXABAN 5 MG TABLET PO ×2 (05:23→18:06)
[2022-10-11] MEDS: Acetaminophen 500 MG Tablet 1000 MG PO ×3 (05:23→20:08)
[2022-10-11 05:24] VITALS: BP 155/72; PULSE 59
[2022-10-11] MEDS: Metoprolol Tartrate 25 MG Tablet 37.5 MG PO ×2 (05:24→18:06)
[2022-10-11] MEDS: Losartan Potassium 100 MG Tablet PO (05:24)
[2022-10-11] MEDS: amLODIPine 10 MG Tablet PO (05:24)
[2022-10-11] MEDS: Nystatin Powder 15gm Bottle 1 APPLIC TOPICAL ×2 (05:43→18:04)
[2022-10-11] MEDS: Menthol/Lanolin/Calamine/Znox 113 GM Tube 1 APPLIC TOPICAL (05:43)
[2022-10-11] MEDS: Potassium Chloride Oral Tablet 20 MEQ PO (08:35)
[2022-10-11] MEDS: Senna/Docusate Sodium 1 Tablet PO ×2 (08:35→18:06)
[2022-10-11] MEDS: Cholecalciferol (VIT D3) 25 MCG TABLET (1,000 UNITS) PO ×2 (08:35→18:06)
[2022-10-11] MEDS: Cyanocobalamin 500 MCG Tablet 1000 MCG PO ×2 (08:36→18:05)
[2022-10-11 09:13] VITALS: PULSE 67; RESP 16; O2SAT 97
[2022-10-11 10:52] VITALS: BMI 23.9
[2022-10-11 14:00] VITALS: BP 119/64; PULSE 57; RESP 18; TEMP 35.8; O2SAT 92
[2022-10-11 18:06] VITALS: BP 145/62; PULSE 58
[2022-10-11] MEDS: CARBIDOPA/LEVODOPA CR 50/200 Tablet PO (20:07)
[2022-10-11] MEDS: Citalopram 40 MG TABLET PO (20:07)
[2022-10-11] MEDS: MELATONIN 3 MG TABLET 6 MG PO (20:08)
[2022-10-12 06:04] LABS: Absolute Lymphocyte Count 1.77 X10^3/uL (0.83-4.51); Absolute Neutrophil Count 3.3 X10^3/uL (2.0-7.7); Basophil# 0.11 X10^3/uL; Basophil% 1.9 % (0-1); Eosinophil# 0.15 X10^3/uL; Eosinophils% 2.5 % (0-5); Hematocrit 33.9 % (37-47); Hemoglobin 10.8 g/dL (12.0-15.0); Lymphocyte # 1.77 X10^3/ul (0.83-4.51); Mean Corp Hgb Conc 31.9 g/dL (32-36); Mean Corpuscular Hgb 32.4 pg (27.0-32.0); Mean Corpuscular Volume 101.8 fL (81-99); Mean Platelet Vol. 9.3 fl (6.2-12.0); Monocyte# 0.52 X10^3/uL; Monocyte% 8.8 % (0-10); NRBC Flagged by Analyzer 0 % (0-5); Neutrophil # 3.32 X10^3/uL (2.7-7.7); Neutrophil % 56.3 % (47-70); Platelet Count 237 K/mm3 (150-450); RBC Distribution Width CV 14.2 % (11.6-14.6); RBC Distribution Width SD 53.1 fl (35.1-43.9); Red Blood Count 3.33 M/mm3 (4.2-5.4); White Blood Count 5.9 K/mm3 (4.4-11.0)
[2022-10-12] MEDS: Acetaminophen 500 MG Tablet 1000 MG PO ×3 (06:16→22:47)
[2022-10-12] MEDS: Nystatin Powder 15gm Bottle 1 APPLIC TOPICAL ×2 (06:16→18:18)
[2022-10-12 06:17] VITALS: BP 165/50; PULSE 58
[2022-10-12] MEDS: Metoprolol Tartrate 25 MG Tablet 37.5 MG PO ×2 (06:17→18:16)
[2022-10-12] MEDS: APIXABAN 5 MG TABLET PO ×2 (06:17→18:17)
[2022-10-12] MEDS: Carbidopa/Levodopa 25/100 Tablet PO ×3 (06:17→18:17)
[2022-10-12] MEDS: Losartan Potassium 100 MG Tablet PO (06:18)
[2022-10-12] MEDS: amLODIPine 10 MG Tablet PO (06:18)
[2022-10-12 07:07] LABS: Anion Gap 7 (5-15); BUN 18 mg/dL (7-18); Chloride 102 mmol/L (98-107); Creatinine, Serum 0.75 mg/dL (0.55-1.02); EST Glomerular Filtration Rate 80 mL/min (>60); Est Glom Filt Rate - Afr Amer 96 mL/min (>60); Glucose 92 mg/dL (74-106); Potassium 4.1 mmol/L (3.5-5.1); Sodium Level 138 mmol/L (136-145)
[2022-10-12] MEDS: Potassium Chloride Oral Tablet 20 MEQ PO (08:17)
[2022-10-12] MEDS: Cholecalciferol (VIT D3) 25 MCG TABLET (1,000 UNITS) PO ×2 (08:17→18:17)
[2022-10-12] MEDS: Cyanocobalamin 500 MCG Tablet 1000 MCG PO ×2 (08:18→18:17)
[2022-10-12 14:00] VITALS: BP 129/51; PULSE 59; RESP 14; TEMP 35.6; O2SAT 95
[2022-10-12 18:16] VITALS: BP 129/51; PULSE 59
[2022-10-12] MEDS: Senna/Docusate Sodium 1 Tablet PO (18:17)
[2022-10-12] MEDS: Citalopram 40 MG TABLET PO (22:48)
[2022-10-12] MEDS: MELATONIN 3 MG TABLET 6 MG PO (22:48)
[2022-10-12 22:50] VITALS: O2SAT 97
[2022-10-12] MEDS: CARBIDOPA/LEVODOPA CR 50/200 Tablet PO (22:50)
[2022-10-13] MEDS: Carbidopa/Levodopa 25/100 Tablet PO ×3 (05:34→17:06)
[2022-10-13 05:35] VITALS: BP 158/75; PULSE 60
[2022-10-13] MEDS: Acetaminophen 500 MG Tablet 1000 MG PO ×3 (05:35→21:37)
[2022-10-13] MEDS: Metoprolol Tartrate 25 MG Tablet 37.5 MG PO ×2 (05:35→18:05)
[2022-10-13] MEDS: APIXABAN 5 MG TABLET PO ×2 (05:36→18:05)
[2022-10-13] MEDS: amLODIPine 10 MG Tablet PO (05:36)
[2022-10-13] MEDS: Losartan Potassium 100 MG Tablet PO (05:36)
[2022-10-13] MEDS: Menthol/Lanolin/Calamine/Znox 113 GM Tube 1 APPLIC TOPICAL ×2 (05:46→18:07)
[2022-10-13] MEDS: Nystatin Powder 15gm Bottle 1 APPLIC TOPICAL ×2 (05:46→21:37)
[2022-10-13] MEDS: Senna/Docusate Sodium 1 Tablet PO ×2 (08:14→18:07)
[2022-10-13] MEDS: Potassium Chloride Oral Tablet 20 MEQ PO (08:14)
[2022-10-13] MEDS: Cholecalciferol (VIT D3) 25 MCG TABLET (1,000 UNITS) PO ×2 (08:15→18:07)
[2022-10-13] MEDS: Cyanocobalamin 500 MCG Tablet 1000 MCG PO ×2 (08:15→18:06)
[2022-10-13 08:30] VITALS: PULSE 51; RESP 18; O2SAT 98
[2022-10-13 14:00] VITALS: BP 155/65; PULSE 60; RESP 20; TEMP 36.4; O2SAT 97
[2022-10-13 18:05] VITALS: BP 155/65; PULSE 60
[2022-10-13] MEDS: MELATONIN 3 MG TABLET 6 MG PO (21:36)
[2022-10-13] MEDS: CARBIDOPA/LEVODOPA CR 50/200 Tablet PO (21:37)
[2022-10-13] MEDS: Citalopram 40 MG TABLET PO (21:37)
[2022-10-14 05:52] VITALS: BP 162/86; PULSE 61
[2022-10-14] MEDS: Losartan Potassium 100 MG Tablet PO (05:52)
[2022-10-14] MEDS: Metoprolol Tartrate 25 MG Tablet 37.5 MG PO (05:52)
[2022-10-14] MEDS: amLODIPine 10 MG Tablet PO (05:52)
[2022-10-14] MEDS: Carbidopa/Levodopa 25/100 Tablet PO ×2 (05:53→10:53)
[2022-10-14] MEDS: Acetaminophen 500 MG Tablet 1000 MG PO ×2 (05:53→13:34)
[2022-10-14] MEDS: Nystatin Powder 15gm Bottle 1 APPLIC TOPICAL (05:53)
[2022-10-14] MEDS: Menthol/Lanolin/Calamine/Znox 113 GM Tube 1 APPLIC TOPICAL (05:54)
[2022-10-14] MEDS: APIXABAN 5 MG TABLET PO (05:54)
[2022-10-14] MEDS: Cyanocobalamin 500 MCG Tablet 1000 MCG PO (08:38)
[2022-10-14] MEDS: Potassium Chloride Oral Tablet 20 MEQ PO (08:38)
[2022-10-14] MEDS: Senna/Docusate Sodium 1 Tablet PO (08:38)
[2022-10-14] MEDS: Cholecalciferol (VIT D3) 25 MCG TABLET (1,000 UNITS) PO (08:39)
--- NOTE | 2022-10-14 12:51 | CASEMGMT ---
Social Work Received call from [facility] and they have a bed available as soon as today to accept pt. SW contacted dtr to update and inquire about DC date. Dtr agreeable to DC today. SW updated IDT and [facility] and [facility]. Plan: DC 10/14 to [facility] RONNY Garcia
[2022-10-14 13:45] VITALS: PULSE 64; RESP 16; O2SAT 98
[2022-10-14 14:00] VITALS: BP 137/72; PULSE 63; RESP 16; TEMP 36.8; O2SAT 97
== END 2022-10-14 15:45 | disposition hospice, inpatient (51) | DRG 559 ==
PROVIDERS: Admitting Provider Family Medicine Geriatric Medicine; PCP Family Medicine; Visit Provider Family Medicine Geriatric Medicine
DX: S72.002D Fracture of unspecified part of neck of left femur, subsequent encounter for closed fracture with routine healing (principal); I26.99 Other pulmonary embolism without acute cor pulmonale; N39.0 Urinary tract infection, site not specified; E53.8 Deficiency of other specified B group vitamins; E55.9 Vitamin D deficiency, unspecified; B35.4 Tinea corporis; G20 Parkinson's disease; I48.0 Paroxysmal atrial fibrillation; I25.10 Atherosclerotic heart disease of native coronary artery without angina pectoris; I10 Essential (primary) hypertension; W19.XXXD Unspecified fall, subsequent encounter; I25.2 Old myocardial infarction; F41.9 Anxiety disorder, unspecified; E87.6 Hypokalemia; Z79.82 Long term (current) use of aspirin; Z79.01 Long term (current) use of anticoagulants; G47.00 Insomnia, unspecified; Z79.899 Other long term (current) drug therapy; Z96.642 Presence of left artificial hip joint; F32.A Depression, unspecified; Z23 Encounter for immunization
CPT/HCPCS: 36415; 71046; 80048; 85025; 87426; 87811; 90677; 92508; 92526; 92610; 92611; 97110; 97116; 97162; 97166; 97530; 97535; 97802; G0009; A4216

== ENCOUNTER → 2023-05-10 | Outpatient (REF) | payer MEDICARE, SELFPAY ==
[2023-05-11 07:16] LABS: Red Blood Cells-Urine 0 SEEN /hpf (0-5)
[2023-05-11 07:42] LABS: Color, Urine Yellow (Yellow); Glucose, Dipstick Normal (Normal); Ketone-Dipstick 15 mg/dl (Negative); Leukocyte Esterase-Dipstick 100 /ul (Negative); Nitrite-Dipstick Negative (Negative); Occult Blood-Urine Negative /ul (Negative); Protein-Dipstick 15 mg/dl (Negative); Urine Bilirubin Dipstick Negative (Negative); Urine Clarity Sl. Cloudy (Clear); Urine Urobilinogen 1 mg/dl (Normal)
[2023-05-11 08:05] LABS: Squamous Epithelial Cells - UA 0-5 SEEN /hpf (5-10); White Blood Cells 0-5 SEEN /hpf (0-5)
[2023-05-11 08:06] LABS: Bacteria RARE /hpf (None Seen); Mucous, Urine RARE /hpf (<or=2+); Uric Acid Crystals Ur 2+ /hpf (<or=1+)
== END ==
LOC: OLS.ACH 07:15
PROVIDERS: PCP Family Medicine; Visit Provider Internal Medicine
DX: R41.82 Altered mental status, unspecified (principal); F41.9 Anxiety disorder, unspecified
CPT/HCPCS: 81001; 87086; 87088

== ENCOUNTER → 2023-08-09 | Outpatient (REF) | payer MEDICARE, SELFPAY ==
[2023-08-09 07:20] LABS: Color, Urine Yellow (Yellow); Glucose, Dipstick Normal (Normal); Ketone-Dipstick 15 mg/dl (Negative); Leukocyte Esterase-Dipstick 100 /ul (Negative); Nitrite-Dipstick Negative (Negative); Occult Blood-Urine Negative /ul (Negative); Protein-Dipstick 15 mg/dl (Negative); Specific Gravity, Urine 1.015 (1.002-1.030); Urine Bilirubin Dipstick Negative (Negative); Urine Clarity Clear (Clear); Urine Urobilinogen 1 mg/dl (Normal)
[2023-08-09 07:30] LABS: Bacteria 1+ /hpf (None Seen); Mucous, Urine 2+ /hpf (<or=2+); Red Blood Cells-Urine 0-5 SEEN /hpf (0-5); Squamous Epithelial Cells - UA 0-5 SEEN /hpf (5-10); White Blood Cells 0-5 SEEN /hpf (0-5)
== END ==
LOC: OLS.ACH 03:00
PROVIDERS: PCP Family Medicine; Visit Provider Internal Medicine
DX: R39.9 Unspecified symptoms and signs involving the genitourinary system (principal); Z91.81 History of falling
CPT/HCPCS: 81001; 87086; 87088